=== PATIENT | female | born 1950 | race Caucasian/White ===

== ENCOUNTER 2017-12-30 12:06 | Inpatient (IN) | payer MEDICARE, OTHER, SELFPAY ==
[2017-12-17 13:18] VITALS: BP 155/62; PULSE 73; RESP 17; TEMP 37; O2SAT 95; BMI 47.0
[2017-12-17 14:25] LABS: Hematocrit 34.2 % (37-47); Hemoglobin 10.6 g/dl (12.0-15.0); Mean Corpuscular Hgb 26.9 pg (27.0-32.0); Mean Corpuscular Volume 86.8 fL (81-99); Mean Platelet Vol. 8.7 fl (6.2-12.0); Platelet Count 234 K/mm3 (150-450); RBC Distribution Width CV 13.5 % (11.6-14.6); Red Blood Count 3.94 M/mm3 (4.2-5.4); White Blood Count 7.4 K/mm3 (4.4-11.0)
[2017-12-17 14:31] LABS: Scan Indicated on CBC? Y/N NO
[2017-12-17 14:35] LABS: Partial Thromboplast Time 33.2 Seconds (24.1-36.2)
[2017-12-17 14:36] LABS: AST(SGOT) 8 U/L (15-37); Alanine Aminotransfer ALT/SGPT 23 U/L (12-78); Albumin, Serum 3.7 g/dL (3.4-5.0); Alkaline Phosphatase 68 U/L (45-117); Anion Gap 10 (5-15); BUN 28 mg/dL (7-18); BUN/Creat Ratio 26.9 RATIO (10-20); Bilirubin, Direct 0.09 mg/dL (0.00-0.30); Calcium,Total 8.9 mg/dL (8.5-10.1); Chloride 104 mmol/L (98-107); Creatinine, Serum 1.04 mg/dL (0.55-1.02); EST Glomerular Filtration Rate 56 mL/min (>60); Est Glom Filt Rate - Afr Amer 68 mL/min (>60); Estimated Creatinine Clearance 40.95 ml/min; Globulin 3.7 g/dL (2.2-4.2); Glucose 133 mg/dL (70-110); Potassium 4.1 mmol/L (3.5-5.1); Protein, Total 7.4 g/dL (6.4-8.2); Sodium Level 139 mmol/L (136-145)
[2017-12-17 14:52] LABS: Hemoglobin A1c 7.8 % (4.2-6.3)
[2017-12-17 15:00] LABS: International Normalized Ratio 1.1; Prothrombin Time (Protime)PT. 13.5 SECONDS (11.7-14.9)
[2017-12-19 11:12] VITALS: BP 147/90; BMI 48.6
--- NOTE | 2017-12-27 14:39 | CASEMGMT ---
RN CM called to discuss discharge needs for after scheduled surgery. No answer, voicemail left for request to call back and contact information. Pre admission assessment review and plan is to return home after surgery. RN ANITA will follow-up with patient post-op to discuss discharge needs.
[2017-12-30] VITALS (11 sets, daily range): BP systolic 100–153; BP diastolic 51–87; PULSE 65–72; RESP 16–18; TEMP 36.1–37.3; O2SAT 93–99; BMI 47.0
[2017-12-30] MEDS: Celecoxib 200 MG Capsule 400 MG PO (08:15)
[2017-12-30] MEDS: oxyCODONE HCl Cr 10 MG Tablet PO (08:15)
[2017-12-30] MEDS: Acetaminophen 500 MG Tablet 1000 MG PO ×3 (08:15→21:19)
[2017-12-30 08:26] LABS: Bedside Glucose 140 mg/dL (70-110)
[2017-12-30] MEDS: Lactated Ringers 1,000 ML 999 ML IV (08:32)
[2017-12-30] MEDS: Cefazolin 2 GM in 0.9% Normal Saline 100 ML IV (10:18)
--- NOTE | 2017-12-30 12:12 | PCM.OPRPT ---
Report of Operation Date of Procedure: 12/30/17 Pre-Operative Diagnosis: 1: Severe osteoarthritis left knee. 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 They have failed all forms of conservative measures including activity modification, injections, anti-inflammatories, use of assistive device. The patient has pain that affects on a daily basis and prevents him from doing things that they enjoyed. They have elected to undergo the above procedure. The risks of the procedure were discussed at length and their questions were answered. Procedure description: The patient was greeted in the preoperative area. The left knee was then marked with a surgical marker. Patient was then taken to or [address]. They were administered a dose of antibiotics as well as tranexamic acid. Once adequate anesthesia was obtained and airway was secured to placed in supine position on the operating room table. A well-padded tourniquet was placed on the affected extremity. Leg was then prepped and draped in the usual sterile fashion from the knee down. Ioban was used on the skin. Surgical timeout was then performed and confirmed with all present. Six-inch Esmarch was used to examine the limb and tourniquet was then inflated to 250 mmHg. A longitudinal incision was then planned and carried out in the anterior aspect of the knee. The dissection was then carried the length of the incision the extensor mechanism was identified. Standard medial parapatellar arthrotomy was then performed revealing severe eburnation of bone and periarticular osteophytes. There is complete loss of cartilage especially in the medial compartment with varus alignment. Anterior fat pad was removed for visualization purposes and the anterior medial aspect of the tibia was skeletonized for exposure to the knee. The knee was then flexed the patella was inverted. Opening reamer was then used in the femur approximately 1 cm anterior to the attachment of the PCL. The intramedullary valgus wand was then placed in the femur set at 5? of valgus. The distal femoral cutting jig was then applied to the femur with anticipated resection of approximately 8 mm. This was then made with a oscillating saw. The sizing guide was then placed referencing off the posterior condyles and also reference off the epicondylar axis. This was measured and the appropriate size 4-in-1 cutting jig was then applied to the distal femur. Anterior posterior cuts were made followed by the anterior and posterior chamfer cuts. These bony pieces and fragments were removed and placed on the back table. Posterior retractor was then utilized and the tibia was subluxed anteriorly. Extramedullary tibial alignment jig was then applied to the tibia referencing off the medial one third of the tibial tubercle the anterior tibial spine the middle aspect of the tibiotalar joint. Also reference off patient's [place] slope. The tibial cutting jig was then pinned with anticipated resection of 2 mm off of the deficient medial tibial condyle. This cut was made with the oscillating saw. Once this was complete a laminar special education professor was utilized in both medial lateral meniscus were removed and a posterior capsular osteophytes were also removed. Posterior capsule release was performed in the posterior capsule as well as the geniculate arteries are treated with the aqua Sonia. The tibia was incised and the appropriate sized tibial tray was then pinned. The femoral box cutting jig was then applied to the femur and the box was prepared removing a portion of the intercondylar notch. The femoral trial was then placed and the knee was trialed. Full flexion-extension were easily achieved. The knee seemed to balance quite nicely. Any remaining osteophytes were removed at this time. Once this was complete the patella was everted and the Enoch patella reaming device was then utilized the patella was then placed in the appropriate jig and reamer was then used to remove approximately 9 mm of the undersurface of the patella. A soft tissue remaining was in the way was removed and patella trial was then placed listed maintain excellent tracking using the no thumbs technique. The tibial tray at this point was punched to accommodate the fins of the final implant. At this point cement was mixed on the back table. The trial components were removed and the knee was copiously irrigated. Did use a cocktail of injection for postoperative pain control. The final components were then cemented in the standard fashion and excess cement was removed with cement removal tools and patellar clamp is placed in the patella. As the cement had cured in full extension tourniquet was deflated and hemostasis was perfect with Bovie cautery as well as the aqua Manus. Needle is once again trialed with different size polyethylenes to ensure the full range of motion was achieved as well as excellent balancing ligamentously was achieved. The knee was then copiously irrigated.. Final implant was then inserted locking mechanism was engaged and confirmed to be locked. The arthrotomy was then closed with #1 Vicryl aggravate type fashion interrupted. Subcutaneous tissue was closed with 0 Vicryl and surgical helen were placed in the skin. A occlusive silver impregnated dressing was then applied followed by well-padded sterile dressing secured with an Yrn wrap. The patient was taken to the PACU in stable condition. No complications known at this time. Postoperatively we will maintain standard total knee postoperative protocol. Patient's BMI was such that the required additional assistance and additional time as well as more effort in order to perform a successful well aligned total knee arthroplasty. Patient has approximately 2-1/2-3 inches of subcutaneous fat in the suprapatellar region. This made exposure difficult as well as retraction of the soft tissue in order to see the knee during the surgery. In addition because of her size tourniquet was certainly not as effective in terms of stopping bleeding which also complicated the surgery further - Complications none - Admit VTE Documentation VTE Present on Admission: Yes VTE Mechan Device Prophylaxis: SCD's, Thigh High ADRIANE Hose VTE Pharm Prophylaxis ordered?: Yes
[2017-12-30 14:16] LABS: Bedside Glucose 170 mg/dL (70-110)
[2017-12-30] MEDS: Lactated Ringers 1,000 ML 125 ML IV (14:23)
[2017-12-30] MEDS: Aspirin 325 MG Tablet PO (17:24)
[2017-12-30] MEDS: oxyCODONE 5 MG Tablet PO ×2 (17:24→22:45)
[2017-12-30] MEDS: Cefazolin 1 GM/50 ML BAG IV (18:33)
[2017-12-30] MEDS: Senna/Docusate Sodium 1 Tablet 2 TABLET PO (21:19)
[2017-12-31] VITALS (8 sets, daily range): BP systolic 140–182; BP diastolic 55–60; PULSE 72–85; RESP 16–20; TEMP 36.6–37.4; O2SAT 92–98
[2017-12-31] MEDS: Lactated Ringers 1,000 ML 125 ML IV (01:03)
[2017-12-31] MEDS: Cefazolin 1 GM/50 ML BAG IV (01:03)
[2017-12-31] MEDS: oxyCODONE 5 MG Tablet PO ×4 (05:51→20:20)
[2017-12-31] MEDS: Acetaminophen 500 MG Tablet 1000 MG PO ×3 (05:52→22:04)
--- NOTE | 2017-12-31 07:54 | PCM.PN.ORT ---
Subjective: Patient sitting at bedside eating breakfast. Patient states pain is well-managed. Patient denies chest pain, shortness breath, calf pain, nausea vomiting. No other complaints Objective: Dressing is clean dry intact. Vital signs labs within normal limits. Patient is afebrile, neurovascular is otherwise intact. Negative signs and symptoms of DVT. No respiratory distress. - Physical Exam General: Alert, Oriented x3, Cooperative HEENT: PERRLA Oral: Moist Mucosa Neurological: Cranial nerves II-XII grossly intact Psych/Mental Status: Normal Affect, Alert and oriented to time, place, person, mood and affect Vital Signs Temp Pulse Resp BP Pulse Ox 99.3 F H 72 16 153/60 H 93 12/31/17 05:55 12/31/17 05:55 12/31/17 05:55 12/31/17 05:55 12/31/17 07:25 Oxygen Flow Rate 1.5 Oxygen Delivery Method Nasal Cannula Weight: 116.6 kg Body Mass Index (BMI) 47.0 Finger Stick Blood Glucose 170 Intake and Output for Last 24 Hours 12/29/17 12/30/17 12/31/17 23:59 23:59 23:59 Intake Total 1250 / 1250 1489 / 1489 Output Total 300 / 300 Balance 1250 / 1250 1189 / 1189 POC Glucose 12/30/17 12/30/17 14:11 08:08 POC Glucose 170 H 140 H Assessment/Plan Status post left total knee Plan 1. Continue all pain medications as prescribed 2. Begin physical therapy today weight-bear as tolerated with walker 3. Aspirin 325 mg 1 p.o. every 12 hours ?30 days for postop DVT prophylaxis 4. Encourage incentive spirometry 5. Possible discharge to [facility] fourth floor rehab tomorrow
[2017-12-31] MEDS: Aspirin 325 MG Tablet PO ×2 (08:20→17:25)
[2017-12-31] MEDS: Famotidine 20 MG Tablet PO (10:00)
[2017-12-31] MEDS: Furosemide 40 MG Tablet PO (10:00)
[2017-12-31] MEDS: TADALAFIL 20 MG TABLET 40 MG PO (10:01)
[2017-12-31] MEDS: Senna/Docusate Sodium 1 Tablet 2 TABLET PO ×2 (10:01→22:04)
--- NOTE | 2017-12-31 10:11 | CASEMGMT ---
Social Work Note Update by MONSERRAT Morfin - that pt is requesting RU at discharge and they are anticipating discharge tomorrow, 01/01. Placed call to Nay on the RU who will submit to insurance to see if they will approve. Will notify SW once determination is made. Plan: RU pending pre-cert. JOSE ChaudharyW
[2017-12-31 22:16] LABS: Bedside Glucose 357 mg/dL (70-110)
[2017-12-31] MEDS: Losartan Potassium 25 MG Tablet PO (23:00)
[2017-12-31] MEDS: Metoprolol(XL)Succ 25 MG Tablet 12.5 MG PO (23:00)
[2018-01-01] VITALS (8 sets, daily range): BP systolic 119–152; BP diastolic 42–66; PULSE 66–80; RESP 18–20; TEMP 36.7–37.8; O2SAT 90–94
[2018-01-01] MEDS: oxyCODONE 5 MG Tablet PO ×3 (02:23→13:58)
[2018-01-01] MEDS: Acetaminophen 500 MG Tablet 1000 MG PO ×3 (06:32→22:21)
[2018-01-01 06:42] LABS: Bedside Glucose 231 mg/dL (70-110)
[2018-01-01] MEDS: Furosemide 40 MG Tablet PO (08:19)
[2018-01-01] MEDS: TADALAFIL 20 MG TABLET 40 MG PO (08:19)
[2018-01-01] MEDS: Aspirin 325 MG Tablet PO ×2 (08:19→17:39)
[2018-01-01] MEDS: Ketorolac 15 MG/ML Vial IV ×2 (08:20→22:22)
[2018-01-01] MEDS: Famotidine 20 MG Tablet PO (08:20)
[2018-01-01] MEDS: Senna/Docusate Sodium 1 Tablet 2 TABLET PO ×2 (08:20→22:22)
--- NOTE | 2018-01-01 08:56 | CASEMGMT ---
Social Work Note Face to face with pt to discuss discharge plan. Introduced self and role at [facility]. Inform that we are still waiting on pre-cert for RU, but once obtained will have her transferred over. Pt expresses understanding. SW to continue to follow and assist with discharge planning. Plan: RU pending pre-cert. JOSE ChaudharyW
[2018-01-01] MEDS: Losartan Potassium 25 MG Tablet PO (10:11)
[2018-01-01] MEDS: Metoprolol(XL)Succ 25 MG Tablet 12.5 MG PO (10:12)
--- NOTE | 2018-01-01 11:14 | CASEMGMT ---
Social Work Note Placed call to Nay to check on status of pre-cert. At this time it has yet to be obtained. SW to continue to follow and assist with discharge planning. Plan: RU pending pre-cert. JOSE ChaudharyW
[2018-01-01 11:36] LABS: Bedside Glucose 271 mg/dL (70-110)
--- NOTE | 2018-01-01 12:03 | PCM.PN.ORT ---
Subjective: Patient sitting at bedside, pain well managed. Patient has no complaints, denies chest pain, shortness breath, calf pain, vomiting. Patient states she is ready for discharge to [facility] for for rehab. Objective: Dressings clean dry intact. Vital normal limits. Negative signs and symptoms of DVT. - Physical Exam General: Alert, Oriented x3 HEENT: PERRLA Neurological: Cranial nerves II-XII grossly intact Psych/Mental Status: Normal Affect, Alert and oriented to time, place, person, mood and affect Vital Signs Temp Pulse Resp BP Pulse Ox 98.1 F 68 18 151/66 H 93 01/01/18 08:20 01/01/18 10:12 01/01/18 08:20 01/01/18 08:20 01/01/18 08:20 Oxygen Flow Rate 0.5 Oxygen Delivery Method Room Air Weight: 116.6 kg Body Mass Index (BMI) 47.0 Finger Stick Blood Glucose 170 Intake and Output for Last 24 Hours 12/30/17 12/31/17 01/01/18 23:59 23:59 23:59 Intake Total 1250 / 1250 2149 / 2149 700 / 700 Output Total 700 / 700 Balance 1250 / 1250 1449 / 1449 700 / 700 POC Glucose 01/01/18 01/01/18 12/31/17 11:31 06:30 22:07 POC Glucose 271 H 231 H 357 H Assessment/Plan Status post left total knee Hyperglycemia Plan 1. Continue all pain medications as prescribed 2. Continue physical therapy and patient [facility] fourth floor rehab weight-bear as tolerated with walker 3. Aspirin 325 mg 1 p.o. every 12 hours ?30 days for postop DVT prophylaxis 4. Follow-up as scheduled 5. Discharge today
--- NOTE | 2018-01-01 12:06 | PN.ORTHO_ITS ---
Subjective: Patient sitting at bedside, pain well managed. Patient has no complaints, denies chest pain, shortness breath, calf pain, vomiting. Patient states she is ready for discharge to [facility] for for rehab. Objective: Dressings clean dry intact. Vital normal limits. Negative signs and symptoms of DVT. - Physical Exam General: Alert, Oriented x3 HEENT: PERRLA Neurological: Cranial nerves II-XII grossly intact Psych/Mental Status: Normal Affect, Alert and oriented to time, place, person, mood and affect Vital Signs Temp Pulse Resp BP Pulse Ox 98.1 F 68 18 151/66 H 93 01/01/18 08:20 01/01/18 10:12 01/01/18 08:20 01/01/18 08:20 01/01/18 08:20 Oxygen Flow Rate 0.5 Oxygen Delivery Method Room Air Weight: 116.6 kg Body Mass Index (BMI) 47.0 Finger Stick Blood Glucose 170 Intake and Output for Last 24 Hours 12/30/17 12/31/17 01/01/18 23:59 23:59 23:59 Intake Total 1250 / 1250 2149 / 2149 700 / 700 Output Total 700 / 700 Balance 1250 / 1250 1449 / 1449 700 / 700 POC Glucose 01/01/18 01/01/18 12/31/17 11:31 06:30 22:07 POC Glucose 271 H 231 H 357 H Assessment/Plan Status post left total knee Hyperglycemia Plan 1. Continue all pain medications as prescribed 2. Continue physical therapy and patient [facility] fourth floor rehab weight-bear as tolerated with walker 3. Aspirin 325 mg 1 p.o. every 12 hours ?30 days for postop DVT prophylaxis 4. Follow-up as scheduled 5. Discharge today
--- NOTE | 2018-01-01 12:15 | PCM.DC.TKR ---
Discharge Diet: No Restrictions Discharge Activity: May Not Drive, May Shower, Use Walker May shower in (days): 1 Ice area for (Minutes): 20 - each hour while awake. Weight Bearing Status: Weight bearing as tolerated Elevate: Operative Extremity Additional Activity Instructions:: Wear elastic stockings for 2 weeks after your surgery. Call your doctor if your incision/area has: Continuous Slow Oozing, Sudden Increased Bleeding, Increased Pain/ Swelling, Increased Redness, Foul Smelling Discharge Call your doctor if you observe: Fever of 101 or Higher, Coldness, Increased Pain - in extremity, Numbness or Tingling, Change in Color, Calf discomfort, Uncontrolled pain Change Dressing in (Days):: 0 - and daily as needed. Remove Dressing in (days):: 9 Cleanse incision/area with: Soap & Water Allergies/Adverse Reactions: Allergies nitrofurantoin [From Macrobid] Allergy (Severe, Verified 12/17/17 13:06) Anaphylaxis nitrofurantoin macrocrystalline [From Macrobid] Allergy (Severe, Verified 12/17/17 13:06) Anaphylaxis sulfamethoxazole [From Bactrim] Adverse Reaction (Intermediate, Verified 12/17/17 13:06) Hives trimethoprim [From Bactrim] Adverse Reaction (Intermediate, Verified 12/17/17 13:06) Hives Medications to take at Discharge Ferrous Sulfate 325 mg PO BID 07/21/14 Insulin Glargine [Lantus SoloStar Pen] 72 units SC QHS 07/21/14 BuPROPion (XL) [Wellbutrin Xl] 150 mg PO DAILY 05/19/15 Escitalopram Oxalate [Lexapro] 40 mg PO DAILY 05/19/15 Fluticasone/Salmeterol [Advair 250/50 Mcg Diskus] 1 puff INHALATION BID 05/19/15 Fulvestrant [Faslodex] 250 mg IM QMONTH 05/23/15 Pravastatin [Pravachol] 20 mg PO QHS 06/14/16 Losartan Potassium [Cozaar] 25 mg PO DAILY 10/15/16 Omeprazole [Prilosec] 40 mg PO DAILY 04/01/17 liraglutide 0.6 mg/0.1 mL (18 mg/3 mL) subcutaneous pen injector 1.2 mg SC DAILY 30 Days #6 10/29/17 mirabegron ER 50 mg tablet,extended release 24 hr 50 mg PO DAILY 30 Days #30 10/29/17 Albuterol IH (ProAir) [Proair Hfa] 2 puff INHALATION Q4H PRN PRN 12/17/17 Furosemide [Lasix] 40 mg PO DAILY 12/17/17 Metformin HCl [Glucophage] 1,000 mg PO BIDCM 12/17/17 Montelukast [Singulair] 10 mg PO DAILY 12/17/17 Tadalafil [Adcirca] 40 mg PO DAILY 12/17/17 Cranberry Conc/C/Bacill Coag [Cranberry Tablet] 1 each PO DAILY 12/19/17 Lorazepam [Ativan] 1 mg PO TID PRN PRN 12/19/17 Metoprolol Succinate [Toprol Xl] 12.5 mg PO DAILY 12/19/17 Acetaminophen [Tylenol] 1,000 mg PO Q8 #90 tab 01/01/18 Albuterol IH (ProAir) [Proair Hfa] 1 puff INHALATION Q4H PRN PRN inhaler 01/01/18 Aspirin 325 mg PO BIDCM #60 tab 01/01/18 Ferrous Sulfate 325 mg PO BIDCM tablet 01/01/18 Fluticasone/Salmeterol [Advair 250/50 Mcg Diskus] 1 puff INHALATION BID inhaler 01/01/18 Furosemide [Lasix] 40 mg PO DAILY tablet 01/01/18 Insulin Aspart [Novolog Flexpen] See Protocol SC ACHS flexpen 01/01/18 Insulin Detemir [Levemir FlexPen] 72 units SC QHS insuln.pen 01/01/18 Lorazepam [Ativan] 1 mg PO Q8H PRN PRN tablet 01/01/18 Metformin HCl [Glucophage] 1,000 mg PO BIDCM tablet 01/01/18 Metoprolol(XL)Succ [Toprol Xl (Beta Kris)] 12.5 mg PO DAILY tablet 01/01/18 Mirabegron [Myrbetriq] 50 mg PO DAILY tab.er.24h 01/01/18 Montelukast [Singulair] 10 mg PO DAILY@1700 tablet 01/01/18 MorphINE [Ms Contin] 15 mg PO BID 7 Days #30 tab 01/01/18 Oxycodone [Oxyir] 5 - 10 mg PO Q4H PRN PRN 7 Days #30 tab 01/01/18 Pravastatin [Pravachol] 20 mg PO QHS tablet 01/01/18 Senna/Docusate Sodium [Senokot-S] 2 tablet PO BID tablet 01/01/18 Tadalafil [Adcirca] 40 mg PO DAILY tablet 01/01/18 The following prescriptions were given: Oxycodone [Oxyir] 5 - 10 mg PO Q4H PRN PRN 7 Days #30 tab PRN Reason: Mod-Severe Pain (-09/03) Acetaminophen [Tylenol] 1,000 mg PO Q8 #90 tab Aspirin 325 mg PO BIDCM #60 tab MorphINE [Ms Contin] 15 mg PO BID 7 Days #30 tab Primary Care Physician: Lety Seymour [Primary Care Provider] - Please Follow Up With: Norberto Lay DO When: see pink sheet
--- NOTE | 2018-01-01 13:44 | CASEMGMT ---
Medicare Outpatient Observation Notice review with patient. Patient voiced understanding at this time. Patient provided with signed copy and original filed on chart. Patient voiced no concerns or questions at this time.
[2018-01-01] MEDS: Lactated Ringers 1,000 ML 125 ML IV (13:57)
--- NOTE | 2018-01-01 14:45 | CASEMGMT ---
RN ANITA discussed discharge plans with patient. RN ANITA explained that CM is still waiting to hear back regarding pre-cert for rehab unit. Discussed possibility of pre-cert getting denied. MONSERRAT HOWARD discussed with patient other options for discharge disposition including TCU if bed available and pending precert or if she would like to go to a shelter facility. MONSERRAT HOWARD provided patient with list of in-network SNF with patient's insurance. Patient tearful and would like to review list and follow back up with CM. MONSERRAT HOWARD will follow-up with patient by end of day to inquire if patient has additional options for discharge planning.
[2018-01-01 16:56] LABS: Bedside Glucose 238 mg/dL (70-110)
[2018-01-01] MEDS: Montelukast 10 MG Tablet PO (17:40)
[2018-01-01] MEDS: Ferrous Sulfate 325 MG Tablet PO (17:40)
[2018-01-01] MEDS: metFORMIN HCl 1,000 MG Tablet 1000 MG PO (17:40)
[2018-01-01] MEDS: Albuterol 2.5 MG/3 ML VIAL.NEB. INHALATION (19:31)
[2018-01-01] MEDS: Budesonide Respules 0.5 MG/2 ML AMPUL.NEB. INHALATION (19:32)
[2018-01-01] MEDS: LORazepam 1 MG Tablet PO (22:22)
[2018-01-01] MEDS: Pravastatin 20 MG Tablet PO (22:22)
[2018-01-01] MEDS: Escitalopram Oxalate 20 MG Tablet 40 MG PO (22:28)
--- NOTE | 2018-01-01 22:36 | NURSING ---
Pt is confused tonight, she states she is not in the same room she was in, she dosent understand why we moved her. She states she thinks her bags are spread all over the floor and thought a blue chucks on the floor under the polar care was her robe. Pt was upset and crying. Once pt was calmed down she states that she is not confused at home and thinks that the pain medication is what is causing her confusion. She asked to not get the pain meds anymore.
[2018-01-01 22:37] LABS: Bedside Glucose 291 mg/dL (70-110)
[2018-01-02 06:18] VITALS: BP 141/52; PULSE 66; RESP 16; TEMP 37.1; O2SAT 93
[2018-01-02] MEDS: Acetaminophen 500 MG Tablet 1000 MG PO (06:22)
[2018-01-02 06:37] LABS: Bedside Glucose 169 mg/dL (70-110)
[2018-01-02 07:38] VITALS: PULSE 78; RESP 18; O2SAT 95
[2018-01-02] MEDS: Albuterol 2.5 MG/3 ML VIAL.NEB. INHALATION (07:38)
[2018-01-02] MEDS: Budesonide Respules 0.5 MG/2 ML AMPUL.NEB. INHALATION (07:38)
[2018-01-02 07:53] VITALS: PULSE 66
[2018-01-02] MEDS: LORazepam 1 MG Tablet PO (07:53)
[2018-01-02] MEDS: Furosemide 40 MG Tablet PO (07:53)
[2018-01-02] MEDS: Metoprolol(XL)Succ 25 MG Tablet 12.5 MG PO (07:53)
[2018-01-02] MEDS: 0.9% NaCl Peripheral Flush Adult/Peds IV (07:53)
[2018-01-02] MEDS: Ondansetron 4 MG/2 ML Vial IV (07:53)
[2018-01-02] MEDS: TADALAFIL 20 MG TABLET 40 MG PO (07:54)
--- NOTE | 2018-01-02 08:41 | CASEMGMT ---
Social Work Note Call from Nay on RU stating that pre-cert was obtained. Notified headliner installer, Nury, who obtained a verbal from Joon Rand PA-C. Notified bedside RN, Kj, that pt is able to d/c to RU once time coordinated between him and nursing staff on RU. No additional needs at this time. Plan: RU for continued therapy. Lisandra Eastman, PLUG SHAPER HAND, CRIMP SETTER
[2018-01-02] MEDS: Aspirin 325 MG Tablet PO (09:27)
[2018-01-02] MEDS: metFORMIN HCl 1,000 MG Tablet 1000 MG PO (09:27)
[2018-01-02] MEDS: Ferrous Sulfate 325 MG Tablet PO (09:28)
[2018-01-02] MEDS: Losartan Potassium 25 MG Tablet PO (09:28)
[2018-01-02] MEDS: Famotidine 20 MG Tablet PO (09:29)
[2018-01-02] MEDS: Escitalopram Oxalate 20 MG Tablet 40 MG PO (09:29)
[2018-01-02] MEDS: Mirabegron 50 MG TAB.ER.24H PO (09:29)
[2018-01-02] MEDS: Senna/Docusate Sodium 1 Tablet 2 TABLET PO (09:35)
[2018-01-02 09:39] VITALS: BP 135/49; PULSE 75; RESP 16; TEMP 36.7; O2SAT 93
--- NOTE | 2018-01-02 10:14 | PCM.HP.STD ---
History of Present Illness Date of Admission: 01/02/18 Chief Complaint: left knee pain The patient is a 67 year old right handed female presents to the rehab unit with debility after left tkr performed 12/30/[address] lozoya, uncomplicated, no other complications or gi /gu complaints, last bm was 4days. pain is currently controlled, lives alone in an apartment, no steps. close friend lives in [place]. reports history of breast cancer metastatic to lungs, no other mets, currently kept controlled with hormone injections. no presents to rehab with debility, plan to improve function so she can return to her previous level of independence. Past Medical History Past Medical History (Chronic Problems): Chronic Problems (Last Reviewed 11/21/17 @ 11:28 by Sherly Edwards) Metastatic carcinoma to lung (Chronic) Cancer of left breast, stage 4 (Chronic) Diabetes mellitus type II, controlled (Chronic) Fibromyalgia (Chronic) Metastasis to lung (Chronic) Pulmonary hypertension (Chronic) Hypertension (Chronic) Osteoarthritis (Chronic) History of DVT (deep vein thrombosis) (Chronic) LOLY (obstructive sleep apnea) (Chronic) Morbid obesity with BMI of 50.0-59.9, adult (Chronic) COPD (chronic obstructive pulmonary disease) (Chronic) Hypomagnesemia (Chronic) Chronic anemia (Chronic) CAD (coronary artery disease) (Chronic) S/P PTCA (percutaneous transluminal coronary angioplasty) (Chronic ~2016) [place]- Circumflex HLD (hyperlipidemia) (Chronic) Diastolic CHF, chronic (Chronic) Allergies nitrofurantoin [From Macrobid] Allergy (Severe, Verified 12/17/17 13:06) Anaphylaxis nitrofurantoin macrocrystalline [From Macrobid] Allergy (Severe, Verified 12/17/17 13:06) Anaphylaxis sulfamethoxazole [From Bactrim] Adverse Reaction (Intermediate, Verified 12/17/17 13:06) Hives trimethoprim [From Bactrim] Adverse Reaction (Intermediate, Verified 12/17/17 13:06) Hives Home Medications: Ambulatory Orders Medication Instructions Recorded Ferrous Sulfate 325 mg PO BID 07/21/14 Insulin Glargine [Lantus SoloStar 72 units SC QHS 07/21/14 Pen] BuPROPion (XL) [Wellbutrin Xl] 150 mg PO DAILY 05/19/15 Escitalopram Oxalate [Lexapro] 40 mg PO DAILY 05/19/15 Fluticasone/Salmeterol [Advair 1 puff INHALATION BID 05/19/15 250/50 Mcg Diskus] Fulvestrant [Faslodex] 250 mg IM QMONTH MDD takes on 05/23/15 of each month Pravastatin [Pravachol] 20 mg PO QHS 06/14/16 Losartan Potassium [Cozaar] 25 mg PO DAILY 10/15/16 Omeprazole [Prilosec] 40 mg PO DAILY 04/01/17 liraglutide 0.6 mg/0.1 mL (18 mg/3 1.2 mg SC DAILY 30 Days #6 10/29/17 mL) subcutaneous pen injector mirabegron ER 50 mg 50 mg PO DAILY 30 Days #30 10/29/17 tablet,extended release 24 hr Albuterol IH (ProAir) [Proair Hfa] 2 puff INHALATION Q4H PRN PRN 12/17/17 Furosemide [Lasix] 40 mg PO DAILY 12/17/17 Metformin HCl [Glucophage] 1,000 mg PO BIDCM 12/17/17 Montelukast [Singulair] 10 mg PO DAILY 12/17/17 Tadalafil [Adcirca] 40 mg PO DAILY 12/17/17 Cranberry Conc/C/Bacill Coag 1 each PO DAILY 12/19/17 [Cranberry Tablet] Lorazepam [Ativan] 1 mg PO TID PRN PRN 12/19/17 Metoprolol Succinate [Toprol Xl] 12.5 mg PO DAILY 12/19/17 Acetaminophen [Tylenol] 1,000 mg PO Q8 #90 tab 01/01/18 Albuterol IH (ProAir) [Proair Hfa] 1 puff INHALATION Q4H PRN PRN 01/01/18 inhaler Aspirin 325 mg PO BIDCM #60 tab 01/01/18 Ferrous Sulfate 325 mg PO BIDCM tablet 01/01/18 Fluticasone/Salmeterol [Advair 1 puff INHALATION BID inhaler 01/01/18 250/50 Mcg Diskus] Furosemide [Lasix] 40 mg PO DAILY tablet 01/01/18 Insulin Aspart [Novolog Flexpen] See Protocol SC ACHS flexpen 01/01/18 Insulin Detemir [Levemir FlexPen] 72 units SC QHS insuln.pen 01/01/18 Lorazepam [Ativan] 1 mg PO Q8H PRN PRN tablet 01/01/18 Metformin HCl [Glucophage] 1,000 mg PO BIDCM tablet 01/01/18 Metoprolol(XL)Succ [Toprol Xl 12.5 mg PO DAILY tablet 01/01/18 (Beta Kris)] Mirabegron [Myrbetriq] 50 mg PO DAILY tab.er.24h 01/01/18 Montelukast [Singulair] 10 mg PO DAILY@1700 tablet 01/01/18 MorphINE [Ms Contin] 15 mg PO BID 7 Days #30 tab 01/01/18 Oxycodone [Oxyir] 5 - 10 mg PO Q4H PRN PRN 7 Days 01/01/18 #30 tab Pravastatin [Pravachol] 20 mg PO QHS tablet 01/01/18 Senna/Docusate Sodium [Senokot-S] 2 tablet PO BID tablet 01/01/18 Tadalafil [Adcirca] 40 mg PO DAILY tablet 01/01/18 Surgical History: angioplasty Psychiatric History: Anxiety, Depression Smoking Status: Never smoker - *Family History Maternal History Items: No pertinent history Paternal History Items: No pertinent history Review of Systems Constitutional: Denies: Chills, Fever, Weight Change HEENT: Denies: Head Aches, Sinus Congestion, Sinus Drainage Cardiovascular: Denies: Chest Pain, Palpitations Respiratory: Denies: Cough, Shortness of breath at rest, Sputum production Gastrointestinal: Denies: Abdominal Pain, Nausea, Vomiting Genitourinary: Denies: Dysuria Musculoskeletal: Denies: Joint Pain, Joint Tenderness Skin: Denies: Rash, Wounds Neurological: Denies: Numbness, Tingling, Focal weakness Psychiatric: Denies: Anxiety, Depression, Homicidal Ideations, Suicidal Ideations Hematologic/ Lymphatic: Denies: Easy Bruising, Easy Bleeding VTE Information - Inpt Only VTE Present on Admission: Yes VTE Mechan Device Prophylaxis: SCD's - Physical Exam General: Alert, Oriented x3, Cooperative HEENT: Atraumatic, PERRLA, EOMI, Normocephalic Neck: Supple, No JVD, Negative Carotid Bruits Lungs: Clear to auscultation, Normal air movement Cardiovascular: Regular rate, No murmurs Abdomen: Bowel Sounds Present, Soft, Non Tender Extremities: No edema, Capillary Refill Less than 3 Seconds Skin: No rashes, No breakdown Musculoskeletal: No Tenderness to Palpation of Joints or Extremities - left knee pain Neurological: Cranial nerves II-XII grossly intact Psych/Mental Status: Normal Affect, Appropriate Vital Signs Temp Pulse Resp BP Pulse Ox 36.7 C 75 16 135/49 H 93 01/02/18 09:39 01/02/18 09:39 01/02/18 09:39 01/02/18 09:39 01/02/18 09:39 Oxygen Flow Rate 0.5 Oxygen Delivery Method Room Air Weight: 116.6 kg Body Mass Index (BMI) 47.0 Finger Stick Blood Glucose 170 Intake and Output for Last 24 Hours 12/31/17 01/01/18 01/02/18 23:59 23:59 23:59 Intake Total 2149 / 2149 700 / 700 Output Total 700 / 700 Balance 1449 / 1449 700 / 700 POC Glucose 01/02/18 01/01/18 01/01/18 06:21 21:56 16:51 POC Glucose 169 H 291 H 238 H 01/01/18 11:31 POC Glucose 271 H Current Medications Acetaminophen 1,000 mg 12/30/17 14:00 01/02/18 06:22 Tylenol PO 1,000 mg Q8 DAX Administration Albuterol Sulfate 2.5 mg 01/01/18 12:50 01/02/18 07:38 Ventolin Aerosols INHALATION 2.5 mg Q6HWA.RT DAX Administration Aspirin 325 mg 12/30/17 17:00 01/02/18 09:27 Aspirin PO 325 mg BIDCM DAX Administration Budesonide 0.5 mg 01/01/18 12:50 01/02/18 07:38 Pulmicort Aerosol INHALATION 0.5 mg Q12H.RT DAX Administration Bupropion HCl 150 mg 01/02/18 10:00 01/02/18 09:29 Wellbutrin Xl PO 150 mg DAILY DAX Administration Escitalopram Oxalate 40 mg 01/02/18 10:00 01/02/18 09:29 Lexapro PO 40 mg DAILY DAX Administration Famotidine 20 mg 12/31/17 10:00 01/02/18 09:29 Pepcid PO 20 mg DAILY DAX Administration Ferrous Sulfate 325 mg 01/01/18 17:00 01/02/18 09:28 Ferrous Sulfate PO 325 mg BIDCM DAX Administration Furosemide 40 mg 12/31/17 10:00 01/02/18 07:53 Lasix PO 40 mg DAILY [facility] Administration Insulin Aspart 0 units 01/01/18 16:00 01/02/18 06:22 Novolog Flexpen ([facility]) SC 1 u ACHS DAX Administration Protocol Insulin Detemir 72 units 12/31/17 23:00 01/01/18 22:22 Levemir ([facility]) SC 72 u QHS [facility] Administration Ketorolac Tromethamine 15 mg 12/30/17 18:20 01/01/18 22:22 Toradol IV 15 mg Q6H PRN PRN Administration MILD-MOD PAIN (1-5/10) Lorazepam 1 mg 01/01/18 11:12 01/02/18 07:53 Ativan PO 1 mg Q8H PRN PRN Administration ANXIETY Losartan Potassium 25 mg 01/01/18 10:00 01/02/18 09:28 Cozaar PO 25 mg DAILY [facility] Administration Metformin HCl 1,000 mg 01/01/18 17:00 01/02/18 09:27 Glucophage PO 1,000 mg BIDCM [facility] Administration Metoprolol Succinate 12.5 mg 01/01/18 10:00 01/02/18 07:53 Toprol Xl (Beta Kris) PO 12.5 mg DAILY [facility] Administration Montelukast Sodium 10 mg 01/01/18 17:00 01/01/18 17:40 Singulair PO 10 mg DAILY@1700 [facility] Administration Morphine Sulfate 15 mg 12/30/17 22:00 01/02/18 09:38 Ms Contin PO Not Given BID [facility] Non-Formulary Medication 1.2 mg 01/01/18 10:00 Liraglutide SC DAILY [facility] Ondansetron HCl 4 mg 12/30/17 12:06 01/02/18 07:53 Zofran IV 4 mg Q8H PRN PRN Administration NAUSEA Oxycodone HCl 5 - 10 mg 12/30/17 12:06 01/01/18 13:58 Oxyir PO 10 mg Q4H PRN PRN Administration MOD-SEVERE PAIN (4-10/10) Pravastatin Sodium 20 mg 01/01/18 22:00 01/01/18 22:22 Pravachol PO 20 mg QHS [facility] Administration Promethazine HCl 12.5 mg 12/30/17 12:06 Phenergan (Ll) IM Q6H PRN PRN NAUSEA/VOMITING Protocol Senna/Docusate Sodium 2 tablet 12/30/17 22:00 01/02/18 09:35 Senokot-S, Sharda-Colace PO 2 tablet BID [facility] Administration Sodium Chloride 5 - 30 ml 12/30/17 08:17 01/02/18 07:53 IV 10 ml UD PRN Administration SALINE FLUSH Tadalafil 40 mg 12/31/17 10:00 01/02/18 07:54 Adcirca PO 40 mg DAILY [facility] Administration Assessment/Plan debility s/p left tkr, previously functionally independent, goal of rehab is mormon of functional independence. complicated by other medical issues including htn, dm, and metastatic breast cancer pt for gait and balance ot for adls prn analagesics dvt prophylaxis: scds and asa per ortho recs bowel protocol dm: levemir qhs and ssi bp control metastatic breast ca, follows with dr maddox in [place]. continue current hormonal rx
--- NOTE | 2018-01-02 10:26 | HP.PCM_ITS ---
History of Present Illness Date of Admission: 01/02/18 Chief Complaint: left knee pain The patient is a 67 year old right handed female presents to the rehab unit with debility after left tkr performed 12/30/[address] lozoya, uncomplicated, no other complications or gi /gu complaints, last bm was 4days. pain is currently controlled, lives alone in an apartment, no steps. close friend lives in [place]. reports history of breast cancer metastatic to lungs, no other mets, currently kept controlled with hormone injections. no presents to rehab with debility, plan to improve function so she can return to her previous level of independence. Past Medical History Past Medical History (Chronic Problems): Chronic Problems (Last Reviewed 11/21/17 @ 11:28 by Sherly Edwards) Metastatic carcinoma to lung (Chronic) Cancer of left breast, stage 4 (Chronic) Diabetes mellitus type II, controlled (Chronic) Fibromyalgia (Chronic) Metastasis to lung (Chronic) Pulmonary hypertension (Chronic) Hypertension (Chronic) Osteoarthritis (Chronic) History of DVT (deep vein thrombosis) (Chronic) LOLY (obstructive sleep apnea) (Chronic) Morbid obesity with BMI of 50.0-59.9, adult (Chronic) COPD (chronic obstructive pulmonary disease) (Chronic) Hypomagnesemia (Chronic) Chronic anemia (Chronic) CAD (coronary artery disease) (Chronic) S/P PTCA (percutaneous transluminal coronary angioplasty) (Chronic ~2016) [place]- Circumflex HLD (hyperlipidemia) (Chronic) Diastolic CHF, chronic (Chronic) Allergies nitrofurantoin [From Macrobid] Allergy (Severe, Verified 12/17/17 13:06) Anaphylaxis nitrofurantoin macrocrystalline [From Macrobid] Allergy (Severe, Verified 13:06) Anaphylaxis sulfamethoxazole [From Bactrim] Adverse Reaction (Intermediate, Verified 13:06) Hives trimethoprim [From Bactrim] Adverse Reaction (Intermediate, Verified 12/17/17 13 :06) Hives Home Medications: Ambulatory Orders Medication Instructions Recorded Ferrous Sulfate 325 mg PO BID 07/21/14 Insulin Glargine [Lantus SoloStar 72 units SC QHS 07/21/14 Pen] BuPROPion (XL) [Wellbutrin Xl] 150 mg PO DAILY 05/19/15 Escitalopram Oxalate [Lexapro] 40 mg PO DAILY 05/19/15 Fluticasone/Salmeterol [Advair 1 puff INHALATION BID 05/19/15 250/50 Mcg Diskus] Fulvestrant [Faslodex] 250 mg IM QMONTH MDD takes on 05/23/15 of each month Pravastatin [Pravachol] 20 mg PO QHS 06/14/16 Losartan Potassium [Cozaar] 25 mg PO DAILY 10/15/16 Omeprazole [Prilosec] 40 mg PO DAILY 04/01/17 liraglutide 0.6 mg/0.1 mL (18 mg/3 1.2 mg SC DAILY 30 Days #6 10/29/17 mL) subcutaneous pen injector mirabegron ER 50 mg 50 mg PO DAILY 30 Days #30 10/29/17 tablet,extended release 24 hr Albuterol IH (ProAir) [Proair Hfa] 2 puff INHALATION Q4H PRN PRN 12/17/17 Furosemide [Lasix] 40 mg PO DAILY 12/17/17 Metformin HCl [Glucophage] 1,000 mg PO BIDCM 12/17/17 Montelukast [Singulair] 10 mg PO DAILY 12/17/17 Tadalafil [Adcirca] 40 mg PO DAILY 12/17/17 Cranberry Conc/C/Bacill Coag 1 each PO DAILY 12/19/17 [Cranberry Tablet] Lorazepam [Ativan] 1 mg PO TID PRN PRN 12/19/17 Metoprolol Succinate [Toprol Xl] 12.5 mg PO DAILY 12/19/17 Acetaminophen [Tylenol] 1,000 mg PO Q8 #90 tab 01/01/18 Albuterol IH (ProAir) [Proair Hfa] 1 puff INHALATION Q4H PRN PRN 01/01/18 inhaler Aspirin 325 mg PO BIDCM #60 tab 01/01/18 Ferrous Sulfate 325 mg PO BIDCM tablet 01/01/18 Fluticasone/Salmeterol [Advair 1 puff INHALATION BID inhaler 01/01/18 250/50 Mcg Diskus] Furosemide [Lasix] 40 mg PO DAILY tablet 01/01/18 Insulin Aspart [Novolog Flexpen] See Protocol SC ACHS flexpen 01/01/18 Insulin Detemir [Levemir FlexPen] 72 units SC QHS insuln.pen 01/01/18 Lorazepam [Ativan] 1 mg PO Q8H PRN PRN tablet 01/01/18 Metformin HCl [Glucophage] 1,000 mg PO BIDCM tablet 01/01/18 Metoprolol(XL)Succ [Toprol Xl 12.5 mg PO DAILY tablet 01/01/18 (Beta Kris)] Mirabegron [Myrbetriq] 50 mg PO DAILY tab.er.24h 01/01/18 Montelukast [Singulair] 10 mg PO DAILY@1700 tablet 01/01/18 MorphINE [Ms Contin] 15 mg PO BID 7 Days #30 tab 01/01/18 Oxycodone [Oxyir] 5 - 10 mg PO Q4H PRN PRN 7 Days 01/01/18 #30 tab Pravastatin [Pravachol] 20 mg PO QHS tablet 01/01/18 Senna/Docusate Sodium [Senokot-S] 2 tablet PO BID tablet 01/01/18 Tadalafil [Adcirca] 40 mg PO DAILY tablet 01/01/18 Surgical History: angioplasty Psychiatric History: Anxiety, Depression Smoking Status: Never smoker - *Family History Maternal History Items: No pertinent history Paternal History Items: No pertinent history Review of Systems Constitutional: Denies: Chills, Fever, Weight Change HEENT: Denies: Head Aches, Sinus Congestion, Sinus Drainage Cardiovascular: Denies: Chest Pain, Palpitations Respiratory: Denies: Cough, Shortness of breath at rest, Sputum production Gastrointestinal: Denies: Abdominal Pain, Nausea, Vomiting Genitourinary: Denies: Dysuria Musculoskeletal: Denies: Joint Pain, Joint Tenderness Skin: Denies: Rash, Wounds Neurological: Denies: Numbness, Tingling, Focal weakness Psychiatric: Denies: Anxiety, Depression, Homicidal Ideations, Suicidal Ideations Hematologic/ Lymphatic: Denies: Easy Bruising, Easy Bleeding VTE Information - Inpt Only VTE Present on Admission: Yes VTE Mechan Device Prophylaxis: SCD's - Physical Exam General: Alert, Oriented x3, Cooperative HEENT: Atraumatic, PERRLA, EOMI, Normocephalic Neck: Supple, No JVD, Negative Carotid Bruits Lungs: Clear to auscultation, Normal air movement Cardiovascular: Regular rate, No murmurs Abdomen: Bowel Sounds Present, Soft, Non Tender Extremities: No edema, Capillary Refill Less than 3 Seconds Skin: No rashes, No breakdown Musculoskeletal: No Tenderness to Palpation of Joints or Extremities - left knee pain Neurological: Cranial nerves II-XII grossly intact Psych/Mental Status: Normal Affect, Appropriate Vital Signs Temp Pulse Resp BP Pulse Ox 36.7 C 75 16 135/49 H 93 01/02/18 09:39 01/02/18 09:39 01/02/18 09:39 01/02/18 09:39 01/02/18 09:39 Oxygen Flow Rate 0.5 Oxygen Delivery Method Room Air Weight: 116.6 kg Body Mass Index (BMI) 47.0 Finger Stick Blood Glucose 170 Intake and Output for Last 24 Hours 12/31/17 01/01/18 01/02/18 23:59 23:59 23:59 Intake Total 2149 / 2149 700 / 700 Output Total 700 / 700 Balance 1449 / 1449 700 / 700 POC Glucose 01/02/18 01/01/18 01/01/18 06:21 21:56 16:51 POC Glucose 169 H 291 H 238 H 01/01/18 11:31 POC Glucose 271 H Current Medications Acetaminophen 1,000 mg 12/30/17 14:00 01/02/18 06:22 Tylenol PO 1,000 mg Q8 DAX Administration Albuterol Sulfate 2.5 mg 01/01/18 12:50 01/02/18 07:38 Ventolin Aerosols INHALATION 2.5 mg Q6HWA.RT [facility]AX Administration Aspirin 325 mg 12/30/17 17:00 01/02/18 09:27 Aspirin PO 325 mg BIDCM [facility] Administration Budesonide 0.5 mg 01/01/18 12:50 01/02/18 07:38 Pulmicort Aerosol INHALATION 0.5 mg Q12H.RT [facility]AX Administration Bupropion HCl 150 mg 01/02/18 10:00 01/02/18 09:29 Wellbutrin Xl PO 150 mg DAILY [facility] Administration Escitalopram Oxalate 40 mg 01/02/18 10:00 01/02/18 09:29 Lexapro PO 40 mg DAILY [facility] Administration Famotidine 20 mg 12/31/17 10:00 01/02/18 09:29 Pepcid PO 20 mg DAILY [facility] Administration Ferrous Sulfate 325 mg 01/01/18 17:00 01/02/18 09:28 Ferrous Sulfate PO 325 mg BIDCM [facility] Administration Furosemide 40 mg 12/31/17 10:00 01/02/18 07:53 Lasix PO 40 mg DAILY [facility] Administration Insulin Aspart 0 units 01/01/18 16:00 01/02/18 06:22 Novolog Flexpen ([facility]) SC 1 u ACHS DAX Administration Protocol Insulin Detemir 72 units 12/31/17 23:00 01/01/18 22:22 Levemir ([facility]) SC 72 u QHS [facility] Administration Ketorolac Tromethamine 15 mg 12/30/17 18:20 01/01/18 22:22 Toradol IV 15 mg Q6H PRN PRN Administration MILD-MOD PAIN (1-5/10) Lorazepam 1 mg 01/01/18 11:12 01/02/18 07:53 Ativan PO 1 mg Q8H PRN PRN Administration ANXIETY Losartan Potassium 25 mg 01/01/18 10:00 01/02/18 09:28 Cozaar PO 25 mg DAILY [facility] Administration Metformin HCl 1,000 mg 01/01/18 17:00 01/02/18 09:27 Glucophage PO 1,000 mg BIDCM [facility] Administration Metoprolol Succinate 12.5 mg 01/01/18 10:00 01/02/18 07:53 Toprol Xl (Beta Kris) PO 12.5 mg DAILY [facility] Administration Montelukast Sodium 10 mg 01/01/18 17:00 01/01/18 17:40 Singulair PO 10 mg DAILY@1700 [facility] Administration Morphine Sulfate 15 mg 12/30/17 22:00 01/02/18 09:38 Ms Contin PO Not Given BID [facility] Non-Formulary Medication 1.2 mg 01/01/18 10:00 Liraglutide SC DAILY [facility] Ondansetron HCl 4 mg 12/30/17 12:06 01/02/18 07:53 Zofran IV 4 mg Q8H PRN PRN Administration NAUSEA Oxycodone HCl 5 - 10 mg 12/30/17 12:06 01/01/18 13:58 Oxyir PO 10 mg Q4H PRN PRN Administration MOD-SEVERE PAIN (4-10/10) Pravastatin Sodium 20 mg 01/01/18 22:00 01/01/18 22:22 Pravachol PO 20 mg QHS [facility] Administration Promethazine HCl 12.5 mg 12/30/17 12:06 Phenergan (Ll) IM Q6H PRN PRN NAUSEA/VOMITING Protocol Senna/Docusate Sodium 2 tablet 12/30/17 22:00 01/02/18 09:35 Senokot-S, Sharda-Colace PO 2 tablet BID [facility] Administration Sodium Chloride 5 - 30 ml 12/30/17 08:17 01/02/18 07:53 IV 10 ml UD PRN Administration SALINE FLUSH Tadalafil 40 mg 12/31/17 10:00 01/02/18 07:54 Adcirca PO 40 mg DAILY [facility] Administration Assessment/Plan debility s/p left tkr, previously functionally independent, goal of rehab is gnosticism of functional independence. complicated by other medical issues including htn, dm, and metastatic breast cancer * pt for gait and balance * ot for adls * prn analagesics * dvt prophylaxis: scds and asa per ortho recs * bowel protocol * dm: levemir qhs and ssi * bp control * metastatic breast ca, follows with dr maddox in [place]. continue current hormonal rx
--- NOTE | 2018-01-02 10:26 | PCM.RU.PYE ---
Admission Information Status Changes from Prescreening?: No changes Identified Actual Problem List:: Skin Intergrity, Pain, ALteration in Cmfrt, Cognitve Impr/Memory Loss, Bowel, Constipation, Mobility Impaired, Self Care Deficit, Diabetes, Hyperglycemia, BP, Hypertension, Ineffect.D/C Plan r/t Psy Potential Problem List:: DVT, Bleeding, Infection, UTI, Aspiration, Falls, Skin Integrity, Depression Risk of Complications DVT: LMWH, ADRIANE Hose, Sequential Compression Device Bleeding: Monitor Lab Values, Nursing to Teach Precautions for anti-coagulation therapy., Wound, if applicable, to be assessed every shift., Stroke patients assessed for lethargy or change in status. Infection: Clinical Staff to Monitor for S/S of infection:, S/S of infection include fever, redness, warmth, etc. Urinary Tract Infection: Monitor for frequency, burning, discomfort, or incontinence., Nursing will obtain urine sample for urinalysis and C&S when ordered. Aspiration: Clinical staff will monitor for coughing, drooling, congestion., Speech will evaluate swallowing and dsyphasia., Nursing will monitor patient swallowing during meals. Falls: Patient will be evaluated for Fall Precautions, Patient will be placed on Fall Precautions as indicated per protocol. Skin Breakdown: Nursing will assess skin daily using assessment tool., Nursing will place on Skin Breakdown Precautions as indicated. Pain: Clinical staff will assess patient's pain level per protocol., Medications will be given, if needed, and the pain level reassessed., Other methods: Massage, distraction, decrease stimulus, etc. used PRN. Plan of Care Patient requires physician specializing in physical medicine and rehab oversight to provide close medical supervision of rehab issues including: Pain Management, Sleep Problems, Bowel and Bladder, Medical and co-morbidity Management, DVT prophylaxis, Rehabilitation Leadership, Coordination of treatment team Patient needs Physical Therapy: For a minimum of 1 hour, At least 5 out of 7 days Patient needs Physical Therapy to improve:: Mobility, Mobility, Mobility, Strengthening, Transfers, Stretching, ROM, Endurance, Stairs, Gait, Balance Patient needs Occupational Therapy: For a minimum of 1 hour, At least 5 out of 7 days Patient needs Occupational Therapy to improve ADL's incl.: Eating, Grooming, Bathing, Dressing, Toileting, Toilet transfers, Community Reintegration, Higher functioning activities, Household tasks, Adaptive Equipment, Splinting, Other activities as determined Patient requires 24/7 Rehabilitation Nursing for: Pain Issues, Identifying and preventing risk factors, Monitoring and reporting current medical conditions, Assisting with ambulation, transfer, and all ADL's, Teaching patients about disease process and medications, Family teaching, Providing safe environment, Bowel and Bladder Issues, Skin integrity, Medication Management Patient needs [place] Molding Machine Tender/ Case Management for: Discharge Planning, Arranging Home Equipment or Services, Family Interventions Patient needs Dietary and Nutrition Services for: Adequate Nutrition, Nutritional Supplements, Nutritional Education Goals Patient will remain: free from falls, or injury at time of discharge. Patient will perform bed mobility at: MOD I level of assist. Patient will complete transfers from bed to chair at: MOD I level of assist. Patient will ambulate: 100 feet, with MOD I assist, with LRD Patient will complete upper body dressing at: MOD I level of assist. Patient will complete lower body dressing at: MOD I level of assist. Patient will complete toileting at: MOD I level of assist. Patient will perform bathing at: MOD I level of assist. Patient will complete grooming at: MOD I level of assist. Patient will complete home management skills at: MOD I level of assist. Patient will achieve: 12 stairs, at MOD I assist Patient will have pain level of: of 3 or less Patient's skin will: remain intact, free from infection. Patient will receive: adequate nutrition. Discharge Planning Pt Prognosis for Sig. Practical Improv. w/in Reasonable Time: Good Anticipated D/C Destination: Home with Outpt Therapy Was Preadmission Assessment Accurate?: Yes
== END 2018-01-02 10:35 | DRG 470 ==
PROVIDERS: Anesthesiology; Admitting Provider Orthopaedic Surgery; Family Provider Nurse Practitioner; PCP Nurse Practitioner; Visit Provider Orthopaedic Surgery
PROC: 0SRD0J9 Replacement of Left Knee Joint with Synthetic Substitute, Cemented, Open Approach (ICD-10-PCS; CPT 27447; principal; 2017-12-30 09:20)
DX: M17.12 Unilateral primary osteoarthritis, left knee (principal); C78.02 Secondary malignant neoplasm of left lung; E66.01 Morbid (severe) obesity due to excess calories; C78.01 Secondary malignant neoplasm of right lung; Z68.42 Body mass index [BMI] 45.0-49.9, adult; C50.919 Malignant neoplasm of unspecified site of unspecified female breast; Z96.651 Presence of right artificial knee joint; Z79.4 Long term (current) use of insulin; E11.9 Type 2 diabetes mellitus without complications; I10 Essential (primary) hypertension; K21.9 Gastro-esophageal reflux disease without esophagitis; Z79.899 Other long term (current) drug therapy
CPT/HCPCS: 80048; 80076; 82962; 83036; 85027; 85610; 85730; 87081; 94640; 94762; 97110; 97116; 97162; 97165; 97530; 97535; J7120; A4216; J2405

== ENCOUNTER 2018-01-02 11:00 | Inpatient (IN) | payer MEDICARE, OTHER, SELFPAY ==
[2018-01-02 09:39] VITALS: BP 135/49
[2018-01-02 11:29] VITALS: BP 141/52; PULSE 74; RESP 18; TEMP 36.8; O2SAT 93; BMI 123.4; BMI 50.1
[2018-01-02 13:01] LABS: Bedside Glucose 214 mg/dL (70-110)
[2018-01-02] MEDS: LORazepam 1 MG Tablet PO ×2 (13:14→23:33)
[2018-01-02 13:15] VITALS: O2SAT 95
[2018-01-02] MEDS: Acetaminophen 500 MG Tablet 1000 MG PO ×2 (14:08→21:03)
[2018-01-02] MEDS: oxyCODONE 5 MG Tablet PO (16:21)
[2018-01-02] MEDS: metFORMIN HCl 1,000 MG Tablet 1000 MG PO (17:26)
[2018-01-02] MEDS: Aspirin 325 MG Tablet PO (17:26)
[2018-01-02] MEDS: Ferrous Sulfate 325 MG Tablet PO (17:26)
[2018-01-02 17:30] LABS: Bedside Glucose 212 mg/dL (70-110)
--- NOTE | 2018-01-02 18:00 | NURSING ---
pt with frequent visual hallucinations and rambling throughout this shift. has made attempts to get out of chair on own and chair alarm alarming. alert to person only. attempted to reoriented. bed alarm, chair alarm and personal alarms inplace. will move closer to desk when room cleaned. call light in reach.
[2018-01-02] MEDS: Senna/Docusate Sodium 1 Tablet 2 TABLET PO (21:02)
[2018-01-02] MEDS: Pravastatin 20 MG Tablet PO (21:02)
[2018-01-02 21:51] LABS: Bedside Glucose 248 mg/dL (70-110)
[2018-01-02 22:00] VITALS: BP 142/65; PULSE 71; RESP 18; TEMP 37.2; O2SAT 96
--- NOTE | 2018-01-03 01:01 | NURSING ---
Pt attempted to self transfer multiple times, alarms in place and educated on why assistance is required with transfers at this time. Redirection effective for short periods of time only. Resting in recliner chair per pt request with alarms in place and call light in reach.
--- NOTE | 2018-01-03 03:32 | NURSING ---
Pt has been awake most of night with bouts of hallucination. Pt noncompliant with call light and found flailing leg over side of bed after setting off alarm. Pt has been toileted a couple times and repositioned in recliner per request. Pt brought to nurses station for closer observation. Staff moved pt from rm-5 to rm-9 to enable closer proximity to nurses station for response. PA, BA, CA active on pt. Pt had Cpap in place for a very short time and set off alarms attempting to remove hospital gown. Pt to be monitored frequently.
--- NOTE | 2018-01-03 04:02 | NURSING ---
Pt set off alarm again and was found [facility] hospital gown off stating she didn't know why they had her working on this wedding! Pt reoriented. Pt asked why were we performing a Cpap test? Pt had Cpap removed from nostrils. Pt then claimed she had to go to the toilet.
[2018-01-03] MEDS: Acetaminophen 500 MG Tablet 1000 MG PO ×3 (05:15→21:16)
[2018-01-03 05:44] LABS: Hematocrit 21.8 % (37-47); Hemoglobin 7.2 g/dl (12.0-15.0); Mean Corpuscular Hgb 27.9 pg (27.0-32.0); Mean Corpuscular Volume 84.5 fL (81-99); Mean Platelet Vol. 9.4 fl (6.2-12.0); Platelet Count 229 K/mm3 (150-450); RBC Distribution Width CV 12.8 % (11.6-14.6); RBC Distribution Width SD 38.1 fl (35.1-43.9); Red Blood Count 2.58 M/mm3 (4.2-5.4); White Blood Count 8.1 K/mm3 (4.4-11.0)
[2018-01-03 05:51] LABS: Scan Indicated on CBC? Y/N NO
[2018-01-03 05:59] LABS: Anion Gap 9 (5-15); BUN 27 mg/dL (7-18); BUN/Creat Ratio 34.5 RATIO (10-20); Calcium,Total 8.2 mg/dL (8.5-10.1); Chloride 94 mmol/L (98-107); Creatinine, Serum 0.78 mg/dL (0.55-1.02); EST Glomerular Filtration Rate 78 mL/min (>60); Est Glom Filt Rate - Afr Amer 94 mL/min (>60); Estimated Creatinine Clearance 40.63 ml/min; Glucose 167 mg/dL (74-106); Potassium 4.1 mmol/L (3.5-5.1); Sodium Level 127 mmol/L (136-145)
[2018-01-03 06:14] LABS: Phosphorus 2.3 mg/dL (2.5-4.9)
[2018-01-03 06:56] LABS: Bedside Glucose 169 mg/dL (70-110)
--- NOTE | 2018-01-03 08:30 | NURSING ---
pt sitting up in chair. pt alert and oriented x3 at this time. pt denies any further hallucinations and none noted at this time. pt did start to tell this nurse a story and began to ramble and did not make sense. will monitor. personal alarm and chair alarm inplace and call light in reach.
[2018-01-03 08:32] VITALS: BP 148/61; PULSE 68; RESP 18; TEMP 36.6; O2SAT 95
[2018-01-03] MEDS: metFORMIN HCl 1,000 MG Tablet 1000 MG PO ×2 (08:38→17:23)
[2018-01-03 08:39] VITALS: BP 148/61; PULSE 68
[2018-01-03] MEDS: Metoprolol(XL)Succ 25 MG Tablet 12.5 MG PO (08:39)
[2018-01-03] MEDS: Pantoprazole Sodium 40 MG Tablet PO (08:39)
[2018-01-03] MEDS: Ferrous Sulfate 325 MG Tablet PO ×2 (08:39→17:23)
[2018-01-03] MEDS: Mirabegron 50 MG TAB.ER.24H PO (08:39)
[2018-01-03] MEDS: Aspirin 325 MG Tablet PO ×2 (08:39→17:23)
[2018-01-03] MEDS: Escitalopram Oxalate 20 MG Tablet 40 MG PO (08:40)
[2018-01-03] MEDS: TADALAFIL 20 MG TABLET 40 MG PO (08:40)
[2018-01-03] MEDS: Losartan Potassium 25 MG Tablet PO (08:41)
[2018-01-03] MEDS: Furosemide 40 MG Tablet PO (08:52)
--- NOTE | 2018-01-03 10:00 | NURSING ---
home med list obtained from dr henry office and victoza dose changed per home dose.
[2018-01-03 12:01] LABS: Bedside Glucose 216 mg/dL (70-110)
[2018-01-03 12:17] LABS: Red Blood Cells-Urine 0 SEEN /hpf (0-5)
[2018-01-03 12:20] LABS: Color, Urine Yellow (Yellow); Glucose, Dipstick 100 mg/dl (Normal); Ketone-Dipstick Negative (Negative); Leukocyte Esterase-Dipstick 500 /ul (Negative); Nitrite-Dipstick Positive (Negative); Occult Blood-Urine Negative /ul (Negative); Protein-Dipstick Negative (Negative); Urine Bilirubin Dipstick Negative (Negative); Urine Clarity Clear (Clear); Urine Urobilinogen Normal (Normal)
[2018-01-03 12:35] LABS: Bacteria 4+ /hpf (None Seen); Mucous, Urine RARE /hpf (<or=2+); Squamous Epithelial Cells - UA 0-5 SEEN /hpf (5-10); White Blood Cells 5-10 SEEN /hpf (0-5)
[2018-01-03 13:25] VITALS: O2SAT 90
[2018-01-03] MEDS: oxyCODONE 5 MG Tablet PO (15:13)
--- NOTE | 2018-01-03 15:16 | PCM.PN.HOSP ---
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 She is s/p left total knee replacement. Patient had total knee replacement done on 12/30/2017 for severe osteoarthritis of the left knee. We have been consulted for medical management. Patient was said to be slightly confused earlier on in this rehab admisison. No dysuria, fever, chills headache, chest pain or SOB. She was said to be hallucinating, but we are entered. Recently started on MS Contin, hallucinations seem to have been better with stopping that. Started on scheduled Tylenol. Vitals/I&O's: Vital Signs Temp Pulse Resp BP Pulse Ox 97.9 F 68 18 148/61 H 90 01/03/18 08:32 01/03/18 08:39 01/03/18 08:32 01/03/18 08:39 01/03/18 13:25 Oxygen Delivery Method Room Air Weight: 123.4 kg Body Mass Index (BMI) 50.1 Finger Stick Blood Glucose 170 Intake and Output for Last 24 Hours 01/01/18 01/02/18 01/03/18 23:59 23:59 23:59 Intake Total 460 / 460 640 / 640 Balance 460 / 460 640 / 640 General: Alert, Oriented x3, Cooperative, No apparent distress, - - Morbidly obese HEENT: Atraumatic, PERRLA, EOMI, Normocephalic Oral: Moist Mucosa Neck: Supple Lungs: Clear to auscultation, Normal air movement Cardiovascular: Regular rate, Regular Rhythm, Normal S1, Normal S2, No murmurs Abdomen: Bowel Sounds Present, Soft, Non Tender, Non-Distended, No Hepato-splenomegaly Extremities: No edema, - - Cooling wrap on the left knee, in bilateral ADRIANE hoses Skin: No rashes, No breakdown Musculoskeletal: No Tenderness to Palpation of Joints or Extremities Neurological: Cranial nerves II-XII grossly intact Psych/Mental Status: Normal Affect, Appropriate Laboratory Results 01/02/18 17:24: POC Glucose 212 H 01/02/18 21:00: POC Glucose 248 H 01/03/18 05:30: WBC 8.1, RBC 2.58 L, Hgb 7.2 L, Hct 21.8 L, MCV 84.5, MCH 27.9, MCHC 33.0, RDW 12.8, RDW Differential 38.1, Plt Count 229, MPV 9.4 01/03/18 05:30: Sodium 127 L, Potassium 4.1, Chloride 94 L, Carbon Dioxide 24.0, Anion Gap 9, BUN 27 H, Creatinine 0.78, Estim Creat Clear Calc 40.63, Est GFR (MDRD) Af Amer 94, Est GFR (MDRD) Non-Af 78, BUN/Creatinine Ratio 34.5 H, Glucose 167 H, Calcium 8.2 L 01/03/18 05:30: Phosphorus 2.3 L 01/03/18 06:50: POC Glucose 169 H 01/03/18 11:10: Urine Color Yellow, Urine Clarity Clear, Urine pH 6.0, Ur Specific [place] 1.010, Urine Protein Negative, Urine Glucose (UA) 100 H, Urine Ketones Negative, Urine Occult Blood Negative, Urine Nitrite Positive H, Urine Bilirubin Negative, Urine Urobilinogen Normal, Ur Leukocyte Esterase 500 H, Urine RBC 0 SEEN, Urine WBC 5-10 SEEN, Ur Squamous Epith Cells 0-5 SEEN, Urine Bacteria 4+, Urine Mucus RARE 01/03/18 11:50: POC Glucose 216 H Current Medications Acetaminophen (Tylenol) 1,000 mg PO Q8 [facility] Last Admin: 01/03/18 13:48 Dose: 1,000 mg Albuterol Sulfate (Proair Hfa (Sp) Surgery/Vent Pts) 1 puff INHALATION Q4H PRN PRN PRN Reason: asthma Last Admin: 01/03/18 13:48 Dose: 1 puff [facility] Last Admin: 01/03/18 08:39 Dose: 325 mg Bisacodyl (Dulcolax) 10 mg RECTAL .PRN X 1 PRN PRN Reason: Constipation Bupropion HCl (Wellbutrin Xl) 150 mg PO DAILY [facility] Last Admin: 01/03/18 08:39 Dose: 150 mg Escitalopram Oxalate (Lexapro) 40 mg PO DAILY [facility] Last Admin: 01/03/18 08:40 Dose: 40 mg Ferrous Sulfate ([facility] Sulfate) [facility] Last Admin: 01/03/18 08:39 Dose: 325 mg Fulvestrant (Faslodex) 250 mg IM QMONTH [facility] Furosemide (Lasix) 40 mg PO DAILY [facility] Last Admin: 01/03/18 08:52 Dose: 40 mg Insulin Aspart (Novolog Flexpen ([facility])) 0 units SC ACHS [facility] PRN Reason: Protocol Last Admin: 01/03/18 12:13 Dose: 1 u Insulin Detemir (Levemir ([facility])) 72 units SC QHS [facility] Last Admin: 01/02/18 21:01 Dose: 72 u Lorazepam (Ativan) 1 mg PO Q8H PRN PRN PRN Reason: ANXIETY Last Admin: 01/02/18 23:33 Dose: 1 mg Losartan Potassium (Cozaar) 25 mg PO DAILY [facility] Last Admin: 01/03/18 08:41 Dose: 25 mg Magnesium Hydroxide (Milk Of Magnesia) 30 ml PO .PRN X 1 PRN PRN Reason: Constipation Metformin HCl (Glucophage) [facility] Last Admin: 01/03/18 08:38 Dose: 1,000 mg Metoprolol Succinate (Toprol Xl (Beta Kris)) 12.5 mg PO DAILY [facility] Last Admin: 01/03/18 08:39 Dose: 12.5 mg Montelukast Sodium (Singulair) 10 mg PO DAILY@1700 [facility] Oxycodone HCl (Oxyir) 5 - 10 mg PO Q4H PRN PRN PRN Reason: MOD-SEVERE PAIN (4-10/10) Last Admin: 01/03/18 15:13 Dose: 5 mg Pantoprazole Sodium (Protonix) 40 mg PO DAILY [facility] Last Admin: 01/03/18 08:39 Dose: 40 mg Pravastatin Sodium (Pravachol) 20 mg PO QHS [facility] Last Admin: 01/02/18 21:02 Dose: 20 mg Fluticasone/Salmeterol (Advair 250/50 Mcg Diskus) 1 puff INHALATION BID [facility] Last Admin: 01/03/18 08:40 Dose: 1 puff Senna/Docusate Sodium (Senokot-S, Sharda-Colace) 2 tablet PO BID [facility] Last Admin: 01/03/18 10:25 Dose: Not Given Tadalafil (Adcirca) 40 mg PO DAILY [facility] Last Admin: 01/03/18 08:40 Dose: 40 mg Assessment/Plan 67-year-old female with past medical history of 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 Patient had total knee replacement done on 12/30/2017 for severe osteoarthritis of the left knee. 1. Acute Delirium, seen early on in the admission in rehab, likely due to medication side effects, changes made to her medications, patient had no fever or chills, vitals were stable, UA was positive for patient is asymptomatic, secondary to medication changes - MS Contin, which has been stopped, patient now on scheduled Tylenol. Delirium appears resolved at thetime of being seen, will continue to monitor 2. Asymptomatic bacteriuria, stable vitals, would not treat with antibiotics. 3. POD#4 status post left total knee replacement, pain is controlled, physical and Occupational Therapy ongoing 4. Type 2DM, BS are fairly uncontrolled, on metformin, Levemir 72 units QHS, ISS will continue same meds for a while and monitor with accucheks. 5. Hypertension/CAD, stable, on metoprolol, Losartan, 5. Pulmonary HTN/LOLY, on cpap, on tadalafil, 6. Iron deficiency anemia, post-op anemia, asymptomatic, will continue on po iron 7 Metastatic breast CA, ff oncology 8. Hyperlipidemia, on statin 9. DVT PPx - on aspirin 325mg po bid per orthopedics Code Visit Inpatient E&M: 21116 Subs Hosp L2
--- NOTE | 2018-01-03 15:19 | PN_ITS ---
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 She is s/p left total knee replacement. Patient had total knee replacement done on 12/30/2017 for severe osteoarthritis of the left knee. We have been consulted for medical management. Patient was said to be slightly confused earlier on in this rehab admisison. No dysuria, fever, chills headache, chest pain or SOB. She was said to be hallucinating, but we are entered. Recently started on MS Contin, hallucinations seem to have been better with stopping that. Started on scheduled Tylenol. Vitals/I&O's: Vital Signs Temp Pulse Resp BP Pulse Ox 97.9 F 68 18 148/61 H 90 01/03/18 08:32 01/03/18 08:39 01/03/18 08:32 01/03/18 08:39 01/03/18 13:25 Oxygen Delivery Method Room Air Weight: 123.4 kg Body Mass Index (BMI) 50.1 Finger Stick Blood Glucose 170 Intake and Output for Last 24 Hours 01/01/18 01/02/18 01/03/18 23:59 23:59 23:59 Intake Total 460 / 460 640 / 640 Balance 460 / 460 640 / 640 General: Alert, Oriented x3, Cooperative, No apparent distress, - - Morbidly obese HEENT: Atraumatic, PERRLA, EOMI, Normocephalic Oral: Moist Mucosa Neck: Supple Lungs: Clear to auscultation, Normal air movement Cardiovascular: Regular rate, Regular Rhythm, Normal S1, Normal S2, No murmurs Abdomen: Bowel Sounds Present, Soft, Non Tender, Non-Distended, No Hepato- splenomegaly Extremities: No edema, - - Cooling wrap on the left knee, in bilateral ADRIANE hoses Skin: No rashes, No breakdown Musculoskeletal: No Tenderness to Palpation of Joints or Extremities Neurological: Cranial nerves II-XII grossly intact Psych/Mental Status: Normal Affect, Appropriate Laboratory Results 01/02/18 17:24: POC Glucose 212 H 01/02/18 21:00: POC Glucose 248 H 01/03/18 05:30: WBC 8.1, RBC 2.58 L, Hgb 7.2 L, Hct 21.8 L, MCV 84.5, MCH 27.9, MCHC 33.0, RDW 12.8, RDW Differential 38.1, Plt Count 229, MPV 9.4 01/03/18 05:30: Sodium 127 L, Potassium 4.1, Chloride 94 L, Carbon Dioxide 24.0 , Anion Gap 9, BUN 27 H, Creatinine 0.78, Estim Creat Clear Calc 40.63, Est GFR (MDRD) Af Amer 94, Est GFR (MDRD) Non-Af 78, BUN/Creatinine Ratio 34.5 H, Glucose 167 H, Calcium 8.2 L 01/03/18 05:30: Phosphorus 2.3 L 01/03/18 06:50: POC Glucose 169 H 01/03/18 11:10: Urine Color Yellow, Urine Clarity Clear, Urine pH 6.0, Ur Specific [place] 1.010, Urine Protein Negative, Urine Glucose (UA) 100 H, Urine Ketones Negative, Urine Occult Blood Negative, Urine Nitrite Positive H, Urine Bilirubin Negative, Urine Urobilinogen Normal, Ur Leukocyte Esterase 500 H, Urine RBC 0 SEEN, Urine WBC 5-10 SEEN, Ur Squamous Epith Cells 0-5 SEEN, Urine Bacteria 4+, Urine Mucus RARE 01/03/18 11:50: POC Glucose 216 H Current Medications Acetaminophen (Tylenol) 1,000 mg PO Q8 [facility] Last Admin: 01/03/18 13:48 Dose: 1,000 mg Albuterol Sulfate (Proair Hfa (Sp) Surgery/Vent Pts) 1 puff INHALATION Q4H PRN PRN PRN Reason: asthma Last Admin: 01/03/18 13:48 Dose: 1 puff [facility] Last Admin: 01/03/18 08:39 Dose: 325 mg Bisacodyl (Dulcolax) 10 mg RECTAL .PRN X 1 PRN PRN Reason: Constipation Bupropion HCl (Wellbutrin Xl) 150 mg PO DAILY [facility] Last Admin: 01/03/18 08:39 Dose: 150 mg Escitalopram Oxalate (Lexapro) 40 mg PO DAILY [facility] Last Admin: 01/03/18 08:40 Dose: 40 mg Ferrous Sulfate (F[facility]ous Sulfate) [facility] Last Admin: 01/03/18 08:39 Dose: 325 mg Fulvestrant (Faslodex) 250 mg IM QMONTH [facility] Furosemide (Lasix) 40 mg PO DAILY [facility] Last Admin: 01/03/18 08:52 Dose: 40 mg Insulin Aspart (Novolog Flexpen ([facility])) 0 units SC ACHS [facility] PRN Reason: Protocol Last Admin: 01/03/18 12:13 Dose: 1 u Insulin Detemir (Levemir ([facility])) 72 units SC QHS [facility] Last Admin: 01/02/18 21:01 Dose: 72 u Lorazepam (Ativan) 1 mg PO Q8H PRN PRN PRN Reason: ANXIETY Last Admin: 01/02/18 23:33 Dose: 1 mg Losartan Potassium (Cozaar) 25 mg PO DAILY [facility] Last Admin: 01/03/18 08:41 Dose: 25 mg Magnesium Hydroxide (Milk Of Magnesia) 30 ml PO .PRN X 1 PRN PRN Reason: Constipation Metformin HCl (Glucophage) [facility] Last Admin: 01/03/18 08:38 Dose: 1,000 mg Metoprolol Succinate (Toprol Xl (Beta Kris)) 12.5 mg PO DAILY [facility] Last Admin: 01/03/18 08:39 Dose: 12.5 mg Montelukast Sodium (Singulair) 10 mg PO DAILY@1700 [facility] Oxycodone HCl (Oxyir) 5 - 10 mg PO Q4H PRN PRN PRN Reason: MOD-SEVERE PAIN (4-10/10) Last Admin: 01/03/18 15:13 Dose: 5 mg Pantoprazole Sodium (Protonix) 40 mg PO DAILY [facility] Last Admin: 01/03/18 08:39 Dose: 40 mg Pravastatin Sodium (Pravachol) 20 mg PO QHS [facility] Last Admin: 01/02/18 21:02 Dose: 20 mg Fluticasone/Salmeterol (Advair 250/50 Mcg Diskus) 1 puff INHALATION BID [facility] Last Admin: 01/03/18 08:40 Dose: 1 puff Senna/Docusate Sodium (Senokot-S, Sharda-Colace) 2 tablet PO BID [facility] Last Admin: 01/03/18 10:25 Dose: Not Given Tadalafil (Adcirca) 40 mg PO DAILY [facility] Last Admin: 01/03/18 08:40 Dose: 40 mg Assessment/Plan 67-year-old female with past medical history of 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 Patient had total knee replacement done on 12/30/2017 for severe osteoarthritis of the left knee. 1. Acute Delirium, seen early on in the admission in rehab, likely due to medication side effects, changes made to her medications, patient had no fever or chills, vitals were stable, UA was positive for patient is asymptomatic, secondary to medication changes - MS Contin, which has been stopped, patient now on scheduled Tylenol. Delirium appears resolved at thetime of being seen, will continue to monitor 2. Asymptomatic bacteriuria, stable vitals, would not treat with antibiotics. 3. POD#4 status post left total knee replacement, pain is controlled, physical and Occupational Therapy ongoing 4. Type 2DM, BS are fairly uncontrolled, on metformin, Levemir 72 units QHS, ISS will continue same meds for a while and monitor with accucheks. 5. Hypertension/CAD, stable, on metoprolol, Losartan, 5. Pulmonary HTN/LOLY, on cpap, on tadalafil, 6. Iron deficiency anemia, post-op anemia, asymptomatic, will continue on po iron 7 Metastatic breast CA, ff oncology 8. Hyperlipidemia, on statin 9. DVT PPx - on aspirin 325mg po bid per orthopedics Code Visit Inpatient E&M: 33195 Subs Hosp L2
[2018-01-03 16:51] LABS: Bedside Glucose 262 mg/dL (70-110)
[2018-01-03] MEDS: Montelukast 10 MG Tablet PO (17:24)
--- NOTE | 2018-01-03 18:58 | NURSING ---
pt alert and oriented x3 throughout the day, no hallucinations noted, no rambling noted. no attempts to get up on own. pa, ca, ba, hi low bed with mats maintained.
[2018-01-03 19:21] VITALS: BP 132/50; PULSE 72; RESP 18; TEMP 36.8; O2SAT 96
[2018-01-03 21:00] VITALS: PULSE 72; RESP 18; O2SAT 96
[2018-01-03] MEDS: Pravastatin 20 MG Tablet PO (21:16)
[2018-01-03 21:46] LABS: Bedside Glucose 224 mg/dL (70-110)
[2018-01-04 02:41] LABS: Bedside Glucose 153 mg/dL (70-110)
--- NOTE | 2018-01-04 02:57 | NURSING ---
Reviewed and agree with LPNs fims and handoff
--- NOTE | 2018-01-04 02:58 | NURSING ---
pt noted to be sitting on the edge of her bed and called out for assistance stating that she felt her blood sugar was low. pt reports being nauseated and diaphoretic and requesting to have her blood sugar checked. staff did so and was found to be 153. pt given a 160cc of diet sprite to help with nausea. pt up to the br and returned to bed 1s pvr completed.
[2018-01-04] MEDS: Acetaminophen 500 MG Tablet 1000 MG PO ×3 (06:24→21:20)
[2018-01-04] MEDS: Pantoprazole Sodium 40 MG Tablet PO (06:28)
[2018-01-04 07:01] LABS: Absolute Lymphocyte Count 0.97 X10^3/ul (0.83-4.51); Absolute Neutrophil Count 5.5 X10^3/uL (2.0-7.7); Basophil# 0.02 X10^3/uL; Basophil% 0.3 % (0-1); Eosinophil# 0.31 X10^3/uL; Eosinophils% 4.1 % (0-5); Hematocrit 24.1 % (37-47); Hemoglobin 7.7 g/dl (12.0-15.0); Lymphocyte # 0.97 X10^3/ul (4.0); Lymphocyte % 12.7 % (19-41); Mean Corpuscular Hgb 27.1 pg (27.0-32.0); Mean Corpuscular Volume 84.9 fL (81-99); Mean Platelet Vol. 9.2 fl (6.2-12.0); Monocyte# 0.83 X10^3/uL; Monocyte% 10.8 % (0-10); Neutrophil # 5.51 X10^3/uL (2.7-7.7); POSITIVE COUNT NO; POSITIVE DIFFERENTIAL NO; POSITIVE MORPHOLOGY NO; Platelet Count 278 K/mm3 (150-450); RBC Distribution Width CV 13.6 % (11.6-14.6); RBC Distribution Width SD 41.6 fl (35.1-43.9); Red Blood Count 2.84 M/mm3 (4.2-5.4); White Blood Count 7.7 K/mm3 (4.4-11.0)
[2018-01-04 07:20] LABS: Anion Gap 7 (5-15); BUN 19 mg/dL (7-18); BUN/Creat Ratio 27.1 RATIO (10-20); Calcium,Total 8.7 mg/dL (8.5-10.1); Chloride 101 mmol/L (98-107); EST Glomerular Filtration Rate 88 mL/min (>60); Est Glom Filt Rate - Afr Amer 107 mL/min (>60); Estimated Creatinine Clearance 40.63 ml/min; Glucose 126 mg/dL (74-106); Potassium 4.1 mmol/L (3.5-5.1); Sodium Level 135 mmol/L (136-145)
[2018-01-04 07:31] LABS: Bedside Glucose 130 mg/dL (70-110)
[2018-01-04 08:00] VITALS: O2SAT 96
[2018-01-04 08:01] VITALS: BP 139/60; PULSE 71; RESP 17; TEMP 36.5; O2SAT 96
[2018-01-04] MEDS: Furosemide 40 MG Tablet PO (08:09)
[2018-01-04] MEDS: Escitalopram Oxalate 20 MG Tablet 40 MG PO (08:09)
[2018-01-04 08:10] VITALS: BP 139/60; PULSE 71
[2018-01-04] MEDS: Metoprolol(XL)Succ 25 MG Tablet 12.5 MG PO (08:10)
[2018-01-04] MEDS: metFORMIN HCl 1,000 MG Tablet 1000 MG PO ×2 (08:10→16:58)
[2018-01-04] MEDS: Losartan Potassium 25 MG Tablet PO (08:10)
[2018-01-04] MEDS: TADALAFIL 20 MG TABLET 40 MG PO (08:10)
[2018-01-04] MEDS: Ferrous Sulfate 325 MG Tablet PO ×2 (08:10→16:58)
[2018-01-04] MEDS: Aspirin 325 MG Tablet PO ×2 (08:10→16:58)
[2018-01-04] MEDS: oxyCODONE 5 MG Tablet PO (08:16)
[2018-01-04] MEDS: Mirabegron 50 MG TAB.ER.24H PO (09:52)
[2018-01-04 12:21] LABS: Bedside Glucose 182 mg/dL (70-110)
[2018-01-04 13:06] VITALS: O2SAT 91
[2018-01-04] MEDS: Montelukast 10 MG Tablet PO (16:58)
[2018-01-04 17:10] LABS: Bedside Glucose 178 mg/dL (70-110)
[2018-01-04 18:38] VITALS: BP 149/54; PULSE 74; RESP 17; TEMP 36.6; O2SAT 96
[2018-01-04] MEDS: Pravastatin 20 MG Tablet PO (21:19)
[2018-01-04 21:46] LABS: Bedside Glucose 198 mg/dL (70-110)
[2018-01-05] MEDS: Acetaminophen 500 MG Tablet 1000 MG PO ×3 (06:40→21:09)
[2018-01-05 07:01] LABS: Bedside Glucose 240 mg/dL (70-110)
[2018-01-05 07:05] VITALS: BP 144/68; PULSE 72; RESP 24; TEMP 37.2; O2SAT 93
[2018-01-05] MEDS: TADALAFIL 20 MG TABLET 40 MG PO (08:03)
[2018-01-05] MEDS: Pantoprazole Sodium 40 MG Tablet PO ×2 (08:03→21:09)
[2018-01-05] MEDS: Losartan Potassium 25 MG Tablet PO (08:03)
[2018-01-05] MEDS: Furosemide 40 MG Tablet PO (08:03)
[2018-01-05] MEDS: Mirabegron 50 MG TAB.ER.24H PO (08:03)
[2018-01-05] MEDS: Escitalopram Oxalate 20 MG Tablet 40 MG PO (08:03)
[2018-01-05] MEDS: metFORMIN HCl 1,000 MG Tablet 1000 MG PO ×2 (08:03→16:57)
[2018-01-05 08:04] VITALS: BP 152/76; PULSE 79
[2018-01-05] MEDS: Aspirin 325 MG Tablet PO ×2 (08:04→16:57)
[2018-01-05] MEDS: Ferrous Sulfate 325 MG Tablet PO ×2 (08:04→16:57)
[2018-01-05] MEDS: Metoprolol(XL)Succ 25 MG Tablet 12.5 MG PO (08:04)
[2018-01-05] MEDS: oxyCODONE 5 MG Tablet PO (08:15)
[2018-01-05 11:46] LABS: Bedside Glucose 241 mg/dL (70-110)
--- NOTE | 2018-01-05 13:14 | PCM.PN.NEU ---
Subjective: Tolerating therapies. No GI or complaints although she does have what she describes as nausea. Apparently in the past she took Aleve frequently because of her knee pain, but then this caused some GI upset she says she tried some acid blockers and eventually settled on Zofran which helped. She would like Zofran now. She is not constipated. No other complaints. Tolerating therapies and sleeping well. - Physical Exam General: Alert, Oriented x3, Cooperative, No apparent distress Abdomen: Bowel Sounds Present Extremities: No Calf Tenderness Neurological: Cranial nerves II-XII grossly intact Psych/Mental Status: Normal Affect Vital Signs Temp Pulse Resp BP Pulse Ox 37.2 C 79 24 H 152/76 H 93 01/05/18 07:05 01/05/18 08:04 01/05/18 07:05 01/05/18 08:04 01/05/18 07:05 Oxygen Delivery Method Room Air Weight: 123.4 kg Body Mass Index (BMI) 50.1 Finger Stick Blood Glucose 170 Intake and Output for Last 24 Hours 01/03/18 01/04/18 01/05/18 23:59 23:59 23:59 Intake Total 1560 / 1560 1860 / 1860 500 / 500 Output Total 400 / 400 1100 / 1100 600 / 600 Balance 1160 / 1160 760 / 760 -100 / -100 Microbiology Past 72 Hours 01/03/18 11:10 Urine Culture - Final Urine, Catheterized Klebsiella pneumoniae sp pneum POC Glucose 01/05/18 01/05/18 01/04/18 11:39 06:56 21:17 POC Glucose 241 H 240 H 198 H 01/04/18 16:57 POC Glucose 178 H Current Medications Generic Name Dose Route Start Last Admin Trade Name Freq PRN Reason Stop Dose Admin Acetaminophen 1,000 mg 01/02/18 14:00 01/05/18 06:40 Tylenol PO 1,000 mg Q8 [facility] Administration Albuterol Sulfate 1 puff 01/02/18 12:30 01/03/18 13:48 Proair Hfa (Sp) Surgery/Vent Pts INHALATION 1 puff Q4H PRN PRN Administration asthma Aspirin 325 mg 01/02/18 17:00 01/05/18 08:04 Aspirin PO 325 mg BIDCM [facility] Administration Bisacodyl 10 mg 01/02/18 11:38 Dulcolax RECTAL .PRN X 1 PRN Constipation Bupropion HCl 150 mg 01/03/18 10:00 01/05/18 08:03 Wellbutrin Xl PO 150 mg DAILY [facility] Administration Escitalopram Oxalate 40 mg 01/03/18 10:00 01/05/18 08:03 Lexapro PO 40 mg DAILY [facility] Administration Ferrous Sulfate 325 mg 01/02/18 17:00 01/05/18 08:04 Ferrous Sulfate PO 325 mg BIDCM [facility] Administration Fulvestrant 250 mg 01/22/18 10:00 Faslodex IM QMONTH [facility] Furosemide 40 mg 01/03/18 10:00 01/05/18 08:03 Lasix PO 40 mg DAILY [facility] Administration Guaifenesin 600 mg 01/05/18 12:26 Mucinex PO BID [facility] Insulin Aspart 0 units 01/02/18 16:00 01/05/18 12:02 Novolog Flexpen ([facility]) SC 2 u ACHS [facility] Administration Protocol Insulin Detemir 72 units 01/02/18 22:00 01/04/18 21:50 Levemir ([facility]) SC 72 u QHS [facility] Administration Lorazepam 1 mg 01/02/18 11:51 01/02/18 23:33 Ativan PO 1 mg Q8H PRN PRN Administration ANXIETY Losartan Potassium 25 mg 01/03/18 10:00 01/05/18 08:03 Cozaar PO 25 mg DAILY [facility] Administration Magnesium Hydroxide 30 ml 01/02/18 11:38 Milk Of Magnesia PO .PRN X 1 PRN Constipation Melatonin 3 mg 01/05/18 12:24 Melatonin PO QHS PRN PRN insomnia Metformin HCl 1,000 mg 01/02/18 17:00 01/05/18 08:03 Glucophage PO 1,000 mg BIDCM [facility] Administration Metoprolol Succinate 12.5 mg 01/03/18 10:00 01/05/18 08:04 Toprol Xl (Beta Kris) PO 12.5 mg DAILY [facility] Administration Montelukast Sodium 10 mg 01/03/18 17:00 01/04/18 16:58 Singulair PO 10 mg DAILY@1700 [facility] Administration Oxycodone HCl 5 - 10 mg 01/02/18 11:51 01/05/18 08:15 Oxyir PO 5 mg Q4H PRN PRN Administration MOD-SEVERE PAIN (4-10/10) Pantoprazole Sodium 40 mg 01/03/18 10:00 01/05/18 08:03 Protonix PO 40 mg DAILY [facility] Administration Pravastatin Sodium 20 mg 01/02/18 22:00 01/04/18 21:19 Pravachol PO 20 mg QHS [facility] Administration Fluticasone/Salmeterol 1 puff 01/02/18 22:00 01/05/18 08:02 Advair 250/50 Mcg Diskus INHALATION 1 puff BID [facility] Administration Senna/Docusate Sodium 2 tablet 01/02/18 22:00 01/05/18 08:05 Senokot-S, Sharda-Colace PO Not Given BID [facility] Tadalafil 40 mg 01/03/18 10:00 01/05/18 08:03 Adcirca PO 40 mg DAILY [facility] Administration Assessment/Plan Debility status post left total knee replacement. Goal of rehab is gnosticist of prior level of functional independence. Plan: Physical therapy for gait and balance Occupational Therapy for ADLs Bowel protocol As needed analgesics Nausea: I will increase her Protonix dose, as well as add an antacid and if this does not help she will need to go on Zofran DVT prophylaxis: Lovenox History of anxiety and depression: Controlled on Lexapro and Wellbutrin.
--- NOTE | 2018-01-05 13:18 | PN.NEURO_ITS ---
Subjective: Tolerating therapies. No GI or complaints although she does have what she describes as nausea. Apparently in the past she took Aleve frequently because of her knee pain, but then this caused some GI upset she says she tried some acid blockers and eventually settled on Zofran which helped. She would like Zofran now. She is not constipated. No other complaints. Tolerating therapies and sleeping well. - Physical Exam General: Alert, Oriented x3, Cooperative, No apparent distress Abdomen: Bowel Sounds Present Extremities: No Calf Tenderness Neurological: Cranial nerves II-XII grossly intact Psych/Mental Status: Normal Affect Vital Signs Temp Pulse Resp BP Pulse Ox 37.2 C 79 24 H 152/76 H 93 01/05/18 07:05 01/05/18 08:04 01/05/18 07:05 01/05/18 08:04 01/05/18 07:05 Oxygen Delivery Method Room Air Weight: 123.4 kg Body Mass Index (BMI) 50.1 Finger Stick Blood Glucose 170 Intake and Output for Last 24 Hours 01/03/18 01/04/18 01/05/18 23:59 23:59 23:59 Intake Total 1560 / 1560 1860 / 1860 500 / 500 Output Total 400 / 400 1100 / 1100 600 / 600 Balance 1160 / 1160 760 / 760 -100 / -100 Microbiology Past 72 Hours 01/03/18 11:10 Urine Culture - Final Urine, Catheterized Klebsiella pneumoniae sp pneum POC Glucose 01/05/18 01/05/18 01/04/18 11:39 06:56 21:17 POC Glucose 241 H 240 H 198 H 01/04/18 16:57 POC Glucose 178 H Current Medications Generic Name Dose Route Start Last Admin Trade Name Freq PRN Reason Stop Dose Admin Acetaminophen 1,000 mg 01/02/18 14:00 01/05/18 06:40 Tylenol PO 1,000 mg Q8 DAX Administration Albuterol Sulfate 1 puff 01/02/18 12:30 01/03/18 13:48 Proair Hfa (Sp) Surgery/Vent Pts INHALATION 1 puff Q4H PRN PRN Administration asthma Aspirin 325 mg 01/02/18 17:00 01/05/18 08:04 Aspirin PO 325 mg BIDCM DAX Administration Bisacodyl 10 mg 01/02/18 11:38 Dulcolax RECTAL .PRN X 1 PRN Constipation Bupropion HCl 150 mg 01/03/18 10:00 01/05/18 08:03 Wellbutrin Xl PO 150 mg DAILY [facility] Administration Escitalopram Oxalate 40 mg 01/03/18 10:00 01/05/18 08:03 Lexapro PO 40 mg DAILY [facility] Administration Ferrous Sulfate 325 mg 01/02/18 17:00 01/05/18 08:04 Ferrous Sulfate PO 325 mg BIDCM [facility] Administration Fulvestrant 250 mg 01/22/18 10:00 Faslodex IM QMONTH [facility] Furosemide 40 mg 01/03/18 10:00 01/05/18 08:03 Lasix PO 40 mg DAILY [facility] Administration Guaifenesin 600 mg 01/05/18 12:26 Mucinex PO BID [facility] Insulin Aspart 0 units 01/02/18 16:00 01/05/18 12:02 Novolog Flexpen ([facility]) SC 2 u ACHS [facility] Administration Protocol Insulin Detemir 72 units 01/02/18 22:00 01/04/18 21:50 Levemir ([facility]) SC 72 u QHS [facility] Administration Lorazepam 1 mg 01/02/18 11:51 01/02/18 23:33 Ativan PO 1 mg Q8H PRN PRN Administration ANXIETY Losartan Potassium 25 mg 01/03/18 10:00 01/05/18 08:03 Cozaar PO 25 mg DAILY [facility] Administration Magnesium Hydroxide 30 ml 01/02/18 11:38 Milk Of Magnesia PO .PRN X 1 PRN Constipation Melatonin 3 mg 01/05/18 12:24 Melatonin PO QHS PRN PRN insomnia Metformin HCl 1,000 mg 01/02/18 17:00 01/05/18 08:03 Glucophage PO 1,000 mg BIDCM [facility] Administration Metoprolol Succinate 12.5 mg 01/03/18 10:00 01/05/18 08:04 Toprol Xl (Beta Kris) PO 12.5 mg DAILY [facility] Administration Montelukast Sodium 10 mg 01/03/18 17:00 01/04/18 16:58 Singulair PO 10 mg DAILY@1700 [facility] Administration Oxycodone HCl 5 - 10 mg 01/02/18 11:51 01/05/18 08:15 Oxyir PO 5 mg Q4H PRN PRN Administration MOD-SEVERE PAIN (4-10/10) Pantoprazole Sodium 40 mg 01/03/18 10:00 01/05/18 08:03 Protonix PO 40 mg DAILY [facility] Administration Pravastatin Sodium 20 mg 01/02/18 22:00 01/04/18 21:19 Pravachol PO 20 mg QHS [facility] Administration Fluticasone/Salmeterol 1 puff 01/02/18 22:00 01/05/18 08:02 Advair 250/50 Mcg Diskus INHALATION 1 puff BID [facility] Administration Senna/Docusate Sodium 2 tablet 01/02/18 22:00 01/05/18 08:05 Senokot-S, Sharda-Colace PO Not Given BID [facility]AX Tadalafil 40 mg 01/03/18 10:00 01/05/18 08:03 Adcirca PO 40 mg DAILY [facility] Administration Assessment/Plan Debility status post left total knee replacement. Goal of rehab is yarsanism of prior level of functional independence. Plan: Physical therapy for gait and balance Occupational Therapy for ADLs Bowel protocol As needed analgesics Nausea: I will increase her Protonix dose, as well as add an antacid and if this does not help she will need to go on Zofran DVT prophylaxis: Lovenox History of anxiety and depression: Controlled on Lexapro and Wellbutrin.
--- NOTE | 2018-01-05 14:03 | PCM.PN.HOSP ---
Subjective: Patient was seen and examined. No more confusion seen. Says this is the best I have felt indays. Complaisn of poor sleep, prescribed melatonin. Therapy is going well. Denies chest pain, SOB, fever or chills. Objective: Physical exam General: Alert, Oriented x3, Cooperative, No apparent distress, - - Morbidly obese HEENT: Atraumatic, PERRLA, EOMI, Normocephalic Oral: Moist Mucosa Neck: Supple Lungs: Clear to auscultation, Normal air movement Cardiovascular: Regular rate, Regular Rhythm, Normal S1, Normal S2, No murmurs Abdomen: Bowel Sounds Present, Soft, Non Tender, Non-Distended, No Hepato-splenomegaly Extremities: No edema, - - in bilateral ADRIANE hoses Skin: No rashes, No breakdown Musculoskeletal: No Tenderness to Palpation of Joints or Extremities Neurological: Cranial nerves II-XII grossly intact Psych/Mental Status: Normal Affect, Appropriate Vitals/I&O's: Vital Signs Temp Pulse Resp BP Pulse Ox 98.9 F 79 24 H 152/76 H 93 01/05/18 07:05 01/05/18 08:04 01/05/18 07:05 01/05/18 08:04 01/05/18 07:05 Oxygen Delivery Method Room Air Weight: 123.4 kg Body Mass Index (BMI) 50.1 Finger Stick Blood Glucose 170 Intake and Output for Last 24 Hours 01/03/18 01/04/18 01/05/18 23:59 23:59 23:59 Intake Total 1560 / 1560 1860 / 1860 500 / 500 Output Total 400 / 400 1100 / 1100 600 / 600 Balance 1160 / 1160 760 / 760 -100 / -100 Microbiology Past 72 Hours 01/03/18 11:10 Urine, Catheterized Urine Culture - Final Klebsiella pneumoniae sp pneum Laboratory Results 01/04/18 16:57: POC Glucose 178 H 01/04/18 21:17: POC Glucose 198 H 01/05/18 06:56: POC Glucose 240 H 01/05/18 11:39: POC Glucose 241 H Current Medications Acetaminophen (Tylenol) 1,000 mg PO Q8 DAX Last Admin: 01/05/18 06:40 Dose: 1,000 mg Albuterol Sulfate (Proair Hfa (Sp) Surgery/Vent Pts) 1 puff INHALATION Q4H PRN PRN PRN Reason: asthma Last Admin: 01/03/18 13:48 Dose: 1 puff [facility] Last Admin: 01/05/18 08:04 Dose: 325 mg Bisacodyl (Dulcolax) 10 mg RECTAL .PRN X 1 PRN PRN Reason: Constipation Bupropion HCl (Wellbutrin Xl) 150 mg PO DAILY [facility] Last Admin: 01/05/18 08:03 Dose: 150 mg Calcium Carbonate (Tums) 500 mg PO Q6H PRN PRN PRN Reason: DYSPEPSIA Escitalopram Oxalate (Lexapro) 40 mg PO DAILY [facility] Last Admin: 01/05/18 08:03 Dose: 40 mg Ferrous Sulfate ([facility] Sulfate) [facility] Last Admin: 01/05/18 08:04 Dose: 325 mg Fulvestrant (Faslodex) 250 mg IM QMONTH [facility] Furosemide (Lasix) 40 mg PO DAILY [facility] Last Admin: 01/05/18 08:03 Dose: 40 mg Guaifenesin (Mucinex) 600 mg PO BID [facility] Insulin Aspart (Novolog Flexpen ([facility])) 0 units SC ACHS [facility] PRN Reason: Protocol Last Admin: 01/05/18 12:02 Dose: 2 u Insulin Detemir (Levemir ([facility])) 72 units SC QHS [facility] Last Admin: 01/04/18 21:50 Dose: 72 u Lorazepam (Ativan) 1 mg PO Q8H PRN PRN PRN Reason: ANXIETY Last Admin: 01/02/18 23:33 Dose: 1 mg Losartan Potassium (Cozaar) 25 mg PO DAILY [facility] Last Admin: 01/05/18 08:03 Dose: 25 mg Magnesium Hydroxide (Milk Of Magnesia) 30 ml PO .PRN X 1 PRN PRN Reason: Constipation Melatonin (Melatonin) 3 mg PO QHS PRN PRN PRN Reason: insomnia Metformin HCl ([facility]) [facility] Last Admin: 01/05/18 08:03 Dose: 1,000 mg Metoprolol Succinate (Toprol Xl (Beta Kris)) 12.5 mg PO DAILY [facility] Last Admin: 01/05/18 08:04 Dose: 12.5 mg Montelukast Sodium (Singulair) 10 mg PO DAILY@1700 [facility] Last Admin: 01/04/18 16:58 Dose: 10 mg Oxycodone HCl (Oxyir) 5 - 10 mg PO Q4H PRN PRN PRN Reason: MOD-SEVERE PAIN (-09/03) Last Admin: 01/05/18 08:15 Dose: 5 mg Pantoprazole Sodium (Protonix) 40 mg PO BID [facility] Pravastatin Sodium (Pravachol) 20 mg PO QHS [facility] Last Admin: 01/04/18 21:19 Dose: 20 mg Fluticasone/Salmeterol (Advair 250/50 Mcg Diskus) 1 puff INHALATION BID [facility] Last Admin: 01/05/18 08:02 Dose: 1 puff Senna/Docusate Sodium (Senokot-S, Sharda-Colace) 2 tablet PO BID [facility] Last Admin: 01/05/18 08:05 Dose: Not Given Tadalafil (Adcirca) 40 mg PO DAILY [facility] Last Admin: 01/05/18 08:03 Dose: 40 mg Assessment/Plan 67-year-old female with past medical history of 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 Patient had total knee replacement done on 12/30/2017 for severe osteoarthritis of the left knee. 1. Acute Delirium, seen early on in the admission in rehab, secondary to medication side-effects with likely culprit being MS Contin, which has been stopped, patient now on scheduled Tylenol. Patient is alert, oriented x 3, will continue to monitor. 2. Asymptomatic bacteriuria, urine cultures growing Klebsiella, stable vitals, would not treat with antibiotics. 3. POD#6 status post left total knee replacement, pain is controlled, physical and Occupational Therapy ongoing 4. Type 2DM, BS are fairly uncontrolled, on metformin, Levemir 72 units QHS, ISS, increase Levemir to 74 units, continue other medications. 5. Hypertension/CAD, stable, on metoprolol, Losartan, 5. Pulmonary HTN/LOLY, on cpap, on tadalafil, 6. Iron deficiency anemia, post-op anemia, asymptomatic, will continue on po iron 7 Metastatic breast CA, ff oncology 8. Hyperlipidemia, on statin 9. DVT PPx - on aspirin 325mg po bid per orthopedics Code Visit Inpatient E&M: 31436 Subs Hosp L2
[2018-01-05] MEDS: guaiFENesin 600 MG Tablet PO ×2 (14:07→21:07)
[2018-01-05] MEDS: Montelukast 10 MG Tablet PO (16:57)
[2018-01-05 17:06] LABS: Bedside Glucose 183 mg/dL (70-110)
[2018-01-05] MEDS: Calcium Carbonate 500 MG Tablet PO (17:15)
[2018-01-05 21:06] LABS: Bedside Glucose 233 mg/dL (70-110)
[2018-01-05] MEDS: Pravastatin 20 MG Tablet PO (21:09)
[2018-01-05] MEDS: MELATONIN 3 MG TABLET PO (21:10)
[2018-01-05 21:42] VITALS: PULSE 68
[2018-01-05 22:00] VITALS: BP 157/62; PULSE 68; RESP 18; TEMP 36.6; O2SAT 97
[2018-01-06] VITALS (9 sets, daily range): BP systolic 136–150; BP diastolic 59–72; PULSE 68–71; RESP 17–18; TEMP 36.6–37; O2SAT 93–97
--- NOTE | 2018-01-06 01:02 | NURSING ---
Reviewed and agree with LPNs fims and clinical shift findings
[2018-01-06] MEDS: Calcium Carbonate 500 MG Tablet PO ×3 (02:18→20:18)
[2018-01-06] MEDS: oxyCODONE 5 MG Tablet PO ×3 (02:24→13:54)
[2018-01-06] MEDS: Acetaminophen 500 MG Tablet 1000 MG PO ×3 (05:40→21:06)
[2018-01-06 06:07] LABS: Absolute Lymphocyte Count 1.24 X10^3/ul (0.83-4.51); Basophil# 0.03 X10^3/uL; Basophil% 0.5 % (0-1); Eosinophils% 4.8 % (0-5); Hematocrit 23.4 % (37-47); Hemoglobin 7.3 g/dl (12.0-15.0); Lymphocyte # 1.24 X10^3/ul (4.0); Mean Corp Hgb Conc 31.2 g/gl (32-36); Mean Corpuscular Hgb 27.3 pg (27.0-32.0); Mean Corpuscular Volume 87.6 fL (81-99); Mean Platelet Vol. 9.4 fl (6.2-12.0); Monocyte# 0.61 X10^3/uL; Monocyte% 9.8 % (0-10); Neutrophil # 4.01 X10^3/uL (2.7-7.7); Neutrophil % 64.7 % (47-70); Platelet Count 332 K/mm3 (150-450); RBC Distribution Width CV 13.3 % (11.6-14.6); RBC Distribution Width SD 41.3 fl (35.1-43.9); Red Blood Count 2.67 M/mm3 (4.2-5.4); White Blood Count 6.2 K/mm3 (4.4-11.0)
[2018-01-06 06:12] LABS: Anion Gap 7 (5-15); BUN 20 mg/dL (7-18); BUN/Creat Ratio 26.3 RATIO (10-20); Calcium,Total 8.8 mg/dL (8.5-10.1); Chloride 102 mmol/L (98-107); Creatinine, Serum 0.76 mg/dL (0.55-1.02); EST Glomerular Filtration Rate 80 mL/min (>60); Est Glom Filt Rate - Afr Amer 97 mL/min (>60); Estimated Creatinine Clearance 40.63 ml/min; Glucose 163 mg/dL (74-106); Potassium 4.2 mmol/L (3.5-5.1); Sodium Level 136 mmol/L (136-145)
[2018-01-06 06:32] LABS: POSITIVE COUNT NO; POSITIVE DIFFERENTIAL NO; POSITIVE MORPHOLOGY NO
[2018-01-06] MEDS: Escitalopram Oxalate 20 MG Tablet 40 MG PO (07:58)
[2018-01-06] MEDS: metFORMIN HCl 1,000 MG Tablet 1000 MG PO ×2 (07:58→16:53)
[2018-01-06] MEDS: Furosemide 40 MG Tablet PO (07:59)
[2018-01-06] MEDS: Ferrous Sulfate 325 MG Tablet PO ×2 (07:59→16:53)
[2018-01-06] MEDS: Losartan Potassium 25 MG Tablet PO (07:59)
[2018-01-06] MEDS: Mirabegron 50 MG TAB.ER.24H PO (07:59)
[2018-01-06] MEDS: Aspirin 325 MG Tablet PO ×2 (07:59→16:53)
[2018-01-06] MEDS: guaiFENesin 600 MG Tablet PO ×2 (07:59→21:06)
[2018-01-06] MEDS: TADALAFIL 20 MG TABLET 40 MG PO (07:59)
[2018-01-06] MEDS: Pantoprazole Sodium 40 MG Tablet PO ×2 (07:59→21:06)
[2018-01-06] MEDS: Metoprolol(XL)Succ 25 MG Tablet 12.5 MG PO (08:00)
--- NOTE | 2018-01-06 10:53 | CASEMGMT ---
Team meeting held. Patient present as well as patient support system. Collaborating with team and therapy on discharge date, discharge date has 01/11/18. Patient plans to discharge home alone with friends for support. Physical therapy is recommending for patient to continue with services through outpatient physical therapy. Patient is agreeable to therapy recommendations and requesting for outpatient physical therapy to be set up through [facility]. Support given. Will continue to follow. Proposed discharge date: 01/11/18 PLAN: Discharge home alone with outpatient physical therapy. Duyen OLVERA, PAPER BOX CUTTER
[2018-01-06 11:41] LABS: Bedside Glucose 171 mg/dL (70-110)
--- NOTE | 2018-01-06 13:03 | PN.NEURO_ITS ---
Subjective: Staffed in team meeting. Family at bedside. Questions answered. With Physical therapy she is minimal assist for bed mobility, for transfers, and ambulation. She is able to ambulate greater than 150 feet. With Occupational therapy she is minimal assist for lower body care, she is able to do her own personal care. She is supervision for toileting and cleaning her self up. With Nursing she was starting to feel she was getting a cold and requested Mucinex, since that is what she takes at home, requested Melatonin for sleep. Her pain is well controlled on the scheduled Tylenol, had some issues with her stomach being upset het Protonix was increased and Tums was added which has helped. Her helen will be removed on 01/10, and she will be discharged home on 01/11 with outpatient Physical therapy. She has a follow up appointment with Dr. Lay on January 23. - Physical Exam General: Alert, Oriented x3, Cooperative HEENT: Atraumatic, PERRLA, EOMI, Normocephalic Neck: Supple, No JVD, Negative Carotid Bruits Lungs: Clear to auscultation, Normal air movement Cardiovascular: Regular rate, No murmurs Abdomen: Bowel Sounds Present, Soft, Non Tender Extremities: No edema, Capillary Refill Less than 3 Seconds Skin: No rashes, No breakdown Musculoskeletal: No Tenderness to Palpation of Joints or Extremities Neurological: Cranial nerves II-XII grossly intact Psych/Mental Status: Normal Affect, Appropriate Vital Signs Temp Pulse Resp BP Pulse Ox 98.4 F 70 18 140/59 H 93 01/06/18 07:25 01/06/18 08:00 01/06/18 07:25 01/06/18 08:00 01/06/18 07:25 Oxygen Delivery Method Room Air Weight: 123.4 kg Body Mass Index (BMI) 50.1 Finger Stick Blood Glucose 170 Intake and Output for Last 24 Hours 01/04/18 01/05/18 01/06/18 23:59 23:59 23:59 Intake Total 1860 / 1860 740 / 740 240 / 240 Output Total 1100 / 1100 600 / 600 Balance 760 / 760 140 / 140 240 / 240 Microbiology Past 72 Hours 01/03/18 11:10 Urine Culture - Final Urine, Catheterized Klebsiella pneumoniae sp pneum Laboratory Tests Past 24 Hrs 01/06/18 01/06/18 01/06/18 05:23 05:23 11:45 WBC 6.2 RBC 2.67 L Hgb 7.3 L Hct 23.4 L MCV 87.6 MCH 27.3 MCHC 31.2 L RDW 13.3 RDW Differential 41.3 Plt Count 332 MPV 9.4 Immature Gran % (Auto) 0.200 Neut % (Auto) 64.7 Lymph % (Auto) 20.0 [place] % (Auto) 9.8 Eos % (Auto) 4.8 Baso % (Auto) 0.5 Absolute Neuts (auto) 4.0 Absolute Lymphs (auto) 1.24 Total Counted Not Reportable Sodium 136 Potassium 4.2 Chloride 102 Carbon Dioxide 27.0 Anion Gap 7 BUN 20 H Creatinine 0.76 Estim Creat Clear Calc 40.63 Est GFR (MDRD) Af Amer 97 Est GFR (MDRD) Non-Af 80 BUN/Creatinine Ratio 26.3 H Glucose 163 H Calcium 8.8 Blood Type Pending Antibody Screen Pending Crossmatch See Detail POC Glucose 01/06/18 01/05/18 01/05/18 11:33 21:03 16:55 POC Glucose 171 H 233 H 183 H Active Medications Acetaminophen (Tylenol) 1,000 mg PO Q8 [facility] Last Admin: 01/06/18 05:40 Dose: 1,000 mg Albuterol Sulfate (Proair Hfa (Sp) Surgery/Vent Pts) 1 puff INHALATION Q4H PRN PRN PRN Reason: asthma Last Admin: 01/03/18 13:48 Dose: 1 puff [facility] Last Admin: 01/06/18 07:59 Dose: 325 mg Bisacodyl (Dulcolax) 10 mg RECTAL .PRN X 1 PRN PRN Reason: Constipation Bupropion HCl (Wellbutrin Xl) 150 mg PO DAILY [facility] Last Admin: 01/06/18 07:59 Dose: 150 mg Calcium Carbonate (Tums) 500 mg PO Q6H PRN PRN PRN Reason: DYSPEPSIA Last Admin: 01/06/18 02:18 Dose: 500 mg Escitalopram Oxalate (Lexapro) 40 mg PO DAILY [facility] Last Admin: 01/06/18 07:58 Dose: 40 mg Ferrous Sulfate ([facility]ate) [facility] Last Admin: 01/06/18 07:59 Dose: 325 mg Fulvestrant (Faslodex) 250 mg IM QMONTH [facility] Furosemide (Lasix) 40 mg PO DAILY [facility] Last Admin: 01/06/18 07:59 Dose: 40 mg Guaifenesin (Mucinex) 600 mg PO BID [facility] Last Admin: 01/06/18 07:59 Dose: 600 mg Insulin Aspart (Novolog Flexpen ([facility])) 0 units SC ACHS [facility] PRN Reason: Protocol Last Admin: 01/06/18 12:06 Dose: 1 u Insulin Detemir (Levemir ([facility])) 74 units SC QHS [facility] Last Admin: 01/05/18 21:12 Dose: 74 u Lorazepam (Ativan) 1 mg PO Q8H PRN PRN PRN Reason: ANXIETY Last Admin: 01/02/18 23:33 Dose: 1 mg Losartan Potassium (Cozaar) 25 mg PO DAILY [facility] Last Admin: 01/06/18 07:59 Dose: 25 mg Magnesium Hydroxide (Milk Of Magnesia) 30 ml PO .PRN X 1 PRN PRN Reason: Constipation Melatonin (Melatonin) 3 mg PO QHS PRN PRN PRN Reason: insomnia Last Admin: 01/05/18 21:10 Dose: 3 mg Metformin HCl ([facility]) [facility] Last Admin: 01/06/18 07:58 Dose: 1,000 mg Metoprolol Succinate (Toprol Xl (Beta Krsi)) 12.5 mg PO DAILY [facility] Last Admin: 01/06/18 08:00 Dose: 12.5 mg Montelukast Sodium (Singulair) 10 mg PO DAILY@1700 [facility] Last Admin: 01/05/18 16:57 Dose: 10 mg Oxycodone HCl (Oxyir) 5 - 10 mg PO Q4H PRN PRN PRN Reason: MOD-SEVERE PAIN (4-10/10) Last Admin: 01/06/18 07:58 Dose: 5 mg Pantoprazole Sodium (Protonix) 40 mg PO BID [facility] Last Admin: 01/06/18 07:59 Dose: 40 mg Pravastatin Sodium (Pravachol) 20 mg PO QHS [facility] Last Admin: 01/05/18 21:09 Dose: 20 mg Fluticasone/Salmeterol (Advair 250/50 Mcg Diskus) 1 puff INHALATION BID [facility] Last Admin: 01/06/18 07:59 Dose: 1 puff Senna/Docusate Sodium (Senokot-S, Sharda-Colace) 2 tablet PO BID [facility] Last Admin: 01/06/18 07:17 Dose: Not Given Tadalafil (Adcirca) 40 mg PO DAILY [facility] Last Admin: 01/06/18 07:59 Dose: 40 mg Assessment/Plan Assessment/Plan debility s/p left tkr, previously functionally independent, goal of rehab is mormonism of functional independence. complicated by other medical issues including htn, dm, and metastatic breast cancer - pt for gait and balance - ot for adls - prn analagesics - dvt prophylaxis: scds and asa per ortho recs - bowel protocol - dm: levemir qhs and ssi - bp control - metastatic breast ca, follows with dr maddox [place]. continue current hormonal rx - Nausea: I will increase her Protonix dose, as well as add an antacid and if this does not help she will need to go on Zofran - History of anxiety and depression: Controlled on Lexapro and Wellbutrin. - D/C helen on 01/10 prior to d/c home - Discharge home with outpatient Physical therapy on 01/11 if she remains stable - Follow up appointment with Dr. Lay on January 23.
[2018-01-06] MEDS: Montelukast 10 MG Tablet PO (16:53)
[2018-01-06 17:01] LABS: Bedside Glucose 161 mg/dL (70-110)
[2018-01-06 20:41] LABS: Bedside Glucose 168 mg/dL (70-110)
[2018-01-06] MEDS: 0.9% NaCl Peripheral Flush Adult/Peds IV (20:55)
[2018-01-06] MEDS: Pravastatin 20 MG Tablet PO (21:06)
[2018-01-06] MEDS: MELATONIN 3 MG TABLET PO (21:08)
[2018-01-06 21:51] LABS: Bedside Glucose 203 mg/dL (70-110)
[2018-01-07] MEDS: oxyCODONE 5 MG Tablet PO ×4 (00:49→18:29)
[2018-01-07] MEDS: Acetaminophen 500 MG Tablet 1000 MG PO ×3 (05:25→21:18)
[2018-01-07 05:40] LABS: Hematocrit 26.9 % (37-47); Hemoglobin 8.4 g/dl (12.0-15.0)
[2018-01-07 06:41] LABS: Bedside Glucose 108 mg/dL (70-110)
[2018-01-07 07:38] VITALS: BP 146/64; PULSE 68; RESP 17; TEMP 37; O2SAT 95
[2018-01-07 08:00] VITALS: BP 148/64; PULSE 68
[2018-01-07] MEDS: Mirabegron 50 MG TAB.ER.24H PO (08:00)
[2018-01-07] MEDS: guaiFENesin 600 MG Tablet PO ×2 (08:00→21:19)
[2018-01-07] MEDS: Metoprolol(XL)Succ 25 MG Tablet 12.5 MG PO (08:00)
[2018-01-07] MEDS: Pantoprazole Sodium 40 MG Tablet PO ×2 (08:00→21:19)
[2018-01-07] MEDS: Aspirin 325 MG Tablet PO ×2 (08:01→18:27)
[2018-01-07] MEDS: Losartan Potassium 25 MG Tablet PO (08:01)
[2018-01-07] MEDS: TADALAFIL 20 MG TABLET 40 MG PO (08:01)
[2018-01-07] MEDS: Escitalopram Oxalate 20 MG Tablet 40 MG PO (08:01)
[2018-01-07] MEDS: Ferrous Sulfate 325 MG Tablet PO ×2 (08:01→18:27)
[2018-01-07] MEDS: Furosemide 40 MG Tablet PO (08:01)
[2018-01-07] MEDS: metFORMIN HCl 1,000 MG Tablet 1000 MG PO ×2 (08:01→18:26)
--- NOTE | 2018-01-07 11:28 | CASEMGMT ---
Insurance Clinical information faxed. Pending continued stay approval at this time. Auth#[id number] Duyen OLVERA, MANAGED CARE MANAGER
[2018-01-07 12:51] LABS: Bedside Glucose 123 mg/dL (70-110)
--- NOTE | 2018-01-07 13:14 | CASEMGMT ---
Insurance Continued stay approved with next update due on 01/11/18. Auth#[id number] Duyen OLVERA, [employer] W[employer]ER
--- NOTE | 2018-01-07 13:32 | PCM.PN.NEU ---
Subjective: Patient seen and examined. Complaining of increased pain in Left knee 2/2 Physical and Occupational therapy sessions, will start a low dose Fentanyl patch of 12mcq. Otherwise tolerating therapy. No issues with GI/. - Physical Exam General: Alert, Oriented x3, Cooperative HEENT: Atraumatic, PERRLA, EOMI, Normocephalic Neck: Supple, No JVD, Negative Carotid Bruits Lungs: Clear to auscultation, Normal air movement Cardiovascular: Regular rate, No murmurs Abdomen: Bowel Sounds Present, Soft, Non Tender Extremities: No edema, Capillary Refill Less than 3 Seconds Skin: No rashes, No breakdown Musculoskeletal: No Tenderness to Palpation of Joints or Extremities Neurological: Cranial nerves II-XII grossly intact Psych/Mental Status: Normal Affect, Appropriate Vital Signs Temp Pulse Resp BP Pulse Ox 98.6 F 68 17 148/64 H 95 01/07/18 07:38 01/07/18 08:00 01/07/18 07:38 01/07/18 08:00 01/07/18 07:38 Oxygen Delivery Method Room Air Weight: 123.4 kg Body Mass Index (BMI) 50.1 Finger Stick Blood Glucose 170 Intake and Output for Last 24 Hours 01/05/18 01/06/18 01/07/18 23:59 23:59 23:59 Intake Total 740 / 740 890 / 890 360 / 360 Output Total 600 / 600 Balance 140 / 140 890 / 890 360 / 360 Microbiology Past 72 Hours 01/03/18 11:10 Urine Culture - Final Urine, Catheterized Klebsiella pneumoniae sp pneum Laboratory Tests Past 24 Hrs 01/06/18 01/07/18 11:45 05:15 Hgb 8.4 L Hct 26.9 L Blood Type A POSITIVE Antibody Screen NEGATIVE Crossmatch See Detail POC Glucose 01/07/18 01/07/18 01/06/18 12:00 06:25 21:12 POC Glucose 123 H 108 203 H 01/06/18 01/06/18 16:49 06:50 POC Glucose 161 H 168 H Active Medications Acetaminophen (Tylenol) 1,000 mg PO Q8 [facility] Last Admin: 01/07/18 05:25 Dose: 1,000 mg Albuterol Sulfate (Proair Hfa (Sp) Surgery/Vent Pts) 1 puff INHALATION Q4H PRN PRN PRN Reason: asthma Last Admin: 01/03/18 13:48 Dose: 1 puff [facility] Last Admin: 01/07/18 08:01 Dose: 325 mg Bisacodyl (Dulcolax) 10 mg RECTAL .PRN X 1 PRN PRN Reason: Constipation Bupropion HCl (Wellbutrin Xl) 150 mg PO DAILY [facility] Last Admin: 01/07/18 08:00 Dose: 150 mg Calcium Carbonate (Tums) 500 mg PO Q6H PRN PRN PRN Reason: DYSPEPSIA Last Admin: 01/06/18 20:18 Dose: 500 mg Escitalopram Oxalate (Lexapro) 40 mg PO DAILY [facility] Last Admin: 01/07/18 08:01 Dose: 40 mg Ferrous Sulfate (Ferrous Sulfate) [facility] Last Admin: 01/07/18 08:01 Dose: 325 mg Fulvestrant (Faslodex) 250 mg IM QMONTH [facility] Furosemide (Lasix) 40 mg PO DAILY [facility] Last Admin: 01/07/18 08:01 Dose: 40 mg Guaifenesin (Mucinex) 600 mg PO BID [facility] Last Admin: 01/07/18 08:00 Dose: 600 mg Insulin Aspart (Novolog Flexpen ([facility])) 0 units SC ACHS [facility] PRN Reason: Protocol Last Admin: 01/07/18 13:09 Dose: Not Given Insulin Detemir (Levemir ([facility])) 74 units SC QHS [facility] Last Admin: 01/06/18 21:15 Dose: 74 u Lorazepam (Ativan) 1 mg PO Q8H PRN PRN PRN Reason: ANXIETY Last Admin: 01/02/18 23:33 Dose: 1 mg Losartan Potassium (Cozaar) 25 mg PO DAILY [facility] Last Admin: 01/07/18 08:01 Dose: 25 mg Magnesium Hydroxide (Milk Of Magnesia) 30 ml PO .PRN X 1 PRN PRN Reason: Constipation Melatonin (Melatonin) 3 mg PO QHS PRN PRN PRN Reason: insomnia Last Admin: 01/06/18 21:08 Dose: 3 mg Metformin HCl (Glucophage) [facility] Last Admin: 01/07/18 08:01 Dose: 1,000 mg Metoprolol Succinate (Toprol Xl (Beta Kris)) 12.5 mg PO DAILY [facility] Last Admin: 02/13/18 08:00 Dose: 12.5 mg Montelukast Sodium (Singulair) 10 mg PO DAILY@1700 [facility] Last Admin: 01/06/18 16:53 Dose: 10 mg Oxycodone HCl (Oxyir) 5 - 10 mg PO Q4H PRN PRN PRN Reason: MOD-SEVERE PAIN (4-10/10) Last Admin: 01/07/18 12:32 Dose: 10 mg Pantoprazole Sodium (Protonix) 40 mg PO BID [facility] Last Admin: 01/07/18 08:00 Dose: 40 mg Pravastatin Sodium (Pravachol) 20 mg PO QHS [facility] Last Admin: 01/06/18 21:06 Dose: 20 mg Fluticasone/Salmeterol (Advair 250/50 Mcg Diskus) 1 puff INHALATION BID [facility] Last Admin: 01/07/18 10:11 Dose: 1 puff Sodium Chloride () 5 - 30 ml IV UD PRN PRN Reason: SALINE FLUSH Last Admin: 01/06/18 20:55 Dose: 10 ml Tadalafil (Adcirca) 40 mg PO DAILY [facility] Last Admin: 01/07/18 08:01 Dose: 40 mg Assessment/Plan debility s/p left tkr, previously functionally independent, goal of rehab is christian of functional independence. complicated by other medical issues including htn, dm, and metastatic breast cancer - pt for gait and balance - ot for adls - prn analagesics - dvt prophylaxis: scds and asa per ortho recs - bowel protocol - dm: levemir qhs and ssi - bp control - metastatic breast ca, follows with dr maddox in [place]. continue current hormonal rx - Nausea: I will increase her Protonix dose, as well as add an antacid and if this does not help she will need to go on Zofran - History of anxiety and depression: Controlled on Lexapro and Wellbutrin. - D/C helen on 01/10 prior to d/c home - Discharge home with outpatient Physical therapy on 01/11 if she remains stable - Follow up appointment with Dr. Lay on January 23.
--- NOTE | 2018-01-07 13:39 | PN.NEURO_ITS ---
Subjective: Patient seen and examined. Complaining of increased pain in Left knee 2/2 Physical and Occupational therapy sessions, will start a low dose Fentanyl patch of 12mcq. Otherwise tolerating therapy. No issues with GI/. - Physical Exam General: Alert, Oriented x3, Cooperative HEENT: Atraumatic, PERRLA, EOMI, Normocephalic Neck: Supple, No JVD, Negative Carotid Bruits Lungs: Clear to auscultation, Normal air movement Cardiovascular: Regular rate, No murmurs Abdomen: Bowel Sounds Present, Soft, Non Tender Extremities: No edema, Capillary Refill Less than 3 Seconds Skin: No rashes, No breakdown Musculoskeletal: No Tenderness to Palpation of Joints or Extremities Neurological: Cranial nerves II-XII grossly intact Psych/Mental Status: Normal Affect, Appropriate Vital Signs Temp Pulse Resp BP Pulse Ox 98.6 F 68 17 148/64 H 95 01/07/18 07:38 01/07/18 08:00 01/07/18 07:38 01/07/18 08:00 01/07/18 07:38 Oxygen Delivery Method Room Air Weight: 123.4 kg Body Mass Index (BMI) 50.1 Finger Stick Blood Glucose 170 Intake and Output for Last 24 Hours 01/05/18 01/06/18 01/07/18 23:59 23:59 23:59 Intake Total 740 / 740 890 / 890 360 / 360 Output Total 600 / 600 Balance 140 / 140 890 / 890 360 / 360 Microbiology Past 72 Hours 01/03/18 11:10 Urine Culture - Final Urine, Catheterized Klebsiella pneumoniae sp pneum Laboratory Tests Past 24 Hrs 01/06/18 01/07/18 11:45 05:15 Hgb 8.4 L Hct 26.9 L Blood Type A POSITIVE Antibody Screen NEGATIVE Crossmatch See Detail POC Glucose 01/07/18 01/07/18 01/06/18 12:00 06:25 21:12 POC Glucose 123 H 108 203 H 01/06/18 01/06/18 16:49 06:50 POC Glucose 161 H 168 H Active Medications Acetaminophen (Tylenol) 1,000 mg PO Q8 [facility] Last Admin: 01/07/18 05:25 Dose: 1,000 mg Albuterol Sulfate (Proair Hfa (Sp) Surgery/Vent Pts) 1 puff INHALATION Q4H PRN PRN PRN Reason: asthma Last Admin: 01/03/18 13:48 Dose: 1 puff [facility] Last Admin: 01/07/18 08:01 Dose: 325 mg Bisacodyl (Dulcolax) 10 mg RECTAL .PRN X 1 PRN PRN Reason: Constipation Bupropion HCl (Wellbutrin Xl) 150 mg PO DAILY [facility] Last Admin: 01/07/18 08:00 Dose: 150 mg Calcium Carbonate (Tums) 500 mg PO Q6H PRN PRN PRN Reason: DYSPEPSIA Last Admin: 01/06/18 20:18 Dose: 500 mg Escitalopram Oxalate (Lexapro) 40 mg PO DAILY [facility] Last Admin: 01/07/18 08:01 Dose: 40 mg Ferrous Sulfate (Ferrous Sulfate) [facility] Last Admin: 01/07/18 08:01 Dose: 325 mg Fulvestrant (Faslodex) 250 mg IM QMONTH [facility] Furosemide (Lasix) 40 mg PO DAILY [facility] Last Admin: 01/07/18 08:01 Dose: 40 mg Guaifenesin (Mucinex) 600 mg PO BID [facility] Last Admin: 01/07/18 08:00 Dose: 600 mg Insulin Aspart (Novolog Flexpen ([facility])) 0 units SC ACHS [facility] PRN Reason: Protocol Last Admin: 01/07/18 13:09 Dose: Not Given Insulin Detemir (Levemir ([facility])) 74 units SC QHS [facility] Last Admin: 01/06/18 21:15 Dose: 74 u Lorazepam (Ativan) 1 mg PO Q8H PRN PRN PRN Reason: ANXIETY Last Admin: 01/02/18 23:33 Dose: 1 mg Losartan Potassium (Cozaar) 25 mg PO DAILY [facility] Last Admin: 01/07/18 08:01 Dose: 25 mg Magnesium Hydroxide (Milk Of Magnesia) 30 ml PO .PRN X 1 PRN PRN Reason: Constipation Melatonin (Melatonin) 3 mg PO QHS PRN PRN PRN Reason: insomnia Last Admin: 01/06/18 21:08 Dose: 3 mg Metformin HCl (Glucophage) [facility] Last Admin: 01/07/18 08:01 Dose: 1,000 mg Metoprolol Succinate (Toprol Xl (Beta Kris)) 12.5 mg PO DAILY [facility] Last Admin: 02/13/18 08:00 Dose: 12.5 mg Montelukast Sodium (Singulair) 10 mg PO DAILY@1700 [facility] Last Admin: 01/06/18 16:53 Dose: 10 mg Oxycodone HCl (Oxyir) 5 - 10 mg PO Q4H PRN PRN PRN Reason: MOD-SEVERE PAIN (4-10/10) Last Admin: 01/07/18 12:32 Dose: 10 mg Pantoprazole Sodium (Protonix) 40 mg PO BID [facility] Last Admin: 01/07/18 08:00 Dose: 40 mg Pravastatin Sodium (Pravachol) 20 mg PO QHS [facility] Last Admin: 01/06/18 21:06 Dose: 20 mg Fluticasone/Salmeterol (Advair 250/50 Mcg Diskus) 1 puff INHALATION BID [facility] Last Admin: 01/07/18 10:11 Dose: 1 puff Sodium Chloride () 5 - 30 ml IV UD PRN PRN Reason: SALINE FLUSH Last Admin: 01/06/18 20:55 Dose: 10 ml Tadalafil (Adcirca) 40 mg PO DAILY [facility] Last Admin: 01/07/18 08:01 Dose: 40 mg Assessment/Plan debility s/p left tkr, previously functionally independent, goal of rehab is quaker of functional independence. complicated by other medical issues including htn, dm, and metastatic breast cancer - pt for gait and balance - ot for adls - prn analagesics - dvt prophylaxis: scds and asa per ortho recs - bowel protocol - dm: levemir qhs and ssi - bp control - metastatic breast ca, follows with dr maddox in [place]. continue current hormonal rx - Nausea: I will increase her Protonix dose, as well as add an antacid and if this does not help she will need to go on Zofran - History of anxiety and depression: Controlled on Lexapro and Wellbutrin. - D/C helen on 01/10 prior to d/c home - Discharge home with outpatient Physical therapy on 01/11 if she remains stable - Follow up appointment with Dr. Lay on January 23.
[2018-01-07 17:06] LABS: Bedside Glucose 149 mg/dL (70-110)
[2018-01-07] MEDS: Montelukast 10 MG Tablet PO (18:28)
[2018-01-07 21:00] VITALS: BP 137/66; PULSE 69; RESP 18; TEMP 36.8; O2SAT 94; O2SAT 96
[2018-01-07] MEDS: 0.9% NaCl Peripheral Flush Adult/Peds IV (21:11)
[2018-01-07] MEDS: MELATONIN 3 MG TABLET PO (21:18)
[2018-01-07] MEDS: Pravastatin 20 MG Tablet PO (21:19)
[2018-01-07 21:21] LABS: Bedside Glucose 210 mg/dL (70-110)
--- NOTE | 2018-01-08 01:21 | NURSING ---
REVIEWED AND AGREE WITH [employer].
[2018-01-08] MEDS: Calcium Carbonate 500 MG Tablet PO (04:40)
[2018-01-08] MEDS: oxyCODONE 5 MG Tablet PO ×3 (04:41→15:07)
[2018-01-08] MEDS: 0.9% NaCl Peripheral Flush Adult/Peds IV (04:41)
[2018-01-08] MEDS: Acetaminophen 500 MG Tablet 1000 MG PO ×3 (06:32→21:16)
--- NOTE | 2018-01-08 06:59 | NURSING ---
blood sugar checked at 0630 and was noted to be 60, pt alert and oriented and reported feeling hungry. 240cc orange juice given and will recheck at 0700. rn made aware. 0700 recheck completed and was 93 at this time
[2018-01-08 07:06] LABS: Bedside Glucose 60 mg/dL (70-110)
[2018-01-08 07:06] LABS: Bedside Glucose 93 mg/dL (70-110)
[2018-01-08 07:54] VITALS: BP 139/51; PULSE 73; RESP 16; TEMP 36.9; O2SAT 95
[2018-01-08 09:20] VITALS: BP 128/63; PULSE 69
[2018-01-08] MEDS: Mirabegron 50 MG TAB.ER.24H PO (09:20)
[2018-01-08] MEDS: Metoprolol(XL)Succ 25 MG Tablet 12.5 MG PO (09:20)
[2018-01-08] MEDS: Pantoprazole Sodium 40 MG Tablet PO ×2 (09:21→21:16)
[2018-01-08] MEDS: Escitalopram Oxalate 20 MG Tablet 40 MG PO (09:21)
[2018-01-08] MEDS: guaiFENesin 600 MG Tablet PO ×2 (09:21→21:16)
[2018-01-08] MEDS: Losartan Potassium 25 MG Tablet PO (09:22)
[2018-01-08] MEDS: Ferrous Sulfate 325 MG Tablet PO ×2 (09:22→17:40)
[2018-01-08] MEDS: Furosemide 40 MG Tablet PO (09:22)
[2018-01-08] MEDS: metFORMIN HCl 1,000 MG Tablet 1000 MG PO ×2 (09:22→17:40)
[2018-01-08] MEDS: Aspirin 325 MG Tablet PO ×2 (09:22→17:41)
[2018-01-08] MEDS: TADALAFIL 20 MG TABLET 40 MG PO (09:23)
--- NOTE | 2018-01-08 10:01 | PCM.PN.NEU ---
Subjective: Patient seen and examined. Tolerating therapy. Left Knee incision is C/D/I, helen in place, no redness, warmth, or tenderness on palpation noted. Pain is well controlled with the addition of Duragesic patch. Denies any shortness of breath or chest pains. Tolerating regular diet, no issues with GI/. - Physical Exam General: Alert, Oriented x3, Cooperative HEENT: Atraumatic, PERRLA, EOMI, Normocephalic Neck: Supple, No JVD, Negative Carotid Bruits Lungs: Clear to auscultation, Normal air movement Cardiovascular: Regular rate, No murmurs Abdomen: Bowel Sounds Present, Soft, Non Tender Extremities: No edema, Capillary Refill Less than 3 Seconds Skin: No rashes, No breakdown Musculoskeletal: No Tenderness to Palpation of Joints or Extremities Neurological: Cranial nerves II-XII grossly intact Psych/Mental Status: Normal Affect, Appropriate Vital Signs Temp Pulse Resp BP Pulse Ox 98.4 F 69 16 128/63 H 95 01/08/18 07:54 01/08/18 09:20 01/08/18 07:54 01/08/18 09:20 01/08/18 07:54 Oxygen Delivery Method Room Air Weight: 115.6 kg Body Mass Index (BMI) 50.1 Finger Stick Blood Glucose 170 Intake and Output for Last 24 Hours 01/06/18 01/07/18 01/08/18 23:59 23:59 23:59 Intake Total 890 / 890 960 / 960 Balance 890 / 890 960 / 960 Microbiology Past 72 Hours 01/03/18 11:10 Urine Culture - Final Urine, Catheterized Klebsiella pneumoniae sp pneum POC Glucose 01/08/18 01/08/18 01/07/18 07:00 06:36 21:15 POC Glucose 93 60 L 210 H 01/07/18 01/07/18 17:02 12:00 POC Glucose 149 H 123 H Active Medications Acetaminophen (Tylenol) 1,000 mg PO Q8 [facility] Last Admin: 01/08/18 06:32 Dose: 1,000 mg Albuterol Sulfate (Proair Hfa (Sp) Surgery/Vent Pts) 1 puff INHALATION Q4H PRN PRN PRN Reason: asthma Last Admin: 01/03/18 13:48 Dose: 1 puff Aspirin (Aspirin) 325 mg PO BIDCM [facility] Last Admin: 01/08/18 09:22 Dose: 325 mg Bisacodyl (Dulcolax) 10 mg RECTAL .PRN X 1 PRN PRN Reason: Constipation Bupropion HCl (Wellbutrin Xl) 150 mg PO DAILY [facility] Last Admin: 01/08/18 09:19 Dose: 150 mg Calcium Carbonate (Tums) 500 mg PO Q6H PRN PRN PRN Reason: DYSPEPSIA Last Admin: 01/08/18 04:40 Dose: 500 mg Escitalopram Oxalate (Lexapro) 40 mg PO DAILY [facility] Last Admin: 01/08/18 09:21 Dose: 40 mg Fentanyl (Duragesic) 12 mcg TRANSDERM. Q3D [facility] Last Admin: 01/07/18 14:27 Dose: 12 mcg [facility]ous S[facility] ([facility] Last Admin: 01/08/18 09:22 Dose: 325 mg Fulvestrant (Faslodex) 250 mg IM QMONTH [facility] Furosemide (Lasix) 40 mg PO DAILY [facility] Last Admin: 01/08/18 09:22 Dose: 40 mg Guaifenesin (Mucinex) 600 mg PO BID [facility] Last Admin: 01/08/18 09:21 Dose: 600 mg Insulin Aspart (Novolog Flexpen ([facility])) 0 units SC ACHS [facility] PRN Reason: Protocol Last Admin: 01/08/18 06:41 Dose: Not Given Insulin Detemir (Levemir ([facility])) 74 units SC QHS [facility] Last Admin: 01/07/18 21:20 Dose: 74 u Lorazepam (Ativan) 1 mg PO Q8H PRN PRN PRN Reason: ANXIETY Last Admin: 01/02/18 23:33 Dose: 1 mg Losartan Potassium (Cozaar) 25 mg PO DAILY [facility] Last Admin: 01/08/18 09:22 Dose: 25 mg Magnesium Hydroxide (Milk Of Magnesia) 30 ml PO .PRN X 1 PRN PRN Reason: Constipation Melatonin (Melatonin) 3 mg PO QHS PRN PRN PRN Reason: insomnia Last Admin: 01/07/18 21:18 Dose: 3 mg Metformin HCl (Glucophage) [facility] Last Admin: 01/08/18 09:22 Dose: 1,000 mg Metoprolol Succinate (Toprol Xl (Beta Kris)) 12.5 mg PO DAILY [facility] Last Admin: 01/08/18 09:20 Dose: 12.5 mg Montelukast Sodium (Singulair) 10 mg PO DAILY@1700 [facility] Last Admin: 01/07/18 18:28 Dose: 10 mg Oxycodone HCl (Oxyir) 5 - 10 mg PO Q4H PRN PRN PRN Reason: MOD-SEVERE PAIN (4-10/10) Last Admin: 01/08/18 04:41 Dose: 10 mg Pantoprazole Sodium (Protonix) 40 mg PO BID [facility] Last Admin: 01/08/18 09:21 Dose: 40 mg Pravastatin Sodium (Pravachol) 20 mg PO QHS [facility] Last Admin: 01/07/18 21:19 Dose: 20 mg Fluticasone/Salmeterol (Advair 250/50 Mcg Diskus) 1 puff INHALATION BID [facility] Last Admin: 01/08/18 09:19 Dose: 1 puff Sodium Chloride () 5 - 30 ml IV UD PRN PRN Reason: SALINE FLUSH Last Admin: 01/08/18 04:41 Dose: 20 ml Tadalafil (Adcirca) 40 mg PO DAILY [facility] Last Admin: 01/08/18 09:23 Dose: 40 mg Assessment/Plan debility s/p left tkr, previously functionally independent, goal of rehab is religious of functional independence. complicated by other medical issues including htn, dm, and metastatic breast cancer - PT for gait and balance - OT for ADLs - PRN analgesics - DVT prophylaxis: SCDs and asa per ortho recs - bowel protocol - dm: Levemir QHS and SSI - bp control - metastatic breast ca, follows with Dr. Del Valle in [place]. continue current hormonal Tx - Nausea: I will increase her Protonix dose, as well as add an antacid and if this does not help she will need to go on Zofran - History of anxiety and depression: Controlled on Lexapro and Wellbutrin. - D/C helen on 01/10 prior to d/c home - Discharge home with outpatient Physical therapy on 01/11 if she remains stable - Follow up appointment with Dr. Lay on January 23. - Pain control => add Fentanyl patch 12 mcq
--- NOTE | 2018-01-08 10:13 | PN.NEURO_ITS ---
Subjective: Patient seen and examined. Tolerating therapy. Left Knee incision is C/D/I, helen in place, no redness, warmth, or tenderness on palpation noted. Pain is well controlled with the addition of Duragesic patch. Denies any shortness of breath or chest pains. Tolerating regular diet, no issues with GI/. - Physical Exam General: Alert, Oriented x3, Cooperative HEENT: Atraumatic, PERRLA, EOMI, Normocephalic Neck: Supple, No JVD, Negative Carotid Bruits Lungs: Clear to auscultation, Normal air movement Cardiovascular: Regular rate, No murmurs Abdomen: Bowel Sounds Present, Soft, Non Tender Extremities: No edema, Capillary Refill Less than 3 Seconds Skin: No rashes, No breakdown Musculoskeletal: No Tenderness to Palpation of Joints or Extremities Neurological: Cranial nerves II-XII grossly intact Psych/Mental Status: Normal Affect, Appropriate Vital Signs Temp Pulse Resp BP Pulse Ox 98.4 F 69 16 128/63 H 95 01/08/18 07:54 01/08/18 09:20 01/08/18 07:54 01/08/18 09:20 01/08/18 07:54 Oxygen Delivery Method Room Air Weight: 115.6 kg Body Mass Index (BMI) 50.1 Finger Stick Blood Glucose 170 Intake and Output for Last 24 Hours 01/06/18 01/07/18 01/08/18 23:59 23:59 23:59 Intake Total 890 / 890 960 / 960 Balance 890 / 890 960 / 960 Microbiology Past 72 Hours 01/03/18 11:10 Urine Culture - Final Urine, Catheterized Klebsiella pneumoniae sp pneum POC Glucose 01/08/18 01/08/18 01/07/18 07:00 06:36 21:15 POC Glucose 93 60 L 210 H 01/07/18 01/07/18 17:02 12:00 POC Glucose 149 H 123 H Active Medications Acetaminophen (Tylenol) 1,000 mg PO Q8 [facility] Last Admin: 01/08/18 06:32 Dose: 1,000 mg Albuterol Sulfate (Proair Hfa (Sp) Surgery/Vent Pts) 1 puff INHALATION Q4H PRN PRN PRN Reason: asthma Last Admin: 01/03/18 13:48 Dose: 1 puff Aspirin (Aspirin) 325 mg PO BIDCM [facility] Last Admin: 01/08/18 09:22 Dose: 325 mg Bisacodyl (Dulcolax) 10 mg RECTAL .PRN X 1 PRN PRN Reason: Constipation Bupropion HCl (Wellbutrin Xl) 150 mg PO DAILY [facility] Last Admin: 01/08/18 09:19 Dose: 150 mg Calcium Carbonate (Tums) 500 mg PO Q6H PRN PRN PRN Reason: DYSPEPSIA Last Admin: 01/08/18 04:40 Dose: 500 mg Escitalopram Oxalate (Lexapro) 40 mg PO DAILY [facility] Last Admin: 01/08/18 09:21 Dose: 40 mg Fentanyl (Duragesic) 12 mcg TRANSDERM. Q3D [facility] Last Admin: 01/07/18 14:27 Dose: 12 mcg [facility]ous S[facility] Last Admin: 01/08/18 09:22 Dose: 325 mg Fulvestrant (Faslodex) 250 mg IM QMONTH [facility] Furosemide (Lasix) 40 mg PO DAILY [facility] Last Admin: 01/08/18 09:22 Dose: 40 mg Guaifenesin (Mucinex) 600 mg PO BID [facility] Last Admin: 01/08/18 09:21 Dose: 600 mg Insulin Aspart (Novolog Flexpen ([facility])) 0 units SC ACHS [facility] PRN Reason: Protocol Last Admin: 01/08/18 06:41 Dose: Not Given Insulin Detemir (Levemir ([facility])) 74 units SC QHS [facility] Last Admin: 01/07/18 21:20 Dose: 74 u Lorazepam (Ativan) 1 mg PO Q8H PRN PRN PRN Reason: ANXIETY Last Admin: 01/02/18 23:33 Dose: 1 mg Losartan Potassium (Cozaar) 25 mg PO DAILY [facility] Last Admin: 01/08/18 09:22 Dose: 25 mg Magnesium Hydroxide (Milk Of Magnesia) 30 ml PO .PRN X 1 PRN PRN Reason: Constipation Melatonin (Melatonin) 3 mg PO QHS PRN PRN PRN Reason: insomnia Last Admin: 01/07/18 21:18 Dose: 3 mg [facility] ([facility]) [facility] Last Admin: 01/08/18 09:22 Dose: 1,000 mg Metoprolol Succinate (Toprol Xl (Beta Kris)) 12.5 mg PO DAILY [facility] Last Admin: 01/08/18 09:20 Dose: 12.5 mg Montelukast Sodium (Singulair) 10 mg PO DAILY@1700 [facility] Last Admin: 01/07/18 18:28 Dose: 10 mg Oxycodone HCl (Oxyir) 5 - 10 mg PO Q4H PRN PRN PRN Reason: MOD-SEVERE PAIN (4-10/10) Last Admin: 01/08/18 04:41 Dose: 10 mg Pantoprazole Sodium (Protonix) 40 mg PO BID [facility] Last Admin: 01/08/18 09:21 Dose: 40 mg Pravastatin Sodium (Pravachol) 20 mg PO QHS [facility] Last Admin: 01/07/18 21:19 Dose: 20 mg Fluticasone/Salmeterol (Advair 250/50 Mcg Diskus) 1 puff INHALATION BID [facility] Last Admin: 01/08/18 09:19 Dose: 1 puff Sodium Chloride () 5 - 30 ml IV UD PRN PRN Reason: SALINE FLUSH Last Admin: 01/08/18 04:41 Dose: 20 ml Tadalafil (Adcirca) 40 mg PO DAILY [facility] Last Admin: 01/08/18 09:23 Dose: 40 mg Assessment/Plan debility s/p left tkr, previously functionally independent, goal of rehab is mandaeism of functional independence. complicated by other medical issues including htn, dm, and metastatic breast cancer - PT for gait and balance - OT for ADLs - PRN analgesics - DVT prophylaxis: SCDs and asa per ortho recs - bowel protocol - dm: Levemir QHS and SSI - bp control - metastatic breast ca, follows with Dr. Del Valle in [place]. continue current hormonal Tx - Nausea: I will increase her Protonix dose, as well as add an antacid and if this does not help she will need to go on Zofran - History of anxiety and depression: Controlled on Lexapro and Wellbutrin. - D/C helen on 01/10 prior to d/c home - Discharge home with outpatient Physical therapy on 01/11 if she remains stable - Follow up appointment with Dr. Lay on January 23. - Pain control => add Fentanyl patch 12 mcq
[2018-01-08 12:06] LABS: Bedside Glucose 102 mg/dL (70-110)
[2018-01-08 17:16] LABS: Bedside Glucose 142 mg/dL (70-110)
[2018-01-08] MEDS: Montelukast 10 MG Tablet PO (17:40)
[2018-01-08 21:08] VITALS: BP 150/62; PULSE 69; RESP 18; TEMP 36.9; O2SAT 94
[2018-01-08 21:16] LABS: Bedside Glucose 180 mg/dL (70-110)
[2018-01-08] MEDS: MELATONIN 3 MG TABLET PO (21:16)
[2018-01-08] MEDS: Pravastatin 20 MG Tablet PO (21:16)
--- NOTE | 2018-01-09 04:02 | NURSING ---
Reviewed and agree with [employer] documentation.
[2018-01-09] MEDS: Acetaminophen 500 MG Tablet 1000 MG PO ×3 (05:28→22:00)
[2018-01-09] MEDS: Calcium Carbonate 500 MG Tablet PO ×3 (06:32→22:00)
[2018-01-09 06:41] LABS: Bedside Glucose 167 mg/dL (70-110)
[2018-01-09] MEDS: Ferrous Sulfate 325 MG Tablet PO ×2 (07:39→17:25)
[2018-01-09] MEDS: metFORMIN HCl 1,000 MG Tablet 1000 MG PO ×2 (07:39→17:25)
[2018-01-09] MEDS: Aspirin 325 MG Tablet PO ×2 (07:39→17:25)
[2018-01-09 08:37] VITALS: BP 147/81; PULSE 74; RESP 17; TEMP 36.7; O2SAT 95
[2018-01-09 09:02] VITALS: BP 147/81; PULSE 74
[2018-01-09] MEDS: guaiFENesin 600 MG Tablet PO ×2 (09:02→22:19)
[2018-01-09] MEDS: Metoprolol(XL)Succ 25 MG Tablet 12.5 MG PO (09:02)
[2018-01-09] MEDS: Pantoprazole Sodium 40 MG Tablet PO ×2 (09:02→22:05)
[2018-01-09] MEDS: Escitalopram Oxalate 20 MG Tablet 40 MG PO (09:02)
[2018-01-09] MEDS: Mirabegron 50 MG TAB.ER.24H PO (09:02)
[2018-01-09] MEDS: TADALAFIL 20 MG TABLET 40 MG PO (09:03)
[2018-01-09] MEDS: Furosemide 40 MG Tablet PO (09:03)
[2018-01-09] MEDS: Losartan Potassium 25 MG Tablet PO (09:03)
[2018-01-09] MEDS: Senna/Docusate Sodium 1 Tablet 2 TABLET PO ×2 (10:22→22:01)
[2018-01-09] MEDS: oxyCODONE 5 MG Tablet PO ×2 (10:22→15:30)
[2018-01-09 12:01] LABS: Bedside Glucose 115 mg/dL (70-110)
--- NOTE | 2018-01-09 15:14 | PCM.PN.NEU ---
Subjective: Patient seen and examined. Still having some slight pain on ambulation, improves with pain medication. Incision site is C/D/I. Denies any shortness of breath or dizziness. - Physical Exam General: Alert, Oriented x3, Cooperative HEENT: Atraumatic, PERRLA, EOMI, Normocephalic Neck: Supple, No JVD, Negative Carotid Bruits Lungs: Clear to auscultation, Normal air movement Cardiovascular: Regular rate, No murmurs Abdomen: Bowel Sounds Present, Soft, Non Tender Extremities: No edema, Capillary Refill Less than 3 Seconds Skin: No rashes, No breakdown Musculoskeletal: No Tenderness to Palpation of Joints or Extremities Neurological: Cranial nerves II-XII grossly intact Psych/Mental Status: Normal Affect, Appropriate Vital Signs Temp Pulse Resp BP Pulse Ox 98.0 F 74 17 147/81 H 95 01/09/18 08:37 01/09/18 09:02 01/09/18 08:37 01/09/18 09:02 01/09/18 08:37 Oxygen Delivery Method Room Air Weight: 115.6 kg Body Mass Index (BMI) 50.1 Finger Stick Blood Glucose 170 Intake and Output for Last 24 Hours 01/07/18 01/08/18 01/09/18 23:59 23:59 23:59 Intake Total 960 / 960 360 / 360 240 / 240 Balance 960 / 960 360 / 360 240 / 240 POC Glucose 01/09/18 01/09/18 01/08/18 11:49 06:31 21:11 POC Glucose 115 H 167 H 180 H 01/08/18 17:06 POC Glucose 142 H Active Medications Acetaminophen (Tylenol) 1,000 mg PO Q8 [facility] Last Admin: 01/09/18 13:54 Dose: 1,000 mg Albuterol Sulfate (Proair Hfa (Sp) Surgery/Vent Pts) 1 puff INHALATION Q4H PRN PRN PRN Reason: asthma Last Admin: 01/03/18 13:48 Dose: 1 puff Aspirin (Aspirin) 325 mg PO BIDCM [facility] Last Admin: 01/09/18 07:39 Dose: 325 mg Bisacodyl (Dulcolax) 10 mg RECTAL .PRN X 1 PRN PRN Reason: Constipation Bupropion HCl (Wellbutrin Xl) 150 mg PO DAILY [facility] Last Admin: 01/09/18 09:04 Dose: 150 mg Calcium Carbonate (Tums) 500 mg PO Q6H PRN PRN PRN Reason: DYSPEPSIA Last Admin: 01/09/18 13:56 Dose: 500 mg Escitalopram Oxalate (Lexapro) 40 mg PO DAILY [facility] Last Admin: 01/09/18 09:02 Dose: 40 mg Fentanyl (Duragesic) 12 mcg TRANSDERM. Q3D [facility] Last Admin: 01/07/18 14:27 Dose: 12 mcg [facility] Last Admin: 01/09/18 07:39 Dose: 325 mg Fulvestrant (Faslodex) 250 mg IM QMONTH [facility] Furosemide (Lasix) 40 mg PO DAILY [facility] Last Admin: 01/09/18 09:03 Dose: 40 mg Guaifenesin (Mucinex) 600 mg PO BID [facility] Last Admin: 01/09/18 09:02 Dose: 600 mg Insulin Aspart (Novolog Flexpen ([facility])) 0 units SC ACHS [facility] PRN Reason: Protocol Last Admin: 01/09/18 11:49 Dose: Not Given Insulin Detemir (Levemir ([facility])) 74 units SC QHS [facility] Last Admin: 01/08/18 21:15 Dose: 74 u Lorazepam (Ativan) 1 mg PO Q8H PRN PRN PRN Reason: ANXIETY Last Admin: 01/02/18 23:33 Dose: 1 mg Losartan Potassium (Cozaar) 25 mg PO DAILY [facility] Last Admin: 01/09/18 09:03 Dose: 25 mg Magnesium Hydroxide (Milk Of Magnesia) 30 ml PO .PRN X 1 PRN PRN Reason: Constipation Melatonin (Melatonin) 3 mg PO QHS PRN PRN PRN Reason: insomnia Last Admin: 01/08/18 21:16 Dose: 3 mg Metformin [facility] ([facility]ucophage) [facility] Last Admin: 01/09/18 07:39 Dose: 1,000 mg Metoprolol Succinate (Toprol Xl (Beta Kris)) 12.5 mg PO DAILY [facility] Last Admin: 01/09/18 09:02 Dose: 12.5 mg Montelukast Sodium (Singulair) 10 mg PO DAILY@1700 [facility] Last Admin: 01/08/18 17:40 Dose: 10 mg Oxycodone HCl (Oxyir) 5 - 10 mg PO Q4H PRN PRN PRN Reason: MOD-SEVERE PAIN (4-10/10) Last Admin: 01/09/18 10:22 Dose: 10 mg Pantoprazole Sodium (Protonix) 40 mg PO BID [facility] Last Admin: 01/09/18 09:02 Dose: 40 mg Pravastatin Sodium (Pravachol) 20 mg PO QHS [facility] Last Admin: 01/08/18 21:16 Dose: 20 mg Fluticasone/Salmeterol (Advair 250/50 Mcg Diskus) 1 puff INHALATION BID [facility] Last Admin: 01/09/18 09:03 Dose: 1 puff Senna/Docusate Sodium (Senokot-S, Sharda-Colace) 2 tablet PO BID PRN PRN Reason: CONSTIPATION Last Admin: 01/09/18 10:22 Dose: 2 tablet Sodium Chloride () 5 - 30 ml IV UD PRN PRN Reason: SALINE FLUSH Last Admin: 01/08/18 04:41 Dose: 20 ml Tadalafil (Adcirca) 40 mg PO DAILY [facility] Last Admin: 01/09/18 09:03 Dose: 40 mg Assessment/Plan debility s/p left tkr, previously functionally independent, goal of rehab is voodoo of functional independence. complicated by other medical issues including htn, dm, and metastatic breast cancer - PT for gait and balance - OT for ADLs - PRN analgesics - DVT prophylaxis: SCDs and asa per ortho recs - bowel protocol - dm: Levemir QHS and SSI - bp control - metastatic breast ca, follows with Dr. Del Valle in [place]. continue current hormonal Tx - Nausea: I will increase her Protonix dose, as well as add an antacid and if this does not help she will need to go on Zofran - History of anxiety and depression: Controlled on Lexapro and Wellbutrin. - D/C helen on 01/10 prior to d/c home - Discharge home with outpatient Physical therapy on 01/11 if she remains stable - Follow up appointment with Dr. Lay on January 23. - Pain control => add Fentanyl patch 12 mcq
[2018-01-09 16:46] LABS: Bedside Glucose 150 mg/dL (70-110)
--- NOTE | 2018-01-09 16:47 | CASEMGMT ---
Social Work Spoke with patient in room. This social media community manager collaborating with patient on discharge planning. Patient aware of recommendation for patient to have continued outpatient physical therapy. Patient requesting for outpatient physical therapy to be set up through [facility]. Patient reporting to have walker already set up within the home and to have no further needs for medical equipment. Patient friend to provide transportation home for patient at time of discharge. Support given. Telephone call to [facility], appointment set up for 02/12/18 @ 0900. Order already obtained by [facility]. Proposed discharge date: 01/11/18 PLAN: Discharge to home alone with outpatient Physical Therapy. Duyen OLVERA, DINING SERVICE INSPECTOR
[2018-01-09] MEDS: Montelukast 10 MG Tablet PO (17:25)
[2018-01-09 20:12] VITALS: BP 130/65; PULSE 66; RESP 18; TEMP 36.7; O2SAT 95
[2018-01-09] MEDS: MELATONIN 3 MG TABLET PO (22:01)
[2018-01-09] MEDS: 0.9% NaCl Peripheral Flush Adult/Peds IV (22:02)
[2018-01-09] MEDS: Pravastatin 20 MG Tablet PO (22:05)
[2018-01-09 22:26] LABS: Bedside Glucose 188 mg/dL (70-110)
[2018-01-10] MEDS: oxyCODONE 5 MG Tablet PO ×4 (03:16→17:27)
[2018-01-10] MEDS: Acetaminophen 500 MG Tablet 1000 MG PO ×3 (06:40→22:12)
[2018-01-10 06:42] LABS: Bedside Glucose 106 mg/dL (70-110)
--- NOTE | 2018-01-10 07:08 | NURSING ---
Removed 29 helen and covered with ABD for comfort
[2018-01-10] MEDS: Aspirin 325 MG Tablet PO ×2 (07:47→17:01)
[2018-01-10] MEDS: Ferrous Sulfate 325 MG Tablet PO ×2 (07:47→17:01)
[2018-01-10] MEDS: metFORMIN HCl 1,000 MG Tablet 1000 MG PO ×2 (07:47→17:01)
[2018-01-10 08:00] VITALS: BP 115/55; PULSE 71; RESP 17; TEMP 36.7; O2SAT 93
[2018-01-10] MEDS: Calcium Carbonate 500 MG Tablet PO (08:30)
[2018-01-10] MEDS: Losartan Potassium 25 MG Tablet PO (08:31)
[2018-01-10] MEDS: Escitalopram Oxalate 20 MG Tablet 40 MG PO (08:31)
[2018-01-10] MEDS: Furosemide 40 MG Tablet PO (08:31)
[2018-01-10] MEDS: Pantoprazole Sodium 40 MG Tablet PO ×2 (08:32→22:12)
[2018-01-10] MEDS: Mirabegron 50 MG TAB.ER.24H PO (10:48)
[2018-01-10] MEDS: guaiFENesin 600 MG Tablet PO ×2 (10:48→22:12)
[2018-01-10 10:49] VITALS: PULSE 80
[2018-01-10] MEDS: Metoprolol(XL)Succ 25 MG Tablet 12.5 MG PO (10:49)
[2018-01-10] MEDS: TADALAFIL 20 MG TABLET 40 MG PO (10:49)
[2018-01-10 11:55] LABS: Bedside Glucose 98 mg/dL (70-110)
[2018-01-10] MEDS: fentaNYL 25 MCG Patch TRANSDERM. (12:47)
--- NOTE | 2018-01-10 16:08 | PCM.RU.DC ---
Rehab Discharge Summary DATE OF ADMISSION: 01/02/18 DATE OF DISCHARGE: 01/10/18 - Rehab Diagnosis Left total Knee Discharge Diet: No Restrictions, 1999 Calorie Control Diet, Carb Control Diet Discharge Activity: May Not Drive, May not drive while taking narcotic pain medications., May Shower, Use Walker, - - DO not soak in a Tub Bath Weight Bearing Status: Weight bearing as tolerated Call your doctor if your incision/area has: Increased Pain/ Swelling, Increased Redness, Foul Smelling Discharge, Swelling at the incision site Call your doctor if you observe: Fever of 101 or Higher, Coldness, Increased Pain, Numbness or Tingling, Change in Color, Inability to urinate, Inability to have a bowel movement, Using more than one pad per hour, Shortness of breath, Dizziness, Fainting spells, Swelling in the ankles, Chest pain, Prolonged hiccoughing, Increased palpitations (irregular heartbeat), Calf discomfort, Uncontrolled pain Home Medications: Medications to take at Discharge Ferrous Sulfate 325 mg PO BID 07/21/14 BuPROPion (XL) [Wellbutrin Xl] 150 mg PO DAILY 05/19/15 Escitalopram Oxalate [Lexapro] 40 mg PO DAILY 05/19/15 Fluticasone/Salmeterol [Advair 250/50 Mcg Diskus] 1 puff INHALATION BID 05/19/15 Fulvestrant [Faslodex] 250 mg IM QMONTH MDD takes on 30 of each month 05/23/15 Pravastatin [Pravachol] 20 mg PO QHS 06/14/16 Losartan Potassium [Cozaar] 25 mg PO DAILY 10/15/16 Omeprazole [Prilosec] 40 mg PO DAILY 04/01/17 mirabegron ER 50 mg tablet,extended release 24 hr 50 mg PO DAILY 30 Days #30 10/29/17 Furosemide [Lasix] 40 mg PO DAILY 12/17/17 Metformin HCl [Glucophage] 1,000 mg PO BIDCM 12/17/17 Montelukast [Singulair] 10 mg PO DAILY 12/17/17 Tadalafil [Adcirca] 40 mg PO DAILY 12/17/17 Cranberry Conc/C/Bacill Coag [Cranberry Tablet] 1 each PO DAILY 12/19/17 Metoprolol Succinate [Toprol Xl] 12.5 mg PO DAILY 12/19/17 Acetaminophen [Tylenol] 1,000 mg PO Q8 #90 tab 01/01/18 Albuterol IH (ProAir) [Proair Hfa] 1 puff INHALATION Q4H PRN PRN inhaler 01/01/18 Aspirin 325 mg PO BIDCM #60 tab 01/01/18 Lorazepam [Ativan] 1 mg PO Q8H PRN PRN tablet 01/01/18 Fentanyl [Duragesic] 25 mcg TRANSDERM. Q3D #1 patch 01/10/18 Liraglutide [Victoza] 1.8 mg SQ DAILY pen.injctr 01/10/18 Melatonin 3 mg PO QHS PRN PRN tablet 01/10/18 Oxycodone [Oxyir] 5 mg PO Q4H PRN PRN 7 Days #42 tab 01/10/18 Pravastatin [Pravachol] 20 mg PO QHS tablet 01/10/18 Following Prescrptions Were Given to Patient: Oxycodone [Oxyir] 5 mg PO Q4H PRN PRN 7 Days #42 tab PRN Reason: Mod-Severe Pain (4-10) Fentanyl [Duragesic] 25 mcg TRANSDERM. Q3D #1 patch Primary Care Physician: Lety Seymour [Primary Care Provider] - Please Follow Up With: Dr. Lay Please Follow Up With: Dr. Marquez Please Follow Up With: [facility]i [facility] - Outpatient Physical Therapy Disposition: Home - with out patient Physical therapy Minutes spent on discharge:: 40 Patient Condition:: Good Rehab Course The patient is a 67 year old right handed female presents to the rehab unit with debility after left tkr performed 12/30/[address] Lay, uncomplicated, no other complications or GI/ complaints, last bm was 4days. pain is currently controlled, lives alone in an apartment, no steps. close friend lives in [place]. 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 With Physical therapy she is Standby assist for bed mobility, for transfers, and ambulation. She is able to ambulate greater than 300 feet at stand by assist. With Occupational therapy she is minimal assist for lower body care, she is able to do her own personal care. She is supervision for toileting and cleaning her self up. Her pain was uncontrolled at one point added a Duragesic patch which helped greatly now pain is well controlled with the patch and scheduled Tylenol, she had some issues with her stomach being upset her Protonix was increased and Tums was added which has helped. Her helen will be removed on 01/10, and she will be discharged home on 01/11 with outpatient Physical therapy. She has a follow up appointment with Dr. Lay on January 23. She will be sent home with pain medication for 7 days. The staff feels the patient will do well and should have no problems once she is home. Meaningful Use Info Meaningful Use Diagnoses (Choose all that apply): None applicable
--- NOTE | 2018-01-10 16:26 | DS.PCM_ITS ---
Rehab Discharge Summary DATE OF ADMISSION: 01/02/18 DATE OF DISCHARGE: 01/10/18 - Rehab Diagnosis Left total Knee Discharge Diet: No Restrictions, 1999 Calorie Control Diet, Carb Control Diet Discharge Activity: May Not Drive, May not drive while taking narcotic pain medications., May Shower, Use Walker, - - DO not soak in a Tub Bath Weight Bearing Status: Weight bearing as tolerated Call your doctor if your incision/area has: Increased Pain/ Swelling, Increased Redness, Foul Smelling Discharge, Swelling at the incision site Call your doctor if you observe: Fever of 101 or Higher, Coldness, Increased Pain, Numbness or Tingling, Change in Color, Inability to urinate, Inability to have a bowel movement, Using more than one pad per hour, Shortness of breath, Dizziness, Fainting spells, Swelling in the ankles, Chest pain, Prolonged hiccoughing, Increased palpitations (irregular heartbeat), Calf discomfort, Uncontrolled pain Home Medications: Medications to take at Discharge Ferrous Sulfate 325 mg PO BID 07/21/14 BuPROPion (XL) [Wellbutrin Xl] 150 mg PO DAILY 05/19/15 Escitalopram Oxalate [Lexapro] 40 mg PO DAILY 05/19/15 Fluticasone/Salmeterol [Advair 250/50 Mcg Diskus] 1 puff INHALATION BID Fulvestrant [Faslodex] 250 mg IM QMONTH MDD takes on 30 of each month Pravastatin [Pravachol] 20 mg PO QHS 06/14/16 Losartan Potassium [Cozaar] 25 mg PO DAILY 10/15/16 Omeprazole [Prilosec] 40 mg PO DAILY 04/01/17 mirabegron ER 50 mg tablet,extended release 24 hr 50 mg PO DAILY 30 Days #30 04/10 Furosemide [Lasix] 40 mg PO DAILY 12/17/17 Metformin HCl [Glucophage] 1,000 mg PO BIDCM 12/17/17 Montelukast [Singulair] 10 mg PO DAILY 12/17/17 Tadalafil [Adcirca] 40 mg PO DAILY 12/17/17 Cranberry Conc/C/Bacill Coag [Cranberry Tablet] 1 each PO DAILY 12/19/17 Metoprolol Succinate [Toprol Xl] 12.5 mg PO DAILY 12/19/17 Acetaminophen [Tylenol] 1,000 mg PO Q8 #90 tab 01/01/18 Albuterol IH (ProAir) [Proair Hfa] 1 puff INHALATION Q4H PRN PRN inhaler Aspirin 325 mg PO BIDCM #60 tab 01/01/18 Lorazepam [Ativan] 1 mg PO Q8H PRN PRN tablet 01/01/18 Fentanyl [Duragesic] 25 mcg TRANSDERM. Q3D #1 patch 01/10/18 Liraglutide [Victoza] 1.8 mg SQ DAILY pen.injctr 01/10/18 Melatonin 3 mg PO QHS PRN PRN tablet 01/10/18 Oxycodone [Oxyir] 5 mg PO Q4H PRN PRN 7 Days #42 tab 01/10/18 Pravastatin [Pravachol] 20 mg PO QHS tablet 01/10/18 Following Prescrptions Were Given to Patient: Oxycodone [Oxyir] 5 mg PO Q4H PRN PRN 7 Days #42 tab PRN Reason: Mod-Severe Pain (4-10) Fentanyl [Duragesic] 25 mcg TRANSDERM. Q3D #1 patch Primary Care Physician: Lety Seymour [Primary Care Provider] - Please Follow Up With: Dr. Lay Please Follow Up With: Dr. Marquez Please Follow Up With: Jeri Garcia - Outpatient Physical Therapy Disposition: Home - with out patient Physical therapy Minutes spent on discharge:: 40 Patient Condition:: Good Rehab Course The patient is a 67 year old right handed female presents to the rehab unit with debility after left tkr performed 12/30/[address] Lay, uncomplicated, no other complications or GI/ complaints, last bm was 4days. pain is currently controlled, lives alone in an apartment, no steps. close friend lives in [place]. 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 With Physical therapy she is Standby assist for bed mobility, for transfers, and ambulation. She is able to ambulate greater than 300 feet at stand by assist. With Occupational therapy she is minimal assist for lower body care, she is able to do her own personal care. She is supervision for toileting and cleaning her self up. Her pain was uncontrolled at one point added a Duragesic patch which helped greatly now pain is well controlled with the patch and scheduled Tylenol, she had some issues with her stomach being upset her Protonix was increased and Tums was added which has helped. Her helen will be removed on 01/10, and she will be discharged home on 01/11 with outpatient Physical therapy. She has a follow up appointment with Dr. Lay on January 23. She will be sent home with pain medication for 7 days. The staff feels the patient will do well and should have no problems once she is home. Meaningful Use Info Meaningful Use Diagnoses (Choose all that apply): None applicable
--- NOTE | 2018-01-10 16:29 | PCM.DC ---
- Discharge Diagnoses Reason(s) for Visit for Discharge Instructions: Left total knee You will use the following diet at home:: Regular, Calorie/Carbohydrate Controlled (specify 1200, 1400, etc) Your food should be the consistency of: Regular Your liquids should be the consistency of: Regular/Thin Discharge Activity: May Not Drive, May not drive while taking narcotic pain medications., May Shower, Use Walker, - - Do not soak in a Tub Bath Weight Bearing Status: Weight bearing as tolerated Call your doctor if your incision/area has: Increased Pain/ Swelling, Increased Redness, Foul Smelling Discharge, Swelling at the incision site Call your doctor if you observe: Fever of 101 or Higher, Coldness, Increased Pain, Numbness or Tingling, Change in Color, Inability to urinate, Inability to have a bowel movement, Using more than one pad per hour, Shortness of breath, Dizziness, Fainting spells, Swelling in the ankles, Chest pain, Prolonged hiccoughing, Increased palpitations (irregular heartbeat), Calf discomfort, Uncontrolled pain Allergies/Adverse Reactions: Allergies nitrofurantoin [From Macrobid] Allergy (Severe, Verified 12/17/17 13:06) Anaphylaxis nitrofurantoin macrocrystalline [From Macrobid] Allergy (Severe, Verified 12/17/17 13:06) Anaphylaxis sulfamethoxazole [From Bactrim] Adverse Reaction (Intermediate, Verified 12/17/17 13:06) Hives trimethoprim [From Bactrim] Adverse Reaction (Intermediate, Verified 12/17/17 13:06) Hives Medications to take at Discharge Ferrous Sulfate 325 mg PO BID 07/21/14 BuPROPion (XL) [Wellbutrin Xl] 150 mg PO DAILY 05/19/15 Escitalopram Oxalate [Lexapro] 40 mg PO DAILY 05/19/15 Fluticasone/Salmeterol [Advair 250/50 Mcg Diskus] 1 puff INHALATION BID 05/19/15 Fulvestrant [Faslodex] 250 mg IM QMONTH MDD takes on 30 of each month 05/23/15 Pravastatin [Pravachol] 20 mg PO QHS 06/14/16 Losartan Potassium [Cozaar] 25 mg PO DAILY 10/15/16 Omeprazole [Prilosec] 40 mg PO DAILY 04/01/17 mirabegron ER 50 mg tablet,extended release 24 hr 50 mg PO DAILY 30 Days #30 10/29/17 Furosemide [Lasix] 40 mg PO DAILY 12/17/17 Metformin HCl [Glucophage] 1,000 mg PO BIDCM 12/17/17 Montelukast [Singulair] 10 mg PO DAILY 12/17/17 Tadalafil [Adcirca] 40 mg PO DAILY 12/17/17 Cranberry Conc/C/Bacill Coag [Cranberry Tablet] 1 each PO DAILY 12/19/17 Metoprolol Succinate [Toprol Xl] 12.5 mg PO DAILY 12/19/17 Acetaminophen [Tylenol] 1,000 mg PO Q8 #90 tab 01/01/18 Albuterol IH (ProAir) [Proair Hfa] 1 puff INHALATION Q4H PRN PRN inhaler 01/01/18 Aspirin 325 mg PO BIDCM #60 tab 01/01/18 Lorazepam [Ativan] 1 mg PO Q8H PRN PRN tablet 01/01/18 Fentanyl [Duragesic] 25 mcg TRANSDERM. Q3D #1 patch 01/10/18 Liraglutide [Victoza] 1.8 mg SQ DAILY pen.injctr 01/10/18 Melatonin 3 mg PO QHS PRN PRN tablet 01/10/18 Oxycodone [Oxyir] 5 mg PO Q4H PRN PRN 7 Days #42 tab 01/10/18 Pravastatin [Pravachol] 20 mg PO QHS tablet 01/10/18 The following prescriptions were given: Oxycodone [Oxyir] 5 mg PO Q4H PRN PRN 7 Days #42 tab PRN Reason: Mod-Severe Pain (4-10/10) Fentanyl [Duragesic] 25 mcg TRANSDERM. Q3D #1 patch Primary Care Physician: Lety Seymour [Primary Care Provider] - Please Follow Up With: Dr. Lay Please Follow Up With: Dr. Marquez Please Follow Up With: [facility] - Outpatient Physical Therapy Proposed Discharge Date: 01/11/18
--- NOTE | 2018-01-10 16:33 | DCINST_ITS ---
- Discharge Diagnoses Reason(s) for Visit for Discharge Instructions: Left total knee You will use the following diet at home:: Regular, Calorie/Carbohydrate Controlled (specify 1200, 1400, etc) Your food should be the consistency of: Regular Your liquids should be the consistency of: Regular/Thin Discharge Activity: May Not Drive, May not drive while taking narcotic pain medications., May Shower, Use Walker, - - Do not soak in a Tub Bath Weight Bearing Status: Weight bearing as tolerated Call your doctor if your incision/area has: Increased Pain/ Swelling, Increased Redness, Foul Smelling Discharge, Swelling at the incision site Call your doctor if you observe: Fever of 101 or Higher, Coldness, Increased Pain, Numbness or Tingling, Change in Color, Inability to urinate, Inability to have a bowel movement, Using more than one pad per hour, Shortness of breath, Dizziness, Fainting spells, Swelling in the ankles, Chest pain, Prolonged hiccoughing, Increased palpitations (irregular heartbeat), Calf discomfort, Uncontrolled pain Allergies/Adverse Reactions: Allergies nitrofurantoin [From Macrobid] Allergy (Severe, Verified 12/17/17 13:06) Anaphylaxis nitrofurantoin macrocrystalline [From Macrobid] Allergy (Severe, Verified 13:06) Anaphylaxis sulfamethoxazole [From Bactrim] Adverse Reaction (Intermediate, Verified 13:06) Hives trimethoprim [From Bactrim] Adverse Reaction (Intermediate, Verified 12/17/17 13 :06) Hives Medications to take at Discharge Ferrous Sulfate 325 mg PO BID 07/21/14 BuPROPion (XL) [Wellbutrin Xl] 150 mg PO DAILY 05/19/15 Escitalopram Oxalate [Lexapro] 40 mg PO DAILY 05/19/15 Fluticasone/Salmeterol [Advair 250/50 Mcg Diskus] 1 puff INHALATION BID Fulvestrant [Faslodex] 250 mg IM QMONTH MDD takes on 30 of each month Pravastatin [Pravachol] 20 mg PO QHS 06/14/16 Losartan Potassium [Cozaar] 25 mg PO DAILY 10/15/16 Omeprazole [Prilosec] 40 mg PO DAILY 04/01/17 mirabegron ER 50 mg tablet,extended release 24 hr 50 mg PO DAILY 30 Days #30 04/10 Furosemide [Lasix] 40 mg PO DAILY 12/17/17 Metformin HCl [Glucophage] 1,000 mg PO BIDCM 12/17/17 Montelukast [Singulair] 10 mg PO DAILY 12/17/17 Tadalafil [Adcirca] 40 mg PO DAILY 12/17/17 Cranberry Conc/C/Bacill Coag [Cranberry Tablet] 1 each PO DAILY 12/19/17 Metoprolol Succinate [Toprol Xl] 12.5 mg PO DAILY 12/19/17 Acetaminophen [Tylenol] 1,000 mg PO Q8 #90 tab 01/01/18 Albuterol IH (ProAir) [Proair Hfa] 1 puff INHALATION Q4H PRN PRN inhaler Aspirin 325 mg PO BIDCM #60 tab 01/01/18 Lorazepam [Ativan] 1 mg PO Q8H PRN PRN tablet 01/01/18 Fentanyl [Duragesic] 25 mcg TRANSDERM. Q3D #1 patch 01/10/18 Liraglutide [Victoza] 1.8 mg SQ DAILY pen.injctr 01/10/18 Melatonin 3 mg PO QHS PRN PRN tablet 01/10/18 Oxycodone [Oxyir] 5 mg PO Q4H PRN PRN 7 Days #42 tab 01/10/18 Pravastatin [Pravachol] 20 mg PO QHS tablet 01/10/18 The following prescriptions were given: Oxycodone [Oxyir] 5 mg PO Q4H PRN PRN 7 Days #42 tab PRN Reason: Mod-Severe Pain (4-10/10) Fentanyl [Duragesic] 25 mcg TRANSDERM. Q3D #1 patch Primary Care Physician: Lety Seymour [Primary Care Provider] - Please Follow Up With: Dr. Lay Please Follow Up With: Dr. Marquez Please Follow Up With: [facility] - Outpatient Physical Therapy Proposed Discharge Date: 01/11/18
[2018-01-10] MEDS: Montelukast 10 MG Tablet PO (17:01)
[2018-01-10 18:11] LABS: Bedside Glucose 165 mg/dL (70-110)
[2018-01-10 22:00] VITALS: BP 133/78; PULSE 68; RESP 18; TEMP 36.7; O2SAT 95
[2018-01-10] MEDS: Pravastatin 20 MG Tablet PO (22:12)
[2018-01-10] MEDS: MELATONIN 3 MG TABLET PO (22:16)
[2018-01-10 22:21] LABS: Bedside Glucose 168 mg/dL (70-110)
[2018-01-11] MEDS: Acetaminophen 500 MG Tablet 1000 MG PO (06:27)
[2018-01-11 06:41] LABS: Bedside Glucose 102 mg/dL (70-110)
[2018-01-11 07:39] VITALS: PULSE 77
[2018-01-11] MEDS: Metoprolol(XL)Succ 25 MG Tablet 12.5 MG PO (07:39)
[2018-01-11] MEDS: Escitalopram Oxalate 20 MG Tablet 40 MG PO (07:40)
[2018-01-11] MEDS: Furosemide 40 MG Tablet PO (07:40)
[2018-01-11] MEDS: Losartan Potassium 25 MG Tablet PO (07:40)
[2018-01-11] MEDS: Aspirin 325 MG Tablet PO (07:41)
[2018-01-11] MEDS: Ferrous Sulfate 325 MG Tablet PO (07:41)
[2018-01-11] MEDS: metFORMIN HCl 1,000 MG Tablet 1000 MG PO (07:41)
[2018-01-11] MEDS: oxyCODONE 5 MG Tablet PO (07:45)
[2018-01-11] MEDS: TADALAFIL 20 MG TABLET 40 MG PO (07:48)
[2018-01-11 08:24] VITALS: BP 113/57; PULSE 81; RESP 18; TEMP 36.8; O2SAT 94
[2018-01-11] MEDS: guaiFENesin 600 MG Tablet PO (08:51)
[2018-01-11] MEDS: Pantoprazole Sodium 40 MG Tablet PO (08:51)
[2018-01-11] MEDS: Mirabegron 50 MG TAB.ER.24H PO (08:51)
[2018-01-11 11:15] VITALS: BP 113/57; PULSE 81; RESP 18; TEMP 36.8; O2SAT 94
--- NOTE | 2018-01-11 11:15 | NURSING ---
Patient given discharge instructions and verbalized understanding.
--- NOTE | 2018-01-13 11:43 | CASEMGMT ---
Insurance Notified insurance patient discharge on 01/11/18. Auth#[id number] Duyen OLVERA, FIRMWARE MANAGER
== END 2018-01-11 11:15 | disposition home or self-care (01) | DRG 560 ==
PROVIDERS: Internal Medicine; Nurse Practitioner Acute Care; Psychiatry & Neurology Neurology; Admitting Provider Psychiatry & Neurology Neurology; Family Provider Nurse Practitioner; PCP Nurse Practitioner; Visit Provider Internal Medicine
DX: Z47.1 Aftercare following joint replacement surgery (principal); C78.00 Secondary malignant neoplasm of unspecified lung; I27.20 Pulmonary hypertension, unspecified; E11.65 Type 2 diabetes mellitus with hyperglycemia; D50.9 Iron deficiency anemia, unspecified; C50.919 Malignant neoplasm of unspecified site of unspecified female breast; E78.5 Hyperlipidemia, unspecified; Z96.652 Presence of left artificial knee joint; I10 Essential (primary) hypertension; G47.33 Obstructive sleep apnea (adult) (pediatric); Z79.4 Long term (current) use of insulin; F32.9 Major depressive disorder, single episode, unspecified; F41.9 Anxiety disorder, unspecified
CPT/HCPCS: 36415; 80048; 81001; 82962; 84100; 85014; 85018; 85025; 85027; 86850; 86900; 86920; 86922; 87086; 87088; 87186; 97110; 97116; 97162; 97166; 97530; 97535; 97802; J7040; P9016; A4216

== ENCOUNTER → 2018-01-21 12:55 | Outpatient (CLI) | payer MEDICARE, OTHER, SELFPAY ==
--- NOTE | 2018-01-21 12:57 | CT_ITS ---
STUDY: CT CHEST WITH CONTRAST REASON FOR EXAM: Female, 67 years old. Breast cancer, metastatic to the lungs. Pulmonary hypertension. RADIATION DOSAGE (If Supplied By Facility): CTDIvol = ( 18.11 ) mGy, DLP = ( 733.65 ) mGycm TECHNIQUE: Transaxial imaging was performed following intravenous administration of 100CC ml of Isovue 300 contrast material. Individualized dose optimization techniques were used for this CT. COMPARISON: 06/24/2017. FINDINGS: There has been left mastectomy. No change at all since prior exam. Lungs are normal volume. Again seen are several tiny scattered pulmonary nodules which may be stable metastases or granulomas. Most prominent is again 6 mm in the posterior right lower lobe on image 59. Tiny nodules 4 mm or less are seen in the anterior lung bases bilaterally suggests on the right, axial images 66. Stable probable scarring in the medial aspect of the anterior segment of the right upper lobe and in the lingula. No infiltrates. No effusions. There is mild cardiac enlargement. Normal mediastinum. Normal hilar regions. There is prominence of the pulmonary hilar arteries without peripheral pulmonary vascular congestion, suggesting pulmonary hypertension. Normal aorta arch and descending thoracic aorta. There are multi-level degenerative changes of the thoracic spine. There is no demonstrated abnormality of the visualized upper abdomen. CT/Chest WITH Contrast IMPRESSION: No significant change. Stable scattered pulmonary nodules which may be granulomas or stable metastases. Electronically Signed: Sudheer Masterson MD at 17:17 EST , Service support ,
== END ==
PROVIDERS: Family Provider Nurse Practitioner; PCP Nurse Practitioner; Visit Provider Internal Medicine Medical Oncology
DX: C50.912 Malignant neoplasm of unspecified site of left female breast (principal); C34.31 Malignant neoplasm of lower lobe, right bronchus or lung
CPT/HCPCS: 71260; Q9967; A4216

== ENCOUNTER → 2018-02-17 10:45 | Outpatient (CLI) | payer MEDICARE, OTHER, SELFPAY ==
--- NOTE | 2018-02-17 10:46 | HPBI_ITS ---
MAMMOGRAPHY - BILATERAL SCREENING 3-D LUCY SYNTHESIS REASON FOR EXAM: Female, 67 years old. Bilateral Screening 3-D tomosynthesis PERTINENT HISTORY: Personal history of breast cancer, with previous left lumpectomy.. TECHNIQUE: 2-D mammograms and 3-D Lucy synthesis of the breast (s) were performed. CAD was performed. COMPARISON: 12/13/2016 FINDINGS: The breast composition is composed of scattered fibroglandular density. Scattered benign calcifications are seen. No dense spiculated masses or suspicious microcalcifications are identified. No architectural distortion is identified. There is no skin thickening or retraction. There has been no significant change since the prior study. HPBI/SCREENING MAMM (CAD), BILAT IMPRESSION: No mammographic signs of malignancy. Routine yearly mammograms recommended. ASSESSMENT CATEGORY: BIRADS Category 2: Benign. A letter regarding these results will be sent to the patient by the facility within 30 days. FOLLOW UP RECOMMENDATION: Yearly follow up mammogram recommended. (A) Approximately 10% of breast cancers are not detected by mammography. A normal mammogram should not delay biopsy of a clinically suspicious abnormality. Electronically Signed: El Arellano MD at 12:18 EDT , Service support ,
== END ==
PROVIDERS: Family Provider Internal Medicine; PCP Nurse Practitioner; Visit Provider Internal Medicine Medical Oncology
DX: Z12.31 Encounter for screening mammogram for malignant neoplasm of breast (principal)
CPT/HCPCS: 77063; 77067

== ENCOUNTER → 2018-04-08 11:00 | Outpatient (CLI) | payer MEDICARE, OTHER, SELFPAY ==
--- NOTE | 2018-04-08 11:07 | BD_ITS ---
STUDY: DUAL ENERGY X-RAY ABSORPTIOMETRY / DXA REASON FOR EXAM: Female, 67 years old. The patient is postmenopausal. Loss of height. History of breast cancer. TECHNIQUE: Bone Mineral Density (BMD) measurements of lumbar spine and bilateral hips were obtained. COMPARISON: Comparison is made with prior study dated January 26, 2014. FINDINGS: Lumbar Spine (L1-L4): g/cm2 (1.108) / T-score (-0.8) / Z-score (0.9) Findings are suggestive of normal bone density with a low fracture risk. Left Femur Total: g/cm2 (0.934) / T-score (-0.6) / Z-score (0.8) Left Femoral Neck: g/cm2 (0.828) / T-score (-1.5) / Z-score (0.1) Right Femur Total: g/cm2 (0.848) / T-score (-1.3) / Z-score (0.1) Right Femoral Neck: g/cm2 (0.750) / T-score (-2.1) / Z-score (-0.4) The T-Scores on the most recent prior examination were: Lumbar Spine (L1-L4): There has been worsening of bone density since the previous examination. Left Femur Total: which represents a worsening of 9.2%. Right Femur Total: which represents a worsening of 7.2%. BD/Dexa Bone Density Study IMPRESSION: The patient is considered osteopenic as outlined below according to World Ank[employer] Organization (WHO) criteria with a moderate fracture risk. There has been worsening of bone density since the previous examination. Reference Information: The T-score is the number of standard deviations above or below the standard which is normal for young adults at their peak bone mineral density. The World Health Organization (WHO) interprets the T-scores as follows: Above -1 Normal bone density Between -1 and -2.5 Osteopenia Equal to / or below -2.5 Osteoporosis As a practical clinical guideline, osteopenia may be graded as follows: Mild -1 through -1.5 Moderate -1.6 through -2.0 Severe -2.1 through -2.4 The Z-score is the number of standard deviations above or below age-matched controls. A Z-score of less than -1.5 would be considered abnormal. References: 1. NIH Osteoporosis and Related Bone Diseases http://www.osteo.org 2. International Society for Clinical Densitometry http://www.iscd.org 3. National Osteoporosis Foundation http://www.nof.org Electronically Signed: Natan Gtz MD at 12:59 EDT Tel [phone], Service support ,
== END ==
PROVIDERS: Family Provider Internal Medicine; PCP Internal Medicine; Visit Provider Internal Medicine
DX: Z78.0 Asymptomatic menopausal state (principal)
CPT/HCPCS: 77080

== ENCOUNTER 2018-05-05 15:38 | Inpatient (IN) | payer MEDICARE, OTHER, SELFPAY ==
[2018-05-05] VITALS (9 sets, daily range): BP systolic 114–149; BP diastolic 49–66; PULSE 63–75; RESP 16–22; TEMP 35.9–36.1; O2SAT 92–94; BMI 47.6; BMI 47.7; BMI 47.9
--- NOTE | 2018-05-05 16:05 | EKG12_ITS ---
Test Reason : SOB Blood Pressure : / mmHG Vent. Rate : 068 BPM Atrial Rate : 068 BPM P-R Int : 192 ms QRS Dur : 080 ms QT Int : 402 ms P-R-T Axes : 028 009 036 degrees QTc Int : 427 ms Normal sinus rhythm Normal ECG Confirmed by SHAKIR BARRON, LUIS ([id number]), editorial project manager KENYON ALVES ([id number]) on 05/07/2018 6:04:49 PM Referred By: MARINA Confirmed By:LUIS SCHILLING MD
--- NOTE | 2018-05-05 16:09 | ED.VISSUMM ---
- ER Visit Summary Date of Service: 05/05/18 Chief Complaint: Shortness of breath History of Present Illness: The patient is a 67 F who presents with shortness of breath since yesterday. Patient has history of DVT, COPD, pulmonary hypertension, mild CHF, and a treated history of breast cancer. Should had a left total knee replacement in December of this year patient states that she drove to [place] last weekend. She states that about [address] there and a [address] Yesterday she began to have chest pressure and pain goes around her as well as shortness of breath. She notes a cough with deep inspiration. She states she had a temperature of 99 yesterday. She went to her primary care physician's office today was noted to have dyspnea on exertion and was 85% with walking into the office in the parking lot Physical Examination: 114/63 temperature 96.6 heart rate is 73 respirations are 22 pulse ox is 94% on room air Gen: Well-nourished well-developed Head: Normocephalic atraumatic Eyes: Perrl EOMI ENT: TMs clear no rhinorrhea moist mucous membranes Neck: Supple no lymphadenopathy no JVD nontender CVS: Regular rate rhythm no murmurs normal S1-S2 Respiratory: No distress diminished breath sounds bilaterally with a faint expiratory wheeze bilaterally chest nontender Abdomen: Soft nontender nondistended normal bowel sounds no masses Back: Nontender Extremity: Nontender no edema there is a well-healed knee incision on the left Skin: Normal color no rash Neuro: alert orientated ?3 CN II-XII intact normal strength sensation reflexes gait cerebellar Psych: Normal affect normal mood Test Results: EKG shows a sinus rhythm at a rate of 65. White count 8.8. Hemoglobin 10.4. Platelets are 255. Glucose 179. Troponin less than 0.015. Chest x-ray negative. CT Lauren of the chest for PE was positive for pulmonary embolism as well as nodules. Radiologist notes that the nodules were present before but these are slightly larger. Emergency Department Course and Treatment: Patient ambulated and dropped to 85% readily and was very dyspneic. She received a shot of Lovenox. Plan is admission into the hospital. Impression: 1. Acute pulmonary embolism 2. Hypoxemia 3. Pulmonary nodules This note was generated with [employer] software. It may contain incorrect words, spelling, and punctuation that were not noted in review of the chart prior to signing ED Disposition - Plan for ED Patient: Chief Complaint: Shortness of Breath Referrals: Katherine Marquez DO [Primary Care Provider] -
--- NOTE | 2018-05-05 16:15 | RAD_ITS ---
STUDY: X-RAY CHEST REASON FOR EXAM: Female, 67 years old. Dyspnea TECHNIQUE: AP portable COMPARISON: None. FINDINGS: There is bilateral perihilar interstitial thickening and bronchovascular cuffing possibly representing superimposed mild pulmonary interstitial edema.. There is no demonstrated pleural abnormality. Heart is enlarged. Normal mediastinum and sharon. Normal visualized pulmonary arteries. Tortuous mildly calcified aortic arch and descending thoracic aorta. Central line seen on the right with tip in distal superior vena cava Dorsal spine demonstrates spondylosis Normal visualized ribs, and clavicles. Degenerative changes of the shoulders and post op changes on the right There is no demonstrated abnormality of the visualized soft tissue structures of the upper abdomen. RAD/Chest 1 View (Portable) IMPRESSION: Bilateral perihilar interstitial thickening and possible mild pulmonary interstitial edema.. Clinical correlation recommended Electronically Signed: Godwin Gandhi MD at 17:04 EDT , Service support ,
[2018-05-05] MEDS: Ipratropium/Albuterol Sulfate 3 ML AMPUL.NEB INHALATION (16:24)
[2018-05-05] MEDS: Albuterol 2.5 MG/3 ML VIAL.NEB. INHALATION ×2 (16:24→23:17)
[2018-05-05 16:44] LABS: Absolute Lymphocyte Count 1.18 X10^3/ul (0.83-4.51); Absolute Neutrophil Count 6.3 X10^3/uL (2.0-7.7); Basophil# 0.03 X10^3/uL; Basophil% 0.3 % (0-1); Eosinophil# 0.49 X10^3/uL; Eosinophils% 5.6 % (0-5); Hemoglobin 10.4 g/dl (12.0-15.0); Lymphocyte # 1.18 X10^3/ul (4.0); Lymphocyte % 13.5 % (19-41); Mean Corp Hgb Conc 31.5 g/gl (32-36); Mean Corpuscular Hgb 25.5 pg (27.0-32.0); Mean Corpuscular Volume 80.9 fL (81-99); Mean Platelet Vol. 8.9 fl (6.2-12.0); Monocyte# 0.79 X10^3/uL; Neutrophil # 6.27 X10^3/uL (2.7-7.7); Neutrophil % 71.5 % (47-70); Platelet Count 255 K/mm3 (150-450); RBC Distribution Width CV 14.4 % (11.6-14.6); RBC Distribution Width SD 42.5 fl (35.1-43.9); Red Blood Count 4.08 M/mm3 (4.2-5.4); White Blood Count 8.8 K/mm3 (4.4-11.0)
[2018-05-05 16:45] LABS: POSITIVE COUNT NO; POSITIVE DIFFERENTIAL NO; POSITIVE MORPHOLOGY NO
[2018-05-05] MEDS: 0.9% Normal Saline 1,000 ML 150 ML IV (16:52)
[2018-05-05 17:11] LABS: ALB/GLOB Ratio 0.8 RATIO (0.9-2.4); AST(SGOT) 17 U/L (15-37); Alanine Aminotransfer ALT/SGPT 21 U/L (13-56); Albumin, Serum 3.5 g/dL (3.2-5.0); Alkaline Phosphatase 113 U/L (45-117); Anion Gap 8 (5-15); BUN 17 mg/dL (7-18); BUN/Creat Ratio 20.2 RATIO (10-20); Calcium,Total 8.9 mg/dL (8.5-10.1); Chloride 100 mmol/L (98-107); Creatinine, Serum 0.84 mg/dL (0.55-1.02); EST Glomerular Filtration Rate 71 mL/min (>60); Est Glom Filt Rate - Afr Amer 86 mL/min (>60); Globulin 4.2 g/dL (2.2-4.2); Glucose 179 mg/dL (74-106); Potassium 4.3 mmol/L (3.5-5.1); Protein, Total 7.7 g/dL (6.4-8.2); Sodium Level 135 mmol/L (136-145)
[2018-05-05 17:14] LABS: BNP,B-Type NATRIURETIC PEPTIDE 76.1 pg/mL (0-100)
--- NOTE | 2018-05-05 17:16 | CT_ITS ---
STUDY: CTA CHEST REASON FOR EXAM: Female, 67 years old. Short of breath with cough, lung metastasis RADIATION DOSAGE (If Supplied By Facility): CTDIvol = ( 21.48 ) mGy, DLP = ( 678.24 ) mGycm TECHNIQUE: The examination was performed with the intravenous administration of 100 ml of Isovue 370 contrast material. Post-processing of the angiographic images was performed, with multiplanar reformation and 3D reconstruction. Individualized dose optimization techniques were used for this CT. COMPARISON: CTA of the chest on November 08, 2015 FINDINGS: Normal enhancement of the main pulmonary artery and right and left pulmonary arteries. There is linear stranding seen within the segmental vessels to the right lower lobe consistent with clot. Atherosclerotic changes of the aorta without evidence for aneurysm.. There is no demonstrated aortic dissection. Normal heart and pericardium. Normal mediastinum. Normal hilar regions. Normal visualized trachea and bronchi. The lungs are well expanded. There is mild generalized interstitial thickening and groundglass opacities.. There is focal scarring in the right apex and interstitial scarring or subsegmental atelectasis in the left upper lobe. There is a small nodule in the left upper lobe measuring approximately 9.8 mm. There is also a 6.3 mm nodule in the right lower lobe and a 3 to 4 mm nodule in the left lower lobe. There is minor subsegmental atelectasis in the right middle lobe. There are tiny pleural effusions Status post left mastectomy Dorsal spine demonstrates moderate spondylosis Normal visualized upper abdomen. CT/CTA Chest W/WO Contrast IMPRESSION: Pulmonary emboli to the subsegmental vessels in the right lower lobe.. Chronic interstitial and some is changes Small pulmonary nodules which may be consistent with early metastatic disease Electronically Signed: Godwin Gandhi MD at 18:34 EDT , Service support ,
--- NOTE | 2018-05-05 19:10 | DT_ITS ---
This patient was seen during an EMR downtime April 28, 2018 - May 05, 2018. This patient may have a combination of paper and electronic documentation or all paper documentation. All documentation is viewable within the e-chart portion of [employer] for each patient visit.
--- NOTE | 2018-05-05 19:18 | PCM.HP.STD ---
Problem List (1) Breast cancer Status: Resolved (2) Diabetes mellitus type II, controlled Status: Chronic (3) Fibromyalgia Status: Chronic (4) Hypertension Status: Chronic (5) HLD (hyperlipidemia) Status: Chronic Qualifiers: (6) Diastolic CHF, chronic Status: Chronic (7) Metastatic carcinoma to lung Status: Chronic (8) Pulmonary hypertension Status: Chronic (9) LOLY (obstructive sleep apnea) Status: Chronic (10) COPD (chronic obstructive pulmonary disease) Status: Chronic (11) Chronic anemia Status: Chronic (12) CAD (coronary artery disease) Status: Chronic Qualifiers: History of Present Illness Date of Admission: 05/05/18 Chief Complaint: Shortness of breath. The patient is a 67 year old F with multiple medical comorbidities as mentioned above presented to the ER because of shortness of breath and bilateral lower chest pains and discomfort. Her symptoms started around 3 weeks ago with bilateral chest pain and discomfort on the lateral aspect of the chest, dull aching pain, constant, not radiating, mild, around 3-4 out of 10 in severity, goes across the lateral chest on both sides and recently, she started having shortness of breath. This shortness of breath brought on by exertion, relieved by rest, associated with increasing chest discomfort on both sides and dry cough without aggravating factors. She denied anterior chest pain. Denied dizziness, lightheadedness, syncope or presyncope. She mentioned that she had mechanical fall while back few months ago and she attributed that lateral chest pains to this fall. 2 months ago, she had left knee replacement which was complicated by superficial vein thrombosis according to the patient, no anticoagulant given at that time. In the emergency department, she was afebrile, blood pressure and heart rate was stable, pulse ox was 94% on room air and her pulse ox dropped down to 85% with ambulation. Routine blood work was remarkable for chronic anemia with stable hemoglobin, otherwise normal. EKG reveals normal sinus rhythm without evidence of acute ischemic changes. Troponin is negative. LFT was normal. Lactic acid was normal. Chest x-ray showed no acute infiltrate, consolidation or effusion. CTA chest revealed right lower lobe subsegmental pulmonary emboli and small pulmonary nodules. She is being admitted for acute right lower lung PE with hypoxia. Past Medical History Past Medical History (Chronic Problems): Chronic Problems (Last Reviewed 04/22/18 @ 13:27 by Consuelo Davies) Diabetes mellitus type II, controlled (Chronic) Fibromyalgia (Chronic) Hypertension (Chronic) History of DVT (deep vein thrombosis) (Chronic) HLD (hyperlipidemia) (Chronic) Diastolic CHF, chronic (Chronic) Metastatic carcinoma to lung (Chronic) Cancer of left breast, stage 4 (Chronic) Metastasis to lung (Chronic) Pulmonary hypertension (Chronic) Osteoarthritis (Chronic) LOLY (obstructive sleep apnea) (Chronic) Morbid obesity with BMI of 50.0-59.9, adult (Chronic) COPD (chronic obstructive pulmonary disease) (Chronic) Chronic anemia (Chronic) CAD (coronary artery disease) (Chronic) S/P PTCA (percutaneous transluminal coronary angioplasty) (Chronic ~2016) Mian- Circumflex Medical History: Medical History (Last Reviewed 04/22/18 @ 13:27 by Consuelo Davies) Metastatic carcinoma to lung (Chronic) C78.00 Cancer of left breast, stage 4 (Chronic) C50.912 Metastasis to lung (Chronic) C78.00 Pulmonary hypertension (Chronic) I27.2 Osteoarthritis (Chronic) M19.90 LOLY (obstructive sleep apnea) (Chronic) G47.33 Morbid obesity with BMI of 50.0-59.9, adult (Chronic) E66.01, Z68.43 COPD (chronic obstructive pulmonary disease) (Chronic) J44.9 Chronic anemia (Chronic) D64.9 CAD (coronary artery disease) (Chronic) I25.10 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 Allergies nitrofurantoin [From Macrobid] Allergy (Severe, Verified 04/22/18 13:27) Anaphylaxis nitrofurantoin macrocrystalline [From Macrobid] Allergy (Severe, Verified 04/22/18 13:27) Anaphylaxis sulfamethoxazole [From Bactrim] Allergy (Intermediate, Verified 05/05/18 18:48) Hives trimethoprim [From Bactrim] Allergy (Intermediate, Verified 05/05/18 18:48) Hives Home Medications: Ambulatory Orders Medication Instructions Recorded Ferrous Sulfate 325 mg PO BID 07/21/14 Escitalopram Oxalate [Lexapro] 20 mg PO DAILY 05/19/15 Fluticasone/Salmeterol [Advair 1 puff INHALATION DAILY 05/19/15 250/50 Mcg Diskus] buPROPion XL [Wellbutrin Xl] 150 mg PO DAILY 05/19/15 Fulvestrant [Faslodex] 250 mg IM QMONTH MDD takes on 05/23/15 of each month Pravastatin [Pravachol] 20 mg PO QHS 06/14/16 mirabegron ER 50 mg 50 mg PO DAILY 30 Days #30 10/29/17 tablet,extended release 24 hr Furosemide [Lasix] 40 mg PO DAILY 12/17/17 Metformin HCl [Glucophage] 1,000 mg PO BIDCM 12/17/17 Montelukast [Singulair] 10 mg PO DAILY 12/17/17 Tadalafil [Adcirca] 40 mg PO DAILY 12/17/17 Cranberry Conc/C/Bacill Coag 1 each PO DAILY 12/19/17 [Cranberry Tablet] Acetaminophen [Tylenol] 1,000 mg PO Q8 #90 tab 01/01/18 Albuterol IH (ProAir) [Proair Hfa] 1 puff INHALATION Q4H PRN PRN 01/01/18 inhaler Lorazepam [Ativan] 1 mg PO Q8H PRN PRN tablet 01/01/18 Melatonin 3 mg PO QHS PRN PRN tablet 01/10/18 losartan 25 mg tablet 25 mg PO DAILY #90 tab 01/21/18 metoprolol succinate ER 25 mg 12.5 mg PO DAILY #45 tab 01/21/18 tablet,extended release 24 hr Aspirin [Aspirin, Baby] 81 mg PO DAILY@0800 05/05/18 Cetirizine HCl [Zyrtec] 10 mg PO DAILY 05/05/18 Liraglutide [Victoza] 1.8 mg SQ DAILY 05/05/18 Surgical History: Surgical History (Last Reviewed 04/22/18 @ 13:27 by Consuelo Davies) S/P PTCA (percutaneous transluminal coronary angioplasty) (Chronic) Onset Date: ~2015 Z98.61 Mian- Circumflex History of appendectomy Onset Date: ~2015 Z90.49 History of arthroscopy of right shoulder Z98.890 History of cholecystectomy Z90.49 History of hysterectomy Z90.710 History of laparoscopic appendectomy Z90.49 History of partial mastectomy of left breast Z90.12 with sentinel node biopsy 2007 History of tubal ligation Z98.51 Surgical History: angioplasty, appendectomy, cholecystectomy, total knee arthroplasty Psychiatric History: Anxiety, Depression 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: No pertinent PUBLIC ADDRESS 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 history Smoking Status: Never smoker Alcohol: None Drugs: None - *Family History Maternal Family History: Family History (Last Reviewed 04/22/18 @ 13:27 by Consuelo Davies) Father CAD (coronary artery disease) Diabetes Mother CAD (coronary artery disease) Hypertension Brother Hypertension FH: CABG (coronary artery bypass surgery) Daughter Hypertension Diabetes Sister Breast cancer Uterine cancer History Items: No pertinent history Paternal Family History: Family History (Last Reviewed 04/22/18 @ 13:27 by Consuelo Davies) Father CAD (coronary artery disease) Diabetes Mother CAD (coronary artery disease) Hypertension Brother Hypertension FH: CABG (coronary artery bypass surgery) Daughter Hypertension Diabetes Sister Breast cancer Uterine cancer History Items: No pertinent history Review of Systems Constitutional: Denies: Anorexia, Chills, Fever, Weakness Eyes: Denies: Blurred vision, Double vision, Drainage, Redness HEENT: Denies: Difficulty Hearing, Ear Pain, Eye Pain, Nasal Congestion, Sore Throat Cardiovascular: Reports: Chest Pain. Denies: Heaviness, Light Headedness, Orthopnea, Paroxysmal Noc. Dyspnea, Syncope Respiratory: Reports: Cough, Pleuritic Pain, Shortness of breath upon exertion. Denies: Sputum production, Wheezing Gastrointestinal: Denies: Abdominal Pain, Constipation, Diarrhea, Nausea, Vomiting Genitourinary: Denies: Dysuria, Frequency, Hematuria Musculoskeletal: Denies: Arm Pain, Back Pain, Foot Pain Skin: Denies: Dryness, Rash Neurological: Denies: Balance problems, Change in Speech, Slurred speech, Headaches, Incoordination, Numbness Psychiatric: Reports: Anxiety, Depression Endocrine: Denies: Change in Body Habitus, Polydipsia VTE Information - Inpt Only VTE Present on Admission: No VTE Mechan Device Prophylaxis: None VTE Pharm Prophylaxis ordered?: No - Physical Exam General: Alert, Oriented x3, Cooperative, No apparent distress HEENT: Atraumatic, PERRLA, EOMI, Normocephalic Oral: Moist Mucosa, No Gingival or Mucosal Lesions/ Ulcerations Neck: Supple, No JVD, Negative Carotid Bruits, Trachea Midline, Thyroid Normal Size and Texture Lungs: Clear to auscultation, No rhonchi, No wheeze, No rales, Diminished Cardiovascular: Regular rate, Regular Rhythm, Normal S1, Normal S2, PMI Normal Abdomen: Bowel Sounds Present, Soft, Non Tender, Non-Distended, No Hepato-splenomegaly, Obese Extremities: No clubbing, No cyanosis, No edema Skin: No rashes, No breakdown Lymphatic: No Cervical, Supraclavicular, or Inguinal Adenopathy Neurological: Cranial nerves II-XII grossly intact, Motor Exam 5/5 strength throughout Psych/Mental Status: Normal Affect, Appropriate, Alert and oriented to time, place, person, mood and affect Vital Signs Temp Pulse Resp BP Pulse Ox 96.6 F L 66 19 H 139/54 H 94 05/05/18 15:39 05/05/18 18:29 05/05/18 18:29 05/05/18 16:04 05/05/18 18:29 Oxygen Delivery Method Room Air Weight: 244 lb Body Mass Index (BMI) 47.6 Finger Stick Blood Glucose 170 Laboratory Tests Past 24 Hrs 05/05/18 05/05/18 05/05/18 16:25 16:25 16:25 WBC 8.8 RBC 4.08 L Hgb 10.4 L Hct 33.0 L MCV 80.9 L MCH 25.5 L MCHC 31.5 L RDW 14.4 RDW Differential 42.5 Plt Count 255 MPV 8.9 Immature Gran % (Auto) 0.100 Neut % (Auto) 71.5 H Lymph % (Auto) 13.5 L Mar[place]osa % (Auto) 9.0 Eos % (Auto) 5.6 H Baso % (Auto) 0.3 Absolute Neuts (auto) 6.3 Absolute Lymphs (auto) 1.18 Total Counted Not Reportable Sodium Potassium Chloride Carbon Dioxide Anion Gap BUN Creatinine Est GFR (MDRD) Af Amer Est GFR (MDRD) Non-Af BUN/Creatinine Ratio Glucose Lactic Acid 1.0 Calcium Total Bilirubin AST ALT Alkaline Phosphatase Troponin I B-Natriuretic Peptide 76.1 Total Protein Albumin Globulin Albumin/Globulin Ratio 05/05/18 16:25 WBC RBC Hgb Hct MCV MCH MCHC RDW RDW Differential Plt Count MPV Immature Gran % (Auto) Neut % (Auto) Lymph % (Auto) [place] % (Auto) Eos % (Auto) Baso % (Auto) Absolute Neuts (auto) Absolute Lymphs (auto) Total Counted Sodium 135 L Potassium 4.3 Chloride 100 Carbon Dioxide 27.0 Anion Gap 8 BUN 17 Creatinine 0.84 Est GFR (MDRD) Af Amer 86 Est GFR (MDRD) Non-Af 71 BUN/Creatinine Ratio 20.2 H Glucose 179 H Lactic Acid Calcium 8.9 Total Bilirubin 0.30 AST 17 ALT 21 Alkaline Phosphatase 113 Troponin I < 0.015 B-Natriuretic Peptide Total Protein 7.7 Albumin 3.5 Globulin 4.2 Albumin/Globulin Ratio 0.8 L Clinical Impression(s) from Imaging Studies Chest X-Ray 05/05/18 16:15 IMPRESSION: Bilateral perihilar interstitial thickening and possible mild pulmonary interstitial edema.. Clinical correlation recommended Electronically Signed: Godwin Gandhi MD at 17:04 EDT , Service support , Chest CTA 05/05/18 17:16 IMPRESSION: Pulmonary emboli to the subsegmental vessels in the right lower lobe.. Chronic interstitial and some is changes Small pulmonary nodules which may be consistent with early metastatic disease Electronically Signed: Godwin Gandhi MD at 18:34 EDT , Service support , Assessment/Plan All Active Problems (Last Reviewed 04/22/18 @ 13:27 by Consuelo Davies) Breast cancer (Resolved) This is a 67 years old female patient presented because of lateral pleuritic chest pain and shortness of breath, found to have right lower lobe subsegmental embolism and her pulse ox was 85% on ambulation. #1 acute right lower lobe subsegmental pulmonary emboli: CTA chest reviewed. At this time, pulse ox is maintained at risk but dropped down to 85% on ambulation. She is a cancer patient in addition to history of left knee replacement 2 months ago. Plan: Admit to PCU, cardiac monitoring, start therapeutic Lovenox twice daily, Tylenol and OxyIR as needed for pain, gentle IV fluids, repeat CBC and BMP tomorrow morning, pro time and INR, PT OT evaluation and treatment. #2 hypoxia: Secondary to above in addition to history of COPD and pulmonary hypertension as well as diastolic CHF. Plan: Albuterol as needed, incentive sponsor, chest physical therapy, wean off oxygen as tolerated. #3 CAD status post stents: Stable, EKG reviewed, no acute ischemic changes, troponin is negative. Continue aspirin, metoprolol, statins and losartan. #4 hypertension: Blood pressure stable, continue losartan and metoprolol. #5 type 2 diabetes mellitus: ADA diet, Accu-Cheks, insulin sliding scale, continue Victoza, hold metformin. #6 COPD: Albuterol as needed, continue Advair, incentive spirometer, chest physiotherapy. #7 metastatic breast cancer: Status post lumpectomy, currently on Faslodex injections monthly. #8 pulmonary hypertension: Continue Adcirca. #9 hyperlipidemia: Continue statins. #10 anxiety/depression: Continue Wellbutrin, Lexapro, Ativan. #11 DVT prophylaxis: She will be on Lovenox twice daily. This note was generated with [employer] dictation software. It may contain incorrect words, spelling, and punctuation that were not noted in checking the note before signing. Code Visit Inpatient E&M: 74176 Init Hosp L3
[2018-05-05] MEDS: Enoxaparin 120 MG/0.8 ML Syringe 110 MG SC (19:44)
[2018-05-05] MEDS: Acetaminophen 500 MG Tablet 1000 MG PO (20:10)
--- NOTE | 2018-05-05 20:28 | VDLE_ITS ---
Reason For Study: PE RIGHT LEFT GSV is normal. GSV is normal. CFV is compressible, spontaneous, phasic, CFV is compressible, spontaneous, phasic, competent and demonstrates normal competent, and demonstrates normal augmentation. augmentation. FV is compressible, spontaneous, phasic, FV is compressible, spontaneous, phasic, competent and demonstrates normal competent and demonstrates normal augmentation. augmentation. POP V is compressible, spontaneous, phasic, POP V is compressible, spontaneous, phasic, competent and demonstrates normal competent and demonstrates normal augmentation. augmentation. T/P Trunk is compressible. T/P Trunk is compressible. PTV is compressible. PTV is compressible. RT PerV is compressible. LT PerV is compressible. Soleus V is dilated and noncompressible. Gastroc V is dilated and noncompressible. Procedure Exam performed portable in patient room. The exam was diagnostic. A preliminary report was called and/or faxed to Linda GERMAN. Interpretation Summary Acute deep venous thrombosis right soleus vein Acute deep venous thrombosis left gastrocnemius vein. No evidence for proximal progression bilaterally Patent and antegrade bilateral great saphenous veins. Ordering Physician: Carlyn Melara Performed By: Bry Portillo RVT
[2018-05-05] MEDS: Pravastatin 20 MG Tablet PO (21:04)
[2018-05-05] MEDS: oxyCODONE 5 MG Tablet PO (21:04)
[2018-05-05 22:18] LABS: International Normalized Ratio 1.2; Prothrombin Time (Protime)PT. 15.1 SECONDS (11.7-14.9)
[2018-05-05] MEDS: LORazepam 1 MG Tablet PO (22:39)
[2018-05-05] MEDS: MELATONIN 3 MG TABLET PO (22:45)
[2018-05-05 23:00] LABS: Bedside Glucose 141 mg/dL (70-110)
[2018-05-05] MEDS: Budesonide Respules 0.5 MG/2 ML AMPUL.NEB. INHALATION (23:17)
[2018-05-06] VITALS (18 sets, daily range): BP systolic 137–152; BP diastolic 67–83; PULSE 61–82; RESP 16–21; TEMP 36.6–37.1; O2SAT 83–95
[2018-05-06] MEDS: Albuterol 2.5 MG/3 ML VIAL.NEB. INHALATION ×6 (03:55→22:45)
[2018-05-06] MEDS: 0.9% Normal Saline 1,000 ML 75 ML IV ×2 (04:14→14:22)
--- NOTE | 2018-05-06 04:35 | NURSING ---
PT PO DROP TO 85% WHEN SHE WAS SLEEPING. PT SAID SHE WEARS CPAP AT HOME. 02 AT 2LNC APPLIED BY RESP. PT INSTRUCTED TO BRING IT FROM HOME.
--- NOTE | 2018-05-06 04:49 | CPS ---
placed pt on O2 at 2 lpm
[2018-05-06] MEDS: Enoxaparin 120 MG/0.8 ML Syringe 110 MG SC (05:43)
[2018-05-06 06:10] LABS: Absolute Neutrophil Count 3.6 X10^3/uL (2.0-7.7); Basophil# 0.02 X10^3/uL; Basophil% 0.3 % (0-1); Eosinophils% 6.8 % (0-5); Hematocrit 28.9 % (37-47); Hemoglobin 9.2 g/dl (12.0-15.0); Lymphocyte % 20.5 % (19-41); Mean Corp Hgb Conc 31.8 g/gl (32-36); Mean Corpuscular Hgb 26.1 pg (27.0-32.0); Mean Corpuscular Volume 81.9 fL (81-99); Mean Platelet Vol. 8.8 fl (6.2-12.0); Monocyte# 0.61 X10^3/uL; Monocyte% 10.4 % (0-10); Neutrophil % 61.8 % (47-70); Platelet Count 207 K/mm3 (150-450); RBC Distribution Width CV 14.7 % (11.6-14.6); RBC Distribution Width SD 43.8 fl (35.1-43.9); Red Blood Count 3.53 M/mm3 (4.2-5.4); White Blood Count 5.8 K/mm3 (4.4-11.0)
[2018-05-06 06:11] LABS: POSITIVE COUNT NO; POSITIVE DIFFERENTIAL NO; POSITIVE MORPHOLOGY NO
[2018-05-06 06:24] LABS: Anion Gap 8 (5-15); BUN 16 mg/dL (7-18); BUN/Creat Ratio 21.4 RATIO (10-20); Calcium,Total 8.3 mg/dL (8.5-10.1); Chloride 103 mmol/L (98-107); Creatinine, Serum 0.75 mg/dL (0.55-1.02); EST Glomerular Filtration Rate 82 mL/min (>60); Est Glom Filt Rate - Afr Amer 99 mL/min (>60); Glucose 202 mg/dL (74-106); Sodium Level 135 mmol/L (136-145)
[2018-05-06 07:00] LABS: Bedside Glucose 209 mg/dL (70-110)
[2018-05-06] MEDS: Budesonide Respules 0.5 MG/2 ML AMPUL.NEB. INHALATION ×2 (07:17→18:33)
[2018-05-06] MEDS: Ferrous Sulfate 325 MG Tablet PO ×2 (08:06→16:55)
[2018-05-06] MEDS: Aspirin 81 MG TAB.CHEW PO (08:06)
[2018-05-06] MEDS: Insulin Lispro 100 UNIT/ML INSULN.PEN SQ ×4 (08:47→21:37)
[2018-05-06] MEDS: LORazepam 1 MG Tablet PO ×2 (08:52→21:37)
[2018-05-06] MEDS: Mirabegron 50 MG TAB.ER.24H PO (09:29)
[2018-05-06] MEDS: Metoprolol(XL)Succ 25 MG Tablet 12.5 MG PO (09:29)
[2018-05-06] MEDS: Montelukast 10 MG Tablet PO (09:29)
[2018-05-06] MEDS: Loratadine 10 MG Tablet PO (09:30)
[2018-05-06] MEDS: buPROPion (XL) 150 MG TABLET.XL PO (09:30)
[2018-05-06] MEDS: Escitalopram Oxalate 20 MG Tablet PO (09:30)
[2018-05-06] MEDS: Losartan Potassium 25 MG Tablet PO (09:30)
[2018-05-06 11:31] LABS: Bedside Glucose 303 mg/dL (70-110)
--- NOTE | 2018-05-06 11:38 | CASEMGMT ---
Face to Face with patient for initial transition planning/care coordination assessment. RN ANITA introduced self and role at [facility], pt voices understanding and consents to assessment at this time. Pt is sitting up in chair in no distress at this time. Pt is A/O x4 at this time and answers all questions appropriately at this time. Care providers, pharmacy, and demographics verified. See attached link. Pt voices no further concerns/needs at this time. Advised pt to ask for CM if any further questions/concerns/needs arise, voices understanding. CM to follow for any further discharge planning/needs. PLAN: [place] [facility]
--- NOTE | 2018-05-06 12:33 | PN_ITS ---
Subjective: Cc: Shortness of breath and pleuritic chest pain Objective: She still reports dyspnea and mild pruritic chest pain. She is receiving Lovenox for the newly diagnosed PE, she reports no leg swelling pain or calf tenderness. No acute events reported overnight. Vitals/I&O's: Vital Signs Temp Pulse Resp BP Pulse Ox 98.2 F 69 16 137/69 H 95 05/06/18 10:00 05/06/18 11:43 05/06/18 11:04 05/06/18 10:00 05/06/18 10:00 Oxygen Flow Rate (L/min) 2 Oxygen Delivery Method Room Air Weight: 111.3 kg Body Mass Index (BMI) 47.9 Intake and Output for Last 24 Hours 05/04/18 05/05/18 05/06/18 23:59 23:59 23:59 Intake Total 1783 / 1783 Output Total 800 / 800 Balance 983 / 983 General: Alert, Oriented x3 HEENT: Atraumatic Oral: Moist Mucosa Neck: Supple, No JVD Lungs: Clear to auscultation, No wheeze, No rales Cardiovascular: Regular rate, Regular Rhythm, Normal S1, Normal S2 Abdomen: Bowel Sounds Present, Soft, Non Tender, Non-Distended Neurological: Cranial nerves II-XII grossly intact, Motor Exam 5/5 strength throughout Laboratory Results 05/05/18 21:07: POC Glucose 141 H 05/05/18 21:44: PT 15.1 H, INR 1.2 05/06/18 05:25: WBC 5.8, RBC 3.53 L, Hgb 9.2 L, Hct 28.9 L, MCV 81.9, MCH 26.1 L , MCHC 31.8 L, RDW 14.7 H, RDW Differential 43.8, Plt Count 207, MPV 8.8, Immature Gran % (Auto) 0.200, Neut % (Auto) 61.8, Lymph % (Auto) 20.5, Bulloch % ( Auto) 10.4 H, Eos % (Auto) 6.8 H, Baso % (Auto) 0.3, Absolute Neuts (auto) 3.6, Absolute Lymphs (auto) 1.20, Total Counted Not Reportable 05/06/18 05:25: Sodium 135 L, Potassium 4.0, Chloride 103, Carbon Dioxide 24.0, Anion Gap 8, BUN 16, Creatinine 0.75, Est GFR (MDRD) Af Amer 99, Est GFR (MDRD) Non-Af 82, BUN/Creatinine Ratio 21.4 H, Glucose 202 H, Calcium 8.3 L 05/06/18 06:44: POC Glucose 209 H 05/06/18 11:24: POC Glucose 303 H Current Medications Acetaminophen (Tylenol) 650 mg PO Q6H PRN PRN PRN Reason: Mild Pain (scale 0-3)/T>100.7 Albuterol Sulfate (Ventolin Aerosols) 2.5 mg INHALATION Q4H.RT [facility] Last Admin: 05/06/18 11:04 Dose: 2.5 mg Albuterol Sulfate (Ventolin Aerosols) 2.5 mg INHALATION Q6HWA.RT [facility] Aspirin (Aspirin, Baby) 81 mg PO DAILY@0800 [facility] Last Admin: 05/06/18 08:06 Dose: 81 mg Budesonide (Pulmicort Aerosol) 0.5 mg INHALATION Q12H.RT [facility] Last Admin: 05/06/18 07:17 Dose: 0.5 mg Bupropion HCl (Wellbutrin Xl) 150 mg PO DAILY [facility] Last Admin: 05/06/18 09:30 Dose: 150 mg Enoxaparin Sodium (Lovenox) 110 mg SC Q12@0600,1800 [facility] Last Admin: 05/06/18 05:43 Dose: 110 mg Escitalopram Oxalate (Lexapro) 20 mg PO DAILY [facility] Last Admin: 05/06/18 09:30 Dose: 20 mg Ferrous Sulfate (Ferrous Sulfate) 325 mg PO BIDCM [facility] Last Admin: 05/06/18 08:06 Dose: 325 mg Sodium Chloride () 1,000 mls @ 75 mls/hr IV .[id number] [facility] Last Admin: 05/06/18 04:14 Dose: 75 mls/hr Insulin Human Lispro (Humalog Kwikpen (Bkc)) 0 unit SQ ACHS [facility] PRN Reason: Protocol Last Admin: 05/06/18 08:47 Dose: 2 units Loratadine (Claritin) 10 mg PO DAILY [facility] Last Admin: 05/06/18 09:30 Dose: 10 mg Lorazepam (Ativan) 1 mg PO Q8H PRN PRN PRN Reason: ANXIETY Last Admin: 05/06/18 08:52 Dose: 1 mg Losartan Potassium (Cozaar) 25 mg PO DAILY [facility] Last Admin: 05/06/18 09:30 Dose: 25 mg Magnesium Hydroxide (Milk Of Magnesia) 30 ml PO DAILY PRN PRN Reason: Constipation Melatonin (Melatonin) 3 mg PO QHS PRN PRN PRN Reason: insomnia Last Admin: 05/05/18 22:45 Dose: 3 mg Metoprolol Succinate (Toprol Xl (Beta Kris)) 12.5 mg PO DAILY [facility] Last Admin: 05/06/18 09:29 Dose: 12.5 mg Montelukast Sodium (Singulair) 10 mg PO DAILY [facility] Last Admin: 05/06/18 09:29 Dose: 10 mg Non-Formulary Medication (Tadalafil) 40 mg PO DAILY [facility] Ondansetron HCl (Zofran) 4 mg IV Q8H PRN PRN PRN Reason: Nausea Oxycodone HCl (Oxyir) 5 mg PO Q4H PRN PRN PRN Reason: Moderate Pain (pain scale 4-5) Last Admin: 05/05/18 21:04 Dose: 5 mg Pravastatin Sodium (Pravachol) 20 mg PO QHS [facility] Last Admin: 05/05/18 21:04 Dose: 20 mg Sodium Chloride () 5 - 30 ml IV UD PRN PRN Reason: SALINE FLUSH Medical Necessity - Tobacco Use Smoking Status: Never smoker Assessment/Plan All Active Problems (Last Reviewed 04/22/18 @ 13:27 by Consuelo Davies) Breast cancer (Resolved) 1. Acute pulmonary emboli; she is currently on subcutaneous Lovenox, we will transition to Eliquis today. Doppler ultrasound of the lower extremity have been ordered. 2. Acute respiratory failure with hypoxia; most likely due to the above 1 , we will continue on supplemental oxygen and wean as tolerated. 3. CAD status post stents; she reports no symptoms of angina at this time. 4 hypertension; she is on Losartan and Metoprolol. 5 type 2 diabetes mellitus; on RISS, Metformin on hold. 6 COPD without exacerbation; will continue on bronchodilators as ordered. 7 metastatic breast cancer; Status post lumpectomy, currently on Faslodex injections monthly. 8 pulmonary hypertension; she is on Tadalafil.
[2018-05-06] MEDS: APIXABAN 5 MG TABLET 10 MG PO ×2 (14:36→21:37)
--- NOTE | 2018-05-06 16:48 | CHAPLAIN ---
Type of Pastoral Visit _x__ Initial Visit ___ Follow-up Visit ___ On-call Visit ___ General Patient Visit ___ Spiritual Assessment ___ Family Conference ___ Bereavement ___ Rapid Response ___ Code Blue ___ Other (describe below) Pastoral Care Referral From _x__ Patient ___ Family ___ Nurse ___ Physician ___ Natural Science Manager ___ Banking Teacher ___ Other (describe below) Sacrament/Intervention _x__ Active listening ___ Anointing ___ Anabaptism ___ Bereavement ___ Communion ___ Michela exploration ___ _x__ Life review _x__ Prayer ___ Reconciliation ___ Sacrament of Sick _x__ Supportive presence ___ Wedding ___ Other (describe below) Pastoral Comments
[2018-05-06 17:10] LABS: Bedside Glucose 249 mg/dL (70-110)
[2018-05-06] MEDS: oxyCODONE 5 MG Tablet PO (19:55)
[2018-05-06] MEDS: Pravastatin 20 MG Tablet PO (21:37)
[2018-05-06 21:46] LABS: Bedside Glucose 331 mg/dL (70-110)
[2018-05-06] MEDS: MELATONIN 3 MG TABLET PO (22:03)
--- NOTE | 2018-05-06 23:42 | SLEEP ---
APPLIED O2 INLINE WITH PT'S HOME CPAP UNIT AT 2 LPM.
[2018-05-07] VITALS (19 sets, daily range): BP systolic 147–155; BP diastolic 42–78; PULSE 58–71; RESP 15–20; TEMP 36.4–37.1; O2SAT 20–97
[2018-05-07] MEDS: 0.9% Normal Saline 1,000 ML 75 ML IV (03:02)
[2018-05-07 06:56] LABS: Bedside Glucose 230 mg/dL (70-110)
[2018-05-07] MEDS: Albuterol 2.5 MG/3 ML VIAL.NEB. INHALATION ×5 (07:35→22:34)
[2018-05-07] MEDS: Budesonide Respules 0.5 MG/2 ML AMPUL.NEB. INHALATION ×2 (07:35→18:48)
[2018-05-07] MEDS: Aspirin 81 MG TAB.CHEW PO (08:27)
[2018-05-07] MEDS: Ferrous Sulfate 325 MG Tablet PO ×2 (08:27→16:56)
[2018-05-07] MEDS: oxyCODONE 5 MG Tablet PO ×2 (08:33→21:14)
[2018-05-07] MEDS: Insulin Lispro 100 UNIT/ML INSULN.PEN SQ ×4 (08:35→21:16)
[2018-05-07] MEDS: APIXABAN 5 MG TABLET 10 MG PO ×2 (10:33→21:04)
[2018-05-07] MEDS: Losartan Potassium 25 MG Tablet PO (10:33)
[2018-05-07] MEDS: Loratadine 10 MG Tablet PO (10:33)
[2018-05-07] MEDS: Montelukast 10 MG Tablet PO (10:33)
[2018-05-07] MEDS: buPROPion (XL) 150 MG TABLET.XL PO (10:34)
[2018-05-07] MEDS: Escitalopram Oxalate 20 MG Tablet PO (10:34)
[2018-05-07] MEDS: Mirabegron 50 MG TAB.ER.24H PO (10:34)
[2018-05-07] MEDS: Metoprolol(XL)Succ 25 MG Tablet 12.5 MG PO (10:34)
[2018-05-07 11:30] LABS: Bedside Glucose 301 mg/dL (70-110)
[2018-05-07 17:06] LABS: Bedside Glucose 283 mg/dL (70-110)
--- NOTE | 2018-05-07 17:18 | PCM.PN.HOSP ---
Subjective: Cc: Shortness of breath and pleuritic chest pain Objective: She still reports some dyspnea but she now denies pruritic chest pain. She is still requiring supplemental oxygen, she is hemodynamically stable. No acute events reported overnight. Vitals/I&O's: Vital Signs Temp Pulse Resp BP Pulse Ox 98.8 F 63 15 149/78 H 97 05/07/18 16:44 05/07/18 16:44 05/07/18 16:44 05/07/18 16:44 05/07/18 16:44 Oxygen Flow Rate (L/min) 2 Oxygen Delivery Method Nasal Cannula Weight: 111.3 kg Body Mass Index (BMI) 47.9 Intake and Output for Last 24 Hours 05/05/18 05/06/18 05/07/18 23:59 23:59 23:59 Intake Total 2434 / 2434 1965 / 1965 Output Total 1400 / 1400 2200 / 2200 Balance 1034 / 1034 -234 / -234 General: Alert, Oriented x3 HEENT: Atraumatic Oral: Moist Mucosa Neck: Supple, No JVD Lungs: Clear to auscultation Cardiovascular: Regular rate, Normal S1, Normal S2 Abdomen: Bowel Sounds Present, Soft, Non Tender Extremities: No clubbing, No edema Musculoskeletal: No Tenderness to Palpation of Joints or Extremities Neurological: Cranial nerves II-XII grossly intact, Motor Exam 5/5 strength throughout Laboratory Results 05/06/18 21:36: POC Glucose 331 H 05/07/18 06:50: POC Glucose 230 H 05/07/18 11:22: POC Glucose 301 H 05/07/18 16:53: POC Glucose 283 H Current Medications Acetaminophen (Tylenol) 650 mg PO Q6H PRN PRN PRN Reason: Mild Pain (scale 0-3)/T>100.7 Albuterol Sulfate (Ventolin Aerosols) 2.5 mg INHALATION Q4H.RT [facility] Last Admin: 05/07/18 14:56 Dose: 2.5 mg Albuterol Sulfate (Ventolin Aerosols) 2.5 mg INHALATION Q6HWA.RT [facility] Apixaban (Eliquis) 10 mg PO BID [facility] Last Admin: 05/07/18 10:33 Dose: 10 mg Aspirin (Aspirin, Baby) 81 mg PO DAILY@0800 [facility] Last Admin: 05/07/18 08:27 Dose: 81 mg Budesonide (Pulmicort Aerosol) 0.5 mg INHALATION Q12H.RT [facility] Last Admin: 05/07/18 07:35 Dose: 0.5 mg Bupropion HCl (Wellbutrin Xl) 150 mg PO DAILY [facility] Last Admin: 05/07/18 10:34 Dose: 150 mg Escitalopram Oxalate (Lexapro) 20 mg PO DAILY [facility] Last Admin: 05/07/18 10:34 Dose: 20 mg Ferrous Sulfate (Ferrous Sulfate) 325 mg PO BIDCM [facility] Last Admin: 05/07/18 16:56 Dose: 325 mg Insulin Human Lispro (Humalog Kwikpen (Bkc)) 0 unit SQ ACHS [facility] PRN Reason: Protocol Last Admin: 05/07/18 16:56 Dose: 4 units Loratadine (Claritin) 10 mg PO DAILY [facility] Last Admin: 05/07/18 10:33 Dose: 10 mg Lorazepam (Ativan) 1 mg PO Q8H PRN PRN PRN Reason: ANXIETY Last Admin: 05/06/18 21:37 Dose: 1 mg Losartan Potassium (Cozaar) 25 mg PO DAILY [facility] Last Admin: 05/07/18 10:33 Dose: 25 mg Magnesium Hydroxide (Milk Of Magnesia) 30 ml PO DAILY PRN PRN Reason: Constipation Melatonin (Melatonin) 3 mg PO QHS PRN PRN PRN Reason: insomnia Last Admin: 05/06/18 22:03 Dose: 3 mg Metoprolol Succinate (Toprol Xl (Beta Kris)) 12.5 mg PO DAILY [facility] Last Admin: 05/07/18 10:34 Dose: 12.5 mg Montelukast Sodium (Singulair) 10 mg PO DAILY [facility] Last Admin: 05/07/18 10:33 Dose: 10 mg Non-Formulary ( (Tadalafil 20 Mg)) 40 mg PO DAILY [facility] Last Admin: 05/07/18 13:10 Dose: 40 mg Ondansetron HCl (Zofran) 4 mg IV Q8H PRN PRN PRN Reason: Nausea Oxycodone HCl (Oxyir) 5 mg PO Q4H PRN PRN PRN Reason: Moderate Pain (pain scale 4-5) Last Admin: 05/07/18 08:33 Dose: 5 mg Pravastatin Sodium (Pravachol) 20 mg PO QHS [facility] Last Admin: 05/06/18 21:37 Dose: 20 mg Sodium Chloride () 5 - 30 ml IV UD PRN PRN Reason: SALINE FLUSH Medical Necessity - Tobacco Use Smoking Status: Never smoker Assessment/Plan All Active Problems (Last Reviewed 04/22/18 @ 13:27 by Consuelo Davies) Breast cancer (Resolved) 1. Acute pulmonary emboli/bilateral lower extremity DVT; will continue on Eliquis as ordered.. 2. Acute respiratory failure with hypoxia; we will arrange for home oxygen. 3. CAD status post stents; she reports no symptoms of angina at this time. 4 hypertension; she is on Losartan and Metoprolol. 5 type 2 diabetes mellitus; on RISS, Metformin on hold. 6 COPD without exacerbation; will continue on bronchodilators as ordered. 7 metastatic breast cancer; Status post lumpectomy, currently on Faslodex injections monthly. 8 pulmonary hypertension; she is on Tadalafil. Code Visit Inpatient E&M: 82593 Subs Hosp L2
--- NOTE | 2018-05-07 17:21 | PN_ITS ---
Subjective: Cc: Shortness of breath and pleuritic chest pain Objective: She still reports some dyspnea but she now denies pruritic chest pain. She is still requiring supplemental oxygen, she is hemodynamically stable. No acute events reported overnight. Vitals/I&O's: Vital Signs Temp Pulse Resp BP Pulse Ox 98.8 F 63 15 149/78 H 97 05/07/18 16:44 05/07/18 16:44 05/07/18 16:44 05/07/18 16:44 05/07/18 16:44 Oxygen Flow Rate (L/min) 2 Oxygen Delivery Method Nasal Cannula Weight: 111.3 kg Body Mass Index (BMI) 47.9 Intake and Output for Last 24 Hours 05/05/18 05/06/18 05/07/18 23:59 23:59 23:59 Intake Total 2434 / 2434 1965 / 1965 Output Total 1400 / 1400 2200 / 2200 Balance 1034 / 1034 -234 / -234 General: Alert, Oriented x3 HEENT: Atraumatic Oral: Moist Mucosa Neck: Supple, No JVD Lungs: Clear to auscultation Cardiovascular: Regular rate, Normal S1, Normal S2 Abdomen: Bowel Sounds Present, Soft, Non Tender Extremities: No clubbing, No edema Musculoskeletal: No Tenderness to Palpation of Joints or Extremities Neurological: Cranial nerves II-XII grossly intact, Motor Exam 5/5 strength throughout Laboratory Results 05/06/18 21:36: POC Glucose 331 H 05/07/18 06:50: POC Glucose 230 H 05/07/18 11:22: POC Glucose 301 H 05/07/18 16:53: POC Glucose 283 H Current Medications Acetaminophen (Tylenol) 650 mg PO Q6H PRN PRN PRN Reason: Mild Pain (scale 0-3)/T>100.7 Albuterol Sulfate (Ventolin Aerosols) 2.5 mg INHALATION Q4H.RT [facility] Last Admin: 05/07/18 14:56 Dose: 2.5 mg Albuterol Sulfate (Ventolin Aerosols) 2.5 mg INHALATION Q6HWA.RT [facility] Apixaban (Eliquis) 10 mg PO BID [facility] Last Admin: 05/07/18 10:33 Dose: 10 mg Aspirin (Aspirin, Baby) 81 mg PO DAILY@0800 [facility] Last Admin: 05/07/18 08:27 Dose: 81 mg Budesonide (Pulmicort Aerosol) 0.5 mg INHALATION Q12H.RT [facility] Last Admin: 05/07/18 07:35 Dose: 0.5 mg Bupropion HCl (Wellbutrin Xl) 150 mg PO DAILY [facility] Last Admin: 05/07/18 10:34 Dose: 150 mg Escitalopram Oxalate (Lexapro) 20 mg PO DAILY [facility] Last Admin: 05/07/18 10:34 Dose: 20 mg Ferrous Sulfate (Ferrous Sulfate) 325 mg PO BIDCM [facility] Last Admin: 05/07/18 16:56 Dose: 325 mg Insulin Human Lispro (Humalog Kwikpen (Bkc)) 0 unit SQ ACHS [facility] PRN Reason: Protocol Last Admin: 05/07/18 16:56 Dose: 4 units Loratadine (Claritin) 10 mg PO DAILY [facility] Last Admin: 05/07/18 10:33 Dose: 10 mg Lorazepam (Ativan) 1 mg PO Q8H PRN PRN PRN Reason: ANXIETY Last Admin: 05/06/18 21:37 Dose: 1 mg Losartan Potassium (Cozaar) 25 mg PO DAILY [facility] Last Admin: 05/07/18 10:33 Dose: 25 mg Magnesium Hydroxide (Milk Of Magnesia) 30 ml PO DAILY PRN PRN Reason: Constipation Melatonin (Melatonin) 3 mg PO QHS PRN PRN PRN Reason: insomnia Last Admin: 05/06/18 22:03 Dose: 3 mg Metoprolol Succinate (Toprol Xl (Beta Kris)) 12.5 mg PO DAILY [facility] Last Admin: 05/07/18 10:34 Dose: 12.5 mg Montelukast Sodium (Singulair) 10 mg PO DAILY [facility] Last Admin: 05/07/18 10:33 Dose: 10 mg Non-Formulary ( (Tadalafil 20 Mg)) 40 mg PO DAILY [facility] Last Admin: 05/07/18 13:10 Dose: 40 mg Ondansetron HCl (Zofran) 4 mg IV Q8H PRN PRN PRN Reason: Nausea Oxycodone HCl (Oxyir) 5 mg PO Q4H PRN PRN PRN Reason: Moderate Pain (pain scale 4-5) Last Admin: 05/07/18 08:33 Dose: 5 mg Pravastatin Sodium (Pravachol) 20 mg PO QHS [facility] Last Admin: 05/06/18 21:37 Dose: 20 mg Sodium Chloride () 5 - 30 ml IV UD PRN PRN Reason: SALINE FLUSH Medical Necessity - Tobacco Use Smoking Status: Never smoker Assessment/Plan All Active Problems (Last Reviewed 04/22/18 @ 13:27 by Consuelo Davies) Breast cancer (Resolved) 1. Acute pulmonary emboli/bilateral lower extremity DVT; will continue on Eliquis as ordered.. 2. Acute respiratory failure with hypoxia; we will arrange for home oxygen. 3. CAD status post stents; she reports no symptoms of angina at this time. 4 hypertension; she is on Losartan and Metoprolol. 5 type 2 diabetes mellitus; on RISS, Metformin on hold. 6 COPD without exacerbation; will continue on bronchodilators as ordered. 7 metastatic breast cancer; Status post lumpectomy, currently on Faslodex injections monthly. 8 pulmonary hypertension; she is on Tadalafil. Code Visit Inpatient E&M: 54861 Subs Hosp L2
[2018-05-07] MEDS: Pravastatin 20 MG Tablet PO (21:05)
[2018-05-07] MEDS: LORazepam 1 MG Tablet PO (22:11)
[2018-05-07] MEDS: MELATONIN 3 MG TABLET PO (22:11)
[2018-05-07 23:11] LABS: Bedside Glucose 328 mg/dL (70-110)
[2018-05-08] VITALS (8 sets, daily range): BP systolic 164–173; BP diastolic 51–57; PULSE 64–74; RESP 16–18; TEMP 36.5–37.1; O2SAT 93–95
[2018-05-08] MEDS: Albuterol 2.5 MG/3 ML VIAL.NEB. INHALATION ×3 (02:56→10:41)
[2018-05-08] MEDS: Furosemide 40 MG Tablet PO (06:42)
[2018-05-08] MEDS: Budesonide Respules 0.5 MG/2 ML AMPUL.NEB. INHALATION (06:50)
[2018-05-08 07:06] LABS: Bedside Glucose 280 mg/dL (70-110)
[2018-05-08] MEDS: LORazepam 1 MG Tablet PO (07:26)
[2018-05-08] MEDS: oxyCODONE 5 MG Tablet PO (07:26)
[2018-05-08] MEDS: Aspirin 81 MG TAB.CHEW PO (07:27)
[2018-05-08] MEDS: Ferrous Sulfate 325 MG Tablet PO (07:27)
[2018-05-08] MEDS: Insulin Lispro 100 UNIT/ML INSULN.PEN SQ ×2 (07:28→11:50)
--- NOTE | 2018-05-08 08:59 | PCM.DC ---
You will use the following diet at home:: Regular Discharge Activity: Return to Normal Activity Allergies/Adverse Reactions: Allergies nitrofurantoin [From Macrobid] Allergy (Severe, Verified 04/22/18 13:27) Anaphylaxis nitrofurantoin macrocrystalline [From Macrobid] Allergy (Severe, Verified 04/22/18 13:27) Anaphylaxis sulfamethoxazole [From Bactrim] Allergy (Intermediate, Verified 05/05/18 18:48) Hives trimethoprim [From Bactrim] Allergy (Intermediate, Verified 05/05/18 18:48) Hives Medications to take at Discharge Ferrous Sulfate 325 mg PO BID 07/21/14 Escitalopram Oxalate [Lexapro] 20 mg PO DAILY 05/19/15 Fluticasone/Salmeterol [Advair 250/50 Mcg Diskus] 1 puff INHALATION DAILY 05/19/15 buPROPion XL [Wellbutrin Xl] 150 mg PO DAILY 05/19/15 Fulvestrant [Faslodex] 250 mg IM QMONTH MDD takes on of each month 05/23/15 Pravastatin [Pravachol] 20 mg PO QHS 06/14/16 mirabegron ER 50 mg tablet,extended release 24 hr 50 mg PO DAILY 30 Days #30 10/29/17 Furosemide [Lasix] 40 mg PO DAILY 12/17/17 Metformin HCl [Glucophage] 1,000 mg PO BIDCM 12/17/17 Montelukast [Singulair] 10 mg PO DAILY 12/17/17 Tadalafil [Adcirca] 40 mg PO DAILY 12/17/17 Cranberry Conc/C/Bacill Coag [Cranberry Tablet] 1 each PO DAILY 12/19/17 Albuterol IH (ProAir) [Proair Hfa] 1 puff INHALATION Q4H PRN PRN inhaler 01/01/18 Lorazepam [Ativan] 1 mg PO Q8H PRN PRN tablet 01/01/18 Melatonin 3 mg PO QHS PRN PRN tablet 01/10/18 losartan 25 mg tablet 25 mg PO DAILY #90 tab 01/21/18 metoprolol succinate ER 25 mg tablet,extended release 24 hr 12.5 mg PO DAILY #45 tab 01/21/18 Acetaminophen [Tylenol] 1,000 mg PO Q8 PRN 05/05/18 Aspirin [Aspirin, Baby] 81 mg PO DAILY@0800 05/05/18 Cetirizine HCl [Zyrtec] 10 mg PO DAILY 05/05/18 Liraglutide [Victoza] 1.8 mg SQ DAILY 05/05/18 Insulin Glargine,Hum.rec.anlog [Lantus] 74 unit SQ QHS 05/07/18 Apixaban [Eliquis] 5 mg PO BID 30 Days #60 tab 05/08/18 Apixaban [Eliquis] 10 mg PO BID 7 Days #28 tab 05/08/18 The following prescriptions were given: Apixaban [Eliquis] 5 mg PO BID 30 Days #60 tab Apixaban [Eliquis] 10 mg PO BID 7 Days #28 tab Primary Care Physician: Katherine Marquez DO [Primary Care Provider] - Within 1 Week Proposed Discharge Date: 05/08/18
[2018-05-08] MEDS: Escitalopram Oxalate 20 MG Tablet PO (09:46)
[2018-05-08] MEDS: Mirabegron 50 MG TAB.ER.24H PO (09:46)
[2018-05-08] MEDS: Loratadine 10 MG Tablet PO (09:46)
[2018-05-08] MEDS: buPROPion (XL) 150 MG TABLET.XL PO (09:47)
[2018-05-08] MEDS: Montelukast 10 MG Tablet PO (09:47)
[2018-05-08] MEDS: APIXABAN 5 MG TABLET 10 MG PO (09:47)
[2018-05-08] MEDS: Losartan Potassium 25 MG Tablet PO (09:47)
[2018-05-08] MEDS: Metoprolol(XL)Succ 25 MG Tablet 12.5 MG PO (09:49)
--- NOTE | 2018-05-08 10:27 | PCM.DC.SUM ---
Discharge Date and Diagnosis Date of Admission: 05/05/18 Date of Discharge: 05/08/18 - Secondary Discharge Diagnosis Chronic Problems (Last Reviewed 04/22/18 @ 13:27 by Consuelo Davies) Diabetes mellitus type II, controlled (Chronic) Fibromyalgia (Chronic) Hypertension (Chronic) History of DVT (deep vein thrombosis) (Chronic) HLD (hyperlipidemia) (Chronic) Diastolic CHF, chronic (Chronic) Metastatic carcinoma to lung (Chronic) Cancer of left breast, stage 4 (Chronic) Metastasis to lung (Chronic) Pulmonary hypertension (Chronic) Osteoarthritis (Chronic) LOLY (obstructive sleep apnea) (Chronic) Morbid obesity with BMI of 50.0-59.9, adult (Chronic) COPD (chronic obstructive pulmonary disease) (Chronic) Chronic anemia (Chronic) CAD (coronary artery disease) (Chronic) S/P PTCA (percutaneous transluminal coronary angioplasty) (Chronic ~2016) [facility] Course and Treatment Summary of Care Provided: The patient is a 67 year old F who is status post left knee replacement 2 months ago , she presented to the emergency room with SOB and pleuritic chest pain after she traveled 6 hours back and forth to [facility]. CTA of the chest demonstrated pulmonary emboli to the subsegmental vessels in the right lower lobe. Chronic interstitial and some is changes , small pulmonary nodules which may be consistent with early metastatic disease. He was started on Lovenox and admitted to progressive care unit. She continues to do well and remains hemodynamically stable and she was transitioned to Eliquis. Further workup with Doppler ultrasound of the lower extremities revealed bilateral deep venous thrombosis. Regarding : 1. Acute pulmonary emboli/bilateral lower extremity DVT; discharged on Eliquis p.o. 2. Acute respiratory failure with hypoxia; we arranged for home oxygen. 3. CAD status post stents; she reports no symptoms of angina at this time. 4 hypertension; she is on Losartan and Metoprolol. 5 type 2 diabetes mellitus; on RISS, she will restart her metformin. 6 COPD without exacerbation; will continue on bronchodilators . 7 metastatic breast cancer; Status post lumpectomy, currently on Faslodex injections monthly. She is recommended to follow-up with her oncologist. 8 pulmonary hypertension; she is on Tadalafil. physical exam at the time of discharge; vital signs were stable. He was alert and oriented to time place and person. He did not appear to be any form of distress. S1 and S2 heard no murmur or gallop Lung exam was clear to auscultation with no adventitious sounds. Abdomen was soft nontender with normal bowel sounds. extremity exam did not reveal any edema, palpable pulses bilaterally. Neurologic exam was grossly intact. Discharge Diet: No Restrictions Home Medications: Medications to take at Discharge Ferrous Sulfate 325 mg PO BID 07/21/14 Escitalopram Oxalate [Lexapro] 20 mg PO DAILY 05/19/15 Fluticasone/Salmeterol [Advair 250/50 Mcg Diskus] 1 puff INHALATION DAILY 05/19/15 buPROPion XL [Wellbutrin Xl] 150 mg PO DAILY 05/19/15 Fulvestrant [Faslodex] 250 mg IM QMONTH MDD takes on of each month 05/23/15 Pravastatin [Pravachol] 20 mg PO QHS 06/14/16 mirabegron ER 50 mg tablet,extended release 24 hr 50 mg PO DAILY 30 Days #30 10/29/17 Furosemide [Lasix] 40 mg PO DAILY 12/17/17 Metformin HCl [Glucophage] 1,000 mg PO BIDCM 12/17/17 Montelukast [Singulair] 10 mg PO DAILY 12/17/17 Tadalafil [Adcirca] 40 mg PO DAILY 12/17/17 Cranberry Conc/C/Bacill Coag [Cranberry Tablet] 1 each PO DAILY 12/19/17 Albuterol IH (ProAir) [Proair Hfa] 1 puff INHALATION Q4H PRN PRN inhaler 01/01/18 Lorazepam [Ativan] 1 mg PO Q8H PRN PRN tablet 01/01/18 Melatonin 3 mg PO QHS PRN PRN tablet 01/10/18 losartan 25 mg tablet 25 mg PO DAILY #90 tab 01/21/18 metoprolol succinate ER 25 mg tablet,extended release 24 hr 12.5 mg PO DAILY #45 tab 01/21/18 Acetaminophen [Tylenol] 1,000 mg PO Q8 PRN 05/05/18 Aspirin [Aspirin, Baby] 81 mg PO DAILY@0800 05/05/18 Cetirizine HCl [Zyrtec] 10 mg PO DAILY 05/05/18 Liraglutide [Victoza] 1.8 mg SQ DAILY 05/05/18 Insulin Glargine,Hum.rec.anlog [Lantus] 74 unit SQ QHS 05/07/18 Apixaban [Eliquis] 5 mg PO BID 30 Days #60 tab 05/08/18 Apixaban [Eliquis] 10 mg PO BID 7 Days #28 tab 05/08/18 Following Prescrptions Were Given to Patient: Apixaban [Eliquis] 5 mg PO BID 30 Days #60 tab Apixaban [Eliquis] 10 mg PO BID 7 Days #28 tab Primary Care Physician: Katherine Marquez DO [Primary Care Provider] - Within 1 Week Please Follow Up With: Katherine Marquez DO Disposition: Home Patient Condition:: Stable Medical Necessity - Tobacco Use Smoking Status: Never smoker Meaningful Use Info Meaningful Use Diagnoses (Choose all that apply): None applicable Code Visit Inpatient E&M: 72985 Disch Hosp
--- NOTE | 2018-05-08 11:56 | CASEMGMT ---
RN CM Note: Pulse ox on 05/07 83% on RA. Per Dr. Walker, pt will need Home oxygen on discharge. Call to [employer], oxygen referrals need to go through [facility] . Call to [facility], military personnel specialist is Caridad Vicente Phone/Fax (same #) is . Script, demographic sheet, script for 2L continuous faxed to [facility]. -Updated pt on insurance requirements and plan for home oxygen. pt is agreeable. Mayda BLAKELYN RN ACM
[2018-05-08 12:00] LABS: Bedside Glucose 432 mg/dL (70-110)
== END 2018-05-08 16:45 | disposition home or self-care (01) | DRG 175 ==
LOC: ED 16:43 → PCU 19:29
PROVIDERS: Admitting Provider Hospitalist; Emergency Provider Emergency Medicine; Family Provider Internal Medicine; PCP Internal Medicine; Visit Provider Internal Medicine
DX: I26.99 Other pulmonary embolism without acute cor pulmonale (principal); J96.01 Acute respiratory failure with hypoxia; I82.403 Acute embolism and thrombosis of unspecified deep veins of lower extremity, bilateral; C78.00 Secondary malignant neoplasm of unspecified lung; Z68.42 Body mass index [BMI] 45.0-49.9, adult; I25.10 Atherosclerotic heart disease of native coronary artery without angina pectoris; I10 Essential (primary) hypertension; E11.9 Type 2 diabetes mellitus without complications; I27.20 Pulmonary hypertension, unspecified; J44.9 Chronic obstructive pulmonary disease, unspecified; M79.7 Fibromyalgia; G47.33 Obstructive sleep apnea (adult) (pediatric); E78.5 Hyperlipidemia, unspecified; E66.01 Morbid (severe) obesity due to excess calories; C50.912 Malignant neoplasm of unspecified site of left female breast; Z86.718 Personal history of other venous thrombosis and embolism; Z98.61 Coronary angioplasty status; Z96.652 Presence of left artificial knee joint; Z79.4 Long term (current) use of insulin
CPT/HCPCS: 36415; 71045; 71275; 80048; 80053; 82962; 83605; 83880; 84484; 85025; 85610; 93005; 93970; 94640; 94667; 94668; 97162; 97165; 99285; J7030; Q9967; A4216

== ENCOUNTER → 2018-05-20 15:07 | Outpatient (CLI) | payer MEDICARE, SELFPAY ==
--- NOTE | 2018-05-20 15:41 | CT_ITS ---
STUDY: CT ABDOMEN AND PELVIS WITH CONTRAST REASON FOR EXAM: Female, 67 years old. Right lower quadrant pain x3 weeks RADIATION DOSAGE (If Supplied By Facility): CTDIvol = ( 19.88 ) mGy, DLP = ( 1115.27 ) mGycm TECHNIQUE: Transaxial images were obtained from the dome of the diaphragm to the symphysis pubis with oral contrast. 100ML ml of Isovue 300 contrast was administered. Sagittal and coronal images were reconstructed. Individualized dose optimization techniques were used for this CT. COMPARISON: 05/05/2018 FINDINGS: Mild right basilar airspace disease. Small right effusion. Left lung is essentially clear. Mild cardiomegaly with coronary artery disease. Multiple target-like lesions noted throughout the liver compatible with metastatic disease. Largest is in the right lobe of the liver measuring 5.4 x 3.0 cm. Normal gallbladder and extrahepatic biliary system. Normal spleen. Markedly irregular appearance of the pancreatic tail with masslike appearance suggests a pancreatic carcinoma. Pancreatic mass appears to measure 6.4 x 7.4 cm. Small amount of ascites fluid seen throughout the abdomen and pelvis Normal bilateral adrenal glands. Normal right kidney. Normal left kidney. There is a small hiatal hernia. Normal small intestine. There are multiple colonic diverticula consistent with diverticulosis. There is non-visualization of the appendix. Normal abdominal aorta. Normal inferior vena cava. Normal retroperitoneum. Normal urinary bladder. There is absence of the uterus consistent with a prior hysterectomy. Normal abdominal wall. There are diffuse degenerative changes of the visualized lumbar spine. CT/Abdomen/Pelvis WITH Contrast IMPRESSION: 1. Numerous metastatic lesions throughout the liver. 2. Markedly irregular appearance of the pancreatic tail with masslike appearance suggesting pancreatic carcinoma measuring 6.4 x 7.4 cm. 3. Mild ascites fluid throughout the abdomen and pelvis 4. No evidence of small bowel obstruction. Electronically Signed: Gordo Boyer DO at 18:34 EDT Tel , Service support ,
[2018-05-20 15:50] LABS: ALB/GLOB Ratio 0.8 RATIO (0.9-2.4); AST(SGOT) 18 U/L (15-37); Alanine Aminotransfer ALT/SGPT 28 U/L (13-56); Albumin, Serum 3.1 g/dL (3.2-5.0); Alkaline Phosphatase 145 U/L (45-117); Anion Gap 10 (5-15); BUN 27 mg/dL (7-18); BUN/Creat Ratio 28.6 RATIO (10-20); Chloride 99 mmol/L (98-107); Creatinine, Serum 0.94 mg/dL (0.55-1.02); EST Glomerular Filtration Rate 62 mL/min (>60); Est Glom Filt Rate - Afr Amer 76 mL/min (>60); Globulin 4.1 g/dL (2.2-4.2); Glucose 182 mg/dL (74-106); Potassium 4.7 mmol/L (3.5-5.1); Protein, Total 7.2 g/dL (6.4-8.2); Sodium Level 135 mmol/L (136-145)
== END ==
PROVIDERS: Family Provider Internal Medicine; PCP Internal Medicine; Visit Provider Nurse Practitioner Gerontology
DX: R10.9 Unspecified abdominal pain (principal)
CPT/HCPCS: 36415; 74177; 80053; Q9967

== ENCOUNTER 2018-05-23 09:57 | Inpatient (IN) | payer MEDICARE, OTHER, SELFPAY ==
[2018-05-23] VITALS (13 sets, daily range): BP systolic 128–191; BP diastolic 36–63; PULSE 61–88; RESP 18–25; TEMP 36.9–37.3; O2SAT 91–99; BMI 47.6; BMI 47.9
--- NOTE | 2018-05-23 | IMM_PTH ---
PATIENT: KATERIN BREWER LOC: [facility] U#:[id number] AGE/SX: 67/F ROOM: ICU07 RE05/23/[address]: Dr. Raissa Belcher MD : 1950 BED: 1 DIS: 05/27/2018 SPEC #: [id number] RECD: 05/27/18 11:13 STATUS: MARLENY REQ #: [id number] PRASANTH: 05/23/18 00:[address]: Raissa Belcher DEPT: IMMUNOHISTOCHEMISTRY RECD BY: Andreia Ervin ENTERED: 05/27/18 11:16 SP TYPE: IMMUNO OTHR DR: MD Dr. Silver Dutton DO Dr. Kathleen Fearon, DO Kombian Gbaruk, MD Dr. Robert V Sibilia, MD Tissues: THORACIC FLUID Procedures: RCC (add) Villin (add) Thyroglobulin (add) NAPSIN A (add) Man Ret (add) CK14 (add) CK19 (add) CK20 (add) CK5-6 (add) CK7 (add) CK8 (add) MAMM (add) P53 (add) IL (add) TTF1 (add) Vimentin (add) 34BE12 (add) Pankeratin (add) GATA3 (add) P40 (add) ER (initial) S-100 (add) [facility] [address] [address] SPECIMEN INFORMATION: Tissue Source: Thoracic fluid Clinical Info: Acute respiratory failure, pleural effusion Specimen Number: [id number] CPT code: 99089, 74763 x21 METHODOLOGY: Deparaffinized sections of prefer/formalin-fixed tissue or PAP/DQ stained slides are incubated with monoclonal/polyclonal antibodies/oligonucleotide probes. Localization is made via biotin free immunoperoxidase method. Appropriate controls are performed and reacted as expected. Results on target cell population are indicated in the following table: RESULTS: ANTIBODY / CLONE RESULT ER (6F11) negative IL (1E2) negative Mammaglobin (31A5) negative GATA3 (L50-823) positive AE1-3 (AE1/AE3/PCK26) positive CK7 (OV-TL12/30) positive CK8 (99zkorJ81) positive CK20 (KS20.8) negative Villin (CWWB1) negative 34BE12 (34BE12) positive Vimentin (V9) negative S-100 (4C4.9) negative CK19 (A53-B/A2.26) positive TTF-1 (8G7G3/1) negative Napsin A (Rabbit Polyclonal) negative RCC (PN-15) negative Thyro (2H11+6E1) negative CALRET (polyclonal) negative CK5-6 (D5 & 1684) positive, dim CK14 (LL002) negative P40 (BC28) negative P53 (DO-7) negative These tests were developed and their performance characteristics determined by [facility]. They may not have been cleared or approved by the U.S. Food and Drug Administration. The FDA has determined that such clearance or approval is not necessary. INTERPRETATION: Thoracic fluid (cell block): Metastatic carcinoma consistent with breast primary. AM:tricia 05/29/18
--- NOTE | 2018-05-23 10:27 | RAD_ITS ---
STUDY: X-RAY CHEST REASON FOR EXAM: Female, 67 years old. Weakness and shortness of breath. History of West cancer. TECHNIQUE: AP and lateral views of the chest. COMPARISON: Comparison is made with prior examination dated May 05, 2018. FINDINGS: A right-sided patsy catheter seen with the tip in the caval atrial junction. Surgical clips are seen in the left axillary region. Findings suggest a mild degree of vascular congestion and CHF. There is no demonstrated pleural abnormality. There is moderate cardiac enlargement. Normal mediastinum and sharon. Normal visualized pulmonary arteries. There is atherosclerotic calcification of the aortic arch with tortuosity. There are diffuse degenerative changes of the visualized thoracic spine. Normal visualized ribs, clavicles, and shoulders. There is no demonstrated abnormality of the visualized soft tissue structures of the upper abdomen. RAD/Chest PA and Lateral IMPRESSION: Findings suggestive of a mild degree of CHF. Electronically Signed: Natan Gtz MD at 11:27 EDT Tel [phone], Service support ,
--- NOTE | 2018-05-23 10:27 | EKG12_ITS ---
Test Reason : SOB Blood Pressure : / mmHG Vent. Rate : 072 BPM Atrial Rate : 072 BPM P-R Int : 172 ms QRS Dur : 086 ms QT Int : 390 ms P-R-T Axes : -05 005 033 degrees QTc Int : 427 ms Normal sinus rhythm Normal ECG Confirmed by SHAKIR BARRON, LUIS ([id number]), slot editor KENYON ALVES ([id number]) on 05/29/2018 3:09:35 PM Referred By: MARINA Confirmed By:LUIS SCHILLING MD
--- NOTE | 2018-05-23 10:33 | ED.DCSUM_ITS ---
- ER Visit Summary Date of Service: 05/23/18 Chief Complaint: Shortness of breath History of Present Illness: The patient is a 67 F who on the of this month was diagnosed with a right lower lobe pulmonary embolism and was admitted for hypoxemia. She was started on Eliquis. The patient presented to her family physician on Saturday and had a CT which demonstrated liver cancer with a small amount of ascites and a small pleural effusion on the right. She stopped her Eliquis on Saturday in preparation for liver biopsy this upcoming Saturday. Patient states that on Saturday she developed a slight cough and on Saturday the cough worsened. She states that today she has been coughing up some sputum which she describes as brownish looking. She states that last night she had to turn her oxygen up to 4 L from 2 but did not have any orthopneic symptoms. She denies any fevers. She notes pain in the right upper quadrant lower right chest and right shoulder blade. Physical Examination: Afebrile vital signs are stable Gen: Well-nourished well-developed Head: Normocephalic atraumatic Eyes: Perrl EOMI ENT: TMs clear no rhinorrhea moist mucous membranes Neck: Supple no lymphadenopathy no JVD nontender CVS: Regular rate rhythm no murmurs normal S1-S2 Respiratory: No distress clear to auscultation bilaterally chest nontender Abdomen: Soft mild right upper quadrant tenderness minimal distention normal bowel sounds no masses Back: Nontender Extremity: Nontender no edema Skin: Normal color no rash Neuro: alert orientated ?3 CN II-XII intact normal strength sensation reflexes gait cerebellar Psych: Normal affect normal mood Test Results: EKG shows sinus at a rate of 72. Chest x-ray shows possible CHF. White count 10.1 with a hemoglobin of 8.9 platelets are 200. Sodium of 133. Troponin elevated 0.453. Lipase 505. INR 1.4 with a PTT of 40.7. CT Lauren of the chest shows right greater than left pleural effusions that are worse since her CT on Saturday and new since her CT on May 05. Emergency Department Course and Treatment: Patient ambulated here in the department at 3 L was 84% after only about 10 feet. The patient received pain medication. Patient will need to be admitted. I spoke with Dr. Camarena and he is willing to do thoracentesis this afternoon. Impression: 1. Pleural effusions 2. Elevated troponin 3. Hypoxemia 4. Liver lesions (suspect metastatic breast cancer) This note was generated with [employer] dictation software. It may contain incorrect words, spelling, and punctuation that were not noted in review of the chart prior to signing ED Disposition - Plan for ED Patient: Chief Complaint: Shortness of Breath Referrals: Katherine Marquez DO [Primary Care Provider] -
[2018-05-23] MEDS: Morphine 4 MG/ML Syringe IV (10:38)
[2018-05-23] MEDS: Ondansetron 4 MG/2 ML Vial IV (10:38)
[2018-05-23 10:55] LABS: Absolute Lymphocyte Count 0.67 X10^3/ul (0.83-4.51); Absolute Neutrophil Count 7.9 X10^3/uL (2.0-7.7); Basophil# 0.02 X10^3/uL; Basophil% 0.2 % (0-1); Eosinophil# 0.26 X10^3/uL; Eosinophils% 2.6 % (0-5); Hematocrit 28.4 % (37-47); Hemoglobin 8.9 g/dl (12.0-15.0); Lymphocyte # 0.67 X10^3/ul (4.0); Lymphocyte % 6.7 % (19-41); Mean Corp Hgb Conc 31.3 g/gl (32-36); Mean Corpuscular Hgb 25.4 pg (27.0-32.0); Mean Corpuscular Volume 81.1 fL (81-99); Mean Platelet Vol. 9.6 fl (6.2-12.0); Monocyte# 1.22 X10^3/uL; Monocyte% 12.1 % (0-10); Neutrophil # 7.89 X10^3/uL (2.7-7.7); Neutrophil % 78.3 % (47-70); Platelet Count 200 K/mm3 (150-450); RBC Distribution Width SD 41.6 fl (35.1-43.9); White Blood Count 10.1 K/mm3 (4.4-11.0)
[2018-05-23 10:56] LABS: ALB/GLOB Ratio 0.8 RATIO (0.9-2.4); AST(SGOT) 30 U/L (15-37); Alanine Aminotransfer ALT/SGPT 27 U/L (13-56); Alkaline Phosphatase 168 U/L (45-117); Anion Gap 8 (5-15); BUN 27 mg/dL (7-18); BUN/Creat Ratio 33.3 RATIO (10-20); Calcium,Total 8.7 mg/dL (8.5-10.1); Chloride 99 mmol/L (98-107); Creatinine, Serum 0.81 mg/dL (0.55-1.02); EST Glomerular Filtration Rate 74 mL/min (>60); Est Glom Filt Rate - Afr Amer 90 mL/min (>60); Estimated Creatinine Clearance 47.75 ml/min; Glucose 85 mg/dL (74-106); Lipase 505 U/L (73-393); POSITIVE COUNT NO; POSITIVE DIFFERENTIAL NO; POSITIVE MORPHOLOGY NO; Potassium 4.9 mmol/L (3.5-5.1); Sodium Level 133 mmol/L (136-145)
[2018-05-23 11:28] LABS: International Normalized Ratio 1.4; Prothrombin Time (Protime)PT. 16.8 SECONDS (11.7-14.9)
[2018-05-23 11:29] LABS: Partial Thromboplast Time 40.7 Seconds (24.1-36.2)
--- NOTE | 2018-05-23 11:40 | CT_ITS ---
STUDY: CTA CHEST REASON FOR EXAM: Female, 67 years old. Shortness of breath. Recent pulmonary embolism. Breast cancer with metastasis. RADIATION DOSAGE (If Supplied By Facility): CTDIvol = ( 16.28 ) mGy, DLP = ( 651.27 ) mGycm TECHNIQUE: The examination was performed with the intravenous administration of 100 ml of Isovue 370 contrast material. Post-processing of the angiographic images was performed, with multiplanar reformation and 3D reconstruction. Individualized dose optimization techniques were used for this CT. COMPARISON: May 05, 2018. FINDINGS: There is port on the right extending to the superior vena cava. Normal enhancement of the main pulmonary artery and right and left pulmonary arteries. There is limited enhancement of the bilateral peripheral pulmonary arteries. There is no demonstrated pulmonary embolism. There is improvement of previously noted regions of filling defect and embolism. There is atherosclerotic calcification of the aortic arch with tortuosity. There is no demonstrated aortic dissection. There are calcifications of the coronary arteries. Normal mediastinum. Normal hilar regions. Normal visualized trachea and bronchi. The lungs are well expanded. There is moderate interstitial septal and groundglass opacification of the bilateral lungs. There are right more than left lower lung airspace opacities. There is 1.0 cm right upper lung nodule, series 2 image 160/230. There is moderate right pleural effusion. There is small left pleural effusion. Normal chest wall structures. Postoperative changes of the left breast. There are degenerative changes of thoracic spine. There is hepatomegaly with diffuse hepatic enlargement. There is ascites in the abdomen. CT/CTA Chest W/WO Contrast IMPRESSION: CTA chest examination, without a demonstrated pulmonary embolism or arterial dissection. Improvement of previously noted filling defects and embolism. Bilateral infiltrates or edema. Right larger than left pleural effusions. Findings could represent congestive heart failure versus bilateral pneumonia. Right upper lung nodule. Electronically Signed: Bao Maher MD at 12:49 EDT , Service support ,
[2018-05-23] MEDS: Ketorolac 30 MG/ML Syringe IV (13:22)
--- NOTE | 2018-05-23 13:46 | ED.RN ---
pt ambulated on 3 L nc starting at 94%. ambulated 20-30 ft, pulse ox dropped to 87%. pt sob. stopped to catch breath oxygen continued to drop to 84% on 3 L. increased to 4 L no improvement. increased to 6L pulse ox improved to 93%. walked back to bed with 6L oxygen. pulse oxgen stable at 93%
--- NOTE | 2018-05-23 14:07 | PCM.HP.STD ---
Problem List (1) Breast cancer Status: Chronic (2) Diabetes mellitus type II, controlled Status: Chronic (3) Fibromyalgia Status: Chronic (4) History of DVT (deep vein thrombosis) Status: Chronic (5) HLD (hyperlipidemia) Status: Chronic Qualifiers: (6) Diastolic CHF, chronic Status: Chronic (7) Metastatic carcinoma to lung Status: Chronic (8) LOLY (obstructive sleep apnea) Status: Chronic (9) Morbid obesity with BMI of 50.0-59.9, adult Status: Chronic (10) COPD (chronic obstructive pulmonary disease) Status: Chronic (11) CAD (coronary artery disease) Status: Chronic Qualifiers: (12) S/P PTCA (percutaneous transluminal coronary angioplasty) Status: Chronic Comment: [facility] History of Present Illness Date of Admission: 05/23/18 Chief Complaint: Progressive shortness of breath and cough The patient is a 67 year old F with past medical history of metastatic breast cancer who was recently diagnosed with bilateral pulmonary emboli and started on Eliquis. She saw her primary care physician on Saturday and had a CT scan of the abdomen and it showed liver masses with small ascites her Eliquis was stopped on Saturday as she has been scheduled for liver biopsy next Saturday. Now presents to the emergency room today due to progressive shortness of breath and cough. Cough is productive of a brownish sputum. she denies any fever , chills or hemoptysis . The patient currently uses 4 L of oxygen at home, was ambulated in the emergency room and her pulse oximetry dropped to low 80s. CT scan of the chest done today in the emergency room demonstrates bilateral infiltrates and right larger than left pleural effusions. The Emergency room provider did contact radiology for possible CT-guided thoracentesis to be performed today.. Past Medical History Past Medical History (Chronic Problems): Chronic Problems (Last Reviewed 05/21/18 @ 15:21 by Consuelo Davies) Breast cancer (Chronic) Diabetes mellitus type II, controlled (Chronic) Fibromyalgia (Chronic) Hypertension (Chronic) History of DVT (deep vein thrombosis) (Chronic) HLD (hyperlipidemia) (Chronic) Diastolic CHF, chronic (Chronic) Metastatic carcinoma to lung (Chronic) Cancer of left breast, stage 4 (Chronic) Metastasis to lung (Chronic) Pulmonary hypertension (Chronic) Osteoarthritis (Chronic) LOLY (obstructive sleep apnea) (Chronic) Morbid obesity with BMI of 50.0-59.9, adult (Chronic) COPD (chronic obstructive pulmonary disease) (Chronic) Chronic anemia (Chronic) CAD (coronary artery disease) (Chronic) S/P PTCA (percutaneous transluminal coronary angioplasty) (Chronic ~2016) [facility] Medical History: Medical History (Last Reviewed 05/21/18 @ 15:21 by Consuelo Davies) Metastatic carcinoma to lung (Chronic) C78.00 Cancer of left breast, stage 4 (Chronic) C50.912 Metastasis to lung (Chronic) C78.00 Pulmonary hypertension (Chronic) I27.2 Osteoarthritis (Chronic) M19.90 LOLY (obstructive sleep apnea) (Chronic) G47.33 Morbid obesity with BMI of 50.0-59.9, adult (Chronic) E66.01, Z68.43 COPD (chronic obstructive pulmonary disease) (Chronic) J44.9 Chronic anemia (Chronic) D64.9 CAD (coronary artery disease) (Chronic) I25.10 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 Allergies nitrofurantoin [From Macrobid] Allergy (Severe, Verified 05/23/18 09:59) Anaphylaxis nitrofurantoin macrocrystalline [From Macrobid] Allergy (Severe, Verified 05/23/18 09:59) Anaphylaxis sulfamethoxazole [From Bactrim] Allergy (Intermediate, Verified 05/23/18 09:59) Hives trimethoprim [From Bactrim] Allergy (Intermediate, Verified 05/23/18 09:59) Hives Home Medications: Ambulatory Orders Medication Instructions Recorded Ferrous Sulfate 325 mg PO BID 07/21/14 Escitalopram Oxalate [Lexapro] 20 mg PO DAILY 05/19/15 Fluticasone/Salmeterol [Advair 1 puff INHALATION BID 05/19/15 250/50 Mcg Diskus] buPROPion XL [Wellbutrin Xl] 150 mg PO DAILY 05/19/15 Fulvestrant [Faslodex] 250 mg IM QMONTH MDD takes on 05/23/15 of each month Pravastatin [Pravachol] 20 mg PO QHS 06/14/16 mirabegron ER 50 mg 50 mg PO DAILY 30 Days #30 10/29/17 tablet,extended release 24 hr Furosemide [Lasix] 40 mg PO DAILY 12/17/17 Metformin HCl [Glucophage] 1,000 mg PO BIDCM 12/17/17 Montelukast [Singulair] 10 mg PO DAILY 12/17/17 Tadalafil [Adcirca] 40 mg PO DAILY 12/17/17 Cranberry Conc/C/Bacill Coag 1 each PO DAILY 12/19/17 [Cranberry Tablet] Lorazepam [Ativan] 1 mg PO Q8H PRN PRN tablet 01/01/18 losartan 25 mg tablet 25 mg PO DAILY #90 tab 01/21/18 metoprolol succinate ER 25 mg 12.5 mg PO DAILY #45 tab 01/21/18 tablet,extended release 24 hr Aspirin [Aspirin, Baby] 81 mg PO DAILY@0800 05/05/18 Liraglutide [Victoza] 1.2 mg SQ DAILY 05/05/18 Insulin Glargine,Hum.rec.anlog 80 unit SQ QHS 05/07/18 [Lantus] Albuterol IH (ProAir) [Proair Hfa] 2 puff INHALATION Q4H PRN PRN 05/23/18 Apixaban [Eliquis] 5 mg PO BID 05/23/18 Donepezil HCl 5 mg PO DAILY 05/23/18 Insulin Glargine,Hum.rec.anlog 72 unit SQ DAILY 05/23/18 [Lantus] Liraglutide [Victoza 2-Sudeep] 0.8 mg SQ DAILY 05/23/18 Melatonin 5 mg PO QHS 05/23/18 Omeprazole 40 mg PO DAILY 05/23/18 Tylenol with Codeine #3 Tablet 05/23/18 Surgical History: Surgical History (Last Reviewed 05/21/18 @ 15:21 by Consuelo Davies) S/P PTCA (percutaneous transluminal coronary angioplasty) (Chronic) Onset Date: ~2015 Z98.61 [facility] History of appendectomy Onset Date: ~2015 Z90.49 History of arthroscopy of right shoulder Z98.890 History of cholecystectomy Z90.49 History of hysterectomy Z90.710 History of laparoscopic appendectomy Z90.49 History of partial mastectomy of left breast Z90.12 with sentinel node biopsy 2007 History of tubal ligation Z98.51 Surgical History: angioplasty, appendectomy, cholecystectomy, total knee arthroplasty Psychiatric History: Anxiety, Depression 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 Smoking Status: Never smoker - *Family History Maternal Family History: Family History (Last Reviewed 05/21/18 @ 15:21 by Consuelo Davies) Father CAD (coronary artery disease) Diabetes Mother CAD (coronary artery disease) Hypertension Brother Hypertension FH: CABG (coronary artery bypass surgery) Daughter Hypertension Diabetes Sister Breast cancer Uterine cancer History Items: No pertinent history Paternal Family History: Family History (Last Reviewed 05/21/18 @ 15:21 by Consuelo Davies) Father CAD (coronary artery disease) Diabetes Mother CAD (coronary artery disease) Hypertension Brother Hypertension FH: CABG (coronary artery bypass surgery) Daughter Hypertension Diabetes Sister Breast cancer Uterine cancer History Items: No pertinent history Review of Systems Comment: All Systems were reviewed with pertinent positives mentioned in the HPI above. VTE Information - Inpt Only VTE Present on Admission: No VTE Mechan Device Prophylaxis: SCD's VTE Pharm Prophylaxis ordered?: No - Physical Exam General: Alert, Oriented x3 HEENT: Atraumatic Neck: Supple Lungs: Clear to auscultation Cardiovascular: Regular rate, Normal S1, Normal S2 Abdomen: Bowel Sounds Present, Soft, Non Tender Extremities: No clubbing Neurological: Cranial nerves II-XII grossly intact Psych/Mental Status: Normal Affect Vital Signs Temp Pulse Resp BP Pulse Ox 99.1 F 77 18 173/52 H 98 05/23/18 09:59 05/23/18 13:51 05/23/18 13:51 05/23/18 13:51 05/23/18 13:51 Oxygen Flow Rate (L/min) 3 Oxygen Delivery Method Nasal Cannula Weight: 110.677 kg Body Mass Index (BMI) 47.6 Finger Stick Blood Glucose 170 Laboratory Tests Past 24 Hrs 05/23/18 05/23/18 05/23/18 10:31 10:31 10:31 WBC 10.1 RBC 3.50 L Hgb 8.9 L Hct 28.4 L MCV 81.1 MCH 25.4 L MCHC 31.3 L RDW 14.0 RDW Differential 41.6 Plt Count 200 MPV 9.6 Immature Gran % (Auto) 0.100 Neut % (Auto) 78.3 H Lymph % (Auto) 6.7 L Wharton % (Auto) 12.1 H Eos % (Auto) 2.6 Baso % (Auto) 0.2 Absolute Neuts (auto) 7.9 H Absolute Lymphs (auto) 0.67 L Total Counted Not Reportable PT Cancelled INR Cancelled APTT Cancelled Sodium 133 L Potassium 4.9 Chloride 99 Carbon Dioxide 26.0 Anion Gap 8 BUN 27 H Creatinine 0.81 Estim Creat Clear Calc 47.75 Est GFR (MDRD) Af Amer 90 Est GFR (MDRD) Non-Af 74 BUN/Creatinine Ratio 33.3 H Glucose 85 Calcium 8.7 Total Bilirubin 0.40 AST 30 ALT 27 Alkaline Phosphatase 168 H Troponin I 0.453 H Total Protein 7.0 Albumin 3.0 L Globulin 4.0 Albumin/Globulin Ratio 0.8 L Lipase 505 H 05/23/18 11:10 WBC RBC Hgb Hct MCV MCH MCHC RDW RDW Differential Plt Count MPV Immature Gran % (Auto) Neut % (Auto) Lymph % (Auto) Wharton % (Auto) Eos % (Auto) Baso % (Auto) Absolute Neuts (auto) Absolute Lymphs (auto) Total Counted PT 16.8 H INR 1.4 APTT 40.7 H Sodium Potassium Chloride Carbon Dioxide Anion Gap BUN Creatinine Estim Creat Clear Calc Est GFR (MDRD) Af Amer Est GFR (MDRD) Non-Af BUN/Creatinine Ratio Glucose Calcium Total Bilirubin AST ALT Alkaline Phosphatase Troponin I Total Protein Albumin Globulin Albumin/Globulin Ratio Lipase Assessment/Plan 1. Acute respiratory failure superimposed on chronic respiratory failure with hypoxia due to bilateral pleural effusions; will continue on supplemental oxygen. 2. Bilateral pleural effusions; this could be malignant, she is to undergo thoracentesis today, will send fluid for appropriate analysis. 3. Recently diagnosed pulmonary emboli/bilateral lower extremity DVT; she was discharged on Eliquis , her Eliquis was interrupted for planned liver biopsy next week, the patient will be placed on heparin drip. 4. Metastatic breast cancer; Status post lumpectomy, currently on Faslodex injections monthly, I will consult her oncologist. 5. Pulmonary hypertension; she is on Tadalafil. 6. CAD status post stents; she reports no symptoms of angina at this time. 7. hypertension; she is on Losartan and Metoprolol. 8. type 2 diabetes mellitus; we will hold off on metformin and place her on regular insulin sliding scale for now. 9. COPD without exacerbation; will continue on her bronchodilators . 10. Anemia of chronic disease; will monitor hemoglobin for now. Code Visit Inpatient E&M: 14861 Init Hosp L3
--- NOTE | 2018-05-23 14:09 | US_ITS ---
PROCEDURE: ULTRASOUND GUIDED THORACENTESIS. DATE: May 23, 2018. INDICATION: Female, 67 years old. Right pleural effusion. PHYSICIAN: Natan Gtz M.D. PROCEDURE: The risks, benefits, and alternatives to the procedure were explained to the patient. The specific risks of bleeding, infection, and pneumothorax requiring chest tube insertion were discussed and accepted. Written informed consent was obtained. Ultrasonographic evaluation of the right lower pleural space was carried out. An adequate pocket was identified. The patient was placed in the sitting, upright position. The overlying skin was prepped and draped in sterile fashion. 1% lidocaine was administered subcutaneously for local anesthesia. Under ultrasound guidance, a 6 Greek thoracentesis needle/catheter system was advanced into the right posterior lower pleural fluid collection. Approximately 130 mL of blood tinged fluid was drained. The catheter was removed, and a sterile dressing was applied. A specimen was collected and sent to the laboratory for analysis, as requested by the referring clinician. The patient tolerated the procedure well. A chest x-ray was ordered. US/Thoracentesis W US IMPRESSION: Ultrasound-guided right thoracentesis. Electronically Signed: Natan Gtz MD at 15:28 EDT Tel [phone], Service support ,
--- NOTE | 2018-05-23 14:15 | FLU_PTH ---
PATIENT: KATERIN BREWER LOC: [facility] U#:[id number] AGE/SX: 67/F ROOM: [facility]07 RE05/23/[address]: Dr. Raissa Belcher MD : 1950 BED: 1 DIS: 05/27/2018 SPEC #: [id number] RECD: 05/26/18 07:48 STATUS: MARLENY REQ #: [id number] PRASANTH: 05/23/18 14:[address]: Raissa Belcher DEPT: CYTOLOGY RECD BY: Efraín Felipe ENTERED: 05/26/18 07:48 SP TYPE: Fluid OTHR DR: MD Dr. Silver Dutton DO Dr. Kathleen Fearon, DO Kombian Gbaruk, MD Tissues: THORACIC FLUID Procedures: Pap Stain (control) Special Stain Group II Surgery Specimen Level IV Cell Block Cytospin Fluid HEADER OPERATION: Not noted PRE-OP DIAGNOSIS: Acute resp. failure, pleural EFF TISSUE SUBMITTED: Thoracic fluid DIAGNOSIS CYTOLOGY Thoracentesis fluid for cytology (Cytospin and cell block): Positive for malignant cells, adenocarcinoma. See Comment. AM:gt 05/27/18 COMMENT Immunohistochemistry ([id number]) supports the above diagnosis and is consistent with a breast primary. Case has been reviewed in consultation with Dr. Haney who concurs with the above diagnosis. IDC:[facility] CYTOLOGY STUDY Slides are reviewed. CYTOLOGY GROSS Received is 55 ml of dark red cloudy fluid labeled with the patient's name and and designated per the requisition as thoracic fluid. Submitted for cytology preparation including cell block. /RY:mckay 05/26/18 TC: 0 CPT: 26045
--- NOTE | 2018-05-23 14:31 | NURSING ---
PCP CALLED AND ASKED TO FAX HOME MED LIST. ANA CALLED HAD INCOMPLETE LIST OF HOME MEDS.
--- NOTE | 2018-05-23 14:49 | RAD_ITS ---
STUDY: X-RAY CHEST REASON FOR EXAM: Female, 67 years old. Status post right thoracentesis. TECHNIQUE: AP inspiration and expiration views were obtained. Comparison is made with prior study done earlier today. COMPARISON: Comparison is made with prior study done earlier today. FINDINGS: The patient is status post right thoracentesis. There is no evidence of pneumothorax. Stable increased markings in both lungs. RAD/Chest Insp/Exp 2 View IMPRESSION: Status post right thoracentesis. There is no evidence of pneumothorax. Electronically Signed: Natan Gtz MD at 15:15 EDT Tel [phone], Service support ,
--- NOTE | 2018-05-23 14:54 | EKG12_ITS ---
Test Reason : Blood Pressure : / mmHG Vent. Rate : 067 BPM Atrial Rate : 067 BPM P-R Int : 162 ms QRS Dur : 082 ms QT Int : 396 ms P-R-T Axes : 001 011 023 degrees QTc Int : 418 ms Normal sinus rhythm Normal ECG When compared with ECG of 23-MAY-2018 10:32, MANUAL COMPARISON REQUIRED, DATA IS UNCONFIRMED Confirmed by SHAKIR BARRON, LUIS ([id number]), greeting card editor KENYON ALVES ([id number]) on 05/29/2018 3:59:30 PM Referred By: VERN Confirmed By:LUIS SCHILLING MD
--- NOTE | 2018-05-23 14:54 | ECHOCS_ITS ---
Version 2 Reason For Study: CHF Procedure This was a 2D Doppler, Color Flow transthoracic echocardiogram. Technically difficult study. Patient was unable to lay on left side due to severe pain. Exam performed portable in patient room. Left Ventricle Normal LV size. Left ventricular systolic function is normal. The estimated ejection fraction is 65 %. Transmitral diastolic flow velocities suggest mild (stage 1) diastolic dysfunction (reversed pattern). No regional wall motion abnormalities noted. Right Ventricle Normal RV size. Normal systolic function. Atria Normal left atrium. Normal right atrium. Mitral Valve Normal mitral valve. Tricuspid Valve Normal tricuspid valve. Unable to estimate RV systolic pressure due to inadequate jet, pulmonary artery pressure probably normal. Aortic Valve The aortic valve is not well visualized. Pulmonic Valve The pulmonic valve is not well visualized. Great Vessels Normal aortic root. The pulmonary artery is normal size. Normal inferior vena cava. Pericardium/Pleural No pericardial effusion. Medication Diluted definity 3ml given slow IV push to enhance endocardial definition. MMode/2D Measurements & Calculations LVIDd: 5.0 cm IVSd: 1.3 cm Ao root diam: 3.5 cm LVIDs: 3.0 cm LVPWd: 1.3 cm FS: 39.5 % LAV(MOD-sp4): 41.7 ml LA A4 area: 16.9 cm2 RA A4 area: 13.5 cm2 Time Measurements MV dec time: 0.17 sec Doppler Measurements & Calculations MV E max clifton: 106.4 cm/sec Lat Peak E' Clifton: 12.3 cm/sec MV V2 max: 141.6 cm/sec MV A max clifton: 103.4 cm/sec E/E' lat: 8.7 MV max P.0 mmHg MV E/A: 1.0 MV V2 mean: 93.8 cm/sec MV mean P.0 mmHg MV V2 VTI: 26.1 cm MV P1/2t max clifton: 132.9 cm/sec Ao V2 max: 251.9 cm/sec LV V1 max: 169.6 cm/sec MV P1/2t: 60.9 msec Ao max P.4 mmHg LV V1 max P.5 mmHg MV dec slope: 639.3 cm/sec2 Ao V2 mean: 160.1 cm/sec LV V1 mean P.4 mmHg MVA(P1/2t): 3.6 cm2 Ao mean P.1 mmHg LV V1 mean: 117.0 cm/sec Ao V2 VTI: 46.7 cm LV V1 VTI: 36.6 cm Interpretation Summary Normal LV size. Left ventricular systolic function is normal. The estimated ejection fraction is 65 %. Transmitral diastolic flow velocities suggest mild (stage 1) diastolic dysfunction (reversed pattern). Contrast injection was performed. Ordering Physician: Prema Knox Referring Physician: Peg Parks Performed By: Felix Jackson RCS
[2018-05-23 15:07] LABS: Cytology, Body Fluid / CSF SEE PATHOLOGY REPORT
[2018-05-23 15:27] LABS: Body Fluid Mononuclear WBC # 0.968 10^3/uL; Body Fluid Total Cells Counted 1.165 10^3/ul (0.000-0.000); White Blood Count/Body Fluid 1.008 10^3/uL
[2018-05-23 15:57] LABS: ALB/GLOB Ratio 1.2 RATIO (0.9-2.4); Globulin 1.6 g/dL (2.2-4.2); LDH 172 U/L (84-246); Protein, Total 3.6 g/dL (6.4-8.2)
[2018-05-23 16:07] LABS: Glucose, Body Fluid 66 mg/dL (40-70); LDH,Body Fluid 172 Units/l (Not Establ.); Protein, Body Fluid 3.7 g/dL (Not Establ.)
[2018-05-23] MEDS: Ferrous Sulfate 325 MG Tablet PO (16:22)
[2018-05-23 16:31] LABS: Appearance/Body Fluid CLOUDY; Auto B Fluid Analyzer BKGD Ct COUNTS W/IN LIMITS (W/IN LIMITS); Color/Body Fluid RED; Source- Body Fluid THORACENTESIS
[2018-05-23 16:32] LABS: Body Fluid QC Type(s) BF2Q; Lymphocytes 51 %; Neutrophil (Segs) 8 %
[2018-05-23 16:33] LABS: Monocytes 35 %
[2018-05-23 16:36] LABS: Macrophages 6 %
[2018-05-23] MEDS: Budesonide Respules 0.5 MG/2 ML AMPUL.NEB. INHALATION (19:34)
[2018-05-23] MEDS: Albuterol 2.5 MG/3 ML VIAL.NEB. INHALATION (19:34)
[2018-05-23] MEDS: Pravastatin 20 MG Tablet PO (21:47)
[2018-05-23] MEDS: MELATONIN 10 MG TABLET 5 MG PO (21:48)
[2018-05-23 22:46] LABS: Partial Thromboplast Time 39.8 Seconds (24.1-36.2)
[2018-05-23] MEDS: Heparin Injection (Vial) 5,000 UNIT/ML VIAL IV (23:30)
[2018-05-23] MEDS: 0.9% NaCl Peripheral Flush Adult/Peds IV (23:30)
[2018-05-24] VITALS (18 sets, daily range): BP systolic 125–178; BP diastolic 31–54; PULSE 67–101; RESP 16–24; TEMP 36.6–37.3; O2SAT 94–98
[2018-05-24 00:01] LABS: Bedside Glucose 209 mg/dL (70-110)
[2018-05-24] MEDS: Acetaminophen 325 MG Tablet 650 MG PO ×2 (00:25→07:34)
[2018-05-24 06:12] LABS: Partial Thromboplast Time 129.8 Seconds (24.1-36.2)
[2018-05-24] MEDS: 0.9% NaCl Peripheral Flush Adult/Peds IV ×5 (06:15→21:10)
[2018-05-24] MEDS: Magnesium Citrate 300 ML PO (06:34)
[2018-05-24 07:05] LABS: Bedside Glucose 180 mg/dL (70-110)
[2018-05-24] MEDS: Budesonide Respules 0.5 MG/2 ML AMPUL.NEB. INHALATION ×2 (07:17→19:02)
[2018-05-24] MEDS: Albuterol 2.5 MG/3 ML VIAL.NEB. INHALATION ×3 (07:17→19:01)
--- NOTE | 2018-05-24 07:36 | EKG12_ITS ---
Test Reason : PAIN Blood Pressure : / mmHG Vent. Rate : 098 BPM Atrial Rate : 098 BPM P-R Int : 198 ms QRS Dur : 088 ms QT Int : 338 ms P-R-T Axes : 019 004 001 degrees QTc Int : 431 ms Normal sinus rhythm Nonspecific ST and T wave abnormality Abnormal ECG No previous ECGs available Confirmed by SHAKIR BARRON, LUIS ([id number]), content editor KENYON ALVES ([id number]) on 05/29/2018 3:58:41 PM Referred By: Confirmed By:LUIS SCHILLING MD
[2018-05-24] MEDS: Ferrous Sulfate 325 MG Tablet PO ×2 (07:58→16:20)
[2018-05-24] MEDS: Insulin Lispro 100 UNIT/ML INSULN.PEN SC ×3 (09:07→16:20)
[2018-05-24] MEDS: oxyCODONE 5 MG Tablet PO ×4 (09:07→21:17)
[2018-05-24] MEDS: Mirabegron 50 MG TAB.ER.24H PO (09:10)
[2018-05-24] MEDS: Donepezil HCl 5 MG Tablet PO (09:10)
[2018-05-24] MEDS: Metoprolol(XL)Succ 25 MG Tablet 12.5 MG PO (09:10)
[2018-05-24] MEDS: Furosemide 40 MG Tablet PO (09:10)
[2018-05-24] MEDS: Montelukast 10 MG Tablet PO (09:10)
[2018-05-24] MEDS: buPROPion (XL) 150 MG TABLET.XL PO (09:11)
[2018-05-24] MEDS: Escitalopram Oxalate 10 MG Tablet 20 MG PO (09:11)
[2018-05-24] MEDS: Losartan Potassium 25 MG Tablet PO (09:11)
[2018-05-24] MEDS: Pantoprazole Sodium 40 MG Tablet PO (09:12)
--- NOTE | 2018-05-24 09:20 | PCM.CONS.C ---
Reason for Consult Date of Consultation: 05/24/18 Reason for Consultation: Abnormal cardiac enzymes. History of Present Illness: The patient is a 67 year old F with a history of hypertension hyperlipidemia diabetes mellitus and coronary artery disease diagnosed in 2016. At that time she underwent a cardiac catheterization which demonstrated normal left main coronary artery, left anterior descending artery with mild to moderate disease, left circumflex artery with high-grade stenosis for which she underwent angioplasty and stenting, and the right coronary artery which had mild disease she did have some right to left collaterals. In 2017 she underwent stress testing we did not demonstrate any evidence of ischemia. She apparently presented with shortness of breath a few days ago and was diagnosed as having bilateral pulmonary emboli. She was started on anticoagulation and then subsequently complained of right-sided abdominal discomfort for which she underwent a CT scan of her abdomen and pelvis there was a pancreatic mass noted as well as multiple lesions in the liver suggestive of metastatic lesions. She was also noted to have bilateral pleural effusions. She presented yesterday with shortness of breath and had a right-sided pleural effusion for which she underwent thoracentesis. There was improvement in her previously diagnosed pulmonary emboli. She was admitted to the hospital for shortness of breath cardiac enzymes were obtained which were noted to be mildly abnormal and cardiology was consulted for further evaluation and management. She denies any chest pain to suggest angina. She has had no dizziness or diaphoresis no near syncope or syncope she has been compliant with her medications that she has been prescribed. [] Past Medical History Allergies/Adverse Reactions: Allergies nitrofurantoin [From Macrobid] Allergy (Severe, Verified 05/23/18 09:59) Anaphylaxis nitrofurantoin macrocrystalline [From Macrobid] Allergy (Severe, Verified 05/23/18 09:59) Anaphylaxis sulfamethoxazole [From Bactrim] Allergy (Intermediate, Verified 05/23/18 09:59) Hives trimethoprim [From Bactrim] Allergy (Intermediate, Verified 05/23/18 09:59) Hives Home Medications: Ambulatory Orders Medication Instructions Recorded Ferrous Sulfate 325 mg PO BID 07/21/14 Escitalopram Oxalate [Lexapro] 20 mg PO DAILY 05/19/15 Fluticasone/Salmeterol [Advair 1 puff INHALATION BID 05/19/15 250/50 Mcg Diskus] buPROPion XL [Wellbutrin Xl] 150 mg PO DAILY 05/19/15 Fulvestrant [Faslodex] 250 mg IM QMONTH MDD takes on 05/23/15 of each month Pravastatin [Pravachol] 20 mg PO QHS 06/14/16 mirabegron ER 50 mg 50 mg PO DAILY 30 Days #30 10/29/17 tablet,extended release 24 hr Furosemide [Lasix] 40 mg PO DAILY 12/17/17 Metformin HCl [Glucophage] 1,000 mg PO BIDCM 12/17/17 Montelukast [Singulair] 10 mg PO DAILY 12/17/17 Tadalafil [Adcirca] 40 mg PO DAILY 12/17/17 Cranberry Conc/C/Bacill Coag 1 each PO DAILY 12/19/17 [Cranberry Tablet] Lorazepam [Ativan] 1 mg PO Q8H PRN PRN tablet 01/01/18 losartan 25 mg tablet 25 mg PO DAILY #90 tab 01/21/18 metoprolol succinate ER 25 mg 12.5 mg PO DAILY #45 tab 01/21/18 tablet,extended release 24 hr Aspirin [Aspirin, Baby] 81 mg PO DAILY@0800 05/05/18 Liraglutide [Victoza] 1.8 mg SQ DAILY 05/05/18 Acetaminophen/Codeine #3 1 tablet PO Q6H PRN PRN 05/23/18 [Tylenol#3] Albuterol IH (ProAir) [Proair Hfa] 2 puff INHALATION Q4H PRN PRN 05/23/18 Apixaban [Eliquis] 5 mg PO BID 05/23/18 Donepezil HCl 5 mg PO DAILY 05/23/18 Insulin Glargine,Hum.rec.anlog 70 unit SQ QHS 05/23/18 [Lantus] Melatonin 5 mg PO QHS 05/23/18 Omeprazole 40 mg PO DAILY 05/23/18 Past Medical History (Chronic Problems): Chronic Problems (Last Reviewed 05/21/18 @ 15:21 by Consuelo Davies) Breast cancer (Chronic) Diabetes mellitus type II, controlled (Chronic) Fibromyalgia (Chronic) Hypertension (Chronic) History of DVT (deep vein thrombosis) (Chronic) HLD (hyperlipidemia) (Chronic) Diastolic CHF, chronic (Chronic) Metastatic carcinoma to lung (Chronic) Cancer of left breast, stage 4 (Chronic) Metastasis to lung (Chronic) Pulmonary hypertension (Chronic) Osteoarthritis (Chronic) LOLY (obstructive sleep apnea) (Chronic) Morbid obesity with BMI of 50.0-59.9, adult (Chronic) COPD (chronic obstructive pulmonary disease) (Chronic) Chronic anemia (Chronic) CAD (coronary artery disease) (Chronic) S/P PTCA (percutaneous transluminal coronary angioplasty) (Chronic ~2016) Mian- Circumflex Surgical History: angioplasty, appendectomy, cholecystectomy, total knee arthroplasty Psychiatric History: Anxiety, Depression [employer]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: 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 [employer]AMPLE [employer]TERN history - *Family History Maternal Family History: Family History (Last Reviewed 05/21/18 @ 15:21 by Consuelo Davies) Father CAD (coronary artery disease) Diabetes Mother CAD (coronary artery disease) Hypertension Brother Hypertension FH: CABG (coronary artery bypass surgery) Daughter Hypertension Diabetes Sister Breast cancer Uterine cancer History Items: No pertinent history Paternal Family History: Family History (Last Reviewed 05/21/18 @ 15:21 by Consuelo Davies) Father CAD (coronary artery disease) Diabetes Mother CAD (coronary artery disease) Hypertension Brother Hypertension FH: CABG (coronary artery bypass surgery) Daughter Hypertension Diabetes Sister Breast cancer Uterine cancer History Items: No pertinent history Smoking Status: Never smoker Tobacco Use: Non-smoker Alcohol: None Drugs: None Review of Systems - Review of Systems General: Denies: Fever, Night Sweats, Fatigue Cardiovascular: Reports: Shortness of Breath at Rest, Shortness of Breath with Exertion. Denies: Chest Discomfort, Shortness of Breath, Orthopnea, PND, Peripheral Edema, Palpitations, Lightheadedness, Dizziness, Near Syncope, Syncope Respiratory: Reports: Cough. Denies: Sputum Production, Hemoptysis Gastrointestinal: Reports: Abdominal Discomfort. Denies: Hematemesis, Hematochezia, Melena Genitourinary: Denies: Dysuria, Hematuria Skin: Denies: Rash Subjectve: Pleasant lady in no apparent distress. Objective: Vital Signs Temp Pulse Resp BP Pulse Ox 99.1 F 89 18 152/45 H 95 05/24/18 08:04 05/24/18 09:10 05/24/18 08:05 05/24/18 08:04 05/24/18 08:04 Oxygen Flow Rate (L/min) 3 Oxygen Delivery Method Nasal Cannula Weight: 245 lb 5.992 oz Body Mass Index (BMI) 47.9 Intake and Output for Last 24 Hours 05/22/18 05/23/18 05/24/18 23:59 23:59 23:59 Intake Total 716 / 716 229.7 / 229.7 Output Total 120 / 120 Balance 596 / 596 229.7 / 229.7 General: Awake, Alert, Oriented x 3 HEENT: PERRL, EOMI, Sclera Non Icteric Neck: Supple, Good ROM, No Lymph Node Enlargement Lungs: Diminished Domenico Bases Cardiovascular: Regular Rhythm, Normal S1, Normal S2, No Murmurs, No Rubs, No Gallops Vascular: No Carotid Bruits, Normal Femoral Pulses, Normal Radial Pulses, Normal Dorsalis Pedal Pulse, Normal Posterior Tibial Pulses Abdomen: Bowel Sounds Present, Soft, Non Tender, No HSM, No Organomegaly Extremities: No Cyanosis, No Clubbing, No edema Neurological: No Focal Motor or Sensory Deficit 05/23/18 15:40: Troponin I 0.778 H* 05/23/18 18:32: Troponin I 0.778 H* 05/23/18 22:26: APTT 39.8 H 05/24/18 05:30: APTT 129.8 H* Rhythm: EKG: Normal sinus rhythm with no acute changes. ECHO: Overall preserved left ventricular systolic function.] See full report. Assessment/Plan 1. Abnormal cardiac enzymes. Patient has a history of known coronary artery disease and a recent pulmonary embolus. The etiology of the abnormal cardiac enzymes can be multifactorial related to the above named conditions. In addition demand ischemia could also be a component. With her concomitant problems of likely metastatic carcinoma at this time and her preserved ejection fraction by recommendation will be for us to manage her expectantly and see how she does with respect to her treatment of her malignancy. She is scheduled to undergo a liver biopsy. Depending on the results of that test further recommendations will be made. At this time I will suggest holding off on anticoagulation or aspirin. 2. Coronary artery disease. She does have a history of known coronary artery disease status post angioplasty in 2016. She did have a stress test in 2017 which did not demonstrate any evidence of ischemia. At this time it is not clear whether the current abnormal enzymes are secondary to a primary cardiac problem. We will continue to observe her to see how she does clinically before making any changes or recommendations. 3. Hypertension. Her blood pressure appears to be under good control on the current medical therapy. 4. Pulmonary embolism. She does have a history of recent pulmonary embolism predisposed likely secondary to her underlying malignancy. The anticoagulation would likely need to be resumed after her biopsy has taken place. We will review her echocardiogram to reassess her pulmonary pressures. Thank you for allowing me to take care and participate in the care of this rather complicated patient.
[2018-05-24] MEDS: TADALAFIL 20 MG TABLET 40 MG PO (09:22)
[2018-05-24 10:24] LABS: Absolute Lymphocyte Count 0.58 X10^3/ul (0.83-4.51); Absolute Neutrophil Count 7.9 X10^3/uL (2.0-7.7); Basophil# 0.04 X10^3/uL; Basophil% 0.4 % (0-1); Eosinophil# 0.27 X10^3/uL; Eosinophils% 2.7 % (0-5); Hematocrit 26.3 % (37-47); Hemoglobin 8.2 g/dl (12.0-15.0); Lymphocyte # 0.58 X10^3/ul (4.0); Lymphocyte % 5.8 % (19-41); Mean Corp Hgb Conc 31.2 g/gl (32-36); Mean Corpuscular Hgb 25.9 pg (27.0-32.0); Mean Platelet Vol. 10.6 fl (6.2-12.0); Neutrophil # 7.89 X10^3/uL (2.7-7.7); Neutrophil % 78.8 % (47-70); Platelet Count 203 K/mm3 (150-450); RBC Distribution Width CV 13.5 % (11.6-14.6); RBC Distribution Width SD 39.8 fl (35.1-43.9); Red Blood Count 3.17 M/mm3 (4.2-5.4)
[2018-05-24 10:25] LABS: Differential Indicated SCAN CRITERIA MET; POSITIVE COUNT NO; POSITIVE DIFFERENTIAL YES; POSITIVE MORPHOLOGY NO
[2018-05-24 10:42] LABS: Anion Gap 10 (5-15); BUN 29 mg/dL (7-18); BUN/Creat Ratio 27.9 RATIO (10-20); Calcium,Total 8.2 mg/dL (8.5-10.1); Chloride 96 mmol/L (98-107); Creatinine, Serum 1.04 mg/dL (0.55-1.02); EST Glomerular Filtration Rate 56 mL/min (>60); Est Glom Filt Rate - Afr Amer 68 mL/min (>60); Estimated Creatinine Clearance 37.19 ml/min; Glucose 277 mg/dL (74-106); Potassium 4.8 mmol/L (3.5-5.1); Sodium Level 132 mmol/L (136-145)
[2018-05-24 10:47] LABS: Hypochromasia 1+
--- NOTE | 2018-05-24 11:40 | CASEMGMT ---
MONSERRAT HOWARD Face to Face with patient for initial transition planning/care coordination assessment. RN ANITA introduced self and role at [facility]. Patient sitting in chair, alert and oriented. Patient willing to participate in assessment and is able to answer all questions appropriately. Care providers, pharmacy, and demographics verified. See link attached. Patient wishes to discharge home, denies need for home health at this time. Patient states she has no further needs or concerns at this time. CM to follow for discharge planning needs that may arise. Has home oxygen through [facility] at 3 lpm concentrator and portable Disposition Plan: Patient to discharge home with family support and follow-up plans in place.
[2018-05-24 12:00] LABS: Bedside Glucose 309 mg/dL (70-110)
[2018-05-24] MEDS: Morphine 2 MG/ML Syringe 1 MG IV (12:17)
[2018-05-24 13:12] LABS: Partial Thromboplast Time 72.8 Seconds (24.1-36.2)
--- NOTE | 2018-05-24 13:57 | NURSING ---
CALLED RADIOLOGY AND VERIFIED THAT SHE IS TO HAVE A LIVER BIOPSY SATURDAY AM OUTPATIENT. SINCE SHE IS NOW INPATIENT PAINTSIL SHE STILL WANTS HER TO HAVE THAT. VERIFIED W/ RADIOLOGY AND THEY SAID THEY HAVE HER DOWN. THEY WILL CALL [facility] IF NEEDED.
[2018-05-24 13:59] LABS: BNP,B-Type NATRIURETIC PEPTIDE 180.6 pg/mL (0-100)
--- NOTE | 2018-05-24 14:57 | PCM.PN.HOSP ---
Subjective: Patient was seen and examined. No new complains. Complains of right upper quadrant pain. No nausea or vomiting. She is constipated. Denies chest pain, dizziness, palpitations. Vitals/I&O's: Vital Signs Temp Pulse Resp BP Pulse Ox 98.2 F 86 18 132/32 H 96 05/24/18 14:12 05/24/18 14:12 05/24/18 14:19 05/24/18 14:12 05/24/18 14:12 Oxygen Flow Rate (L/min) 3 Oxygen Delivery Method Nasal Cannula Weight: 111.3 kg Body Mass Index (BMI) 47.9 Intake and Output for Last 24 Hours 05/22/18 05/23/18 05/24/18 23:59 23:59 23:59 Intake Total 716 / 716 589.7 / 589.7 Output Total 120 / 120 Balance 596 / 596 589.7 / 589.7 General: Alert, Oriented x3, Cooperative, No apparent distress, - - on 3 L oxygen HEENT: Atraumatic, PERRLA, EOMI, Normocephalic Oral: Moist Mucosa Neck: Supple, No JVD, Negative Carotid Bruits Lungs: Clear to auscultation, Normal air movement Cardiovascular: Regular rate, No murmurs Abdomen: Bowel Sounds Present, Soft, Non-Distended, No Hepato-splenomegaly, Obese, Tender - over Right upper quadrant Extremities: Edema - bilateral leg edema, trace- +1 Skin: - - IV access i right pectoral region, bruises over the right chest and breast Musculoskeletal: No Tenderness to Palpation of Joints or Extremities Neurological: Cranial nerves II-XII grossly intact Psych/Mental Status: Normal Affect, Appropriate Microbiology Past 72 Hours 05/23/18 Unknown Fluid - Pleural (Lung) Body Fluid Culture - Preliminary No growth-Final to follow Laboratory Results 05/23/18 15:40: Troponin I 0.778 H* 05/23/18 18:32: Troponin I 0.778 H* 05/23/18 21:40: POC Glucose 209 H 05/23/18 22:26: APTT 39.8 H 05/23/18 : Lactate Dehydrogenase 172, Total Protein 3.6 L, Globulin 1.6 L, Albumin/Globulin Ratio 1.2 05/23/18 : Fluid Glucose 66, Fluid Total Protein 3.7, Fluid LDH 172 05/23/18 : Fluid pH Pending 05/23/18 : Fluid Source THORACENTESIS, Fluid Color RED, Fluid Appearance CLOUDY, Fluid WBC 1.008, Fluid RBC 0.61570, Fluid Tot Cell Count 1.165 H, Fld Polynuclear WBCs # 0.040, Fld Polynuclear WBCs % 4.0, Fluid Mononuclear WBCs 0.968, Fld Mononuclear WBCs % 96.0, Fluid Neutrophils 8, Fluid Lymphocytes 51, Fluid Monocytes 35, Fluid Macrophages 6, Fl Pathologist Comment May follow, Fluid Comment 2 SEE COMMENT 05/23/18 : Miscellaneous Cytology Pending 05/24/18 05:30: APTT 129.8 H* 05/24/18 06:56: POC Glucose 180 H 05/24/18 08:31: WBC 10.0, RBC 3.17 L, Hgb 8.2 L, Hct 26.3 L, MCV 83.0, MCH 25.9 L, MCHC 31.2 L, RDW 13.5, RDW Differential 39.8, Plt Count 203, MPV 10.6, Immature Gran % (Auto) 0.300, Neut % (Auto) 78.8 H, Lymph % (Auto) 5.8 L, [place] % (Auto) 12.0 H, Eos % (Auto) 2.7, Baso % (Auto) 0.4, Absolute Neuts (auto) 7.9 H, Absolute Lymphs (auto) 0.58 L, Total Counted Not Reportable, Hypochromasia 1+ 05/24/18 08:31: Sodium 132 L, Potassium 4.8, Chloride 96 L, Carbon Dioxide 26.0, Anion Gap 10, BUN 29 H, Creatinine 1.04 H, Estim Creat Clear Calc 37.19, Est GFR (MDRD) Af Amer 68, Est GFR (MDRD) Non-Af 56 L, BUN/Creatinine Ratio 27.9 H, Glucose 277 H, Calcium 8.2 L 05/24/18 08:31: B-Natriuretic Peptide 180.6 H 05/24/18 11:48: POC Glucose 309 H 05/24/18 12:25: APTT 72.8 H Current Medications Acetaminophen (Tylenol) 650 mg PO Q6H PRN PRN PRN Reason: PAIN Last Admin: 05/24/18 07:34 Dose: 650 mg Albuterol Sulfate (Ventolin Aerosols) 2.5 mg INHALATION Q4H PRN PRN Reason: ASTHMA Albuterol Sulfate (Ventolin Aerosols) 2.5 mg INHALATION Q6HWA.RT [facility] Last Admin: 05/24/18 13:18 Dose: 2.5 mg Aspirin (Aspirin, Baby) 81 mg PO DAILY@0800 [facility] Last Admin: 05/24/18 07:59 Dose: Not Given Budesonide (Pulmicort Aerosol) 0.5 mg INHALATION Q12H.RT [facility] Last Admin: 05/24/18 07:17 Dose: 0.5 mg Bupropion HCl (Wellbutrin Xl) 150 mg PO DAILY [facility] Last Admin: 05/24/18 09:11 Dose: 150 mg Donepezil HCl (Aricept) 5 mg PO DAILY [facility] Last Admin: 05/24/18 09:10 Dose: 5 mg Enoxaparin Sodium (Lovenox) 100 mg SC Q12@0600,1800 [facility] Escitalopram Oxalate (Lexapro) 20 mg PO DAILY [facility] Last Admin: 05/24/18 09:11 Dose: 20 mg Ferrous Sulfate (Ferrous Sulfate) 325 mg PO BIDCM [facility] Last Admin: 05/24/18 07:58 Dose: 325 mg Furosemide (Lasix) 40 mg PO DAILY [facility] Last Admin: 05/24/18 09:10 Dose: 40 mg Insulin Glargine (Lantus (Bkc)) 70 units SC DAILY [facility] Last Admin: 05/24/18 09:22 Dose: 70 units Insulin Human Lispro (Humalog Kwikpen (Bkc)) 0 unit SC TIDAC [facility] PRN Reason: Protocol Last Admin: 05/24/18 13:04 Dose: 4 units Lorazepam (Ativan) 1 mg PO Q8H PRN PRN PRN Reason: ANXIETY Losartan Potassium (Cozaar) 25 mg PO DAILY [facility] Last Admin: 05/24/18 09:11 Dose: 25 mg Melatonin (Melatonin) 5 mg PO QHS [facility] Last Admin: 05/23/18 21:48 Dose: 5 mg Metoprolol Succinate (Toprol Xl (Beta Kris)) 12.5 mg PO DAILY [facility] Last Admin: 05/24/18 09:10 Dose: 12.5 mg Montelukast Sodium (Singulair) 10 mg PO DAILY [facility] Last Admin: 05/24/18 09:10 Dose: 10 mg Morphine Sulfate () 1 mg IV Q4H PRN PRN PRN Reason: SEVERE PAIN (6-10/10) Last Admin: 05/24/18 12:17 Dose: 1 mg Oxycodone HCl (Oxyir) 5 - 10 mg PO Q4H PRN PRN PRN Reason: SEVERE PAIN (6-10/10) Last Admin: 05/24/18 13:03 Dose: 10 mg Pantoprazole Sodium (Protonix) 40 mg PO DAILY [facility] Last Admin: 05/24/18 09:12 Dose: 40 mg Polyethylene Glycol (Miralax) 17 gm PO DAILY PRN PRN Reason: Constipation Pravastatin Sodium (Pravachol) 20 mg PO QHS [facility] Last Admin: 05/23/18 21:47 Dose: 20 mg Senna/Docusate Sodium (Senokot-S, Sharda-Colace) 2 tablet PO BID [facility] Sodium Chloride () 5 - 30 ml IV UD PRN PRN Reason: SALINE FLUSH Last Admin: 05/24/18 13:04 Dose: 10 ml Tadalafil (Cialis) 40 mg PO DAILY [facility] Last Admin: 05/24/18 09:22 Dose: 40 mg Medical Necessity - Tobacco Use Smoking Status: Never smoker Tobacco Use: Non-smoker Assessment/Plan 67 year old F with past medical history of metastatic breast cancer, recently diagnosed with bilateral pulmonary emboli, was on Eliquis comes in with worsening SOB. 1. Acute respiratory failure superimposed on chronic respiratory failure with hypoxia due to bilateral pleural effusions, s/p thoracocentesis, remains on home 3L oxygen, will continue with breathing treatments prn 2. Bilateral pleural effusions, s/p right thoracocentesis, likely malignant, fluid analysis show fluid LDH/serum LDH ratio of 1, fluid ptn/serum ptn ratio>1, will consult pulmonology/IR for pleurodesis 3. Recently diagnosed pulmonary emboli/bilateral lower extremity DVT, on eliquis, was taken off for liver biopsy, managed on heparin drip, will switch to Lovenox SC and hold at least 12 hours before her procedure. 4. Metastatic breast cancer, status post lumpectomy, on Faslodex injections monthly 5. Pulmonary hypertension, on Tadalafil. 6. NSTEMI, likely secondary to demand ischemia, in patient with CAD status post stents, on heparin SC, no active intervention planned, 2d-echo shows normal EF. 7. hypertension, controlled, on Losartan and Metoprolol. 8.Type 2 diabetes mellitus, BS are uncontrolled, will hold off on metformin, continue home Lantus at 74 units SC as well as ISS. 9. COPD without exacerbation, stable 10. Anemia of chronic disease, stable 11. DVT PPx - on therapeutic heparin Code Visit Inpatient E&M: 26119 Subs Hosp L3
[2018-05-24] MEDS: LORazepam 1 MG Tablet PO (16:01)
[2018-05-24 16:30] LABS: Bedside Glucose 262 mg/dL (70-110)
[2018-05-24] MEDS: Enoxaparin 100 MG/ML Syringe SC (17:17)
[2018-05-24] MEDS: MELATONIN 10 MG TABLET 5 MG PO (21:17)
[2018-05-24] MEDS: Pravastatin 20 MG Tablet PO (21:18)
[2018-05-25] VITALS (18 sets, daily range): BP systolic 137–169; BP diastolic 30–69; PULSE 65–91; RESP 18–20; TEMP 36.4–37.1; O2SAT 92–95
[2018-05-25] MEDS: oxyCODONE 5 MG Tablet PO ×4 (05:23→20:20)
[2018-05-25] MEDS: Enoxaparin 100 MG/ML Syringe SC (05:24)
[2018-05-25 06:46] LABS: Bedside Glucose 202 mg/dL (70-110)
[2018-05-25 07:30] LABS: Absolute Lymphocyte Count 0.73 X10^3/ul (0.83-4.51); Absolute Neutrophil Count 6.9 X10^3/uL (2.0-7.7); Basophil# 0.03 X10^3/uL; Basophil% 0.3 % (0-1); Eosinophils% 4.4 % (0-5); Hematocrit 25.4 % (37-47); Hemoglobin 7.8 g/dl (12.0-15.0); Lymphocyte # 0.73 X10^3/ul (4.0); Lymphocyte % 7.9 % (19-41); Mean Corp Hgb Conc 30.7 g/gl (32-36); Mean Corpuscular Hgb 25.7 pg (27.0-32.0); Mean Corpuscular Volume 83.6 fL (81-99); Mean Platelet Vol. 10.5 fl (6.2-12.0); Monocyte# 1.09 X10^3/uL; Monocyte% 11.9 % (0-10); Neutrophil # 6.91 X10^3/uL (2.7-7.7); Neutrophil % 75.2 % (47-70); POSITIVE COUNT NO; POSITIVE DIFFERENTIAL NO; POSITIVE MORPHOLOGY NO; Platelet Count 198 K/mm3 (150-450); RBC Distribution Width CV 13.7 % (11.6-14.6); RBC Distribution Width SD 40.3 fl (35.1-43.9); Red Blood Count 3.04 M/mm3 (4.2-5.4); White Blood Count 9.2 K/mm3 (4.4-11.0)
[2018-05-25] MEDS: Budesonide Respules 0.5 MG/2 ML AMPUL.NEB. INHALATION ×2 (07:32→18:55)
[2018-05-25] MEDS: Albuterol 2.5 MG/3 ML VIAL.NEB. INHALATION ×4 (07:32→18:55)
[2018-05-25 07:43] LABS: Anion Gap 9 (5-15); BUN 37 mg/dL (7-18); BUN/Creat Ratio 27.6 RATIO (10-20); Calcium,Total 8.3 mg/dL (8.5-10.1); Chloride 95 mmol/L (98-107); Creatinine, Serum 1.34 mg/dL (0.55-1.02); EST Glomerular Filtration Rate 42 mL/min (>60); Est Glom Filt Rate - Afr Amer 50 mL/min (>60); Estimated Creatinine Clearance 28.86 ml/min; Glucose 201 mg/dL (74-106); Potassium 5.1 mmol/L (3.5-5.1); Sodium Level 132 mmol/L (136-145)
[2018-05-25] MEDS: Ferrous Sulfate 325 MG Tablet PO ×2 (07:44→16:52)
[2018-05-25] MEDS: Insulin Lispro 100 UNIT/ML INSULN.PEN SC ×3 (07:44→16:51)
[2018-05-25] MEDS: 0.9% Normal Saline 1,000 ML 100 ML IV ×2 (08:50→18:38)
[2018-05-25] MEDS: 0.9% NaCl Peripheral Flush Adult/Peds IV (08:53)
[2018-05-25] MEDS: Senna/Docusate Sodium 1 Tablet 2 TABLET PO ×2 (09:01→23:51)
[2018-05-25] MEDS: TADALAFIL 20 MG TABLET 40 MG PO (09:01)
[2018-05-25] MEDS: Pantoprazole Sodium 40 MG Tablet PO (09:01)
[2018-05-25] MEDS: Donepezil HCl 5 MG Tablet PO (09:02)
[2018-05-25] MEDS: Escitalopram Oxalate 10 MG Tablet 20 MG PO (09:02)
[2018-05-25] MEDS: buPROPion (XL) 150 MG TABLET.XL PO (09:03)
[2018-05-25] MEDS: Montelukast 10 MG Tablet PO (09:03)
[2018-05-25] MEDS: Metoprolol(XL)Succ 25 MG Tablet 12.5 MG PO (09:03)
[2018-05-25] MEDS: Mirabegron 50 MG TAB.ER.24H PO (09:03)
--- NOTE | 2018-05-25 09:04 | PN.CARD_ITS ---
Subjectve: Patient seen and evaluated. Appears to be breathing better this morning. Objective: Vital Signs Temp Pulse Resp BP Pulse Ox 98.7 F 77 18 137/51 H 93 05/25/18 09:00 05/25/18 09:00 05/25/18 09:00 05/25/18 09:00 05/25/18 09:00 Oxygen Flow Rate (L/min) 3 Oxygen Delivery Method Nasal Cannula Weight: 245 lb 5.992 oz Body Mass Index (BMI) 47.9 Intake and Output for Last 24 Hours 05/23/18 05/24/18 05/25/18 23:59 23:59 23:59 Intake Total 716 / 716 1139.7 / 1139.7 240 / 240 Output Total 120 / 120 Balance 596 / 596 1139.7 / 1139.7 240 / 240 General: Awake, Alert, Oriented x 3 HEENT: PERRL, EOMI, Sclera Non Icteric Neck: Supple, Good ROM, No Lymph Node Enlargement Lungs: Clear to auscultation Cardiovascular: Regular Rhythm, Normal S1, Normal S2, No Murmurs, No Rubs, No Gallops Vascular: No Carotid Bruits, Normal Femoral Pulses, Normal Radial Pulses, Normal Dorsalis Pedal Pulse, Normal Posterior Tibial Pulses Abdomen: Bowel Sounds Present, Soft, Non Tender, No HSM, No Organomegaly Extremities: No Cyanosis, No Clubbing, No edema Neurological: No Focal Motor or Sensory Deficit 05/24/18 08:31: WBC 10.0, RBC 3.17 L, Hgb 8.2 L, Hct 26.3 L, MCV 83.0, MCH 25.9 L, MCHC 31.2 L, RDW 13.5, RDW Differential 39.8, Plt Count 203, MPV 10.6, Immature Gran % (Auto) 0.300, Neut % (Auto) 78.8 H, Lymph % (Auto) 5.8 L, [place] % (Auto) 12.0 H, Eos % (Auto) 2.7, Baso % (Auto) 0.4, Absolute Neuts (auto) 7.9 H, Total Counted Not Reportable 05/24/18 08:31: Sodium 132 L, Potassium 4.8, Chloride 96 L, Carbon Dioxide 26.0 , Anion Gap 10, BUN 29 H, Creatinine 1.04 H, Est GFR (MDRD) Af Amer 68, Est GFR (MDRD) Non-Af 56 L, BUN/Creatinine Ratio 27.9 H, Glucose 277 H, Calcium 8.2 L 05/24/18 08:31: B-Natriuretic Peptide 180.6 H 05/24/18 12:25: APTT 72.8 H 05/25/18 06:45: WBC 9.2, RBC 3.04 L, Hgb 7.8 L, Hct 25.4 L, MCV 83.6, MCH 25.7 L , MCHC 30.7 L, RDW 13.7, RDW Differential 40.3, Plt Count 198, MPV 10.5, Immature Gran % (Auto) 0.300, Neut % (Auto) 75.2 H, Lymph % (Auto) 7.9 L, [place] % (Auto) 11.9 H, Eos % (Auto) 4.4, Baso % (Auto) 0.3, Absolute Neuts (auto) 6.9 , Total Counted Not Reportable 05/25/18 06:45: Sodium 132 L, Potassium 5.1, Chloride 95 L, Carbon Dioxide 28.0 , Anion Gap 9, BUN 37 H, Creatinine 1.34 H, Est GFR (MDRD) Af Amer 50 L, Est GFR (MDRD) Non-Af 42 L, BUN/Creatinine Ratio 27.6 H, Glucose 201 H, Calcium 8.3 L Rhythm: EKG: ECHO: Stress Test: Cardiac Cath: PCI: CT Surgery: Holter monitor: EPS: PPM: CXR: Chest CT Scan: Medical Necessity - Tobacco Use Smoking Status: Never smoker Tobacco Use: Non-smoker Assessment/Plan 1. Abnormal cardiac enzymes. Patient has a history of known coronary artery disease and a recent pulmonary embolus. The etiology of the abnormal cardiac enzymes can be multifactorial related to the above named conditions. In addition demand ischemia could also be a component. With her concomitant problems of likely metastatic carcinoma at this time and her preserved ejection fraction by recommendation will be for us to manage her expectantly and see how she does with respect to her treatment of her malignancy. She is scheduled to undergo a liver biopsy. Depending on the results of that test further recommendations will be made. At this time I will suggest holding off on anticoagulation or aspirin. 2. Coronary artery disease. She does have a history of known coronary artery disease status post angioplasty in 2016. She did have a stress test in 2017 which did not demonstrate any evidence of ischemia. At this time it is not clear whether the current abnormal enzymes are secondary to a primary cardiac problem. We will continue to observe her to see how she does clinically before making any changes or recommendations. 3. Hypertension. Her blood pressure appears to be under good control on the current medical therapy. 4. Pulmonary embolism. She does have a history of recent pulmonary embolism predisposed likely secondary to her underlying malignancy. The anticoagulation would likely need to be resumed after her biopsy has taken place. * Her echocardiogram did not demonstrate any significant tricuspid regurgitation to allow us to estimate her pulmonary pressures. * Thank you for allowing me to take care and participate in the care of this rather complicated patient.
--- NOTE | 2018-05-25 10:25 | PCM.PN.HOSP ---
Subjective: Patient was seen and examined. Denies new complaints. Feeling slightly depressed. Has some epistaxis blows her nose. Has been getting oxygen without moisture. Denies chest pain or dizziness. Remains on 2 L of oxygen. Objective: Physical exam: General: Alert, Oriented x3, Cooperative, No apparent distress, - - on 3 L oxygen HEENT: Atraumatic, PERRLA, EOMI, Normocephalic Oral: Moist Mucosa Neck: Supple, No JVD, Negative Carotid Bruits Lungs: Clear to auscultation, Normal air movement Cardiovascular: Regular rate, No murmurs Abdomen: Bowel Sounds Present, Soft, Non-Distended, No Hepato-splenomegaly, Obese, Tender - over Right upper quadrant Extremities: Edema - bilateral leg edema, trace- +1 Skin: - - IV access i right pectoral region, bruises over the right chest and breast Musculoskeletal: No Tenderness to Palpation of Joints or Extremities Vitals/I&O's: Vital Signs Temp Pulse Resp BP Pulse Ox 98.7 F 77 18 137/51 H 93 05/25/18 09:00 05/25/18 09:03 05/25/18 09:00 05/25/18 09:00 05/25/18 09:00 Oxygen Flow Rate (L/min) 3 Oxygen Delivery Method Nasal Cannula Weight: 111.3 kg Body Mass Index (BMI) 47.9 Intake and Output for Last 24 Hours 05/23/18 05/24/18 05/25/18 23:59 23:59 23:59 Intake Total 716 / 716 1139.7 / 1139.7 240 / 240 Output Total 120 / 120 Balance 596 / 596 1139.7 / 1139.7 240 / 240 Microbiology Past 72 Hours 05/23/18 Unknown Fluid - Pleural (Lung) Gram Stain - Final 05/23/18 Unknown Fluid - Pleural (Lung) Body Fluid Culture - Preliminary No growth-Final to follow Laboratory Results 05/24/18 08:31: WBC 10.0, RBC 3.17 L, Hgb 8.2 L, Hct 26.3 L, MCV 83.0, MCH 25.9 L, MCHC 31.2 L, RDW 13.5, RDW Differential 39.8, Plt Count 203, MPV 10.6, Immature Gran % (Auto) 0.300, Neut % (Auto) 78.8 H, Lymph % (Auto) 5.8 L, [place] % (Auto) 12.0 H, Eos % (Auto) 2.7, Baso % (Auto) 0.4, Absolute Neuts (auto) 7.9 H, Absolute Lymphs (auto) 0.58 L, Total Counted Not Reportable, Hypochromasia 1+ 05/24/18 08:31: Sodium 132 L, Potassium 4.8, Chloride 96 L, Carbon Dioxide 26.0, Anion Gap 10, BUN 29 H, Creatinine 1.04 H, Estim Creat Clear Calc 37.19, Est GFR (MDRD) Af Amer 68, Est GFR (MDRD) Non-Af 56 L, BUN/Creatinine Ratio 27.9 H, Glucose 277 H, Calcium 8.2 L 05/24/18 08:31: B-Natriuretic Peptide 180.6 H 05/24/18 11:48: POC Glucose 309 H 05/24/18 12:25: APTT 72.8 H 05/24/18 16:17: POC Glucose 262 H 05/25/18 06:38: POC Glucose 202 H 05/25/18 06:45: WBC 9.2, RBC 3.04 L, Hgb 7.8 L, Hct 25.4 L, MCV 83.6, MCH 25.7 L, MCHC 30.7 L, RDW 13.7, RDW Differential 40.3, Plt Count 198, MPV 10.5, Immature Gran % (Auto) 0.300, Neut % (Auto) 75.2 H, Lymph % (Auto) 7.9 L, [place] % (Auto) 11.9 H, Eos % (Auto) 4.4, Baso % (Auto) 0.3, Absolute Neuts (auto) 6.9, Absolute Lymphs (auto) 0.73 L, Total Counted Not Reportable 05/25/18 06:45: Sodium 132 L, Potassium 5.1, Chloride 95 L, Carbon Dioxide 28.0, Anion Gap 9, BUN 37 H, Creatinine 1.34 H, Estim Creat Clear Calc 28.86, Est GFR (MDRD) Af Amer 50 L, Est GFR (MDRD) Non-Af 42 L, BUN/Creatinine Ratio 27.6 H, Glucose 201 H, Calcium 8.3 L Current Medications Acetaminophen (Tylenol) 650 mg PO Q6H PRN PRN PRN Reason: PAIN Last Admin: 05/24/18 07:34 Dose: 650 mg Albuterol Sulfate (Ventolin Aerosols) 2.5 mg INHALATION Q4H PRN PRN Reason: ASTHMA Albuterol Sulfate (Ventolin Aerosols) 2.5 mg INHALATION Q6HWA.RT [facility] Last Admin: 05/25/18 07:32 Dose: 2.5 mg Budesonide (Pulmicort Aerosol) 0.5 mg INHALATION Q12H.RT [facility] Last Admin: 05/25/18 07:32 Dose: 0.5 mg Bupropion HCl (Wellbutrin Xl) 150 mg PO DAILY [facility] Last Admin: 05/25/18 09:03 Dose: 150 mg Donepezil HCl (Aricept) 5 mg PO DAILY [facility] Last Admin: 05/25/18 09:02 Dose: 5 mg Enoxaparin Sodium (Lovenox) 100 mg SC Q12@0600,1800 [facility] Last Admin: 05/25/18 05:24 Dose: 100 mg Escitalopram Oxalate (Lexapro) 20 mg PO DAILY [facility] Last Admin: 05/25/18 09:02 Dose: 20 mg Ferrous Sulfate (Ferrous Sulfate) 325 mg PO BIDCM [facility] Last Admin: 05/25/18 07:44 Dose: 325 mg Sodium Chloride () 1,000 mls @ 100 mls/hr IV .Q10H [facility] Stop: 05/26/18 03:49 Last Admin: 05/25/18 08:50 Dose: 100 mls/hr Insulin Glargine (Lantus (Bkc)) 74 units SC DAILY [facility] Last Admin: 05/25/18 09:04 Dose: 74 units Insulin Human Lispro (Humalog Kwikpen (Bkc)) 0 unit SC TIDAC [facility] PRN Reason: Protocol Last Admin: 05/25/18 07:44 Dose: 2 units Lorazepam (Ativan) 1 mg PO Q8H PRN PRN PRN Reason: ANXIETY Last Admin: 05/24/18 16:01 Dose: 1 mg Melatonin (Melatonin) 5 mg PO QHS [facility] Last Admin: 05/24/18 21:17 Dose: 5 mg Metoprolol Succinate (Toprol Xl (Beta Kris)) 12.5 mg PO DAILY [facility] Last Admin: 05/25/18 09:03 Dose: 12.5 mg Montelukast Sodium (Singulair) 10 mg PO DAILY [facility] Last Admin: 05/25/18 09:03 Dose: 10 mg Morphine Sulfate () 1 mg IV Q4H PRN PRN PRN Reason: SEVERE PAIN (6-10/10) Last Admin: 05/24/18 12:17 Dose: 1 mg Oxycodone HCl (Oxyir) 5 - 10 mg PO Q4H PRN PRN PRN Reason: SEVERE PAIN (6-10/10) Last Admin: 05/25/18 10:04 Dose: 10 mg Pantoprazole Sodium (Protonix) 40 mg PO DAILY [facility] Last Admin: 05/25/18 09:01 Dose: 40 mg Polyethylene Glycol (Miralax) 17 gm PO DAILY PRN PRN Reason: Constipation Pravastatin Sodium (Pravachol) 20 mg PO QHS [facility] Last Admin: 05/24/18 21:18 Dose: 20 mg Senna/Docusate Sodium (Senokot-S, Sharda-Colace) 2 tablet PO BID [facility] Last Admin: 05/25/18 09:01 Dose: 2 tablet Sodium Chloride () 5 - 30 ml IV UD PRN PRN Reason: SALINE FLUSH Last Admin: 05/25/18 08:53 Dose: 10 ml Tadalafil (Cialis) 40 mg PO DAILY [facility] Last Admin: 05/25/18 09:01 Dose: 40 mg Medical Necessity - Tobacco Use Smoking Status: Never smoker Tobacco Use: Non-smoker Assessment/Plan 67 year old F with past medical history of metastatic breast cancer, recently diagnosed with bilateral pulmonary emboli, was on Eliquis comes in with worsening SOB. 1. Acute respiratory failure superimposed on chronic respiratory failure with hypoxia due to bilateral pleural effusions, s/p thoracocentesis, remains on home 3L oxygen, will continue with breathing treatments prn 2. Bilateral pleural effusions, s/p right thoracocentesis, likely malignant, fluid analysis show fluid LDH/serum LDH ratio of 1, fluid ptn/serum ptn ratio>1, will consult pulmonology/IR for pleurodesis 3. Recently diagnosed pulmonary emboli/bilateral lower extremity DVT, on eliquis, was taken off for liver biopsy, on Lovenox SC, will hold Lovenox for possible liver biopsy tomorrow. PT/INR, PTT in am. 4. Metastatic breast cancer, status post lumpectomy, on Faslodex injections monthly. 5. Pulmonary hypertension, on Tadalafil. 6. NSTEMI, likely secondary to demand ischemia, in patient with CAD status post stents, on heparin SC, no active intervention planned, 2d-echo shows normal EF. 7. Hypertension, controlled, on Losartan and Metoprolol. 8.Type 2 diabetes mellitus, BS are uncontrolled, off on metformin, will make changes to insulin, continue on ISS. 9. COPD without exacerbation, stable 10. Acute on chronic Anemia of chronic disease, HB is 7.8, likely also secondary to hemodilution also. 11. DVT PPx - on therapeutic heparin Code Visit Inpatient E&M: 58072 Subs Hosp L2
[2018-05-25] MEDS: LORazepam 1 MG Tablet PO ×2 (10:51→20:20)
[2018-05-25 11:46] LABS: Bedside Glucose 322 mg/dL (70-110)
[2018-05-25 17:01] LABS: Bedside Glucose 214 mg/dL (70-110)
[2018-05-25] MEDS: MELATONIN 10 MG TABLET 5 MG PO (23:51)
[2018-05-25] MEDS: Pravastatin 20 MG Tablet PO (23:52)
[2018-05-26] VITALS (33 sets, daily range): BP systolic 105–261; BP diastolic 39–159; PULSE 64–98; RESP 14–26; TEMP 36.4–36.8; O2SAT 87–100
--- NOTE | 2018-05-26 | ASPIGT_PTH ---
PATIENT: KATERIN BREWER LOC: [facility] U#:[id number] AGE/SX: 67/F ROOM: [facility]07 RE05/23/[address]: Dr. Raissa Belcher MD : 1950 BED: 1 DIS: 05/27/2018 SPEC #: [id number] RECD: 05/26/18 11:41 STATUS: MARLENY REQ #: [id number] PRASANTH: 05/26/18 00:[address]: Raissa Belcher DEPT: SURGICAL PATHOLOGY RECD BY: Efraín Felipe ENTERED: 05/26/18 11:42 SP TYPE: ASP RAD OTHR DR: MD Dr. Silver Dutton DO Dr. Kathleen Fearon, DO Kombian Gbaruk, MD Tissues: Liver, NOS Procedures: FNA Specimen Adequacy Special Stain Group II Surgery Specimen Level V Diff Quik Stain (control) Imprint (control) HEADER OPERATION: CT guided liver biopsy PRE-OP DIAGNOSIS: Liver lesions TISSUE SUBMITTED: Core 20 gauge MICROSCOPIC DIAGNOSIS Liver, CT-guided core biopsy: Fragments of tissue with extensive necrosis. See Comment LUNA:gt 05/27/18 COMMENT The specimen is evaluated at the time of CT by Dr. Haney. Immediate Evaluation = Atypical cells noted. The lesion may represent necrotic tumor. This specimen is insufficient for further evaluation due to extensive necrosis. Please make reference to corresponding cytology specimen [id number] thoracentesis fluid with diagnosis of positive for malignant cells. MICROSCOPIC DESCRIPTION Slides are reviewed. GROSS DESCRIPTION Received in fixative is one container labeled with the patient's name and designated liver, CT-guided core biopsy. The specimen consists of an elongated piece of gaviria soft tissue measuring in aggregate 1.5 x 0.1 x less than 0.1 cm. The specimen is totally submitted in one cassette. LUNA:gt 05/26/18 TC: Cannot code CPT: 99985, 26357
[2018-05-26 00:30] LABS: Bedside Glucose 261 mg/dL (70-110)
[2018-05-26] MEDS: oxyCODONE 5 MG Tablet PO ×2 (03:03→16:58)
[2018-05-26] MEDS: LORazepam 1 MG Tablet PO ×2 (06:47→18:03)
[2018-05-26] MEDS: Budesonide Respules 0.5 MG/2 ML AMPUL.NEB. INHALATION (07:02)
[2018-05-26] MEDS: Albuterol 2.5 MG/3 ML VIAL.NEB. INHALATION ×2 (07:02→12:08)
[2018-05-26 07:05] LABS: Bedside Glucose 244 mg/dL (70-110)
--- NOTE | 2018-05-26 07:16 | PN.CARD_ITS ---
Subjectve: Patient seen and evaluated. Appears to be doing not so well today she is wheezing. Objective: Vital Signs Temp Pulse Resp BP Pulse Ox 98.1 F 79 20 H 146/75 H 95 05/26/18 04:06 05/26/18 04:06 05/26/18 04:06 05/26/18 04:06 05/26/18 06:48 Oxygen Flow Rate (L/min) 3.5 Oxygen Delivery Method Nasal Cannula Weight: 245 lb 5.992 oz Body Mass Index (BMI) 47.9 Intake and Output for Last 24 Hours 05/24/18 05/25/18 05/26/18 23:59 23:59 23:59 Intake Total 1139.7 / 1139.7 237 / 2377 Balance 1139.7 / 1139.7 237 / 237 General: Awake, Alert, Oriented x 3 HEENT: PERRL, EOMI, Sclera Non Icteric Neck: Supple, Good ROM, No Lymph Node Enlargement Lungs: Expiratory Wheezes-Domenico Cardiovascular: Regular Rhythm, Normal S1, Normal S2, No Murmurs, No Rubs, No Gallops Vascular: No Carotid Bruits, Normal Femoral Pulses, Normal Radial Pulses, Normal Dorsalis Pedal Pulse, Normal Posterior Tibial Pulses Abdomen: Bowel Sounds Present, Soft, Non Tender, No HSM, No Organomegaly Extremities: No Cyanosis, No Clubbing, No edema Neurological: No Focal Motor or Sensory Deficit 05/25/18 06:45: WBC 9.2, RBC 3.04 L, Hgb 7.8 L, Hct 25.4 L, MCV 83.6, MCH 25.7 L , MCHC 30.7 L, RDW 13.7, RDW Differential 40.3, Plt Count 198, MPV 10.5, Immature Gran % (Auto) 0.300, Neut % (Auto) 75.2 H, Lymph % (Auto) 7.9 L, [place] % (Auto) 11.9 H, Eos % (Auto) 4.4, Baso % (Auto) 0.3, Absolute Neuts (auto) 6.9 , Total Counted Not Reportable 05/25/18 06:45: Sodium 132 L, Potassium 5.1, Chloride 95 L, Carbon Dioxide 28.0 , Anion Gap 9, BUN 37 H, Creatinine 1.34 H, Est GFR (MDRD) Af Amer 50 L, Est GFR (MDRD) Non-Af 42 L, BUN/Creatinine Ratio 27.6 H, Glucose 201 H, Calcium 8.3 L Rhythm: EKG: ECHO: Stress Test: Cardiac Cath: PCI: CT Surgery: Holter monitor: EPS: PPM: CXR: Chest CT Scan: Medical Necessity - Tobacco Use Smoking Status: Never smoker Tobacco Use: Non-smoker Assessment/Plan 1. Abnormal cardiac enzymes. Patient has a history of known coronary artery disease and a recent pulmonary embolus. The etiology of the abnormal cardiac enzymes can be multifactorial related to the above named conditions. In addition demand ischemia could also be a component. With her concomitant problems of likely metastatic carcinoma at this time and her preserved ejection fraction by recommendation will be for us to manage her expectantly and see how she does with respect to her treatment of her malignancy. She is scheduled to undergo a liver biopsy. Depending on the results of that test further recommendations will be made. At this time I will suggest holding off on anticoagulation or aspirin. 2. Coronary artery disease. She does have a history of known coronary artery disease status post angioplasty in 2016. She did have a stress test in 2017 which did not demonstrate any evidence of ischemia. At this time it is not clear whether the current abnormal enzymes are secondary to a primary cardiac problem. We will continue to observe her to see how she does clinically before making any changes or recommendations. 3. Hypertension. Her blood pressure appears to be under good control on the current medical therapy. 4. Pulmonary embolism. She does have a history of recent pulmonary embolism predisposed likely secondary to her underlying malignancy. The anticoagulation would likely need to be resumed after her biopsy has taken place. * Her echocardiogram did not demonstrate any significant tricuspid regurgitation to allow us to estimate her pulmonary pressures. * She appears to be wheezing today and I will give her a dose of Lasix and she would also be treated with the albuterol nebulizer. Thank you for allowing me to take care and participate in the care of this rather complicated patient.
[2018-05-26 07:50] LABS: International Normalized Ratio 1.2; Prothrombin Time (Protime)PT. 14.7 SECONDS (11.7-14.9)
[2018-05-26 07:51] LABS: Partial Thromboplast Time 48.9 Seconds (24.1-36.2)
--- NOTE | 2018-05-26 08:18 | CPS ---
pt c/o S.O.B.. Aerosol rx given and marivel well. Pep therapy started with pt and marivel well. Pt placed back on her own CPAP post rx and stated she felt better being on her CPAP
--- NOTE | 2018-05-26 08:19 | CT_ITS ---
PROCEDURE: CT DIRECTED CORE LIVER BIOPSY INDICATION: Female, 67 years old. Liver masses. PHYSICIAN: Dr. Ulisses Newton CONSENT: Written informed consent was obtained having explained the risks, benefits and alternatives in detail with the patient who accepted the risks and agreed to proceed. Laboratory review and clinical assessment was performed. CONSCIOUS SEDATION PROTOCOL: The Drugs used were: 2 mg Versed, IV., and 25 mcg Fentanyl, IV. The sedation time was: 25 minutes. Conscious sedation was started at 10:35 AM and terminated at 11:00 AM. The conscious sedation protocol was independently monitored. RADIATION DOSAGE (If Supplied By Facility): CTDIvol = ( 22 ) mGy, DLP = ( 357.44 ) mGycm Individualized dose optimization techniques were used for this CT. TECHNIQUE: Using CT image guidance with image documentation, a suitable location in the right lobe of the liver was identified. Using a right anterior approach, puncture of the liver was uneventful with an 20-gauge core needle system. 4 20-gauge core samples were obtained, and submitted in formalin to the pathologist for further assessment. Followup CT scan revealed no distinct sequelae. CT/Biopsy/Inj or Needle Placement IMPRESSION: 1. CT directed core needle biopsy of the liver, using CT image guidance with image documentation as described. 2. Conscious Sedation protocol utilized with independent monitoring. Electronically Signed: Natan Gtz MD at 12:17 EDT Tel [phone], Service support ,
--- NOTE | 2018-05-26 08:33 | PCM.CONS.GEN ---
Problem List (1) Metastatic carcinoma to lung Status: Chronic (2) Pulmonary hypertension Status: Chronic (3) Diabetes mellitus type II, controlled Status: Chronic (4) Fibromyalgia Status: Chronic (5) Hypertension Status: Chronic (6) History of DVT (deep vein thrombosis) Status: Chronic (7) HLD (hyperlipidemia) Status: Chronic Qualifiers: (8) Diastolic CHF, chronic Status: Chronic (9) Cancer of left breast, stage 4 Status: Chronic (10) Osteoarthritis Status: Chronic Qualifiers: Osteoarthritis location: unspecified site Osteoarthritis type: unspecified Qualified Code(s): M19.90 - Unspecified osteoarthritis, unspecified site (11) LOLY (obstructive sleep apnea) Status: Chronic (12) COPD (chronic obstructive pulmonary disease) Status: Chronic (13) Chronic anemia Status: Chronic (14) CAD (coronary artery disease) Status: Chronic Qualifiers: (15) S/P PTCA (percutaneous transluminal coronary angioplasty) Status: Chronic Comment: [place] Reason for Consult Date of Consultation: 05/26/18 Reason for Consultation: ?Malignant pleural effusion History of Present Illness: The patient is a 67 year old F with past medical history as below, presented to the ED on 05/23/18 with complaints of shortness of breath. The patient was just admitted from May 05 to the with new PE and hypoxemia. She was discharged on 2 L of oxygen supplementation and Eliquis, which has been on hold in anticipation of liver biopsy. Patient reports she felt better until a few days prior to arrival, her dyspnea worsened, especially with exertion. She did have a productive cough of clear to yellow, thick sputum. Denies any hemoptysis. She does take Mucinex at home. Also complains of epistaxis while here in the hospital, attributes this to increase in supplementation up to 4 L. She does complain of some wheezing and minimal lower extremity edema. No dizziness or syncope recently. Patient has a history of LOLY and is compliant with her CPAP at home. She follows with Dr. Ortiz and reports she has a combined COPD and asthma with pulmonary hypertension. Currently on Advair and as needed albuterol inhaler at home, she uses her rescue inhaler on average 3 times per day. She has been a lifelong nonsmoker but had significant secondhand exposure. Initial vitals BP 191/63, pulse 68, RR 19, 99.1?F, and 9% on room air. Blood work showed a hemoglobin of 8.9, white count of 10.1, platelets at 200. Chemistry remarkable for sodium of 133, BUN of 27, normal creatinine of 0.81. Alk phos mildly elevated at 168, troponin 0.453 with peak at 0.778, BNP 180, total protein 3.6 and albumin 3.0. Lipase 505. INR 1.4. Chest x-ray showed mild degree of vascular congestion and probable CHF. EKG sinus rhythm with no acute changes. A CTA of the chest revealed improvement of previously noted filling defects and embolism compared to imaging on 05/05/18. There were bilateral infiltrates or edema, worsening right greater than left pleural effusions, possible CHF versus bilateral pneumonia. The patient was ambulated in a day and quickly desaturated into the low to mid 80s. She was admitted to the progressive care unit for further evaluation and management. A right thoracentesis was performed and approximately 130 mL of blood-tinged fluid was drained. Cytology was not sent for analysis. Repeat chest x-ray showed no pneumothorax. An echocardiogram was then obtained and revealed normal LV systolic function, estimated EF of 65%, and stage I diastolic dysfunction in a reversed pattern. Pulmonary was consulted for suspected malignant pleural effusion. Patient does have a history of stage IV breast cancer with metastases to the lung. A biopsy in November 2013 confirmed this diagnosis. The patient underwent chemo and radiation and has been following with Dr. Ludwig. A repeat chest CT May 2017 and December 2017 showed stable lung nodules. An abdominal pelvis CT was obtained on 05/20/18 secondary to abdominal pain and showed new liver lesions. She last saw Dr. Ludwig on 05/21/18, planned for CT-guided biopsy of liver and to restage disease with PET/CT and MRI of the brain. Past Medical History Past Medical History (Chronic Problems): Chronic Problems (Last Reviewed 05/21/18 @ 15:21 by Consuelo Davies) Breast cancer (Chronic) Diabetes mellitus type II, controlled (Chronic) Fibromyalgia (Chronic) Hypertension (Chronic) History of DVT (deep vein thrombosis) (Chronic) HLD (hyperlipidemia) (Chronic) Diastolic CHF, chronic (Chronic) Metastatic carcinoma to lung (Chronic) Cancer of left breast, stage 4 (Chronic) Metastasis to lung (Chronic) Pulmonary hypertension (Chronic) Osteoarthritis (Chronic) LOLY (obstructive sleep apnea) (Chronic) Morbid obesity with BMI of 50.0-59.9, adult (Chronic) COPD (chronic obstructive pulmonary disease) (Chronic) Chronic anemia (Chronic) CAD (coronary artery disease) (Chronic) S/P PTCA (percutaneous transluminal coronary angioplasty) (Chronic ~2016) [place] Medical History: Medical History (Last Reviewed 05/21/18 @ 15:21 by Consuelo Davies) Metastatic carcinoma to lung (Chronic) C78.00 Cancer of left breast, stage 4 (Chronic) C50.912 Metastasis to lung (Chronic) C78.00 Pulmonary hypertension (Chronic) I27.2 Osteoarthritis (Chronic) M19.90 LOLY (obstructive sleep apnea) (Chronic) G47.33 Morbid obesity with BMI of 50.0-59.9, adult (Chronic) E66.01, Z68.43 COPD (chronic obstructive pulmonary disease) (Chronic) J44.9 Chronic anemia (Chronic) D64.9 CAD (coronary artery disease) (Chronic) I25.10 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 Allergies nitrofurantoin [From Macrobid] Allergy (Severe, Verified 05/23/18 09:59) Anaphylaxis nitrofurantoin macrocrystalline [From Macrobid] Allergy (Severe, Verified 05/23/18 09:59) Anaphylaxis sulfamethoxazole [From Bactrim] Allergy (Intermediate, Verified 05/23/18 09:59) Hives trimethoprim [From Bactrim] Allergy (Intermediate, Verified 05/23/18 09:59) Hives Home Medications: Ambulatory Orders Medication Instructions Recorded Ferrous Sulfate 325 mg PO BID 07/21/14 Escitalopram Oxalate [Lexapro] 20 mg PO DAILY 05/19/15 Fluticasone/Salmeterol [Advair 1 puff INHALATION BID 05/19/15 250/50 Mcg Diskus] buPROPion XL [Wellbutrin Xl] 150 mg PO DAILY 05/19/15 Fulvestrant [Faslodex] 250 mg IM QMONTH MDD takes on 05/23/15 of each month Pravastatin [Pravachol] 20 mg PO QHS 06/14/16 mirabegron ER 50 mg 50 mg PO DAILY 30 Days #30 10/29/17 tablet,extended release 24 hr Furosemide [Lasix] 40 mg PO DAILY 12/17/17 Metformin HCl [Glucophage] 1,000 mg PO BIDCM 12/17/17 Montelukast [Singulair] 10 mg PO DAILY 12/17/17 Tadalafil [Adcirca] 40 mg PO DAILY 12/17/17 Cranberry Conc/C/Bacill Coag 1 each PO DAILY 12/19/17 [Cranberry Tablet] Lorazepam [Ativan] 1 mg PO Q8H PRN PRN tablet 01/01/18 losartan 25 mg tablet 25 mg PO DAILY #90 tab 01/21/18 metoprolol succinate ER 25 mg 12.5 mg PO DAILY #45 tab 01/21/18 tablet,extended release 24 hr Aspirin [Aspirin, Baby] 81 mg PO DAILY@0800 05/05/18 Liraglutide [Victoza] 1.8 mg SQ DAILY 05/05/18 Acetaminophen/Codeine #3 1 tablet PO Q6H PRN PRN 05/23/18 [Tylenol#3] Albuterol IH (ProAir) [Proair Hfa] 2 puff INHALATION Q4H PRN PRN 05/23/18 Apixaban [Eliquis] 5 mg PO BID 05/23/18 Donepezil HCl 5 mg PO DAILY 05/23/18 Insulin Glargine,Hum.rec.anlog 70 unit SQ QHS 05/23/18 [Lantus] Melatonin 5 mg PO QHS 05/23/18 Omeprazole 40 mg PO DAILY 05/23/18 Surgical History: Surgical History (Last Reviewed 05/21/18 @ 15:21 by Consuelo Davies) S/P PTCA (percutaneous transluminal coronary angioplasty) (Chronic) Onset Date: ~2015 Z98.61 [place] History of appendectomy Onset Date: ~2015 Z90.49 History of arthroscopy of right shoulder Z98.890 History of cholecystectomy Z90.49 History of hysterectomy Z90.710 History of laparoscopic appendectomy Z90.49 History of partial mastectomy of left breast Z90.12 with sentinel node biopsy 2007 History of tubal ligation Z98.51 Surgical History: angioplasty, appendectomy, cholecystectomy, total knee arthroplasty Psychiatric History: Anxiety, Depression 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 Lives: Alone Smoking Status: Never smoker Tobacco Use: Non-smoker, Secondhand Alcohol: None Drugs: None - *Family History Maternal Family History: Family History (Last Reviewed 05/21/18 @ 15:21 by Consuelo Davies) Father CAD (coronary artery disease) Diabetes Mother CAD (coronary artery disease) Hypertension Brother Hypertension FH: CABG (coronary artery bypass surgery) Daughter Hypertension Diabetes Sister Breast cancer Uterine cancer History Items: No pertinent history Paternal Family History: Family History (Last Reviewed 05/21/18 @ 15:21 by Consuelo Davies) Father CAD (coronary artery disease) Diabetes Mother CAD (coronary artery disease) Hypertension Brother Hypertension FH: CABG (coronary artery bypass surgery) Daughter Hypertension Diabetes Sister Breast cancer Uterine cancer History Items: No pertinent history Review of Systems Constitutional: Reports: Anorexia, Weakness, Weight Change, Fatigue. Denies: Chills, Fever, Night Sweats Eyes: Denies: Vision Change HEENT: Reports: Nasal bleeding, Post Nasal Drip. Denies: Difficulty Swallowing, Nasal Congestion, Sinus Congestion, Sinus Drainage, Sore Throat Cardiovascular: Reports: Chest Pain - right sided, Chest Tightness, Edema. Denies: Light Headedness, Orthopnea, Palpitations, Paroxysmal Noc. Dyspnea, Syncope Respiratory: Reports: Cough, Shortness of breath upon exertion, Sputum production, Wheezing. Denies: Hemoptysis, Shortness of breath at rest Gastrointestinal: Reports: Abdominal Pain - RUQ, Nausea. Denies: Constipation, Diarrhea, Dyspepsia, Hematemesis, Hematochezia, Melena, Vomiting Genitourinary: Reports: Nocturia. Denies: Dysuria, Frequency, Hematuria Musculoskeletal: Reports: Back Pain Skin: Denies: Rash, Wounds Neurological: Denies: Balance problems, Change in Speech, Confusion, Difficulty swallowing, Focal weakness, Numbness, Tingling, Tremor, Seizures Psychiatric: Reports: Anxiety, Depression Endocrine: Denies: Change in Body Habitus, Polydipsia, Polyuria Hematologic/ Lymphatic: Reports: Anemia, Easy Bruising, Easy Bleeding, Hx of blood clot. Denies: Adenopathy Subjective: The patient was seen and examined. She just ambulated from the bathroom to the chair and was significantly short of breath. She had audible wheezing and was speaking in fragmented sentences. She was placed back on her CPAP and now feeling better. Objective: Clinical Impression(s) from Imaging Studies Chest X-Ray 05/23/18 10:27 IMPRESSION: Findings suggestive of a mild degree of CHF. Electronically Signed: Natan Gtz MD at 11:27 EDT Tel [phone], Service support , Chest CTA 05/23/18 11:40 IMPRESSION: CTA chest examination, without a demonstrated pulmonary embolism or arterial dissection. Improvement of previously noted filling defects and embolism. Bilateral infiltrates or edema. Right larger than left pleural effusions. Findings could represent congestive heart failure versus bilateral pneumonia. Right upper lung nodule. Electronically Signed: Bao Maher MD at 12:49 EDT , Service support , Thoracentesis Ultrasound 05/23/18 14:09 IMPRESSION: Ultrasound-guided right thoracentesis. Electronically Signed: Natan Gtz MD at 15:28 EDT Tel [phone], Service support , Chest X-Ray 05/23/18 14:49 IMPRESSION: Status post right thoracentesis. There is no evidence of pneumothorax. Electronically Signed: Natan Gtz MD at 15:15 EDT Tel [phone], Service support , - Physical Exam General: Alert, Oriented x3, Cooperative, Well developed, Well nourished, - - Conversational dyspnea, speaking in fragmented sentences HEENT: Atraumatic, PERRLA, Normocephalic Oral: Moist Mucosa, No Gingival or Mucosal Lesions/ Ulcerations Neck: Supple, No Nodes, Trachea Midline Lungs: No rhonchi, No rales, Diminished, Short of Breath, Tachypneic, Wheezes Cardiovascular: Regular rate, Regular Rhythm, Normal S1, Normal S2, No murmurs, No rub noted, No Gallop Abdomen: Bowel Sounds Present, Soft, Distended, Obese, Tender - RUQ, Hernia Extremities: No clubbing, No cyanosis, Capillary Refill Less than 3 Seconds, Edema Skin: No rashes, No breakdown Musculoskeletal: No Tenderness to Palpation of Joints or Extremities Lymphatic: - - no significant adenopathy Neurological: Cranial nerves II-XII grossly intact, Neuro grossly intact, Motor Exam 5/5 strength throughout Psych/Mental Status: Alert and oriented to time, place, person, mood and affect Vital Signs Temp Pulse Resp BP Pulse Ox 98.1 F 75 16 146/75 H 96 05/26/18 04:06 05/26/18 07:02 05/26/18 07:02 05/26/18 04:06 05/26/18 07:02 Oxygen Flow Rate (L/min) 3.5 Oxygen Delivery Method Nasal Cannula Weight: 245 lb 5.992 oz Body Mass Index (BMI) 47.9 Intake and Output for Last 24 Hours 05/24/18 05/25/18 05/26/18 23:59 23:59 23:59 Intake Total 1139.7 / 1139.7 2377 / 2377 Balance 1139.7 / 1139.7 2377 / 2377 Microbiology Past 72 Hours 05/23/18 Unknown Gram Stain - Final Fluid - Pleural (Lung) Body Fluid Culture - Final No growth aerobically. Laboratory Tests Past 24 Hrs 05/26/18 06:08 PT 14.7 INR 1.2 APTT 48.9 H POC Glucose 05/26/18 05/25/18 05/25/18 06:42 23:50 16:48 POC Glucose 244 H 261 H 214 H 05/25/18 11:28 POC Glucose 322 H Assessment/Plan RECOMMENDATIONS 1. Wean oxygen supplementation to keep saturations greater than 88% 2. Encourage incentive spirometer 3. Increase activity as tolerated, PT/OT 4. Continue bronchodilators 5. Obtain repeat CXR today 6. Await liver biopsy scheduled for today 7. CPAP with all sleep and PRN during day 8. Heparin gtt if anticipating additional need for thoracentesis IMPRESSIONS 1. Acute on chronic hypoxic respiratory failure Likely multifactorial given recent diagnosis of PE and her bilateral pleural effusions, likely malignant. Patient was doing better after thoracentesis on 05/23, however now more short of breath with wheezing with activity. Will obtain repeat chest x-ray to assess for reaccumulation of fluid. Patient is off of anticoagulant for procedure, plan to restart after biopsy unless accumulation of more fluid. May require heparin drip in the meantime. Wean oxygen supplementation to keep saturations greater than 88%. Increase activity as tolerated and encourage incentive spirometer. Utilize her noninvasive positive pressure therapy as needed during the day. 2. Pulmonary emboli in the setting of h/o breast CA with metastases New diagnosis of PE a few weeks ago, placed on Eliquis but currently on hold for biopsy. Known mets to the lung in 2012. Follows with Dr. Ludwig. Probable liver mets, plans for CT guided biopsy today. Oncology not currently following. 3. History of CHF/hyperlipidemia/hypertension/fibromyalgia/type 2 diabetes/chronic anemia/self-reported COPD and asthma/CAD/pulmonary hypertension Complicates care, management, recovery, and prognosis. Adjust insulin as indicated. Patient reports a combination of COPD and asthma. Currently on Advair and albuterol at home. No pulmonary testing records are available, patient follows with Dr. Ortiz and reports routine follow up. Thank you for the opportunity to participate in this patient's care, please do not hesitate contact us with any further questions or concerns. This note was generated with [employer] dictation software. It may contain incorrect words, spelling, and punctuation that were not noted in checking the note before signing.
--- NOTE | 2018-05-26 08:53 | CON.PCM_ITS ---
Problem List (1) Metastatic carcinoma to lung Status: Chronic (2) Pulmonary hypertension Status: Chronic (3) Diabetes mellitus type II, controlled Status: Chronic (4) Fibromyalgia Status: Chronic (5) Hypertension Status: Chronic (6) History of DVT (deep vein thrombosis) Status: Chronic (7) HLD (hyperlipidemia) Status: Chronic Qualifiers: (8) Diastolic CHF, chronic Status: Chronic (9) Cancer of left breast, stage 4 Status: Chronic (10) Osteoarthritis Status: Chronic Qualifiers: Osteoarthritis location: unspecified site Osteoarthritis type: unspecified Qualified Code(s): M19.90 - Unspecified osteoarthritis, unspecified site (11) LOLY (obstructive sleep apnea) Status: Chronic (12) COPD (chronic obstructive pulmonary disease) Status: Chronic (13) Chronic anemia Status: Chronic (14) CAD (coronary artery disease) Status: Chronic Qualifiers: (15) S/P PTCA (percutaneous transluminal coronary angioplasty) Status: Chronic Comment: [facility] Reason for Consult Date of Consultation: 05/26/18 Reason for Consultation: ?Malignant pleural effusion History of Present Illness: The patient is a 67 year old F with past medical history as below, presented to the ED on 05/23/18 with complaints of shortness of breath. The patient was just admitted from May 05 to the with new PE and hypoxemia. She was discharged on 2 L of oxygen supplementation and Eliquis, which has been on hold in anticipation of liver biopsy. Patient reports she felt better until a few days prior to arrival, her dyspnea worsened, especially with exertion. She did have a productive cough of clear to yellow, thick sputum. Denies any hemoptysis. She does take Mucinex at home. Also complains of epistaxis while here in the hospital, attributes this to increase in supplementation up to 4 L. She does complain of some wheezing and minimal lower extremity edema. No dizziness or syncope recently. Patient has a history of LOLY and is compliant with her CPAP at home. She follows with Dr. Ortiz and reports she has a combined COPD and asthma with pulmonary hypertension. Currently on Advair and as needed albuterol inhaler at home, she uses her rescue inhaler on average 3 times per day. She has been a lifelong nonsmoker but had significant secondhand exposure. Initial vitals BP 191/63, pulse 68, RR 19, 99.1?F, and 9% on room air. Blood work showed a hemoglobin of 8.9, white count of 10.1, platelets at 200. Chemistry remarkable for sodium of 133, BUN of 27, normal creatinine of 0.81. Alk phos mildly elevated at 168, troponin 0.453 with peak at 0.778, BNP 180, total protein 3.6 and albumin 3.0. Lipase 505. INR 1.4. Chest x-ray showed mild degree of vascular congestion and probable CHF. EKG sinus rhythm with no acute changes. A CTA of the chest revealed improvement of previously noted filling defects and embolism compared to imaging on 05/05/18. There were bilateral infiltrates or edema, worsening right greater than left pleural effusions, possible CHF versus bilateral pneumonia. The patient was ambulated in a day and quickly desaturated into the low to mid 80s. She was admitted to the progressive care unit for further evaluation and management. A right thoracentesis was performed and approximately 130 mL of blood-tinged fluid was drained. Cytology was not sent for analysis. Repeat chest x-ray showed no pneumothorax. An echocardiogram was then obtained and revealed normal LV systolic function, estimated EF of 65%, and stage I diastolic dysfunction in a reversed pattern. Pulmonary was consulted for suspected malignant pleural effusion. Patient does have a history of stage IV breast cancer with metastases to the lung. A biopsy in November 2013 confirmed this diagnosis. The patient underwent chemo and radiation and has been following with Dr. Ludwig. A repeat chest CT May 2017 and December 2017 showed stable lung nodules. An abdominal pelvis CT was obtained on 05/20/18 secondary to abdominal pain and showed new liver lesions. She last saw Dr. Ludwig on 05/21/18, planned for CT-guided biopsy of liver and to restage disease with PET/CT and MRI of the brain. Past Medical History Past Medical History (Chronic Problems): Chronic Problems (Last Reviewed 05/21/18 @ 15:21 by Consuelo Davies) Breast cancer (Chronic) Diabetes mellitus type II, controlled (Chronic) Fibromyalgia (Chronic) Hypertension (Chronic) History of DVT (deep vein thrombosis) (Chronic) HLD (hyperlipidemia) (Chronic) Diastolic CHF, chronic (Chronic) Metastatic carcinoma to lung (Chronic) Cancer of left breast, stage 4 (Chronic) Metastasis to lung (Chronic) Pulmonary hypertension (Chronic) Osteoarthritis (Chronic) LOLY (obstructive sleep apnea) (Chronic) Morbid obesity with BMI of 50.0-59.9, adult (Chronic) COPD (chronic obstructive pulmonary disease) (Chronic) Chronic anemia (Chronic) CAD (coronary artery disease) (Chronic) S/P PTCA (percutaneous transluminal coronary angioplasty) (Chronic ~2016) [facility] Medical History: Medical History (Last Reviewed 05/21/18 @ 15:21 by Consuelo Davies) Metastatic carcinoma to lung (Chronic) C78.00 Cancer of left breast, stage 4 (Chronic) C50.912 Metastasis to lung (Chronic) C78.00 Pulmonary hypertension (Chronic) I27.2 Osteoarthritis (Chronic) M19.90 LOLY (obstructive sleep apnea) (Chronic) G47.33 Morbid obesity with BMI of 50.0-59.9, adult (Chronic) E66.01, Z68.43 COPD (chronic obstructive pulmonary disease) (Chronic) J44.9 Chronic anemia (Chronic) D64.9 CAD (coronary artery disease) (Chronic) I25.10 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 Allergies nitrofurantoin [From Macrobid] Allergy (Severe, Verified 05/23/18 09:59) Anaphylaxis nitrofurantoin macrocrystalline [From Macrobid] Allergy (Severe, Verified 09:59) Anaphylaxis sulfamethoxazole [From Bactrim] Allergy (Intermediate, Verified 05/23/18 09:59) Hives trimethoprim [From Bactrim] Allergy (Intermediate, Verified 05/23/18 09:59) Hives Home Medications: Ambulatory Orders Medication Instructions Recorded Ferrous Sulfate 325 mg PO BID 07/21/14 Escitalopram Oxalate [Lexapro] 20 mg PO DAILY 05/19/15 Fluticasone/Salmeterol [Advair 1 puff INHALATION BID 05/19/15 250/50 Mcg Diskus] buPROPion XL [Wellbutrin Xl] 150 mg PO DAILY 05/19/15 Fulvestrant [Faslodex] 250 mg IM QMONTH MDD takes on 05/23/15 of each month Pravastatin [Pravachol] 20 mg PO QHS 06/14/16 mirabegron ER 50 mg 50 mg PO DAILY 30 Days #30 10/29/17 tablet,extended release 24 hr Furosemide [Lasix] 40 mg PO DAILY 12/17/17 Metformin HCl [Glucophage] 1,000 mg PO BIDCM 12/17/17 Montelukast [Singulair] 10 mg PO DAILY 12/17/17 Tadalafil [Adcirca] 40 mg PO DAILY 12/17/17 Cranberry Conc/C/Bacill Coag 1 each PO DAILY 12/19/17 [Cranberry Tablet] Lorazepam [Ativan] 1 mg PO Q8H PRN PRN tablet 01/01/18 losartan 25 mg tablet 25 mg PO DAILY #90 tab 01/21/18 metoprolol succinate ER 25 mg 12.5 mg PO DAILY #45 tab 01/21/18 tablet,extended release 24 hr Aspirin [Aspirin, Baby] 81 mg PO DAILY@0800 05/05/18 Liraglutide [Victoza] 1.8 mg SQ DAILY 05/05/18 Acetaminophen/Codeine #3 1 tablet PO Q6H PRN PRN 05/23/18 [Tylenol#3] Albuterol IH (ProAir) [Proair Hfa] 2 puff INHALATION Q4H PRN PRN 05/23/18 Apixaban [Eliquis] 5 mg PO BID 05/23/18 Donepezil HCl 5 mg PO DAILY 05/23/18 Insulin Glargine,Hum.rec.anlog 70 unit SQ QHS 05/23/18 [Lantus] Melatonin 5 mg PO QHS 05/23/18 Omeprazole 40 mg PO DAILY 05/23/18 Surgical History: Surgical History (Last Reviewed 05/21/18 @ 15:21 by Consuelo Davies) S/P PTCA (percutaneous transluminal coronary angioplasty) (Chronic) Onset Date : ~2015 Z98.61 [facility] History of appendectomy Onset Date: ~2015 Z90.49 History of arthroscopy of right shoulder Z98.890 History of cholecystectomy Z90.49 History of hysterectomy Z90.710 History of laparoscopic appendectomy Z90.49 History of partial mastectomy of left breast Z90.12 with sentinel node biopsy 2007 History of tubal ligation Z98.51 Surgical History: angioplasty, appendectomy, cholecystectomy, total knee arthroplasty Psychiatric History: Anxiety, Depression ACUTE COORDINATOR History: No pertinent ACUTE COORDINATOR history Lives: Alone Smoking Status: Never smoker Tobacco Use: Non-smoker, Secondhand Alcohol: None Drugs: None - *Family History Maternal Family History: Family History (Last Reviewed 05/21/18 @ 15:21 by Consuelo Davies) Father CAD (coronary artery disease) Diabetes Mother CAD (coronary artery disease) Hypertension Brother Hypertension FH: CABG (coronary artery bypass surgery) Daughter Hypertension Diabetes Sister Breast cancer Uterine cancer History Items: No pertinent history Paternal Family History: Family History (Last Reviewed 05/21/18 @ 15:21 by Consuelo Davies) Father CAD (coronary artery disease) Diabetes Mother CAD (coronary artery disease) Hypertension Brother Hypertension FH: CABG (coronary artery bypass surgery) Daughter Hypertension Diabetes Sister Breast cancer Uterine cancer History Items: No pertinent history Review of Systems Constitutional: Reports: Anorexia, Weakness, Weight Change, Fatigue. Denies: Chills, Fever, Night Sweats Eyes: Denies: Vision Change HEENT: Reports: Nasal bleeding, Post Nasal Drip. Denies: Difficulty Swallowing , Nasal Congestion, Sinus Congestion, Sinus Drainage, Sore Throat Cardiovascular: Reports: Chest Pain - right sided, Chest Tightness, Edema. Denies: Light Headedness, Orthopnea, Palpitations, Paroxysmal Noc. Dyspnea, Syncope Respiratory: Reports: Cough, Shortness of breath upon exertion, Sputum production, Wheezing. Denies: Hemoptysis, Shortness of breath at rest Gastrointestinal: Reports: Abdominal Pain - RUQ, Nausea. Denies: Constipation, Diarrhea, Dyspepsia, Hematemesis, Hematochezia, Melena, Vomiting Genitourinary: Reports: Nocturia. Denies: Dysuria, Frequency, Hematuria Musculoskeletal: Reports: Back Pain Skin: Denies: Rash, Wounds Neurological: Denies: Balance problems, Change in Speech, Confusion, Difficulty swallowing, Focal weakness, Numbness, Tingling, Tremor, Seizures Psychiatric: Reports: Anxiety, Depression Endocrine: Denies: Change in Body Habitus, Polydipsia, Polyuria Hematologic/ Lymphatic: Reports: Anemia, Easy Bruising, Easy Bleeding, Hx of blood clot. Denies: Adenopathy Subjective: The patient was seen and examined. She just ambulated from the bathroom to the chair and was significantly short of breath. She had audible wheezing and was speaking in fragmented sentences. She was placed back on her CPAP and now feeling better. Objective: Clinical Impression(s) from Imaging Studies Chest X-Ray 05/23/18 10:27 IMPRESSION: Findings suggestive of a mild degree of CHF. Electronically Signed: Natan Gtz MD at 11:27 EDT Tel [phone], Service support , Chest CTA 05/23/18 11:40 IMPRESSION: CTA chest examination, without a demonstrated pulmonary embolism or arterial dissection. Improvement of previously noted filling defects and embolism. Bilateral infiltrates or edema. Right larger than left pleural effusions. Findings could represent congestive heart failure versus bilateral pneumonia. Right upper lung nodule. Electronically Signed: Bao Maher MD at 12:49 EDT , Service support , Thoracentesis Ultrasound 05/23/18 14:09 IMPRESSION: Ultrasound-guided right thoracentesis. Electronically Signed: Natan Gtz MD at 15:28 EDT Tel [phone], Service support , Chest X-Ray 05/23/18 14:49 IMPRESSION: Status post right thoracentesis. There is no evidence of pneumothorax. Electronically Signed: Natan Gtz MD at 15:15 EDT Tel [phone], Service support , - Physical Exam General: Alert, Oriented x3, Cooperative, Well developed, Well nourished, - - Conversational dyspnea, speaking in fragmented sentences HEENT: Atraumatic, PERRLA, Normocephalic Oral: Moist Mucosa, No Gingival or Mucosal Lesions/ Ulcerations Neck: Supple, No Nodes, Trachea Midline Lungs: No rhonchi, No rales, Diminished, Short of Breath, Tachypneic, Wheezes Cardiovascular: Regular rate, Regular Rhythm, Normal S1, Normal S2, No murmurs, No rub noted, No Gallop Abdomen: Bowel Sounds Present, Soft, Distended, Obese, Tender - RUQ, Hernia Extremities: No clubbing, No cyanosis, Capillary Refill Less than 3 Seconds, Edema Skin: No rashes, No breakdown Musculoskeletal: No Tenderness to Palpation of Joints or Extremities Lymphatic: - - no significant adenopathy Neurological: Cranial nerves II-XII grossly intact, Neuro grossly intact, Motor Exam 5/5 strength throughout Psych/Mental Status: Alert and oriented to time, place, person, mood and affect Vital Signs Temp Pulse Resp BP Pulse Ox 98.1 F 75 16 146/75 H 96 05/26/18 04:06 05/26/18 07:02 05/26/18 07:02 05/26/18 04:06 05/26/18 07:02 Oxygen Flow Rate (L/min) 3.5 Oxygen Delivery Method Nasal Cannula Weight: 245 lb 5.992 oz Body Mass Index (BMI) 47.9 Intake and Output for Last 24 Hours 05/24/18 05/25/18 05/26/18 23:59 23:59 23:59 Intake Total 1139.7 / 1139.7 2377 / 2377 Balance 1139.7 / 1139.7 2377 / 2377 Microbiology Past 72 Hours 05/23/18 Unknown Gram Stain - Final Fluid - Pleural (Lung) Body Fluid Culture - Final No growth aerobically. Laboratory Tests Past 24 Hrs 05/26/18 06:08 PT 14.7 INR 1.2 APTT 48.9 H POC Glucose 05/26/18 05/25/18 05/25/18 06:42 23:50 16:48 POC Glucose 244 H 261 H 214 H 05/25/18 11:28 POC Glucose 322 H Assessment/Plan RECOMMENDATIONS 1. Wean oxygen supplementation to keep saturations greater than 88% 2. Encourage incentive spirometer 3. Increase activity as tolerated, PT/OT 4. Continue bronchodilators 5. Obtain repeat CXR today 6. Await liver biopsy scheduled for today 7. CPAP with all sleep and PRN during day 8. Heparin gtt if anticipating additional need for thoracentesis IMPRESSIONS 1. Acute on chronic hypoxic respiratory failure Likely multifactorial given recent diagnosis of PE and her bilateral pleural effusions, likely malignant. Patient was doing better after thoracentesis on , however now more short of breath with wheezing with activity. Will obtain repeat chest x-ray to assess for reaccumulation of fluid. Patient is off of anticoagulant for procedure, plan to restart after biopsy unless accumulation of more fluid. May require heparin drip in the meantime. Wean oxygen supplementation to keep saturations greater than 88%. Increase activity as tolerated and encourage incentive spirometer. Utilize her noninvasive positive pressure therapy as needed during the day. 2. Pulmonary emboli in the setting of h/o breast CA with metastases New diagnosis of PE a few weeks ago, placed on Eliquis but currently on hold for biopsy. Known mets to the lung in 2012. Follows with Dr. Ludwig. Probable liver mets, plans for CT guided biopsy today. Oncology not currently following. 3. History of CHF/hyperlipidemia/hypertension/fibromyalgia/type 2 diabetes/ chronic anemia/self-reported COPD and asthma/CAD/pulmonary hypertension Complicates care, management, recovery, and prognosis. Adjust insulin as indicated. Patient reports a combination of COPD and asthma. Currently on Advair and albuterol at home. No pulmonary testing records are available, patient follows with Dr. Ortiz and reports routine follow up. Thank you for the opportunity to participate in this patient's care, please do not hesitate contact us with any further questions or concerns. This note was generated with [employer] dictation software. It may contain incorrect words, spelling, and punctuation that were not noted in checking the note before signing.
[2018-05-26] MEDS: Insulin Lispro 100 UNIT/ML INSULN.PEN SC ×3 (09:08→17:22)
[2018-05-26] MEDS: Furosemide 40 MG/4 ML Vial IV (09:09)
[2018-05-26] MEDS: 0.9% NaCl Peripheral Flush Adult/Peds IV (09:09)
[2018-05-26] MEDS: Donepezil HCl 5 MG Tablet PO (09:10)
[2018-05-26] MEDS: Ferrous Sulfate 325 MG Tablet PO ×2 (09:10→16:59)
[2018-05-26] MEDS: Escitalopram Oxalate 10 MG Tablet 20 MG PO (09:11)
[2018-05-26] MEDS: TADALAFIL 20 MG TABLET 40 MG PO (09:11)
[2018-05-26] MEDS: Pantoprazole Sodium 40 MG Tablet PO (09:12)
[2018-05-26] MEDS: Mirabegron 50 MG TAB.ER.24H PO (09:12)
[2018-05-26] MEDS: Montelukast 10 MG Tablet PO (09:13)
[2018-05-26] MEDS: buPROPion (XL) 150 MG TABLET.XL PO (09:13)
--- NOTE | 2018-05-26 11:25 | RAD_ITS ---
STUDY: X-RAY CHEST REASON FOR EXAM: Female, 67 years old. Pleural effusion. Shortness of breath. Dyspnea. TECHNIQUE: Single AP portable view of the chest. COMPARISON: Comparison is made with prior study dated May 23, 2018. FINDINGS: A right-sided portacatheter is in situ. The tip is at the junction of the superior vena cava and right atrium. Surgical clips are seen in the left axillary region. Mild elevation of the right hemidiaphragm. Mild degree of increased interstitial markings in both lungs. This may represent a mild degree of vascular congestion and possible basilar atelectasis. Follow-up is recommended. There is no demonstrated pleural abnormality. Normal size heart. Normal mediastinum and sharon. Normal visualized pulmonary arteries. There is atherosclerotic calcification of the aortic arch with tortuosity. There are diffuse degenerative changes of the visualized thoracic spine. Normal visualized ribs, clavicles, and shoulders. There is no demonstrated abnormality of the visualized soft tissue structures of the upper abdomen. RAD/Chest PA and Lateral IMPRESSION: Elevation of the right hemidiaphragm. Increased interstitial markings in both lungs suggestive of mild vascular congestion and/or possible atelectasis. Follow-up is recommended. Electronically Signed: Natan Gtz MD at 12:40 EDT Tel [phone], Service support ,
[2018-05-26] MEDS: Metoprolol(XL)Succ 25 MG Tablet 12.5 MG PO (11:57)
[2018-05-26 12:46] LABS: Bedside Glucose 219 mg/dL (70-110)
--- NOTE | 2018-05-26 12:46 | CHAPLAIN ---
Type of Pastoral Visit _x__ Initial Visit ___ Follow-up Visit ___ On-call Visit ___ General Patient Visit ___ Spiritual Assessment ___ Family Conference ___ Bereavement ___ Rapid Response ___ Code Blue ___ Other (describe below) Pastoral Care Referral From _x__ Patient ___ Family ___ Nurse ___ Physician ___ [place] ___ Lining Maker ___ Other (describe below) Sacrament/Intervention _x__ Active listening ___ Anointing ___ Adventism ___ Bereavement ___ Communion ___ Michela exploration ___ ___ Life review ___ Prayer ___ Reconciliation ___ Sacrament of Sick _x__ Supportive presence ___ Wedding ___ Other (describe below) Pastoral Comments patient just returned to room from a biopsy
--- NOTE | 2018-05-26 16:39 | PCM.PN.HOSP ---
Vitals/I&O's: Vital Signs Temp Pulse Resp BP Pulse Ox 98.0 F 72 20 H 172/66 H 92 05/26/18 13:52 05/26/18 13:52 05/26/18 13:52 05/26/18 13:52 05/26/18 13:52 Oxygen Flow Rate (L/min) [5] 15 Oxygen Flow Rate (L/min) [4] 15 Oxygen Flow Rate (L/min) [3] 15 Oxygen Flow Rate (L/min) [2] 15 Oxygen Flow Rate (L/min) [1 ( 15 Initial Baseline)] Oxygen Flow Rate (L/min) 3 Oxygen Delivery Method [6] Non-Rebreather Oxygen Delivery Method [5] Non-Rebreather Oxygen Delivery Method [4] Non-Rebreather Oxygen Delivery Method [3] Non-Rebreather Oxygen Delivery Method [2] Non-Rebreather Oxygen Delivery Method [1 ( Non-Rebreather Initial Baseline)] Oxygen Delivery Method Nasal Cannula Weight: 111.3 kg Body Mass Index (BMI) 47.9 Intake and Output for Last 24 Hours 05/24/18 05/25/18 05/26/18 23:59 23:59 23:59 Intake Total 1139.7 / 1139.7 2377 / 2377 100 / 100 Balance 1139.7 / 1139.7 2377 / 2377 100 / 100 General: Alert, Oriented x3, Cooperative, - - In moderate respiratory distress, using his CPAP HEENT: Atraumatic, PERRLA, EOMI, Normocephalic Oral: Moist Mucosa Neck: Supple Lungs: Diminished, Rhonchi Cardiovascular: Regular rate, Regular Rhythm, Normal S1, Normal S2, No murmurs Abdomen: Bowel Sounds Present, Soft, Non-Distended, Tender - Right upper quadrant tenderness Extremities: No edema Skin: No rashes, No breakdown Musculoskeletal: No Tenderness to Palpation of Joints or Extremities Lymphatic: No Cervical, Supraclavicular, or Inguinal Adenopathy Neurological: Cranial nerves II-XII grossly intact Psych/Mental Status: Normal Affect, Appropriate Microbiology Past 72 Hours 05/23/18 Unknown Fluid - Pleural (Lung) Gram Stain - Final 05/23/18 Unknown Fluid - Pleural (Lung) Body Fluid Culture - Final No growth aerobically. 05/23/18 Unknown Fluid - Pleural (Lung) Anaerobic Culture - Preliminary No anaerobic bacteria isolated. Laboratory Results 05/25/18 16:48: POC Glucose 214 H 05/25/18 23:50: POC Glucose 261 H 05/26/18 06:08: PT 14.7, INR 1.2, APTT 48.9 H 05/26/18 06:42: POC Glucose 244 H 05/26/18 12:39: POC Glucose 219 H Current Medications Acetaminophen (Tylenol) 650 mg PO Q6H PRN PRN PRN Reason: PAIN Last Admin: 05/24/18 07:34 Dose: 650 mg Albuterol Sulfate (Ventolin Aerosols) 2.5 mg INHALATION Q4H PRN PRN Reason: ASTHMA Last Admin: 05/25/18 15:49 Dose: 2.5 mg Albuterol Sulfate (Ventolin Aerosols) 2.5 mg INHALATION Q6HWA.RT [facility] Last Admin: 05/26/18 12:08 Dose: 2.5 mg Amlodipine Besylate (Norvasc) 5 mg PO DAILY DAX Budesonide (Pulmicort Aerosol) 0.5 mg INHALATION Q12H.RT [facility] Last Admin: 05/26/18 07:02 Dose: 0.5 mg Bupropion HCl (Wellbutrin Xl) 150 mg PO DAILY [facility] Last Admin: 05/26/18 09:13 Dose: 150 mg Donepezil HCl (Aricept) 5 mg PO DAILY [facility] Last Admin: 05/26/18 09:10 Dose: 5 mg Escitalopram Oxalate (Lexapro) 20 mg PO DAILY [facility] Last Admin: 05/26/18 09:11 Dose: 20 mg Ferrous Sulfate (Ferrous Sulfate) 325 mg PO BIDCM [facility] Last Admin: 05/26/18 09:10 Dose: 325 mg Sodium Chloride () 1,000 mls @ 15 mls/hr IV .Q48H DAX PRN Reason: KVO Insulin Glargine (Lantus (Bkc)) 74 units SC DAILY [facility] Last Admin: 05/26/18 13:51 Dose: 74 units Insulin Human Lispro (Humalog Kwikpen (Bkc)) 0 unit SC TIDAC DAX PRN Reason: Protocol Last Admin: 05/26/18 13:51 Dose: 2 units Lorazepam (Ativan) 1 mg PO Q8H PRN PRN PRN Reason: ANXIETY Last Admin: 05/26/18 06:47 Dose: 1 mg Melatonin (Melatonin) 5 mg PO QHS [facility] Last Admin: 05/25/18 23:51 Dose: 5 mg Metoprolol Succinate (Toprol Xl (Beta Kris)) 12.5 mg PO DAILY [facility] Last Admin: 05/26/18 11:57 Dose: 12.5 mg Montelukast Sodium (Singulair) 10 mg PO DAILY [facility] Last Admin: 05/26/18 09:13 Dose: 10 mg Morphine Sulfate () 1 mg IV Q4H PRN PRN PRN Reason: SEVERE PAIN (6-10/10) Last Admin: 05/24/18 12:17 Dose: 1 mg Oxycodone HCl (Oxyir) 5 - 10 mg PO Q4H PRN PRN PRN Reason: SEVERE PAIN (6-1010) Last Admin: 05/26/18 03:03 Dose: 10 mg Pantoprazole Sodium (Protonix) 40 mg PO DAILY [facility] Last Admin: 05/26/18 09:12 Dose: 40 mg Polyethylene Glycol (Miralax) 17 gm PO DAILY PRN PRN Reason: Constipation Pravastatin Sodium (Pravachol) 20 mg PO QHS [facility] Last Admin: 05/25/18 23:52 Dose: 20 mg Senna/Docusate Sodium (Senokot-S, Sharda-Colace) 2 tablet PO BID [facility] Last Admin: 05/26/18 09:12 Dose: Not Given Sodium Chloride () 5 - 30 ml IV UD PRN PRN Reason: SALINE FLUSH Last Admin: 05/26/18 09:09 Dose: 10 ml Tadalafil (Cialis) 40 mg PO DAILY [facility] Last Admin: 05/26/18 09:11 Dose: 40 mg Medical Necessity - Tobacco Use Smoking Status: Never smoker Tobacco Use: Non-smoker, Secondhand Assessment/Plan 67 year old F with past medical history of metastatic breast cancer, recently diagnosed with bilateral pulmonary emboli, was on Eliquis comes in with worsening SOB. 1. Acute respiratory failure superimposed on chronic respiratory failure with hypoxia due to bilateral pleural effusions, s/p thoracocentesis, remains on home 3L oxygen, will continue with breathing treatments prn 2. Bilateral pleural effusions, s/p right thoracocentesis, likely malignant, fluid analysis show fluid LDH/serum LDH ratio of 1, fluid ptn/serum ptn ratio>1, pulmonology consulted and following, 3. Recently diagnosed pulmonary emboli/bilateral lower extremity DVT, on eliquis, was taken off for liver biopsy, will resume Lovenox in am 4. Metastatic breast cancer, status post lumpectomy, on Faslodex injections monthly. 5. Pulmonary hypertension, on Tadalafil. 6. NSTEMI, likely secondary to demand ischemia, in patient with CAD status post stents, no active intervention planned, 2d-echo shows normal EF. 7. Hypertension, controlled, on Losartan and Metoprolol. 8.Type 2 diabetes mellitus, BS are uncontrolled, off on metformin, continue on insulin, continue on ISS. 9. COPD without exacerbation, stable 10. Acute on chronic Anemia of chronic disease, HB is 7.8, likely also secondary to hemodilution, labs in am. 11. DVT PPx - on therapeutic heparin Code Visit Inpatient E&M: 92903 Subs Hosp L2
--- NOTE | 2018-05-26 16:49 | PN_ITS ---
Vitals/I&O's: Vital Signs Temp Pulse Resp BP Pulse Ox 98.0 F 72 20 H 172/66 H 92 05/26/18 13:52 05/26/18 13:52 05/26/18 13:52 05/26/18 13:52 05/26/18 13:52 Oxygen Flow Rate (L/min) [5] 15 Oxygen Flow Rate (L/min) [4] 15 Oxygen Flow Rate (L/min) [3] 15 Oxygen Flow Rate (L/min) [2] 15 Oxygen Flow Rate (L/min) [1 ( 15 Initial Baseline)] Oxygen Flow Rate (L/min) 3 Oxygen Delivery Method [6] Non-Rebreather Oxygen Delivery Method [5] Non-Rebreather Oxygen Delivery Method [4] Non-Rebreather Oxygen Delivery Method [3] Non-Rebreather Oxygen Delivery Method [2] Non-Rebreather Oxygen Delivery Method [1 ( Non-Rebreather Initial Baseline)] Oxygen Delivery Method Nasal Cannula Weight: 111.3 kg Body Mass Index (BMI) 47.9 Intake and Output for Last 24 Hours 05/24/18 05/25/18 05/26/18 23:59 23:59 23:59 Intake Total 1139.7 / 1139.7 2377 / 2377 100 / 100 Balance 1139.7 / 1139.7 2377 / 2377 100 / 100 General: Alert, Oriented x3, Cooperative, - - In moderate respiratory distress, using his CPAP HEENT: Atraumatic, PERRLA, EOMI, Normocephalic Oral: Moist Mucosa Neck: Supple Lungs: Diminished, Rhonchi Cardiovascular: Regular rate, Regular Rhythm, Normal S1, Normal S2, No murmurs Abdomen: Bowel Sounds Present, Soft, Non-Distended, Tender - Right upper quadrant tenderness Extremities: No edema Skin: No rashes, No breakdown Musculoskeletal: No Tenderness to Palpation of Joints or Extremities Lymphatic: No Cervical, Supraclavicular, or Inguinal Adenopathy Neurological: Cranial nerves II-XII grossly intact Psych/Mental Status: Normal Affect, Appropriate Microbiology Past 72 Hours 05/23/18 Unknown Fluid - Pleural (Lung) Gram Stain - Final 05/23/18 Unknown Fluid - Pleural (Lung) Body Fluid Culture - Final No growth aerobically. 05/23/18 Unknown Fluid - Pleural (Lung) Anaerobic Culture - Preliminary No anaerobic bacteria isolated. Laboratory Results 05/25/18 16:48: POC Glucose 214 H 05/25/18 23:50: POC Glucose 261 H 05/26/18 06:08: PT 14.7, INR 1.2, APTT 48.9 H 05/26/18 06:42: POC Glucose 244 H 05/26/18 12:39: POC Glucose 219 H Current Medications Acetaminophen (Tylenol) 650 mg PO Q6H PRN PRN PRN Reason: PAIN Last Admin: 05/24/18 07:34 Dose: 650 mg Albuterol Sulfate (Ventolin Aerosols) 2.5 mg INHALATION Q4H PRN PRN Reason: ASTHMA Last Admin: 05/25/18 15:49 Dose: 2.5 mg Albuterol Sulfate (Ventolin Aerosols) 2.5 mg INHALATION Q6HWA.RT [facility] Last Admin: 05/26/18 12:08 Dose: 2.5 mg Amlodipine Besylate (Norvasc) 5 mg PO DAILY DAX Budesonide (Pulmicort Aerosol) 0.5 mg INHALATION Q12H.RT [facility] Last Admin: 05/26/18 07:02 Dose: 0.5 mg Bupropion HCl (Wellbutrin Xl) 150 mg PO DAILY [facility] Last Admin: 05/26/18 09:13 Dose: 150 mg Donepezil HCl (Aricept) 5 mg PO DAILY [facility] Last Admin: 05/26/18 09:10 Dose: 5 mg Escitalopram Oxalate (Lexapro) 20 mg PO DAILY [facility] Last Admin: 05/26/18 09:11 Dose: 20 mg Ferrous Sulfate (Ferrous Sulfate) 325 mg PO BIDCM [facility] Last Admin: 05/26/18 09:10 Dose: 325 mg Sodium Chloride () 1,000 mls @ 15 mls/hr IV .Q48H DAX PRN Reason: KVO Insulin Glargine (Lantus (Bkc)) 74 units SC DAILY [facility] Last Admin: 05/26/18 13:51 Dose: 74 units Insulin Human Lispro (Humalog Kwikpen (Bkc)) 0 unit SC TIDAC DAX PRN Reason: Protocol Last Admin: 05/26/18 13:51 Dose: 2 units Lorazepam (Ativan) 1 mg PO Q8H PRN PRN PRN Reason: ANXIETY Last Admin: 05/26/18 06:47 Dose: 1 mg Melatonin (Melatonin) 5 mg PO QHS [facility] Last Admin: 05/25/18 23:51 Dose: 5 mg Metoprolol Succinate (Toprol Xl (Beta Kris)) 12.5 mg PO DAILY [facility] Last Admin: 05/26/18 11:57 Dose: 12.5 mg Montelukast Sodium (Singulair) 10 mg PO DAILY [facility] Last Admin: 05/26/18 09:13 Dose: 10 mg Morphine Sulfate () 1 mg IV Q4H PRN PRN PRN Reason: SEVERE PAIN (6-10/10) Last Admin: 05/24/18 12:17 Dose: 1 mg Oxycodone HCl (Oxyir) 5 - 10 mg PO Q4H PRN PRN PRN Reason: SEVERE PAIN (6-1010) Last Admin: 05/26/18 03:03 Dose: 10 mg Pantoprazole Sodium (Protonix) 40 mg PO DAILY [facility] Last Admin: 05/26/18 09:12 Dose: 40 mg Polyethylene Glycol (Miralax) 17 gm PO DAILY PRN PRN Reason: Constipation Pravastatin Sodium (Pravachol) 20 mg PO QHS [facility] Last Admin: 05/25/18 23:52 Dose: 20 mg Senna/Docusate Sodium (Senokot-S, Sharda-Colace) 2 tablet PO BID [facility] Last Admin: 05/26/18 09:12 Dose: Not Given Sodium Chloride () 5 - 30 ml IV UD PRN PRN Reason: SALINE FLUSH Last Admin: 05/26/18 09:09 Dose: 10 ml Tadalafil (Cialis) 40 mg PO DAILY [facility] Last Admin: 05/26/18 09:11 Dose: 40 mg Medical Necessity - Tobacco Use Smoking Status: Never smoker Tobacco Use: Non-smoker, Secondhand Assessment/Plan 67 year old F with past medical history of metastatic breast cancer, recently diagnosed with bilateral pulmonary emboli, was on Eliquis comes in with worsening SOB. 1. Acute respiratory failure superimposed on chronic respiratory failure with hypoxia due to bilateral pleural effusions, s/p thoracocentesis, remains on home 3L oxygen, will continue with breathing treatments prn 2. Bilateral pleural effusions, s/p right thoracocentesis, likely malignant, fluid analysis show fluid LDH/serum LDH ratio of 1, fluid ptn/serum ptn ratio>1 , pulmonology consulted and following, 3. Recently diagnosed pulmonary emboli/bilateral lower extremity DVT, on eliquis, was taken off for liver biopsy, will resume Lovenox in am 4. Metastatic breast cancer, status post lumpectomy, on Faslodex injections monthly. 5. Pulmonary hypertension, on Tadalafil. 6. NSTEMI, likely secondary to demand ischemia, in patient with CAD status post stents, no active intervention planned, 2d-echo shows normal EF. 7. Hypertension, controlled, on Losartan and Metoprolol. 8.Type 2 diabetes mellitus, BS are uncontrolled, off on metformin, continue on insulin, continue on ISS. 9. COPD without exacerbation, stable 10. Acute on chronic Anemia of chronic disease, HB is 7.8, likely also secondary to hemodilution, labs in am. 11. DVT PPx - on therapeutic heparin Code Visit Inpatient E&M: 44022 Subs Hosp L2
[2018-05-26 17:00] LABS: Bedside Glucose 262 mg/dL (70-110)
[2018-05-26] MEDS: amLODIPine 5 MG Tablet PO (18:03)
--- NOTE | 2018-05-26 18:06 | NURSING ---
Pt would like us to contact Su Diamond, , with any changes. Okay to share information with.
[2018-05-26] MEDS: Ipratropium/Albuterol Sulfate 3 ML AMPUL.NEB INHALATION (20:05)
--- NOTE | 2018-05-26 20:10 | RAD_ITS ---
STUDY: X-RAY CHEST REASON FOR EXAM: Female, 67 years old. ET tube placement TECHNIQUE: Single AP portable view of the chest. COMPARISON: 05/26/2018 FINDINGS: ET tube has been placed with its tip terminating roughly 4.6 and recent prior. Enteric tube in the stomach. Stable right subclavian central venous catheter. Slightly worsening diffuse patchy airspace disease and interstitial edema. Stable blunting of the right costophrenic angle. Remainder is unchanged RAD/Chest 1 View (Portable) IMPRESSION: Appropriate ET tube and enteric tube. Worsening diffuse patchy airspace disease/CHF Electronically Signed: Gordo Boyer DO at 20:45 EDT Tel , Service support ,
[2018-05-26 20:16] LABS: Allen Test POS; Base Excess -6 mmol/L (-2 to +2); Bicarbonate 22.9 mmol/L (22-26); Blood Gas Specimen Type ART; FI02 100; Mode A-C; O2 Delivery Device Vent; PEEP 5; PO2 148 mmHG (75-100); RR 14; SITE R Radial; SO2 98 % (95-99); Time Given 2000; Total Carbon Dioxide 25 mmol/L; Vt 450; pCO2 65.5 mmHg (35-45); pH 7.15 (7.35-7.45)
[2018-05-26 20:28] LABS: Absolute Lymphocyte Count 1.51 X10^3/ul (0.83-4.51); Absolute Neutrophil Count 11.5 X10^3/uL (2.0-7.7); Basophil# 0.04 X10^3/uL; Basophil% 0.3 % (0-1); Eosinophil# 0.07 X10^3/uL; Eosinophils% 0.5 % (0-5); Hematocrit 25.3 % (37-47); Hemoglobin 7.8 g/dl (12.0-15.0); Lymphocyte # 1.51 X10^3/ul (4.0); Lymphocyte % 10.2 % (19-41); Mean Corp Hgb Conc 30.8 g/gl (32-36); Mean Corpuscular Hgb 25.8 pg (27.0-32.0); Mean Corpuscular Volume 83.8 fL (81-99); Monocyte% 10.1 % (0-10); Neutrophil # 11.51 X10^3/uL (2.7-7.7); Neutrophil % 77.6 % (47-70); Platelet Count 220 K/mm3 (150-450); RBC Distribution Width CV 13.9 % (11.6-14.6); RBC Distribution Width SD 42.4 fl (35.1-43.9); Red Blood Count 3.02 M/mm3 (4.2-5.4); White Blood Count 14.8 K/mm3 (4.4-11.0)
[2018-05-26 20:30] LABS: POSITIVE COUNT NO; POSITIVE DIFFERENTIAL NO; POSITIVE MORPHOLOGY NO
[2018-05-26 20:32] LABS: International Normalized Ratio 1.4; Prothrombin Time (Protime)PT. 17.6 SECONDS (11.7-14.9)
[2018-05-26 20:46] LABS: ALB/GLOB Ratio 0.7 RATIO (0.9-2.4); AST(SGOT) 41 U/L (15-37); Alanine Aminotransfer ALT/SGPT 38 U/L (13-56); Albumin, Serum 2.7 g/dL (3.2-5.0); Alkaline Phosphatase 213 U/L (45-117); Anion Gap 12 (5-15); BUN 41 mg/dL (7-18); BUN/Creat Ratio 28.9 RATIO (10-20); Calcium,Total 7.8 mg/dL (8.5-10.1); Chloride 94 mmol/L (98-107); Creatinine, Serum 1.42 mg/dL (0.55-1.02); EST Glomerular Filtration Rate 39 mL/min (>60); Est Glom Filt Rate - Afr Amer 47 mL/min (>60); Estimated Creatinine Clearance 27.24 ml/min; Globulin 3.8 g/dL (2.2-4.2); Glucose 332 mg/dL (74-106); Potassium 5.5 mmol/L (3.5-5.1); Protein, Total 6.5 g/dL (6.4-8.2); Sodium Level 129 mmol/L (136-145)
--- NOTE | 2018-05-26 20:47 | PCM.PN.HOSP ---
Vitals/I&O's: Vital Signs Temp Pulse Resp BP Pulse Ox 97.6 F L 64 20 H 155/51 H 92 05/26/18 18:00 05/26/18 19:21 05/26/18 18:00 05/26/18 18:00 05/26/18 18:00 Oxygen Flow Rate (L/min) [5] 15 Oxygen Flow Rate (L/min) [4] 15 Oxygen Flow Rate (L/min) [3] 15 Oxygen Flow Rate (L/min) [2] 15 Oxygen Flow Rate (L/min) [1 ( 15 Initial Baseline)] Oxygen Flow Rate (L/min) 3 Oxygen Delivery Method [6] Non-Rebreather Oxygen Delivery Method [5] Non-Rebreather Oxygen Delivery Method [4] Non-Rebreather Oxygen Delivery Method [3] Non-Rebreather Oxygen Delivery Method [2] Non-Rebreather Oxygen Delivery Method [1 ( Non-Rebreather Initial Baseline)] Oxygen Delivery Method Nasal Cannula Weight: 245 lb 5.992 oz Body Mass Index (BMI) 47.9 Intake and Output for Last 24 Hours 05/24/18 05/25/18 05/26/18 23:59 23:59 23:59 Intake Total 1139.7 / 1139.7 2377 / 2377 340 / 340 Balance 1139.7 / 1139.7 2377 / 2377 340 / 340 Lungs: Normal air movement, Wheezes Cardiovascular: Regular rate, Normal S1, Normal S2 Abdomen: Obese Extremities: No edema Skin: No rashes, - - right upper chest bruise Neurological: - - unresponsive Microbiology Past 72 Hours 05/23/18 Unknown Fluid - Pleural (Lung) Gram Stain - Final 05/23/18 Unknown Fluid - Pleural (Lung) Body Fluid Culture - Final No growth aerobically. 05/23/18 Unknown Fluid - Pleural (Lung) Anaerobic Culture - Preliminary No anaerobic bacteria isolated. Laboratory Results 05/25/18 23:50: POC Glucose 261 H 05/26/18 06:08: PT 14.7, INR 1.2, APTT 48.9 H 05/26/18 06:42: POC Glucose 244 H 05/26/18 12:39: POC Glucose 219 H 05/26/18 16:54: POC Glucose 262 H 05/26/18 20:03: Specimen Type ART, Sample Site R Radial, pH 7.15 L*, Bicarbonate Actual 22.9, POC Total CO2 25, Base Excess -6 L, O2 Saturation 98, O2 % 100, ABG pCO2 65.5 H, ABG pO2 148 H, Raffy Test POS, Respiration Rate 14, O2 Delivery Device Vent, Vent Mode A-C, Tidal Volume 450, POC PEEP 5, Blood Gas Notified Whom CB BARRON, Blood Gas Notified Time 199905/26/18 20:10: WBC 14.8 H, RBC 3.02 L, Hgb 7.8 L, Hct 25.3 L, MCV 83.8, MCH 25.8 L, MCHC 30.8 L, RDW 13.9, RDW Differential 42.4, Plt Count 220, MPV 10.0, Immature Gran % (Auto) 1.300 H, Neut % (Auto) 77.6 H, Lymph % (Auto) 10.2 L, [place] % (Auto) 10.1 H, Eos % (Auto) 0.5, Baso % (Auto) 0.3, Absolute Neuts (auto) 11.5 H, Absolute Lymphs (auto) 1.51, Total Counted Not Reportable 05/26/18 20:10: PT 17.6 H, INR 1.4 05/26/18 20:10: Sodium 129 L, Potassium 5.5 H, Chloride 94 L, Carbon Dioxide 23.0, Anion Gap 12, BUN 41 H, Creatinine 1.42 H, Estim Creat Clear Calc 27.24, Est GFR (MDRD) Af Amer 47 L, Est GFR (MDRD) Non-Af 39 L, BUN/Creatinine Ratio 28.9 H, Glucose 332 H, Calcium 7.8 L, Total Bilirubin 0.40, AST 41 H, ALT 38, Alkaline Phosphatase 213 H, Total Protein 6.5, Albumin 2.7 L, Globulin 3.8, Albumin/Globulin Ratio 0.7 L 05/26/18 20:10: Lactic Acid Pending Current Medications Albuterol Sulfate (Ventolin Aerosols) 2.5 mg INHALATION Q4H PRN PRN Reason: ASTHMA Last Admin: 05/25/18 15:49 Dose: 2.5 mg Albuterol Sulfate (Ventolin Aerosols) 2.5 mg INHALATION Q6HWA.RT DAX Last Admin: 05/26/18 12:08 Dose: 2.5 mg Tadalafil (Cialis) 40 mg PO DAILY DAX Last Admin: 05/26/18 09:11 Dose: 40 mg Medical Necessity - Tobacco Use Smoking Status: Never smoker Tobacco Use: Non-smoker, Secondhand Assessment/Plan Status post full arrest code blue called CPR initiated immediately I arrived with Dr Hartman CPR already ongoing. Intubated with 7.0 ET tube and respiratory therapy maintained the secured airway IV access was not present initially therefore two doses of epinephrine were double the IV dose and placed in the ET tube once Iv access was establish and time elapsed for 3rd epinephrine was given. CPR continued the whole time then an amp if sodium bicarb was given and one minute later a spontaneous rhythm and pulse resumed. Stat ekg revealed underlying a fib with st depression in V4,V5 pt transferred to ICU Labs, xray taken to confirm tube placement additional IV site placed mech vent ac 14 /450 FiO2 70%(she was breathing over the vent) heart rate 80s and irregular spoke with son Daniel on phone power of civil litigation attorney and after lengthy discussion agree to DNR-CCA he is driving in 5.5 hrs away sister updated by me as well and daughter Code Visit Procedures: 59904 Critial Care 1st Hr
[2018-05-26 21:14] LABS: Mucous, Urine 0 SEEN /hpf (<or=2+)
[2018-05-26 21:25] LABS: Color, Urine Straw (Yellow); Glucose, Dipstick 1000 mg/dl (Normal); Ketone-Dipstick Negative (Negative); Leukocyte Esterase-Dipstick 100 /ul (Negative); Nitrite-Dipstick Negative (Negative); Occult Blood-Urine 250 /ul (Negative); Protein-Dipstick 500 mg/dl (Negative); Urine Bilirubin Dipstick Negative (Negative); Urine Clarity Cloudy (Clear); Urine Urobilinogen Normal (Normal)
[2018-05-26] MEDS: Propofol 10MG/Ml 1,000 MG/100 ML Bottle 3.339 MG CONT INF (21:34)
[2018-05-26] MEDS: Furosemide 20 MG/2 ML VIAL IV ×2 (21:35→23:34)
[2018-05-26 21:40] LABS: CPK Total, Creatine Kinase 195 U/L (26-192); Triglycerides 105 mg/dL
[2018-05-26 21:49] LABS: Red Blood Cells-Urine 50-100 SEEN /hpf (0-5); White Blood Cells 10-25 SEEN /hpf (0-5)
[2018-05-26 21:50] LABS: Bacteria 3+ /hpf (None Seen); Squamous Epithelial Cells - UA 0-5 SEEN /hpf (5-10)
[2018-05-26 21:51] LABS: Amorphous Sediment 2+
[2018-05-26 21:55] LABS: Bedside Glucose 290 mg/dL (70-110)
[2018-05-26] MEDS: Chlorhexidine 15 ML PO (22:00)
[2018-05-26] MEDS: hydrALAZINE 20 MG/ML Vial 10 MG IV (23:06)
[2018-05-26 23:11] LABS: Allen Test POS; Base Excess 2 mmol/L (-2 to +2); Bicarbonate 27.5 mmol/L (22-26); Blood Gas Specimen Type ART; FI02 70; Mode A-C; O2 Delivery Device Vent; PEEP 3; PO2 175 mmHG (75-100); RR 14; SITE L Radial; SO2 100 % (95-99); Time Given 2250; Total Carbon Dioxide 29 mmol/L; Vt 450; pCO2 47.3 mmHg (35-45); pH 7.37 (7.35-7.45)
[2018-05-27] VITALS (25 sets, daily range): BP systolic 110–188; BP diastolic 40–95; PULSE 81–107; RESP 14–35; TEMP 36.6–38.1; O2SAT 49–100
[2018-05-27 00:45] LABS: M R Staph aureus DNA By PCR Negative (Negative); Probe Check PASS; Specimen Processing Control PASS
[2018-05-27 06:14] LABS: Anion Gap 9 (5-15); BUN 43 mg/dL (7-18); BUN/Creat Ratio 30.9 RATIO (10-20); Chloride 94 mmol/L (98-107); Creatinine, Serum 1.39 mg/dL (0.55-1.02); EST Glomerular Filtration Rate 40 mL/min (>60); Est Glom Filt Rate - Afr Amer 48 mL/min (>60); Estimated Creatinine Clearance 27.82 ml/min; Glucose 277 mg/dL (74-106); Potassium 5.9 mmol/L (3.5-5.1); Sodium Level 131 mmol/L (136-145)
[2018-05-27] MEDS: Ipratropium/Albuterol Sulfate 3 ML AMPUL.NEB INHALATION (06:27)
[2018-05-27 06:35] LABS: Absolute Neutrophil Count 17.3 X10^3/uL (2.0-7.7); Basophil# 0.01 X10^3/uL; Basophil% 0.1 % (0-1); Eosinophil# 0.01 X10^3/uL; Eosinophils% 0.1 % (0-5); Hematocrit 24.4 % (37-47); Hemoglobin 7.5 g/dl (12.0-15.0); Lymphocyte % 5.2 % (19-41); Mean Corp Hgb Conc 30.7 g/gl (32-36); Mean Corpuscular Hgb 25.3 pg (27.0-32.0); Mean Corpuscular Volume 82.4 fL (81-99); Mean Platelet Vol. 10.6 fl (6.2-12.0); Monocyte# 0.91 X10^3/uL; Monocyte% 4.7 % (0-10); Neutrophil # 17.26 X10^3/uL (2.7-7.7); Neutrophil % 89.7 % (47-70); Platelet Count 204 K/mm3 (150-450); RBC Distribution Width SD 42.8 fl (35.1-43.9); Red Blood Count 2.96 M/mm3 (4.2-5.4); White Blood Count 19.2 K/mm3 (4.4-11.0)
[2018-05-27 06:38] LABS: Differential Indicated SCAN CRITERIA MET; POSITIVE COUNT YES; POSITIVE DIFFERENTIAL NO; POSITIVE MORPHOLOGY YES
--- NOTE | 2018-05-27 06:58 | PCM.PN.INT ---
Subjective: The patient was seen and examined at the bedside this morning. Events from the last 24 hours have been reviewed. The patient is currently afebrile, hemodynamically stable and maintaining appropriate oxygen saturations with an FiO2 requirement of 50%. Last evening, the patient experienced cardiac arrest. Per documentation, IV access was not present initially. Therefore, the first several doses of epinephrine were given via the endotracheal tube. The patient was also given 1 amp of sodium bicarbonate. Per account, there was a limited amount of downtime before spontaneous circulation was restored. Initial stat EKG revealed underlying atrial fibrillation with ST depression in the lateral precordial leads. Following a discussion with the patient's son, she was transitioned to DNR CCA, prior to her transfer to the medical intensive care unit. The patient has a history of metastatic left breast cancer, initially diagnosed in 2007. The patient has radiographic evidence of stable small pulmonary nodules, dating back to 2012. She was recently admitted to the hospital in mid-April for 3 days, during which time she was diagnosed with pulmonary emboli and started on Eliquis. The patient has an additional history of obstructive sleep apnea of unknown severity, for which she is currently prescribed nocturnal CPAP therapy. She also has reported asthma and pulmonary hypertension. She routinely follows with Dr. Ortiz. The patient was last evaluated by Dr. Ludwig of oncology at the end of April, during which time a CT abdomen/pelvis revealed new liver lesions concerning for metastatic/progressive disease. Objective: The patient's most recent lab work, culture data and imaging studies have all been personally reviewed. Upon presentation to the emergency department a CTA chest was obtained which revealed mild to moderate bilateral groundglass opacification along with a 1 cm right upper lobe lung nodule and a moderate right sized pleural effusion. The patient was subsequently referred to undergo an ultrasound-guided thoracentesis of the right hemithorax, which was completed on May 23. A total of 130 mL's of blood-tinged fluid was removed from the pleural space. Cultures have been negative to date. Although there was initial concern for potential malignancy, pleural fluid cytology was never ordered/sent. Surface echocardiogram completed on May 23 revealed evidence of stage I diastolic dysfunction with a preserved ejection fraction of 65%. Right ventricular systolic pressure was estimated to likely be normal. On May 26, the patient underwent a CT-guided percutaneous liver biopsy. General: - - Intubated and mechanically ventilated. Currently nonresponsive. HEENT: Atraumatic, Normocephalic, Sluggish Pupils Oral: No Gingival or Mucosal Lesions/ Ulcerations, - - Endotracheal and OG tubes in place Neck: Supple, No Nodes, Trachea Midline Lungs: No rhonchi, No wheeze, No rales, Diminished Cardiovascular: Normal S1, Normal S2, No murmurs, Tachycardic Abdomen: Soft, Non Tender, Hypoactive Bowel Sounds, Obese Extremities: No clubbing, No cyanosis, No edema Skin: No breakdown Musculoskeletal: No Muscle Wasting Lymphatic: No Cervical, Supraclavicular, or Inguinal Adenopathy Neurological: - - Nonresponsive to verbal and noxious stimulation. No sedation on board. However, the patient is currently overbreathing the set rate on the ventilator. Myoclonic jerking and intermittent posturing also noted. Vital Signs Temp Pulse Resp BP Pulse Ox 98.9 F 82 21 H 150/67 H 100 05/27/18 03:00 05/27/18 06:00 05/27/18 06:00 05/27/18 06:00 05/27/18 06:00 Oxygen Flow Rate (L/min) [5] 15 Oxygen Flow Rate (L/min) [4] 15 Oxygen Flow Rate (L/min) [3] 15 Oxygen Flow Rate (L/min) [2] 15 Oxygen Flow Rate (L/min) [1 ( 15 Initial Baseline)] Oxygen Flow Rate (L/min) 3 Oxygen Delivery Method [6] Non-Rebreather Oxygen Delivery Method [5] Non-Rebreather Oxygen Delivery Method [4] Non-Rebreather Oxygen Delivery Method [3] Non-Rebreather Oxygen Delivery Method [2] Non-Rebreather Oxygen Delivery Method [1 ( Non-Rebreather Initial Baseline)] Oxygen Delivery Method Mechanical Ventilator Weight: 261 lb 7.492 oz Body Mass Index (BMI) 47.9 Intake and Output for Last 24 Hours 05/25/18 05/26/18 05/27/18 23:59 23:59 23:59 Intake Total 2377 / 2377 340 / 340 493 / 493 Output Total 145 / 145 Balance 2377 / 2377 340 / 340 348 / 348 Labs (Last 48 Hours) 05/25/18 05/25/18 05/25/18 06:45 06:45 11:28 WBC 9.2 RBC 3.04 L Hgb 7.8 L Hct 25.4 L MCV 83.6 MCH 25.7 L MCHC 30.7 L RDW 13.7 RDW Differential 40.3 Plt Count 198 MPV 10.5 Immature Gran % (Auto) 0.300 Neut % (Auto) 75.2 H Lymph % (Auto) 7.9 L [place] % (Auto) 11.9 H Eos % (Auto) 4.4 Baso % (Auto) 0.3 Absolute Neuts (auto) 6.9 Absolute Lymphs (auto) 0.73 L Total Counted Not Reportable PT INR APTT Specimen Type Sample Site pH Bicarbonate Actual POC Total CO2 Base Excess O2 Saturation O2 % ABG pCO2 ABG pO2 Raffy Test Respiration Rate O2 Delivery Device Minute Volume Vent Mode Tidal Volume POC PEEP Blood Gas Notified Whom Blood Gas Notified Time Sodium 132 L Potassium 5.1 Chloride 95 L Carbon Dioxide 28.0 Anion Gap 9 BUN 37 H Creatinine 1.34 H Estim Creat Clear Calc 28.86 Est GFR (MDRD) Af Amer 50 L Est GFR (MDRD) Non-Af 42 L BUN/Creatinine Ratio 27.6 H Glucose 201 H Lactic Acid Calcium 8.3 L Total Bilirubin AST ALT Alkaline Phosphatase Total Creatine Kinase Troponin I Total Protein Albumin Globulin Albumin/Globulin Ratio Triglycerides Urine Color Urine Clarity Urine pH Ur Specific [place] Urine Protein Urine Glucose (UA) Urine Ketones Urine Occult Blood Urine Nitrite Urine Bilirubin Urine Urobilinogen Ur Leukocyte Esterase Urine RBC Urine WBC Ur Squamous Epith Cells Amorphous Sediment Urine Bacteria Urine Mucus MRSA (PCR) POC Glucose 322 H 05/25/18 05/25/18 05/26/18 16:48 23:50 06:08 WBC RBC Hgb Hct MCV MCH MCHC RDW RDW Differential Plt Count MPV Immature Gran % (Auto) Neut % (Auto) Lymph % (Auto) [place] % (Auto) Eos % (Auto) Baso % (Auto) Absolute Neuts (auto) Absolute Lymphs (auto) Total Counted PT 14.7 INR 1.2 APTT 48.9 H Specimen Type Sample Site pH Bicarbonate Actual POC Total CO2 Base Excess O2 Saturation O2 % ABG pCO2 ABG pO2 Raffy Test Respiration Rate O2 Delivery Device Minute Volume Vent Mode Tidal Volume POC PEEP Blood Gas Notified Whom Blood Gas Notified Time Sodium Potassium Chloride Carbon Dioxide Anion Gap BUN Creatinine Estim Creat Clear Calc Est GFR (MDRD) Af Amer Est GFR (MDRD) Non-Af BUN/Creatinine Ratio Glucose Lactic Acid Calcium Total Bilirubin AST ALT Alkaline Phosphatase Total Creatine Kinase Troponin I Total Protein Albumin Globulin Albumin/Globulin Ratio Triglycerides Urine Color Urine Clarity Urine pH Ur Specific [place] Urine Protein Urine Glucose (UA) Urine Ketones Urine Occult Blood Urine Nitrite Urine Bilirubin Urine Urobilinogen Ur Leukocyte Esterase Urine RBC Urine WBC Ur Squamous Epith Cells Amorphous Sediment Urine Bacteria Urine Mucus MRSA (PCR) POC Glucose 214 H 261 H 05/26/18 05/26/18 05/26/18 06:42 12:39 16:54 WBC RBC Hgb Hct MCV MCH MCHC RDW RDW Differential Plt Count MPV Immature Gran % (Auto) Neut % (Auto) Lymph % (Auto) [place] % (Auto) Eos % (Auto) Baso % (Auto) Absolute Neuts (auto) Absolute Lymphs (auto) Total Counted PT INR APTT Specimen Type Sample Site pH Bicarbonate Actual POC Total CO2 Base Excess O2 Saturation O2 % ABG pCO2 ABG pO2 Raffy Test Respiration Rate O2 Delivery Device Minute Volume Vent Mode Tidal Volume POC PEEP Blood Gas Notified Whom Blood Gas Notified Time Sodium Potassium Chloride Carbon Dioxide Anion Gap BUN Creatinine Estim Creat Clear Calc Est GFR (MDRD) Af Amer Est GFR (MDRD) Non-Af BUN/Creatinine Ratio Glucose Lactic Acid Calcium Total Bilirubin AST ALT Alkaline Phosphatase Total Creatine Kinase Troponin I Total Protein Albumin Globulin Albumin/Globulin Ratio Triglycerides Urine Color Urine Clarity Urine pH Ur Specific [place] Urine Protein Urine Glucose (UA) Urine Ketones Urine Occult Blood Urine Nitrite Urine Bilirubin Urine Urobilinogen Ur Leukocyte Esterase Urine RBC Urine WBC Ur Squamous Epith Cells Amorphous Sediment Urine Bacteria Urine Mucus MRSA (PCR) POC Glucose 244 H 219 H 262 H 05/26/18 05/26/18 05/26/18 19:29 20:03 20:10 WBC 14.8 H RBC 3.02 L Hgb 7.8 L Hct 25.3 L MCV 83.8 MCH 25.8 L MCHC 30.8 L RDW 13.9 RDW Differential 42.4 Plt Count 220 MPV 10.0 Immature Gran % (Auto) 1.300 H Neut % (Auto) 77.6 H Lymph % (Auto) 10.2 L [place] % (Auto) 10.1 H Eos % (Auto) 0.5 Baso % (Auto) 0.3 Absolute Neuts (auto) 11.5 H Absolute Lymphs (auto) 1.51 Total Counted Not Reportable PT INR APTT Specimen Type ART Sample Site R Radial pH 7.15 L* Bicarbonate Actual 22.9 POC Total CO2 25 Base Excess -6 L O2 Saturation 98 O2 % 100 ABG pCO2 65.5 H ABG pO2 148 H Raffy Test POS Respiration Rate 14 O2 Delivery Device Vent Minute Volume Vent Mode A-C Tidal Volume 450 POC PEEP 5 Blood Gas Notified Whom [facility] Blood Gas Notified Time 2000 Sodium Potassium Chloride Carbon Dioxide Anion Gap BUN Creatinine Estim Creat Clear Calc Est GFR (MDRD) Af Amer Est GFR (MDRD) Non-Af BUN/Creatinine Ratio Glucose Lactic Acid Calcium Total Bilirubin AST ALT Alkaline Phosphatase Total Creatine Kinase Troponin I Total Protein Albumin Globulin Albumin/Globulin Ratio Triglycerides Urine Color Urine Clarity Urine pH Ur Specific [place] Urine Protein Urine Glucose (UA) Urine Ketones Urine Occult Blood Urine Nitrite Urine Bilirubin Urine Urobilinogen Ur Leukocyte Esterase Urine RBC Urine WBC Ur Squamous Epith Cells Amorphous Sediment Urine Bacteria Urine Mucus MRSA (PCR) POC Glucose 290 H 05/26/18 05/26/18 05/26/18 20:10 20:10 20:10 WBC RBC Hgb Hct MCV MCH MCHC RDW RDW Differential Plt Count MPV Immature Gran % (Auto) Neut % (Auto) Lymph % (Auto) [place] % (Auto) Eos % (Auto) Baso % (Auto) Absolute Neuts (auto) Absolute Lymphs (auto) Total Counted PT 17.6 H INR 1.4 APTT Specimen Type Sample Site pH Bicarbonate Actual POC Total CO2 Base Excess O2 Saturation O2 % ABG pCO2 ABG pO2 Raffy Test Respiration Rate O2 Delivery Device Minute Volume Vent Mode Tidal Volume POC PEEP Blood Gas Notified Whom Blood Gas Notified Time Sodium 129 L Potassium 5.5 H Chloride 94 L Carbon Dioxide 23.0 Anion Gap 12 BUN 41 H Creatinine 1.42 H Estim Creat Clear Calc 27.24 Est GFR (MDRD) Af Amer 47 L Est GFR (MDRD) Non-Af 39 L BUN/Creatinine Ratio 28.9 H Glucose 332 H Lactic Acid Cancelled Calcium 7.8 L Total Bilirubin 0.40 AST 41 H ALT 38 Alkaline Phosphatase 213 H Total Creatine Kinase Troponin I Total Protein 6.5 Albumin 2.7 L Globulin 3.8 Albumin/Globulin Ratio 0.7 L Triglycerides Urine Color Urine Clarity Urine pH Ur Specific [place] Urine Protein Urine Glucose (UA) Urine Ketones Urine Occult Blood Urine Nitrite Urine Bilirubin Urine Urobilinogen Ur Leukocyte Esterase Urine RBC Urine WBC Ur Squamous Epith Cells Amorphous Sediment Urine Bacteria Urine Mucus MRSA (PCR) POC Glucose 05/26/18 05/26/18 05/26/18 20:10 20:10 21:00 WBC RBC Hgb Hct MCV MCH MCHC RDW RDW Differential Plt Count MPV Immature Gran % (Auto) Neut % (Auto) Lymph % (Auto) [place] % (Auto) Eos % (Auto) Baso % (Auto) Absolute Neuts (auto) Absolute Lymphs (auto) Total Counted PT INR APTT Specimen Type Sample Site pH Bicarbonate Actual POC Total CO2 Base Excess O2 Saturation O2 % ABG pCO2 ABG pO2 Raffy Test Respiration Rate O2 Delivery Device Minute Volume Vent Mode Tidal Volume POC PEEP Blood Gas Notified Whom Blood Gas Notified Time Sodium Potassium Chloride Carbon Dioxide Anion Gap BUN Creatinine Estim Creat Clear Calc Est GFR (MDRD) Af Amer Est GFR (MDRD) Non-Af BUN/Creatinine Ratio Glucose Lactic Acid Calcium Total Bilirubin AST ALT Alkaline Phosphatase Total Creatine Kinase 195 H Troponin I 0.123 H Total Protein Albumin Globulin Albumin/Globulin Ratio Triglycerides 105 Urine Color Urine Clarity Urine pH Ur Specific [place] Urine Protein Urine Glucose (UA) Urine Ketones Urine Occult Blood Urine Nitrite Urine Bilirubin Urine Urobilinogen Ur Leukocyte Esterase Urine RBC Urine WBC Ur Squamous Epith Cells Amorphous Sediment Urine Bacteria Urine Mucus MRSA (PCR) Negative POC Glucose 05/26/18 05/26/18 05/26/18 21:00 21:45 23:07 WBC RBC Hgb Hct MCV MCH MCHC RDW RDW Differential Plt Count MPV Immature Gran % (Auto) Neut % (Auto) Lymph % (Auto) [place] % (Auto) Eos % (Auto) Baso % (Auto) Absolute Neuts (auto) Absolute Lymphs (auto) Total Counted PT INR APTT Specimen Type ART Sample Site L Radial pH 7.37 Bicarbonate Actual 27.5 H POC Total CO2 29 Base Excess 2 O2 Saturation 100 H O2 % 70 ABG pCO2 47.3 H ABG pO2 175 H Rafyf Test POS Respiration Rate 14 O2 Delivery Device Vent Minute Volume 8.00 Vent Mode A-C Tidal Volume 450 POC PEEP 3 Blood Gas Notified Whom [facility] Blood Gas Notified Time 2250 Sodium Potassium Chloride Carbon Dioxide Anion Gap BUN Creatinine Estim Creat Clear Calc Est GFR (MDRD) Af Amer Est GFR (MDRD) Non-Af BUN/Creatinine Ratio Glucose Lactic Acid 2.0 Calcium Total Bilirubin AST ALT Alkaline Phosphatase Total Creatine Kinase Troponin I Total Protein Albumin Globulin Albumin/Globulin Ratio Triglycerides Urine Color Straw Urine Clarity Cloudy Urine pH 6.0 Ur Specific [place] 1.020 Urine Protein 500 H Urine Glucose (UA) 1000 H Urine Ketones Negative Urine Occult Blood 250 H Urine Nitrite Negative Urine Bilirubin Negative Urine Urobilinogen Normal Ur Leukocyte Esterase 100 H Urine RBC 50-100 SEEN Urine WBC 10-25 SEEN Ur Squamous Epith Cells 0-5 SEEN Amorphous Sediment 2+ Urine Bacteria 3+ Urine Mucus 0 SEEN MRSA (PCR) POC Glucose 05/27/18 05/27/18 05/27/18 00:00 02:25 04:25 WBC 19.2 H RBC 2.96 L Hgb 7.5 L Hct 24.4 L MCV 82.4 MCH 25.3 L MCHC 30.7 L RDW 14.0 RDW Differential 42.8 Plt Count 204 MPV 10.6 Immature Gran % (Auto) 0.200 Neut % (Auto) 89.7 H Lymph % (Auto) 5.2 L [place] % (Auto) 4.7 Eos % (Auto) 0.1 Baso % (Auto) 0.1 Absolute Neuts (auto) 17.3 H Absolute Lymphs (auto) 1.00 Total Counted Pending PT INR APTT Specimen Type Sample Site pH Bicarbonate Actual POC Total CO2 Base Excess O2 Saturation O2 % ABG pCO2 ABG pO2 Raffy Test Respiration Rate O2 Delivery Device Minute Volume Vent Mode Tidal Volume POC PEEP Blood Gas Notified Whom Blood Gas Notified Time Sodium Potassium Chloride Carbon Dioxide Anion Gap BUN Creatinine Estim Creat Clear Calc Est GFR (MDRD) Af Amer Est GFR (MDRD) Non-Af BUN/Creatinine Ratio Glucose Lactic Acid Calcium Total Bilirubin AST ALT Alkaline Phosphatase Total Creatine Kinase Troponin I 0.258 H 0.250 H Total Protein Albumin Globulin Albumin/Globulin Ratio Triglycerides Urine Color Urine Clarity Urine pH Ur Specific [place] Urine Protein Urine Glucose (UA) Urine Ketones Urine Occult Blood Urine Nitrite Urine Bilirubin Urine Urobilinogen Ur Leukocyte Esterase Urine RBC Urine WBC Ur Squamous Epith Cells Amorphous Sediment Urine Bacteria Urine Mucus MRSA (PCR) POC Glucose 05/27/18 04:25 WBC RBC Hgb Hct MCV MCH MCHC RDW RDW Differential Plt Count MPV Immature Gran % (Auto) Neut % (Auto) Lymph % (Auto) [place] % (Auto) Eos % (Auto) Baso % (Auto) Absolute Neuts (auto) Absolute Lymphs (auto) Total Counted PT INR APTT Specimen Type Sample Site pH Bicarbonate Actual POC Total CO2 Base Excess O2 Saturation O2 % ABG pCO2 ABG pO2 Raffy Test Respiration Rate O2 Delivery Device Minute Volume Vent Mode Tidal Volume POC PEEP Blood Gas Notified Whom Blood Gas Notified Time Sodium 131 L Potassium 5.9 H Chloride 94 L Carbon Dioxide 28.0 Anion Gap 9 BUN 43 H Creatinine 1.39 H Estim Creat Clear Calc 27.82 Est GFR (MDRD) Af Amer 48 L Est GFR (MDRD) Non-Af 40 L BUN/Creatinine Ratio 30.9 H Glucose 277 H Lactic Acid Calcium 8.0 L Total Bilirubin AST ALT Alkaline Phosphatase Total Creatine Kinase Troponin I Total Protein Albumin Globulin Albumin/Globulin Ratio Triglycerides Urine Color Urine Clarity Urine pH Ur Specific [place] Urine Protein Urine Glucose (UA) Urine Ketones Urine Occult Blood Urine Nitrite Urine Bilirubin Urine Urobilinogen Ur Leukocyte Esterase Urine RBC Urine WBC Ur Squamous Epith Cells Amorphous Sediment Urine Bacteria Urine Mucus MRSA (PCR) POC Glucose Microbiology 05/23/18 Unknown Fluid - Pleural (Lung) Gram Stain - Final 05/23/18 Unknown Fluid - Pleural (Lung) Body Fluid Culture - Final No growth aerobically. 05/23/18 Unknown Fluid - Pleural (Lung) Anaerobic Culture - Preliminary No anaerobic bacteria isolated. Clinical Impression(s) from Imaging Studies Chest X-Ray 05/23/18 10:27 IMPRESSION: Findings suggestive of a mild degree of CHF. Electronically Signed: Natan Gtz MD at 11:27 EDT Tel [phone], Service support , Chest CTA 05/23/18 11:40 IMPRESSION: CTA chest examination, without a demonstrated pulmonary embolism or arterial dissection. Improvement of previously noted filling defects and embolism. Bilateral infiltrates or edema. Right larger than left pleural effusions. Findings could represent congestive heart failure versus bilateral pneumonia. Right upper lung nodule. Electronically Signed: Bao Maher MD at 12:49 EDT , Service support , Thoracentesis Ultrasound 05/23/18 14:09 IMPRESSION: Ultrasound-guided right thoracentesis. Electronically Signed: Natan Gtz MD at 15:28 EDT Tel [phone], Service support , Chest X-Ray 05/23/18 14:49 IMPRESSION: Status post right thoracentesis. There is no evidence of pneumothorax. Electronically Signed: Natan Gtz MD at 15:15 EDT Tel [phone], Service support , Biopsy CT 05/26/18 08:19 IMPRESSION: 1. CT directed core needle biopsy of the liver, using CT image guidance with image documentation as described. 2. Conscious Sedation protocol utilized with independent monitoring. Electronically Signed: Natan Gtz MD at 12:17 EDT Tel [phone], Service support , Chest X-Ray 05/26/18 11:25 IMPRESSION: Elevation of the right hemidiaphragm. Increased interstitial markings in both lungs suggestive of mild vascular congestion and/or possible atelectasis. Follow-up is recommended. Electronically Signed: Natan Gtz MD at 12:40 EDT Tel [phone], Service support , Chest X-Ray 05/26/18 20:10 IMPRESSION: Appropriate ET tube and enteric tube. Worsening diffuse patchy airspace disease/CHF Electronically Signed: Gordo Boyer DO at 20:45 EDT Tel , Service support , Medical Necessity - Tobacco Use Smoking Status: Never smoker Tobacco Use: Non-smoker, Secondhand Assessment/Plan RECOMMENDATIONS: 1. Continue current supportive measures with mechanical ventilation. Okay from my perspective to start tube feeds. 2. Continue to hold all sedating medications. 3. Consider obtaining CT head, prior to restarting anticoagulation. 4. Start Pepcid and subcu heparin for prophylaxis 5. Await family arrival to discuss future goals of care/plan. IMPRESSIONS: 1. Acute on chronic hypoxemic respiratory failure The patient was recently discharged from the hospital on 2 L/min of supplemental oxygen in the setting of a newly diagnosed pulmonary embolism. Although the patient did have a right-sided pleural effusion noted on CTA chest obtained at presentation, a subsequent thoracentesis was completed without pleural fluid ever being sent for cytology. The patient does have evidence of stage I diastolic dysfunction noted on echocardiogram. On the evening of May 26, the patient experienced acute cardiopulmonary arrest, for which she received ACLS and was subsequently intubated. She was then transferred to the medical intensive care unit for ongoing management. Plan to continue current supportive measures with mechanical ventilation. Wean FiO2 as tolerated. Continue to withhold all sedating medications. 2. Status post cardiac arrest Unclear precipitating event for the patient's cardiac arrest. The patient does have a known history of coronary artery disease for which she is status post angioplasty in 2016. Cardiology is following. 3. Encephalopathy Given the patient's myoclonic jerks and lack of response to verbal and tactile stimulation, concern for underlying anoxic injury. Before any additional aggressive measures are undertaken, will discuss the patient's current clinical state with medical POA to formulate a goal for future care. 4. Personal history of metastatic breast cancer with known liver lesions concerning for disease recurrence The patient has a history of metastatic left breast cancer, initially diagnosed in 2007. The patient has radiographic evidence of stable small pulmonary nodules, dating back to 2012. The patient was last evaluated by Dr. Ludwig of oncology at the end of April, during which time a CT abdomen/pelvis revealed new liver lesions concerning for metastatic/progressive disease. Therefore, on May 26, the patient underwent percutaneous CT-guided liver biopsy. 5. Personal history of venous thrombolic disease She was recently admitted to the hospital in mid-April for 3 days, during which time she was diagnosed with pulmonary emboli and started on Eliquis. Her anticoagulation will remain on hold for now. 6. Acute kidney injury/troponin elevation/obstructive sleep apnea/asthma/pulmonary hypertension Complicates care, management, recovery and prognosis. Continue bronchodilators as ordered. Awaiting family discussion to discuss future goals of care/treatment plan. UPDATE: Following a discussion with the patient's family, including the medical POA, the decision has been made to proceed with initiation of comfort care measures, along with palliative withdrawal of life support. CODE STATUS was updated to include DNR comfort care. The patient was premedicated prior to removal of the endotracheal tube. As needed orders for morphine and Ativan were placed. The patient passed peacefully with her family at the bedside at approximately 1356 hrs. TIME: 80 minutes of critical care time, independent of procedures, was spent addressing the patient's acute on chronic respiratory failure, recent cardiac arrest, encephalopathy, acute kidney injury, troponin elevation, goals of care discussions, review of all data and collaboration with the care team. ([id number], [id number]) Code Visit Procedures: 88337 Critial Care Addl 30 Min 9xxxx: [id number] Critical care first hour
--- NOTE | 2018-05-27 07:03 | PN_ITS ---
Subjective: The patient was seen and examined at the bedside this morning. Events from the last 24 hours have been reviewed. The patient is currently afebrile, hemodynamically stable and maintaining appropriate oxygen saturations with an FiO2 requirement of 50%. Last evening, the patient experienced cardiac arrest. Per documentation, IV access was not present initially. Therefore, the first several doses of epinephrine were given via the endotracheal tube. The patient was also given 1 amp of sodium bicarbonate. Per account, there was a limited amount of downtime before spontaneous circulation was restored. Initial stat EKG revealed underlying atrial fibrillation with ST depression in the lateral precordial leads. Following a discussion with the patient's son, she was transitioned to DNR CCA, prior to her transfer to the medical intensive care unit. The patient has a history of metastatic left breast cancer, initially diagnosed in 2007. The patient has radiographic evidence of stable small pulmonary nodules, dating back to 2012. She was recently admitted to the hospital in mid- April for 3 days, during which time she was diagnosed with pulmonary emboli and started on Eliquis. The patient has an additional history of obstructive sleep apnea of unknown severity, for which she is currently prescribed nocturnal CPAP therapy. She also has reported asthma and pulmonary hypertension. She routinely follows with Dr. Ortiz. The patient was last evaluated by Dr. Ludwig of oncology at the end of April, during which time a CT abdomen/pelvis revealed new liver lesions concerning for metastatic/progressive disease. Objective: The patient's most recent lab work, culture data and imaging studies have all been personally reviewed. Upon presentation to the emergency department a CTA chest was obtained which revealed mild to moderate bilateral groundglass opacification along with a 1 cm right upper lobe lung nodule and a moderate right sized pleural effusion. The patient was subsequently referred to undergo an ultrasound-guided thoracentesis of the right hemithorax, which was completed on May 23. A total of 130 mL's of blood-tinged fluid was removed from the pleural space. Cultures have been negative to date. Although there was initial concern for potential malignancy, pleural fluid cytology was never ordered/sent. Surface echocardiogram completed on May 23 revealed evidence of stage I diastolic dysfunction with a preserved ejection fraction of 65%. Right ventricular systolic pressure was estimated to likely be normal. On May 26, the patient underwent a CT-guided percutaneous liver biopsy. General: - - Intubated and mechanically ventilated. Currently nonresponsive. HEENT: Atraumatic, Normocephalic, Sluggish Pupils Oral: No Gingival or Mucosal Lesions/ Ulcerations, - - Endotracheal and OG tubes in place Neck: Supple, No Nodes, Trachea Midline Lungs: No rhonchi, No wheeze, No rales, Diminished Cardiovascular: Normal S1, Normal S2, No murmurs, Tachycardic Abdomen: Soft, Non Tender, Hypoactive Bowel Sounds, Obese Extremities: No clubbing, No cyanosis, No edema Skin: No breakdown Musculoskeletal: No Muscle Wasting Lymphatic: No Cervical, Supraclavicular, or Inguinal Adenopathy Neurological: - - Nonresponsive to verbal and noxious stimulation. No sedation on board. However, the patient is currently overbreathing the set rate on the ventilator. Myoclonic jerking and intermittent posturing also noted. Vital Signs Temp Pulse Resp BP Pulse Ox 98.9 F 82 21 H 150/67 H 100 05/27/18 03:00 05/27/18 06:00 05/27/18 06:00 05/27/18 06:00 05/27/18 06:00 Oxygen Flow Rate (L/min) [5] 15 Oxygen Flow Rate (L/min) [4] 15 Oxygen Flow Rate (L/min) [3] 15 Oxygen Flow Rate (L/min) [2] 15 Oxygen Flow Rate (L/min) [1 ( 15 Initial Baseline)] Oxygen Flow Rate (L/min) 3 Oxygen Delivery Method [6] Non-Rebreather Oxygen Delivery Method [5] Non-Rebreather Oxygen Delivery Method [4] Non-Rebreather Oxygen Delivery Method [3] Non-Rebreather Oxygen Delivery Method [2] Non-Rebreather Oxygen Delivery Method [1 ( Non-Rebreather Initial Baseline)] Oxygen Delivery Method Mechanical Ventilator Weight: 261 lb 7.492 oz Body Mass Index (BMI) 47.9 Intake and Output for Last 24 Hours 05/25/18 05/26/18 05/27/18 23:59 23:59 23:59 Intake Total 2377 / 2377 340 / 340 493 / 493 Output Total 145 / 145 Balance 2377 / 2377 340 / 340 348 / 348 Labs (Last 48 Hours) 05/25/18 05/25/18 05/25/18 06:45 06:45 11:28 WBC 9.2 RBC 3.04 L Hgb 7.8 L Hct 25.4 L MCV 83.6 MCH 25.7 L MCHC 30.7 L RDW 13.7 RDW Differential 40.3 Plt Count 198 MPV 10.5 Immature Gran % (Auto) 0.300 Neut % (Auto) 75.2 H Lymph % (Auto) 7.9 L Patrick % (Auto) 11.9 H Eos % (Auto) 4.4 Baso % (Auto) 0.3 Absolute Neuts (auto) 6.9 Absolute Lymphs (auto) 0.73 L Total Counted Not Reportable PT INR APTT Specimen Type Sample Site pH Bicarbonate Actual POC Total CO2 Base Excess O2 Saturation O2 % ABG pCO2 ABG pO2 Raffy Test Respiration Rate O2 Delivery Device Minute Volume Vent Mode Tidal Volume POC PEEP Blood Gas Notified Whom Blood Gas Notified Time Sodium 132 L Potassium 5.1 Chloride 95 L Carbon Dioxide 28.0 Anion Gap 9 BUN 37 H Creatinine 1.34 H Estim Creat Clear Calc 28.86 Est GFR (MDRD) Af Amer 50 L Est GFR (MDRD) Non-Af 42 L BUN/Creatinine Ratio 27.6 H Glucose 201 H Lactic Acid Calcium 8.3 L Total Bilirubin AST ALT Alkaline Phosphatase Total Creatine Kinase Troponin I Total Protein Albumin Globulin Albumin/Globulin Ratio Triglycerides Urine Color Urine Clarity Urine pH Ur Specific [place] Urine Protein Urine Glucose (UA) Urine Ketones Urine Occult Blood Urine Nitrite Urine Bilirubin Urine Urobilinogen Ur Leukocyte Esterase Urine RBC Urine WBC Ur Squamous Epith Cells Amorphous Sediment Urine Bacteria Urine Mucus MRSA (PCR) POC Glucose 322 H 05/25/18 05/25/18 05/26/18 16:48 23:50 06:08 WBC RBC Hgb Hct MCV MCH MCHC RDW RDW Differential Plt Count MPV Immature Gran % (Auto) Neut % (Auto) Lymph % (Auto) Patrick % (Auto) Eos % (Auto) Baso % (Auto) Absolute Neuts (auto) Absolute Lymphs (auto) Total Counted PT 14.7 INR 1.2 APTT 48.9 H Specimen Type Sample Site pH Bicarbonate Actual POC Total CO2 Base Excess O2 Saturation O2 % ABG pCO2 ABG pO2 Raffy Test Respiration Rate O2 Delivery Device Minute Volume Vent Mode Tidal Volume POC PEEP Blood Gas Notified Whom Blood Gas Notified Time Sodium Potassium Chloride Carbon Dioxide Anion Gap BUN Creatinine Estim Creat Clear Calc Est GFR (MDRD) Af Amer Est GFR (MDRD) Non-Af BUN/Creatinine Ratio Glucose Lactic Acid Calcium Total Bilirubin AST ALT Alkaline Phosphatase Total Creatine Kinase Troponin I Total Protein Albumin Globulin Albumin/Globulin Ratio Triglycerides Urine Color Urine Clarity Urine pH Ur Specific [place] Urine Protein Urine Glucose (UA) Urine Ketones Urine Occult Blood Urine Nitrite Urine Bilirubin Urine Urobilinogen Ur Leukocyte Esterase Urine RBC Urine WBC Ur Squamous Epith Cells Amorphous Sediment Urine Bacteria Urine Mucus MRSA (PCR) POC Glucose 214 H 261 H 05/26/18 05/26/18 05/26/18 06:42 12:39 16:54 WBC RBC Hgb Hct MCV MCH MCHC RDW RDW Differential Plt Count MPV Immature Gran % (Auto) Neut % (Auto) Lymph % (Auto) Patrick % (Auto) Eos % (Auto) Baso % (Auto) Absolute Neuts (auto) Absolute Lymphs (auto) Total Counted PT INR APTT Specimen Type Sample Site pH Bicarbonate Actual POC Total CO2 Base Excess O2 Saturation O2 % ABG pCO2 ABG pO2 Raffy Test Respiration Rate O2 Delivery Device Minute Volume Vent Mode Tidal Volume POC PEEP Blood Gas Notified Whom Blood Gas Notified Time Sodium Potassium Chloride Carbon Dioxide Anion Gap BUN Creatinine Estim Creat Clear Calc Est GFR (MDRD) Af Amer Est GFR (MDRD) Non-Af BUN/Creatinine Ratio Glucose Lactic Acid Calcium Total Bilirubin AST ALT Alkaline Phosphatase Total Creatine Kinase Troponin I Total Protein Albumin Globulin Albumin/Globulin Ratio Triglycerides Urine Color Urine Clarity Urine pH Ur Specific [place] Urine Protein Urine Glucose (UA) Urine Ketones Urine Occult Blood Urine Nitrite Urine Bilirubin Urine Urobilinogen Ur Leukocyte Esterase Urine RBC Urine WBC Ur Squamous Epith Cells Amorphous Sediment Urine Bacteria Urine Mucus MRSA (PCR) POC Glucose 244 H 219 H 262 H 05/26/18 05/26/18 05/26/18 19:29 20:03 20:10 WBC 14.8 H RBC 3.02 L Hgb 7.8 L Hct 25.3 L MCV 83.8 MCH 25.8 L MCHC 30.8 L RDW 13.9 RDW Differential 42.4 Plt Count 220 MPV 10.0 Immature Gran % (Auto) 1.300 H Neut % (Auto) 77.6 H Lymph % (Auto) 10.2 L Patrick % (Auto) 10.1 H Eos % (Auto) 0.5 Baso % (Auto) 0.3 Absolute Neuts (auto) 11.5 H Absolute Lymphs (auto) 1.51 Total Counted Not Reportable PT INR APTT Specimen Type ART Sample Site R Radial pH 7.15 L* Bicarbonate Actual 22.9 POC Total CO2 25 Base Excess -6 L O2 Saturation 98 O2 % 100 ABG pCO2 65.5 H ABG pO2 148 H Raffy Test POS Respiration Rate 14 O2 Delivery Device Vent Minute Volume Vent Mode A-C Tidal Volume 450 POC PEEP 5 Blood Gas Notified Whom [facility] Blood Gas Notified Time 2000 Sodium Potassium Chloride Carbon Dioxide Anion Gap BUN Creatinine Estim Creat Clear Calc Est GFR (MDRD) Af Amer Est GFR (MDRD) Non-Af BUN/Creatinine Ratio Glucose Lactic Acid Calcium Total Bilirubin AST ALT Alkaline Phosphatase Total Creatine Kinase Troponin I Total Protein Albumin Globulin Albumin/Globulin Ratio Triglycerides Urine Color Urine Clarity Urine pH Ur Specific [place] Urine Protein Urine Glucose (UA) Urine Ketones Urine Occult Blood Urine Nitrite Urine Bilirubin Urine Urobilinogen Ur Leukocyte Esterase Urine RBC Urine WBC Ur Squamous Epith Cells Amorphous Sediment Urine Bacteria Urine Mucus MRSA (PCR) POC Glucose 290 H 05/26/18 05/26/18 05/26/18 20:10 20:10 20:10 WBC RBC Hgb Hct MCV MCH MCHC RDW RDW Differential Plt Count MPV Immature Gran % (Auto) Neut % (Auto) Lymph % (Auto) Patrick % (Auto) Eos % (Auto) Baso % (Auto) Absolute Neuts (auto) Absolute Lymphs (auto) Total Counted PT 17.6 H INR 1.4 APTT Specimen Type Sample Site pH Bicarbonate Actual POC Total CO2 Base Excess O2 Saturation O2 % ABG pCO2 ABG pO2 Raffy Test Respiration Rate O2 Delivery Device Minute Volume Vent Mode Tidal Volume POC PEEP Blood Gas Notified Whom Blood Gas Notified Time Sodium 129 L Potassium 5.5 H Chloride 94 L Carbon Dioxide 23.0 Anion Gap 12 BUN 41 H Creatinine 1.42 H Estim Creat Clear Calc 27.24 Est GFR (MDRD) Af Amer 47 L Est GFR (MDRD) Non-Af 39 L BUN/Creatinine Ratio 28.9 H Glucose 332 H Lactic Acid Cancelled Calcium 7.8 L Total Bilirubin 0.40 AST 41 H ALT 38 Alkaline Phosphatase 213 H Total Creatine Kinase Troponin I Total Protein 6.5 Albumin 2.7 L Globulin 3.8 Albumin/Globulin Ratio 0.7 L Triglycerides Urine Color Urine Clarity Urine pH Ur Specific [place] Urine Protein Urine Glucose (UA) Urine Ketones Urine Occult Blood Urine Nitrite Urine Bilirubin Urine Urobilinogen Ur Leukocyte Esterase Urine RBC Urine WBC Ur Squamous Epith Cells Amorphous Sediment Urine Bacteria Urine Mucus MRSA (PCR) POC Glucose 05/26/18 05/26/18 05/26/18 20:10 20:10 21:00 WBC RBC Hgb Hct MCV MCH MCHC RDW RDW Differential Plt Count MPV Immature Gran % (Auto) Neut % (Auto) Lymph % (Auto) Patrick % (Auto) Eos % (Auto) Baso % (Auto) Absolute Neuts (auto) Absolute Lymphs (auto) Total Counted PT INR APTT Specimen Type Sample Site pH Bicarbonate Actual POC Total CO2 Base Excess O2 Saturation O2 % ABG pCO2 ABG pO2 Raffy Test Respiration Rate O2 Delivery Device Minute Volume Vent Mode Tidal Volume POC PEEP Blood Gas Notified Whom Blood Gas Notified Time Sodium Potassium Chloride Carbon Dioxide Anion Gap BUN Creatinine Estim Creat Clear Calc Est GFR (MDRD) Af Amer Est GFR (MDRD) Non-Af BUN/Creatinine Ratio Glucose Lactic Acid Calcium Total Bilirubin AST ALT Alkaline Phosphatase Total Creatine Kinase 195 H Troponin I 0.123 H Total Protein Albumin Globulin Albumin/Globulin Ratio Triglycerides 105 Urine Color Urine Clarity Urine pH Ur Specific [place] Urine Protein Urine Glucose (UA) Urine Ketones Urine Occult Blood Urine Nitrite Urine Bilirubin Urine Urobilinogen Ur Leukocyte Esterase Urine RBC Urine WBC Ur Squamous Epith Cells Amorphous Sediment Urine Bacteria Urine Mucus MRSA (PCR) Negative POC Glucose 05/26/18 05/26/18 05/26/18 21:00 21:45 23:07 WBC RBC Hgb Hct MCV MCH MCHC RDW RDW Differential Plt Count MPV Immature Gran % (Auto) Neut % (Auto) Lymph % (Auto) Patrick % (Auto) Eos % (Auto) Baso % (Auto) Absolute Neuts (auto) Absolute Lymphs (auto) Total Counted PT INR APTT Specimen Type ART Sample Site L Radial pH 7.37 Bicarbonate Actual 27.5 H POC Total CO2 29 Base Excess 2 O2 Saturation 100 H O2 % 70 ABG pCO2 47.3 H ABG pO2 175 H Raffy Test POS Respiration Rate 14 O2 Delivery Device Vent Minute Volume 8.00 Vent Mode A-C Tidal Volume 450 POC PEEP 3 Blood Gas Notified Whom [facility] Blood Gas Notified Time 2250 Sodium Potassium Chloride Carbon Dioxide Anion Gap BUN Creatinine Estim Creat Clear Calc Est GFR (MDRD) Af Amer Est GFR (MDRD) Non-Af BUN/Creatinine Ratio Glucose Lactic Acid 2.0 Calcium Total Bilirubin AST ALT Alkaline Phosphatase Total Creatine Kinase Troponin I Total Protein Albumin Globulin Albumin/Globulin Ratio Triglycerides Urine Color Straw Urine Clarity Cloudy Urine pH 6.0 Ur Specific [place] 1.020 Urine Protein 500 H Urine Glucose (UA) 1000 H Urine Ketones Negative Urine Occult Blood 250 H Urine Nitrite Negative Urine Bilirubin Negative Urine Urobilinogen Normal Ur Leukocyte Esterase 100 H Urine RBC 50-100 SEEN Urine WBC 10-25 SEEN Ur Squamous Epith Cells 0-5 SEEN Amorphous Sediment 2+ Urine Bacteria 3+ Urine Mucus 0 SEEN MRSA (PCR) POC Glucose 05/27/18 05/27/18 05/27/18 00:00 02:25 04:25 WBC 19.2 H RBC 2.96 L Hgb 7.5 L Hct 24.4 L MCV 82.4 MCH 25.3 L MCHC 30.7 L RDW 14.0 RDW Differential 42.8 Plt Count 204 MPV 10.6 Immature Gran % (Auto) 0.200 Neut % (Auto) 89.7 H Lymph % (Auto) 5.2 L Patrick % (Auto) 4.7 Eos % (Auto) 0.1 Baso % (Auto) 0.1 Absolute Neuts (auto) 17.3 H Absolute Lymphs (auto) 1.00 Total Counted Pending PT INR APTT Specimen Type Sample Site pH Bicarbonate Actual POC Total CO2 Base Excess O2 Saturation O2 % ABG pCO2 ABG pO2 Raffy Test Respiration Rate O2 Delivery Device Minute Volume Vent Mode Tidal Volume POC PEEP Blood Gas Notified Whom Blood Gas Notified Time Sodium Potassium Chloride Carbon Dioxide Anion Gap BUN Creatinine Estim Creat Clear Calc Est GFR (MDRD) Af Amer Est GFR (MDRD) Non-Af BUN/Creatinine Ratio Glucose Lactic Acid Calcium Total Bilirubin AST ALT Alkaline Phosphatase Total Creatine Kinase Troponin I 0.258 H 0.250 H Total Protein Albumin Globulin Albumin/Globulin Ratio Triglycerides Urine Color Urine Clarity Urine pH Ur Specific [place] Urine Protein Urine Glucose (UA) Urine Ketones Urine Occult Blood Urine Nitrite Urine Bilirubin Urine Urobilinogen Ur Leukocyte Esterase Urine RBC Urine WBC Ur Squamous Epith Cells Amorphous Sediment Urine Bacteria Urine Mucus MRSA (PCR) POC Glucose 05/27/18 04:25 WBC RBC Hgb Hct MCV MCH MCHC RDW RDW Differential Plt Count MPV Immature Gran % (Auto) Neut % (Auto) Lymph % (Auto) Patrick % (Auto) Eos % (Auto) Baso % (Auto) Absolute Neuts (auto) Absolute Lymphs (auto) Total Counted PT INR APTT Specimen Type Sample Site pH Bicarbonate Actual POC Total CO2 Base Excess O2 Saturation O2 % ABG pCO2 ABG pO2 Raffy Test Respiration Rate O2 Delivery Device Minute Volume Vent Mode Tidal Volume POC PEEP Blood Gas Notified Whom Blood Gas Notified Time Sodium 131 L Potassium 5.9 H Chloride 94 L Carbon Dioxide 28.0 Anion Gap 9 BUN 43 H Creatinine 1.39 H Estim Creat Clear Calc 27.82 Est GFR (MDRD) Af Amer 48 L Est GFR (MDRD) Non-Af 40 L BUN/Creatinine Ratio 30.9 H Glucose 277 H Lactic Acid Calcium 8.0 L Total Bilirubin AST ALT Alkaline Phosphatase Total Creatine Kinase Troponin I Total Protein Albumin Globulin Albumin/Globulin Ratio Triglycerides Urine Color Urine Clarity Urine pH Ur Specific [place] Urine Protein Urine Glucose (UA) Urine Ketones Urine Occult Blood Urine Nitrite Urine Bilirubin Urine Urobilinogen Ur Leukocyte Esterase Urine RBC Urine WBC Ur Squamous Epith Cells Amorphous Sediment Urine Bacteria Urine Mucus MRSA (PCR) POC Glucose Microbiology 05/23/18 Unknown Fluid - Pleural (Lung) Gram Stain - Final 05/23/18 Unknown Fluid - Pleural (Lung) Body Fluid Culture - Final No growth aerobically. 05/23/18 Unknown Fluid - Pleural (Lung) Anaerobic Culture - Preliminary No anaerobic bacteria isolated. Clinical Impression(s) from Imaging Studies Chest X-Ray 05/23/18 10:27 IMPRESSION: Findings suggestive of a mild degree of CHF. Electronically Signed: Natan Gtz MD at 11:27 EDT Tel [phone], Service support , Chest CTA 05/23/18 11:40 IMPRESSION: CTA chest examination, without a demonstrated pulmonary embolism or arterial dissection. Improvement of previously noted filling defects and embolism. Bilateral infiltrates or edema. Right larger than left pleural effusions. Findings could represent congestive heart failure versus bilateral pneumonia. Right upper lung nodule. Electronically Signed: Bao Maher MD at 12:49 EDT , Service support , Thoracentesis Ultrasound 05/23/18 14:09 IMPRESSION: Ultrasound-guided right thoracentesis. Electronically Signed: Natan Gtz MD at 15:28 EDT Tel [phone], Service support , Chest X-Ray 05/23/18 14:49 IMPRESSION: Status post right thoracentesis. There is no evidence of pneumothorax. Electronically Signed: Natan Gtz MD at 15:15 EDT Tel [phone], Service support , Biopsy CT 05/26/18 08:19 IMPRESSION: 1. CT directed core needle biopsy of the liver, using CT image guidance with image documentation as described. 2. Conscious Sedation protocol utilized with independent monitoring. Electronically Signed: Natan Gtz MD at 12:17 EDT Tel [phone], Service support , Chest X-Ray 05/26/18 11:25 IMPRESSION: Elevation of the right hemidiaphragm. Increased interstitial markings in both lungs suggestive of mild vascular congestion and/or possible atelectasis. Follow-up is recommended. Electronically Signed: Natan Gtz MD at 12:40 EDT Tel [phone], Service support , Chest X-Ray 05/26/18 20:10 IMPRESSION: Appropriate ET tube and enteric tube. Worsening diffuse patchy airspace disease/CHF Electronically Signed: Gordo Boyer DO at 20:45 EDT Tel , Service support , Medical Necessity - Tobacco Use Smoking Status: Never smoker Tobacco Use: Non-smoker, Secondhand Assessment/Plan RECOMMENDATIONS: 1. Continue current supportive measures with mechanical ventilation. Okay from my perspective to start tube feeds. 2. Continue to hold all sedating medications. 3. Consider obtaining CT head, prior to restarting anticoagulation. 4. Start Pepcid and subcu heparin for prophylaxis 5. Await family arrival to discuss future goals of care/plan. IMPRESSIONS: 1. Acute on chronic hypoxemic respiratory failure The patient was recently discharged from the hospital on 2 L/min of supplemental oxygen in the setting of a newly diagnosed pulmonary embolism. Although the patient did have a right-sided pleural effusion noted on CTA chest obtained at presentation, a subsequent thoracentesis was completed without pleural fluid ever being sent for cytology. The patient does have evidence of stage I diastolic dysfunction noted on echocardiogram. On the evening of May 26 , the patient experienced acute cardiopulmonary arrest, for which she received ACLS and was subsequently intubated. She was then transferred to the medical intensive care unit for ongoing management. Plan to continue current supportive measures with mechanical ventilation. Wean FiO2 as tolerated. Continue to withhold all sedating medications. 2. Status post cardiac arrest Unclear precipitating event for the patient's cardiac arrest. The patient does have a known history of coronary artery disease for which she is status post angioplasty in 2016. Cardiology is following. 3. Encephalopathy Given the patient's myoclonic jerks and lack of response to verbal and tactile stimulation, concern for underlying anoxic injury. Before any additional aggressive measures are undertaken, will discuss the patient's current clinical state with medical POA to formulate a goal for future care. 4. Personal history of metastatic breast cancer with known liver lesions concerning for disease recurrence The patient has a history of metastatic left breast cancer, initially diagnosed in 2007. The patient has radiographic evidence of stable small pulmonary nodules, dating back to 2012. The patient was last evaluated by Dr. Ludwig of oncology at the end of April, during which time a CT abdomen/pelvis revealed new liver lesions concerning for metastatic/progressive disease. Therefore, on May 26, the patient underwent percutaneous CT-guided liver biopsy. 5. Personal history of venous thrombolic disease She was recently admitted to the hospital in mid-April for 3 days, during which time she was diagnosed with pulmonary emboli and started on Eliquis. Her anticoagulation will remain on hold for now. 6. Acute kidney injury/troponin elevation/obstructive sleep apnea/asthma/ pulmonary hypertension Complicates care, management, recovery and prognosis. Continue bronchodilators as ordered. Awaiting family discussion to discuss future goals of care/ treatment plan. UPDATE: Following a discussion with the patient's family, including the medical POA, the decision has been made to proceed with initiation of comfort care measures, along with palliative withdrawal of life support. CODE STATUS was updated to include DNR comfort care. The patient was premedicated prior to removal of the endotracheal tube. As needed orders for morphine and Ativan were placed. The patient passed peacefully with her family at the bedside at approximately 1356 hrs. TIME: 80 minutes of critical care time, independent of procedures, was spent addressing the patient's acute on chronic respiratory failure, recent cardiac arrest, encephalopathy, acute kidney injury, troponin elevation, goals of care discussions, review of all data and collaboration with the care team. ([id number] , [id number]) Code Visit Procedures: 37467 Critial Care Addl 30 Min 9xxxx: [id number] Critical care first hour
[2018-05-27 07:16] LABS: Anisocytosis RARE; Platelet Estimate ADEQUATE (ADEQ); Platelet Morphology LARGE
[2018-05-27 08:00] LABS: Bedside Glucose 280 mg/dL (70-110)
--- NOTE | 2018-05-27 08:25 | PN.CARD_ITS ---
Subjectve: Patient seen and events of last night noted. Patient currently in the intensive care unit. Objective: Vital Signs Temp Pulse Resp BP Pulse Ox 98.9 F 92 26 H 124/76 H 91 05/27/18 03:00 05/27/18 07:00 05/27/18 07:00 05/27/18 07:00 05/27/18 07:00 Oxygen Flow Rate (L/min) [5] 15 Oxygen Flow Rate (L/min) [4] 15 Oxygen Flow Rate (L/min) [3] 15 Oxygen Flow Rate (L/min) [2] 15 Oxygen Flow Rate (L/min) [1 ( 15 Initial Baseline)] Oxygen Flow Rate (L/min) 3 Oxygen Delivery Method [6] Non-Rebreather Oxygen Delivery Method [5] Non-Rebreather Oxygen Delivery Method [4] Non-Rebreather Oxygen Delivery Method [3] Non-Rebreather Oxygen Delivery Method [2] Non-Rebreather Oxygen Delivery Method [1 ( Non-Rebreather Initial Baseline)] Oxygen Delivery Method Mechanical Ventilator Weight: 261 lb 7.492 oz Body Mass Index (BMI) 47.9 Intake and Output for Last 24 Hours 05/25/18 05/26/18 05/27/18 23:59 23:59 23:59 Intake Total 2377 / 2377 340 / 340 493 / 493 Output Total 145 / 145 Balance 2377 / 2377 340 / 340 348 / 348 General: Ill Appearing, - - Intubated HEENT: PERRL, EOMI, Sclera Non Icteric Neck: Supple, Good ROM, No Lymph Node Enlargement Lungs: Diminished Domenico Bases Cardiovascular: Regular Rhythm, Normal S1, Normal S2, No Murmurs, No Rubs, No Gallops Vascular: No Carotid Bruits, Normal Femoral Pulses, Normal Radial Pulses, Normal Dorsalis Pedal Pulse, Normal Posterior Tibial Pulses Abdomen: Bowel Sounds Present, Soft, Non Tender, No HSM, No Organomegaly Extremities: No Cyanosis, No Clubbing, No edema Neurological: No Focal Motor or Sensory Deficit 05/26/18 20:03: pH 7.15 L*, Bicarbonate Actual 22.9, POC Total CO2 25, Base Excess -6 L, O2 Saturation 98, ABG pCO2 65.5 H, ABG pO2 148 H, Raffy Test POS 05/26/18 20:10: WBC 14.8 H, RBC 3.02 L, Hgb 7.8 L, Hct 25.3 L, MCV 83.8, MCH 25.8 L, MCHC 30.8 L, RDW 13.9, RDW Differential 42.4, Plt Count 220, MPV 10.0, Immature Gran % (Auto) 1.300 H, Neut % (Auto) 77.6 H, Lymph % (Auto) 10.2 L, [place] % (Auto) 10.1 H, Eos % (Auto) 0.5, Baso % (Auto) 0.3, Absolute Neuts (auto ) 11.5 H, Total Counted Not Reportable 05/26/18 20:10: PT 17.6 H, INR 1.4 05/26/18 20:10: Sodium 129 L, Potassium 5.5 H, Chloride 94 L, Carbon Dioxide 23.0, Anion Gap 12, BUN 41 H, Creatinine 1.42 H, Est GFR (MDRD) Af Amer 47 L, Est GFR (MDRD) Non-Af 39 L, BUN/Creatinine Ratio 28.9 H, Glucose 332 H, Calcium 7.8 L, Total Bilirubin 0.40 05/26/18 20:10: Lactic Acid Cancelled 05/26/18 20:10: Troponin I 0.123 H 05/26/18 20:10: Triglycerides 105 05/26/18 21:00: Urine Color Straw, Urine Clarity Cloudy, Urine pH 6.0, Ur Specific [place] 1.020, Urine Protein 500 H, Urine Glucose (UA) 1000 H, Urine Ketones Negative, Urine Occult Blood 250 H, Urine Nitrite Negative, Urine Bilirubin Negative, Urine Urobilinogen Normal, Ur Leukocyte Esterase 100 H, Urine RBC 50-100 SEEN, Urine WBC 10-25 SEEN 05/26/18 21:45: Lactic Acid 2.0 05/26/18 23:07: pH 7.37, Bicarbonate Actual 27.5 H, POC Total CO2 29, Base Excess 2, O2 Saturation 100 H, ABG pCO2 47.3 H, ABG pO2 175 H, Raffy Test POS 05/27/18 00:00: Troponin I 0.258 H 05/27/18 02:25: Troponin I 0.250 H 05/27/18 04:25: WBC 19.2 H, RBC 2.96 L, Hgb 7.5 L, Hct 24.4 L, MCV 82.4, MCH 25.3 L, MCHC 30.7 L, RDW 14.0, RDW Differential 42.8, Plt Count 204, MPV 10.6, Immature Gran % (Auto) 0.200, Neut % (Auto) 89.7 H, Lymph % (Auto) 5.2 L, [place] % (Auto) 4.7, Eos % (Auto) 0.1, Baso % (Auto) 0.1, Absolute Neuts (auto) 17.3 H , Total Counted Not Reportable 05/27/18 04:25: Sodium 131 L, Potassium 5.9 H, Chloride 94 L, Carbon Dioxide 28.0, Anion Gap 9, BUN 43 H, Creatinine 1.39 H, Est GFR (MDRD) Af Amer 48 L, Est GFR (MDRD) Non-Af 40 L, BUN/Creatinine Ratio 30.9 H, Glucose 277 H, Calcium 8.0 L Rhythm: EKG: Sinus tachycardia. Medical Necessity - Tobacco Use Smoking Status: Never smoker Tobacco Use: Non-smoker, Secondhand Assessment/Plan 1. Abnormal cardiac enzymes. Patient has a history of known coronary artery disease and a recent pulmonary embolus. The etiology of the abnormal cardiac enzymes can be multifactorial related to the above named conditions. In addition demand ischemia could also be a component. With her concomitant problems of likely metastatic carcinoma at this time and her preserved ejection fraction by recommendation will be for us to manage her expectantly and see how she does with respect to her treatment of her malignancy. She did undergo a liver biopsy. Depending on the results of that test further recommendations will be made. At this time I will suggest holding off on anticoagulation or aspirin. 2. Coronary artery disease. She does have a history of known coronary artery disease status post angioplasty in 2016. She did have a stress test in 2017 which did not demonstrate any evidence of ischemia. At this time it is not clear whether the current abnormal enzymes are secondary to a primary cardiac problem. We will continue to observe her to see how she does clinically before making any changes or recommendations. 3. Hypertension. Her blood pressure appears to be under good control on the current medical therapy. 4. Pulmonary embolism. She does have a history of recent pulmonary embolism predisposed likely secondary to her underlying malignancy. * Her echocardiogram did not demonstrate any significant tricuspid regurgitation to allow us to estimate her pulmonary pressures. She is currently intubated and the etiology of her cardiac arrest of asystole is not entirely clear whether it was hypoxic induced asystolic arrest. She will be followed up in the intensive care unit. Thank you for allowing me to participate in the care of your patient. Please don't hesitate to call if any issues arise
--- NOTE | 2018-05-27 09:24 | CASEMGMT ---
Interdisciplinary rounds: Pt remains on vent. Physician spoke with family re: plans for CT today and discussion regarding pt's overall prognosis. CM available for support. Mayda BLAKELYN RN ACM
--- NOTE | 2018-05-27 09:38 | CASEMGMT ---
SW participated in interdisciplinary rounds. Physician told patient's daughter that patient's prognosis does not look good right now. He ordered a CT of patient's brain so more may be known then. After staff left the room SW stayed behind and spoke with patient's daughter. SW provided emotional support. She asked if SW could find out the home in [place] that has their own crematorium. SW told her SW will try and find out and then let her know. Ro BARRIOS WELDING MACHINE OPERATOR THERMIT
[2018-05-27] MEDS: Chlorhexidine 15 ML PO (10:13)
[2018-05-27] MEDS: Famotidine 20 MG Tablet GT (10:19)
[2018-05-27 10:25] LABS: pH, Body Fluid 11254 7.5 (Not Estab.)
[2018-05-27] MEDS: LORazepam 2 MG/ML Syringe IV (13:21)
[2018-05-27] MEDS: Morphine 2 MG/ML Syringe IV (13:22)
[2018-05-27] MEDS: 0.9% NaCl Peripheral Flush Adult/Peds IV ×3 (13:23→13:37)
[2018-05-27] MEDS: LORazepam 2 MG/ML Syringe 4 MG IV (13:33)
[2018-05-27] MEDS: Morphine 4 MG/ML Syringe IV ×2 (13:35→13:41)
--- NOTE | 2018-05-27 13:47 | NURSING ---
1320 Dr. Stevenson at bedside, family requesting terminal extubation. Medicated per Dr. Stevenson's orders, Extubation at 1423. Family at bedside. Patient being medicated as appropriate.
[2018-05-27 14:08] LABS: Pathologist Comment/Body Fluid Reviewed
--- NOTE | 2018-05-27 14:25 | PCM.PN.HOSP ---
Subjective: Patient was seen and examined. Objective: Physical exam: General: Intubated, on mechanical ventilation, Cooperative, not pale, not jaundiced HEENT: Atraumatic, PERRLA, EOMI, Normocephalic Oral: Moist Mucosa Neck: Supple Lungs: Diminished, Rhonchi Cardiovascular: Regular rate, Regular Rhythm, Normal S1, Normal S2, No murmurs Abdomen: Bowel Sounds Present, Soft, Non-Distended, Tender - Right upper quadrant tenderness Extremities: No edema Skin: No rashes, No breakdown Musculoskeletal: No Tenderness to Palpation of Joints or Extremities Lymphatic: No Cervical, Supraclavicular, or Inguinal Adenopathy Neurological: Intubated, having myoclonic jerks Psych/Mental Status: Intubated Vitals/I&O's: Vital Signs Temp Pulse Resp BP Pulse Ox 100.5 F H 94 26 H 144/53 H 60 05/27/18 12:00 05/27/18 13:23 05/27/18 13:23 05/27/18 12:00 05/27/18 13:23 Oxygen Flow Rate (L/min) [5] 15 Oxygen Flow Rate (L/min) [4] 15 Oxygen Flow Rate (L/min) [3] 15 Oxygen Flow Rate (L/min) [2] 15 Oxygen Flow Rate (L/min) [1 ( 15 Initial Baseline)] Oxygen Flow Rate (L/min) 3 Oxygen Delivery Method [6] Non-Rebreather Oxygen Delivery Method [5] Non-Rebreather Oxygen Delivery Method [4] Non-Rebreather Oxygen Delivery Method [3] Non-Rebreather Oxygen Delivery Method [2] Non-Rebreather Oxygen Delivery Method [1 ( Non-Rebreather Initial Baseline)] Oxygen Delivery Method Room Air Weight: 118.6 kg Body Mass Index (BMI) 47.9 Intake and Output for Last 24 Hours 05/25/18 05/26/18 05/27/18 23:59 23:59 23:59 Intake Total 2377 / 2377 340 / 340 533 / 533 Output Total 320 / 320 Balance 2377 / 2377 340 / 340 213 / 213 Microbiology Past 72 Hours 05/26/18 21:00 Urine Catheter - Catheter Urine Culture - Preliminary Gram negative rodney 05/23/18 Unknown Fluid - Pleural (Lung) Gram Stain - Final 05/23/18 Unknown Fluid - Pleural (Lung) Body Fluid Culture - Final No growth aerobically. 05/23/18 Unknown Fluid - Pleural (Lung) Anaerobic Culture - Preliminary No anaerobic bacteria isolated. Laboratory Results 05/23/18 : Fluid pH 7.5 05/23/18 : Fl Pathologist Comment Reviewed 05/26/18 16:54: POC Glucose 262 H 05/26/18 19:29: POC Glucose 290 H 05/26/18 20:03: Specimen Type ART, Sample Site R Radial, pH 7.15 L*, Bicarbonate Actual 22.9, POC Total CO2 25, Base Excess -6 L, O2 Saturation 98, O2 % 100, ABG pCO2 65.5 H, ABG pO2 148 H, Raffy Test POS, Respiration Rate 14, O2 Delivery Device Vent, Vent Mode A-C, Tidal Volume 450, POC PEEP 5, Blood Gas Notified Whom [facility] , Blood Gas Notified Time 199905/26/18 20:10: WBC 14.8 H, RBC 3.02 L, Hgb 7.8 L, Hct 25.3 L, MCV 83.8, MCH 25.8 L, MCHC 30.8 L, RDW 13.9, RDW Differential 42.4, Plt Count 220, MPV 10.0, Immature Gran % (Auto) 1.300 H, Neut % (Auto) 77.6 H, Lymph % (Auto) 10.2 L, Brown % (Auto) 10.1 H, Eos % (Auto) 0.5, Baso % (Auto) 0.3, Absolute Neuts (auto) 11.5 H, Absolute Lymphs (auto) 1.51, Total Counted Not Reportable 05/26/18 20:10: PT 17.6 H, INR 1.4 05/26/18 20:10: Sodium 129 L, Potassium 5.5 H, Chloride 94 L, Carbon Dioxide 23.0, Anion Gap 12, BUN 41 H, Creatinine 1.42 H, Estim Creat Clear Calc 27.24, Est GFR (MDRD) Af Amer 47 L, Est GFR (MDRD) Non-Af 39 L, BUN/Creatinine Ratio 28.9 H, Glucose 332 H, Calcium 7.8 L, Total Bilirubin 0.40, AST 41 H, ALT 38, Alkaline Phosphatase 213 H, Total Protein 6.5, Albumin 2.7 L, Globulin 3.8, Albumin/Globulin Ratio 0.7 L 05/26/18 20:10: Lactic Acid Cancelled 05/26/18 20:10: Troponin I 0.123 H 05/26/18 20:10: Total Creatine Kinase 195 H, Triglycerides 105 05/26/18 21:00: MRSA (PCR) Negative 05/26/18 21:00: Urine Color Straw, Urine Clarity Cloudy, Urine pH 6.0, Ur Specific [place] 1.020, Urine Protein 500 H, Urine Glucose (UA) 1000 H, Urine Ketones Negative, Urine Occult Blood 250 H, Urine Nitrite Negative, Urine Bilirubin Negative, Urine Urobilinogen Normal, Ur Leukocyte Esterase 100 H, Urine RBC 50-100 SEEN, Urine WBC 10-25 SEEN, Ur Squamous Epith Cells 0-5 SEEN, Amorphous Sediment 2+, Urine Bacteria 3+, Urine Mucus 0 SEEN 05/26/18 21:45: Lactic Acid 2.0 05/26/18 23:07: Specimen Type ART, Sample Site L Radial, pH 7.37, Bicarbonate Actual 27.5 H, POC Total CO2 29, Base Excess 2, O2 Saturation 100 H, O2 % 70, ABG pCO2 47.3 H, ABG pO2 175 H, Raffy Test POS, Respiration Rate 14, O2 Delivery Device Vent, Minute Volume 8.00, Vent Mode A-C, Tidal Volume 450, POC PEEP 3, Blood Gas Notified Whom [facility] , Blood Gas Notified Time 2250 05/27/18 00:00: Troponin I 0.258 H 05/27/18 02:25: Troponin I 0.250 H 05/27/18 04:25: WBC 19.2 H, RBC 2.96 L, Hgb 7.5 L, Hct 24.4 L, MCV 82.4, MCH 25.3 L, MCHC 30.7 L, RDW 14.0, RDW Differential 42.8, Plt Count 204, MPV 10.6, Immature Gran % (Auto) 0.200, Neut % (Auto) 89.7 H, Lymph % (Auto) 5.2 L, Brown % (Auto) 4.7, Eos % (Auto) 0.1, Baso % (Auto) 0.1, Absolute Neuts (auto) 17.3 H, Absolute Lymphs (auto) 1.00, Total Counted Not Reportable, Platelet Estimate ADEQUATE, Plt Morphology Comment LARGE, Anisocytosis RARE 05/27/18 04:25: Sodium 131 L, Potassium 5.9 H, Chloride 94 L, Carbon Dioxide 28.0, Anion Gap 9, BUN 43 H, Creatinine 1.39 H, Estim Creat Clear Calc 27.82, Est GFR (MDRD) Af Amer 48 L, Est GFR (MDRD) Non-Af 40 L, BUN/Creatinine Ratio 30.9 H, Glucose 277 H, Calcium 8.0 L 05/27/18 04:25: Magnesium 3.0 H 05/27/18 07:48: POC Glucose 280 H Current Medications Albuterol Sulfate (Ventolin Aerosols) 2.5 mg INHALATION Q4H PRN PRN Reason: ASTHMA Last Admin: 05/25/18 15:49 Dose: 2.5 mg Albuterol/Ipratropium (Duoneb) 3 ml INHALATION Q6HWA.RT DAX Last Admin: 05/27/18 13:15 Dose: Not Given Chlorhexidine Gluconate () 1 each TOPICAL DAILY DAX Last Admin: 05/27/18 10:15 Dose: Not Given Chlorhexidine Gluconate () 15 ml PO BID DAX Last Admin: 05/27/18 10:13 Dose: 15 ml Famotidine (Pepcid) 20 mg GT DAILY DAX Last Admin: 05/27/18 10:19 Dose: 20 mg Heparin Sodium (Porcine) (Heparin Na) 5,000 unit SC Q8 DAX Propofol (Diprivan) 1,000 mg in 100 mls @ 3.339 mls/hr CONT INF .Q12H DAX; 5 MCG/KG/MIN PRN Reason: Protocol Last Admin: 05/27/18 10:13 Dose: Not Given Sodium Chloride () 250 mls @ 15 mls/hr IV .[id number] PRN PRN Reason: SALINE FLUSH Morphine Sulfate () 4 mg IV Q10M PRN PRN Reason: SEVERE PAIN (6-10/10) Sodium Chloride () 5 - 30 ml IV UD PRN PRN Reason: SALINE FLUSH Last Admin: 05/27/18 13:37 Dose: 10 ml Medical Necessity - Tobacco Use Smoking Status: Never smoker Tobacco Use: Non-smoker, Secondhand Assessment/Plan 67 year old F with past medical history of metastatic breast cancer, recently diagnosed with bilateral pulmonary emboli, was on Eliquis comes in with worsening SOB. 1. 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 2. Acute respiratory failure superimposed on chronic respiratory failure with hypoxia due to bilateral pleural effusions, s/p thoracocentesis 2. Bilateral pleural effusions, s/p right thoracocentesis, likely malignant, fluid analysis show fluid LDH/serum LDH ratio of 1, fluid ptn/serum ptn ratio>1, pulmonology consulted and following, 3. Recently diagnosed pulmonary emboli/bilateral lower extremity DVT, on eliquis, was taken off for liver biopsy 4. Metastatic breast cancer, status post lumpectomy, on Faslodex injections monthly. 5. Pulmonary hypertension, on Tadalafil. 6. NSTEMI, likely secondary to demand ischemia, in patient with CAD status post stents, no active intervention planned, 2d-echo shows normal EF. 7. Hypertension, controlled, on Losartan and Metoprolol. 8.Type 2 diabetes mellitus, being managed on insulin 9. COPD without exacerbation, stable 10. Acute on chronic Anemia of chronic disease, HB is 7.8, likely also secondary to hemodilution 11. DVT PPx - off heparin for now. Code Visit Inpatient E&M: 93272 Subs Hosp L3
--- NOTE | 2018-05-27 14:35 | PN_ITS ---
Subjective: Patient was seen and examined. Objective: Physical exam: General: Intubated, on mechanical ventilation, Cooperative, not pale, not jaundiced HEENT: Atraumatic, PERRLA, EOMI, Normocephalic Oral: Moist Mucosa Neck: Supple Lungs: Diminished, Rhonchi Cardiovascular: Regular rate, Regular Rhythm, Normal S1, Normal S2, No murmurs Abdomen: Bowel Sounds Present, Soft, Non-Distended, Tender - Right upper quadrant tenderness Extremities: No edema Skin: No rashes, No breakdown Musculoskeletal: No Tenderness to Palpation of Joints or Extremities Lymphatic: No Cervical, Supraclavicular, or Inguinal Adenopathy Neurological: Intubated, having myoclonic jerks Psych/Mental Status: Intubated Vitals/I&O's: Vital Signs Temp Pulse Resp BP Pulse Ox 100.5 F H 94 26 H 144/53 H 60 05/27/18 12:00 05/27/18 13:23 05/27/18 13:23 05/27/18 12:00 05/27/18 13:23 Oxygen Flow Rate (L/min) [5] 15 Oxygen Flow Rate (L/min) [4] 15 Oxygen Flow Rate (L/min) [3] 15 Oxygen Flow Rate (L/min) [2] 15 Oxygen Flow Rate (L/min) [1 ( 15 Initial Baseline)] Oxygen Flow Rate (L/min) 3 Oxygen Delivery Method [6] Non-Rebreather Oxygen Delivery Method [5] Non-Rebreather Oxygen Delivery Method [4] Non-Rebreather Oxygen Delivery Method [3] Non-Rebreather Oxygen Delivery Method [2] Non-Rebreather Oxygen Delivery Method [1 ( Non-Rebreather Initial Baseline)] Oxygen Delivery Method Room Air Weight: 118.6 kg Body Mass Index (BMI) 47.9 Intake and Output for Last 24 Hours 05/25/18 05/26/18 05/27/18 23:59 23:59 23:59 Intake Total 2377 / 2377 340 / 340 533 / 533 Output Total 320 / 320 Balance 2377 / 2377 340 / 340 213 / 213 Microbiology Past 72 Hours 05/26/18 21:00 Urine Catheter - Catheter Urine Culture - Preliminary Gram negative rodney 05/23/18 Unknown Fluid - Pleural (Lung) Gram Stain - Final 05/23/18 Unknown Fluid - Pleural (Lung) Body Fluid Culture - Final No growth aerobically. 05/23/18 Unknown Fluid - Pleural (Lung) Anaerobic Culture - Preliminary No anaerobic bacteria isolated. Laboratory Results 05/23/18 : Fluid pH 7.5 05/23/18 : Fl Pathologist Comment Reviewed 05/26/18 16:54: POC Glucose 262 H 05/26/18 19:29: POC Glucose 290 H 05/26/18 20:03: Specimen Type ART, Sample Site R Radial, pH 7.15 L*, Bicarbonate Actual 22.9, POC Total CO2 25, Base Excess -6 L, O2 Saturation 98, O2 % 100, ABG pCO2 65.5 H, ABG pO2 148 H, Raffy Test POS, Respiration Rate 14, O2 Delivery Device Vent, Vent Mode A-C, Tidal Volume 450, POC PEEP 5, Blood Gas Notified Whom [facility] , Blood Gas Notified Time 199905/26/18 20:10: WBC 14.8 H, RBC 3.02 L, Hgb 7.8 L, Hct 25.3 L, MCV 83.8, MCH 25.8 L, MCHC 30.8 L, RDW 13.9, RDW Differential 42.4, Plt Count 220, MPV 10.0, Immature Gran % (Auto) 1.300 H, Neut % (Auto) 77.6 H, Lymph % (Auto) 10.2 L, [place] % (Auto) 10.1 H, Eos % (Auto) 0.5, Baso % (Auto) 0.3, Absolute Neuts (auto ) 11.5 H, Absolute Lymphs (auto) 1.51, Total Counted Not Reportable 05/26/18 20:10: PT 17.6 H, INR 1.4 05/26/18 20:10: Sodium 129 L, Potassium 5.5 H, Chloride 94 L, Carbon Dioxide 23.0, Anion Gap 12, BUN 41 H, Creatinine 1.42 H, Estim Creat Clear Calc 27.24, Est GFR (MDRD) Af Amer 47 L, Est GFR (MDRD) Non-Af 39 L, BUN/Creatinine Ratio 28.9 H, Glucose 332 H, Calcium 7.8 L, Total Bilirubin 0.40, AST 41 H, ALT 38, Alkaline Phosphatase 213 H, Total Protein 6.5, Albumin 2.7 L, Globulin 3.8, Albumin/Globulin Ratio 0.7 L 05/26/18 20:10: Lactic Acid Cancelled 05/26/18 20:10: Troponin I 0.123 H 05/26/18 20:10: Total Creatine Kinase 195 H, Triglycerides 105 05/26/18 21:00: MRSA (PCR) Negative 05/26/18 21:00: Urine Color Straw, Urine Clarity Cloudy, Urine pH 6.0, Ur Specific [place] 1.020, Urine Protein 500 H, Urine Glucose (UA) 1000 H, Urine Ketones Negative, Urine Occult Blood 250 H, Urine Nitrite Negative, Urine Bilirubin Negative, Urine Urobilinogen Normal, Ur Leukocyte Esterase 100 H, Urine RBC 50-100 SEEN, Urine WBC 10-25 SEEN, Ur Squamous Epith Cells 0-5 SEEN, Amorphous Sediment 2+, Urine Bacteria 3+, Urine Mucus 0 SEEN 05/26/18 21:45: Lactic Acid 2.0 05/26/18 23:07: Specimen Type ART, Sample Site L Radial, pH 7.37, Bicarbonate Actual 27.5 H, POC Total CO2 29, Base Excess 2, O2 Saturation 100 H, O2 % 70, ABG pCO2 47.3 H, ABG pO2 175 H, Raffy Test POS, Respiration Rate 14, O2 Delivery Device Vent, Minute Volume 8.00, Vent Mode A-C, Tidal Volume 450, POC PEEP 3, Blood Gas Notified Whom [facility] , Blood Gas Notified Time 2250 05/27/18 00:00: Troponin I 0.258 H 05/27/18 02:25: Troponin I 0.250 H 05/27/18 04:25: WBC 19.2 H, RBC 2.96 L, Hgb 7.5 L, Hct 24.4 L, MCV 82.4, MCH 25.3 L, MCHC 30.7 L, RDW 14.0, RDW Differential 42.8, Plt Count 204, MPV 10.6, Immature Gran % (Auto) 0.200, Neut % (Auto) 89.7 H, Lymph % (Auto) 5.2 L, [place] % (Auto) 4.7, Eos % (Auto) 0.1, Baso % (Auto) 0.1, Absolute Neuts (auto) 17.3 H , Absolute Lymphs (auto) 1.00, Total Counted Not Reportable, Platelet Estimate ADEQUATE, Plt Morphology Comment LARGE, Anisocytosis RARE 05/27/18 04:25: Sodium 131 L, Potassium 5.9 H, Chloride 94 L, Carbon Dioxide 28.0, Anion Gap 9, BUN 43 H, Creatinine 1.39 H, Estim Creat Clear Calc 27.82, Est GFR (MDRD) Af Amer 48 L, Est GFR (MDRD) Non-Af 40 L, BUN/Creatinine Ratio 30.9 H, Glucose 277 H, Calcium 8.0 L 05/27/18 04:25: Magnesium 3.0 H 05/27/18 07:48: POC Glucose 280 H Current Medications Albuterol Sulfate (Ventolin Aerosols) 2.5 mg INHALATION Q4H PRN PRN Reason: ASTHMA Last Admin: 05/25/18 15:49 Dose: 2.5 mg Albuterol/Ipratropium (Duoneb) 3 ml INHALATION Q6HWA.RT DAX Last Admin: 05/27/18 13:15 Dose: Not Given Chlorhexidine Gluconate () 1 each TOPICAL DAILY DAX Last Admin: 05/27/18 10:15 Dose: Not Given Chlorhexidine Gluconate () 15 ml PO BID DAX Last Admin: 05/27/18 10:13 Dose: 15 ml Famotidine (Pepcid) 20 mg GT DAILY DAX Last Admin: 05/27/18 10:19 Dose: 20 mg Heparin Sodium (Porcine) (Heparin Na) 5,000 unit SC Q8 DAX Propofol (Diprivan) 1,000 mg in 100 mls @ 3.339 mls/hr CONT INF .Q12H DAX; 5 MCG/KG/MIN PRN Reason: Protocol Last Admin: 05/27/18 10:13 Dose: Not Given Sodium Chloride () 250 mls @ 15 mls/hr IV .[id number] PRN PRN Reason: SALINE FLUSH Morphine Sulfate () 4 mg IV Q10M PRN PRN Reason: SEVERE PAIN (6-10/10) Sodium Chloride () 5 - 30 ml IV UD PRN PRN Reason: SALINE FLUSH Last Admin: 05/27/18 13:37 Dose: 10 ml Medical Necessity - Tobacco Use Smoking Status: Never smoker Tobacco Use: Non-smoker, Secondhand Assessment/Plan 67 year old F with past medical history of metastatic breast cancer, recently diagnosed with bilateral pulmonary emboli, was on Eliquis comes in with worsening SOB. 1. 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 2. Acute respiratory failure superimposed on chronic respiratory failure with hypoxia due to bilateral pleural effusions, s/p thoracocentesis 2. Bilateral pleural effusions, s/p right thoracocentesis, likely malignant, fluid analysis show fluid LDH/serum LDH ratio of 1, fluid ptn/serum ptn ratio>1 , pulmonology consulted and following, 3. Recently diagnosed pulmonary emboli/bilateral lower extremity DVT, on eliquis, was taken off for liver biopsy 4. Metastatic breast cancer, status post lumpectomy, on Faslodex injections monthly. 5. Pulmonary hypertension, on Tadalafil. 6. NSTEMI, likely secondary to demand ischemia, in patient with CAD status post stents, no active intervention planned, 2d-echo shows normal EF. 7. Hypertension, controlled, on Losartan and Metoprolol. 8.Type 2 diabetes mellitus, being managed on insulin 9. COPD without exacerbation, stable 10. Acute on chronic Anemia of chronic disease, HB is 7.8, likely also secondary to hemodilution 11. DVT PPx - off heparin for now. Code Visit Inpatient E&M: 55605 Subs Hosp L3
--- NOTE | 2018-05-27 14:36 | EXP.PCM_ITS ---
Preliminary Cause of Asystole arrest, likely hypoxic induced Date of Admission: 05/23/18 Date of : 05/27/18 - Principle Diagnosis Acute hypoxic/hypercapneic respiratory failure Cardiopulmonary arrest Bilateral pleural effusions Recent PE Acute NSTEMI Hospital Course 67 year old F with past medical history of metastatic breast cancer, recently diagnosed with bilateral pulmonary emboli, was on Eliquis comes in with worsening SOB. Patient was seen in the ED and found to have bilateral pleural effusion and underwent right thoracocentesis and fluid analysis was suggestive of malignancy. Patient was managed on her home oxygen as well as CPAP at night. He was kept on IV heparin and later switched to Lovenox. Her admitting blood work was suggestive of acute NSTEMI. She was seen by cardiology, elevated troponins believed to be due to demand ischemia. She was managed expectantly. She denied any symptoms throughout the hospital stay. Her Lovenox was held, she underwent CT guided biopsy of liver mass 05/26/18. She was found to be in respiratory distress in the morning of the procedure, received breathing treatments, appeared comfortable on her CPAP. On follow-up, she appeared comfortable, was also seen by pulmonology team. Patient was later on in the evening found to be in asystole, has several doses of epinephrine given by ET tube as she had lost IV access. She got IV access before the third epinephrine was given. CPR was continued a whole time. An amp of sodium bicarbonate was given and 1 minute later spontaneous rhythm and pulse was resumed. EKG revealed underlying A. fib with ST segment depression in V4, V5. She was subsequently transferred to ICU. CODE STATUS was made DNR CCA. In the ICU, intubated, managed on mechanical ventilation, vitals appeared stable, patient was noted to have generalized twitches that started in the morning. Sanitary Landfill Supervisor had a family meeting with the family. They elected for a terminal wean. Patient was terminally weaned. Time of : 1356 Code Visit Inpatient E&M: 17726 Disch Hosp
--- NOTE | 2018-05-27 15:04 | NURSING ---
Pt at 13:56. All notifications have been made to [facility], bible worker, chimney construction supervisor, physician, home, and family was at bedside.
--- NOTE | 2018-05-27 15:11 | NURSING ---
reviewed Felix Kwon RN charting and agree with assessment findings
--- NOTE | 2018-05-27 15:47 | CHAPLAIN ---
Type of Pastoral Visit ___ Initial Visit ___ Follow-up Visit ___ On-call Visit ___ General Patient Visit ___ Spiritual Assessment ___ Family Conference _x__ Bereavement ___ Rapid Response ___ Code Blue _x__ Other (describe below) Pastoral Care Referral From ___ Patient _x__ Family _x__ Nurse ___ Physician ___ Deburr Technician ___ Soda Drier Feeder ___ Other (describe below) Sacrament/Intervention ___ Active listening ___ Anointing ___ Zoroastrian _x__ Bereavement ___ Communion ___ Michela exploration ___ ___ Life review _x__ Prayer ___ Reconciliation ___ Sacrament of Sick _x__ Supportive presence ___ Wedding _x__ Other (describe below) Pastoral Comments patient was seen yesterday and today; pt was to be extubated; met with family members who requested prayer and presence; met extended family later in waiting room and gave presence; was available at time of extubation and for family; assisted in giving support and available to staff as well
== END 2018-05-27 15:03 | DRG 208 ==
LOC: ED 11:23 → PCU 15:09 → ICU 05-26 19:50
PROVIDERS: Family Medicine; Admitting Provider Internal Medicine; Emergency Provider Emergency Medicine; Family Provider Internal Medicine; PCP Internal Medicine; Visit Provider Internal Medicine
DX: J96.21 Acute and chronic respiratory failure with hypoxia (principal); I21.4 Non-ST elevation (NSTEMI) myocardial infarction; I26.99 Other pulmonary embolism without acute cor pulmonale; Z68.43 Body mass index [BMI] 50.0-59.9, adult; C78.00 Secondary malignant neoplasm of unspecified lung; J91.0 Malignant pleural effusion; I50.32 Chronic diastolic (congestive) heart failure; J44.9 Chronic obstructive pulmonary disease, unspecified; I27.20 Pulmonary hypertension, unspecified; D63.8 Anemia in other chronic diseases classified elsewhere; E11.9 Type 2 diabetes mellitus without complications; I25.10 Atherosclerotic heart disease of native coronary artery without angina pectoris; Z77.22 Contact with and (suspected) exposure to environmental tobacco smoke (acute) (chronic); I46.9 Cardiac arrest, cause unspecified; Z79.01 Long term (current) use of anticoagulants; E66.01 Morbid (severe) obesity due to excess calories; Z79.818 Long term (current) use of other agents affecting estrogen receptors and estrogen levels; Z95.5 Presence of coronary angioplasty implant and graft; Z66 Do not resuscitate; C50.919 Malignant neoplasm of unspecified site of unspecified female breast; Z99.81 Dependence on supplemental oxygen; E78.5 Hyperlipidemia, unspecified; G47.33 Obstructive sleep apnea (adult) (pediatric); Z79.4 Long term (current) use of insulin; I11.0 Hypertensive heart disease with heart failure; R10.9 Unspecified abdominal pain
CPT/HCPCS: 31500; 31720; 32555; 36415; 36600; 71045; 71046; 71275; 74177; 77012; 80048; 80053; 81001; 82550; 82803; 82945; 82962; 83605; 83615; 83690; 83735; 83880; 83986; 84156; 84157; 84478; 84484; 85025; 85610; 85730; 87070; 87075; 87077; 87086; 87088; 87186; 87205; 87641; 88108; 88172; 88305; 88307; 88313; 88341; 88342; 89050; 92950; 93005; 93306; 94002; 94003; 94640; 94667; 94799; 97802; 99156; 99285; J7030; J7040; Q9957; Q9967; A4216; C8929; J1940; J2405; J9395